=== PATIENT | male | born 1955 | race Caucasian/White ===

== ENCOUNTER → 2018-08-20 08:08 | Outpatient (CLI) | payer OTHER, SELFPAY ==
[2018-08-12 10:31] VITALS: BMI 30.7
[2018-08-20 09:22] LABS: AST(SGOT) 21 U/L (15-37); Alanine Aminotransfer ALT/SGPT 32 U/L (16-61); Albumin, Serum 3.7 g/dL (3.2-5.0); Alkaline Phosphatase 58 U/L (45-117); Bilirubin, Direct 0.24 mg/dL (0.00-0.30); Cholesterol 176 mg/dL (200); Globulin 3.3 g/dL (2.2-4.2); High Density Lipoprotein 57 mg/dL; Triglycerides 113 mg/dL; Very Low Density Lipoprotein 23 mg/dL (5-40)
== END ==
PROVIDERS: Family Provider Family Medicine; PCP Family Medicine; Referring Provider Internal Medicine Cardiovascular Disease; Visit Provider Internal Medicine Cardiovascular Disease
DX: I45.2 Bifascicular block (principal); E78.2 Mixed hyperlipidemia; E78.00 Pure hypercholesterolemia, unspecified
CPT/HCPCS: 36415; 80061; 80076

== ENCOUNTER → 2020-03-03 07:31 | Outpatient (CLI) | payer OTHER, SELFPAY ==
[2020-02-11 09:14] VITALS: BMI 30.2
[2020-03-03 08:18] LABS: AST(SGOT) 22 U/L (15-37); Alanine Aminotransfer ALT/SGPT 42 U/L (16-61); Alkaline Phosphatase 63 U/L (45-117); Bilirubin, Direct 0.29 mg/dL (0.00-0.30); Cholesterol 214 mg/dL (200); Globulin 3.5 g/dL (2.2-4.2); High Density Lipoprotein 68 mg/dL; Protein, Total 7.5 g/dL (6.4-8.2); Triglycerides 77 mg/dL; Very Low Density Lipoprotein 15 mg/dL (5-40)
== END ==
PROVIDERS: PCP Family Medicine; Referring Provider Internal Medicine Cardiovascular Disease; Visit Provider Internal Medicine Cardiovascular Disease
DX: E78.5 Hyperlipidemia, unspecified (principal)
CPT/HCPCS: 36415; 80061; 80076

== ENCOUNTER → 2020-09-22 | Outpatient (CLI) | payer OTHER, SELFPAY ==
[2020-02-11 09:14] VITALS: BMI 30.2
[2020-09-23 10:06] LABS: Probe Check PASS; Specimen Processing Control PASS
== END | disposition home or self-care (01) ==
LOC: LABSPEC 15:22
PROVIDERS: PCP Family Medicine; Referring Provider Family Medicine; Visit Provider Nurse Practitioner Family
DX: Z20.822 Contact with and (suspected) exposure to COVID-19 (principal)
CPT/HCPCS: 87635; U0002; U0003

== ENCOUNTER → 2021-04-28 07:41 | Outpatient (CLI) | payer OTHER, SELFPAY ==
[2021-04-28 09:52] LABS: AST(SGOT) 28 U/L (15-37); Alanine Aminotransfer ALT/SGPT 46 U/L (16-61); Albumin, Serum 3.5 g/dL (3.2-5.0); Alkaline Phosphatase 66 U/L (45-117); Cholesterol 186 mg/dL (200); Globulin 3.9 g/dL (2.2-4.2); High Density Lipoprotein 58 mg/dL; Protein, Total 7.4 g/dL (6.4-8.2); Triglycerides 78 mg/dL; Very Low Density Lipoprotein 16 mg/dL (5-40)
== END ==
PROVIDERS: PCP Family Medicine; Referring Provider Internal Medicine Cardiovascular Disease; Visit Provider Internal Medicine Cardiovascular Disease
DX: E78.00 Pure hypercholesterolemia, unspecified (principal)
CPT/HCPCS: 36415; 80061; 80076

== ENCOUNTER 2021-08-02 10:19 | Outpatient (CLI) | payer BC, SELFPAY ==
--- NOTE | 2021-08-02 10:52 | CT_ITS ---
STUDY: CT ABDOMEN AND PELVIS WITH CONTRAST REASON FOR EXAM: Male, 65 years old. LLQ PAIN. History of prior diverticulitis. RADIATION DOSAGE (If Supplied By Facility): CTDIvol = ( 13.44 ) mGy, DLP = ( 717.81 ) mGycm TECHNIQUE: Transaxial images were obtained from the dome of the diaphragm to the symphysis pubis with oral contrast. Oral and amp;amp; IV GASTROGRAFIN and amp;amp; 100mL Isovue-300 was administered. Sagittal and coronal images were reconstructed. Individualized dose optimization techniques were used for this CT. COMPARISON: Comparison is made with prior study dated 09/06/2014. FINDINGS: The visualized lung bases are unremarkable. A dual-chamber pacemaker is seen. There is decreased attenuation of the liver consistent with steatosis. Normal gallbladder and extrahepatic biliary system. There are multiple benign calcified granulomata of the spleen. Normal pancreas. Normal bilateral adrenal glands. Stable 1.2 cm cyst in the upper pole of the right kidney. Normal left kidney. Normal visualized stomach. Normal small intestine. There is diverticulosis, with thickening of the colon wall, and pericolonic inflammation changes consistent with acute diverticulitis. The appendix is visualized and appears normal. There is scattered atherosclerotic calcification of the abdominal aorta, without a demonstrated aneurysm. Normal inferior vena cava. Normal retroperitoneum. Normal urinary bladder. There is enlargement of the prostate gland. The prostate measures 3.9 cm x 5.1 cm. There is a small umbilical hernia containing fat. There are degenerative changes of the visualized lumbar spine. CT/Abdomen/Pelvis WITH Contrast IMPRESSION: Findings in keeping with an uncomplicated acute sigmoid diverticulitis. Diffuse fatty infiltration of the liver. Prostatic enlargement. Electronically Signed: Sadiq Jones MD at 13:49 EST , Service support ,
[2021-08-02 10:58] LABS: Hematocrit 46.8 % (40-54); Hemoglobin 16.5 g/dL (13.0-16.5); Mean Corp Hgb Conc 35.3 g/dL (32-36); Mean Corpuscular Hgb 32.9 pg (27.0-32.0); Mean Corpuscular Volume 93.2 fL (80-94); Mean Platelet Vol. 8.9 fl (6.2-12.0); Platelet Count 224 K/mm3 (150-450); RBC Distribution Width CV 12.2 % (11.6-14.6); RBC Distribution Width SD 41.9 fl (35.1-43.9); Red Blood Count 5.02 M/mm3 (4.6-6.2); White Blood Count 9.6 K/mm3 (4.4-11.0)
[2021-08-02 11:22] LABS: ALB/GLOB Ratio 1.1 RATIO (0.9-2.4); AST(SGOT) 21 U/L (15-37); Alanine Aminotransfer ALT/SGPT 50 U/L (16-61); Albumin, Serum 3.9 g/dL (3.2-5.0); Alkaline Phosphatase 67 U/L (45-117); Anion Gap 8 (5-15); BUN 17 mg/dL (7-18); BUN/Creat Ratio 15.5 RATIO (10-20); Calcium,Total 9.2 mg/dL (8.5-10.1); Chloride 104 mmol/L (98-107); EST Glomerular Filtration Rate 72 mL/min (>60); Est Glom Filt Rate - Afr Amer 87 mL/min (>60); Globulin 3.6 g/dL (2.2-4.2); Glucose 102 mg/dL (74-106); Lipase 71 U/L (73-393); Potassium 4.4 mmol/L (3.5-5.1); Protein, Total 7.5 g/dL (6.4-8.2); Sodium Level 140 mmol/L (136-145)
== END 2021-08-02 23:59 | disposition short-term general hospital (02) ==
LOC: CT 10:21
PROVIDERS: PCP Family Medicine; Referring Provider Family Medicine; Visit Provider Family Medicine
DX: R10.32 Left lower quadrant pain (principal)
CPT/HCPCS: 36415; 74177; 80053; 83690; 85027; Q9967

== ENCOUNTER 2021-08-07 09:45 | Outpatient (CLI) | payer BC, SELFPAY | END 2021-08-07 23:59 | disposition short-term general hospital (02) | LOC: LABSPEC 09:47 | PROVIDERS: PCP Family Medicine; Referring Provider Family Medicine; Visit Provider Family Medicine | DX: K57.92 Diverticulitis of intestine, part unspecified, without perforation or abscess without bleeding (principal) | CPT/HCPCS: 87493; 87506 ==

== ENCOUNTER → 2021-12-15 | Outpatient (CLI) | payer MEDICARE, BC, SELFPAY ==
[2021-12-15 09:17] LABS: AST(SGOT) 33 U/L (15-37); Alanine Aminotransfer ALT/SGPT 50 U/L (16-61); Albumin, Serum 4.1 g/dL (3.2-5.0); Alkaline Phosphatase 60 U/L (45-117); Anion Gap 6 (5-15); BUN 18 mg/dL (7-18); BUN/Creat Ratio 16.5 RATIO (10-20); Bilirubin, Direct 0.23 mg/dL (0.00-0.30); Chloride 103 mmol/L (98-107); Cholesterol 197 mg/dL (200); Creatinine, Serum 1.09 mg/dL (0.70-1.30); EST Glomerular Filtration Rate 72 mL/min (>60); Est Glom Filt Rate - Afr Amer 87 mL/min (>60); Globulin 3.4 g/dL (2.2-4.2); Glucose 101 mg/dL (74-106); High Density Lipoprotein 60 mg/dL; Potassium 3.9 mmol/L (3.5-5.1); Protein, Total 7.5 g/dL (6.4-8.2); Sodium Level 138 mmol/L (136-145); Triglycerides 110 mg/dL; Very Low Density Lipoprotein 22 mg/dL (5-40)
[2021-12-16 09:22] LABS: Vitamin D,25 Hydroxy 45.7 ng/mL
== END | disposition home or self-care (01) ==
LOC: LAB 07:48
PROVIDERS: PCP Family Medicine; Referring Provider Internal Medicine Cardiovascular Disease; Visit Provider Internal Medicine Cardiovascular Disease
DX: Z00.00 Encounter for general adult medical examination without abnormal findings (principal); E55.9 Vitamin D deficiency, unspecified; E78.00 Pure hypercholesterolemia, unspecified
CPT/HCPCS: 36415; 80048; 80061; 80076; 82306

== ENCOUNTER → 2022-03-01 | Outpatient (CLI) | payer MEDICARE, BC, SELFPAY | END | disposition home or self-care (01) | LOC: LABSPEC 16:38 | PROVIDERS: PCP Family Medicine; Visit Provider Family Medicine | DX: U07.1 COVID-19 (principal) | CPT/HCPCS: 87635; U0003; U0005 ==

== ENCOUNTER → 2022-07-19 | Outpatient (CLI) | payer MEDICARE, BC, SELFPAY ==
--- NOTE | 2022-07-19 07:53 | CT_ITS ---
EXAM: CT ABDOMEN AND PELVIS WITH INTRAVENOUS CONTRAST CLINICAL INDICATION: LLQ pain x months, hx diverticulitis, hernia repair x 2, hypertension. TECHNIQUE: Helically acquired images were obtained of the abdomen and pelvis with intravenous contrast. This CT exam was performed using one or more of the following dose reduction techniques: automated exposure control, adjustment of the mA and/or kV according to patient size, and/or use of iterative reconstruction technique. This report was created using [employer] report generation technology. CONTRAST: Oral and amp; IV Readi-CAT and amp; 100mL Isovue-370 RADIATION DOSE: Total DLP: 950.56 mGy-cm. COMPARISON: Previous CT of 08/02/2021. FINDINGS: LOWER THORAX: Minimal dependent atelectasis. Cardiac pacing leads. No coronary artery calcification is visualized. No significant pericardial effusion. ABDOMEN: LIVER: Mild fatty infiltration of the liver again noted. Stable 17 mm ovoid hyperattenuating focus within the liver adjacent to gallbladder fossa, which could be due to focal fatty infiltration or possibly cavernous hemangioma. Portal veins enhance normally. GALLBLADDER AND BILE DUCTS: Unremarkable. No calcified gallstones. No gallbladder distention or wall edema. No intra- or extrahepatic biliary ductal dilation. PANCREAS: Unremarkable. No focal cystic or solid mass. SPLEEN: Unremarkable. Normal size without focal cystic or solid mass. ADRENALS: Unremarkable. No nodules. KIDNEYS AND URETERS: Stable simple cyst at the upper pole of the right kidney, which requires no follow-up. Unremarkable left kidney. No hydronephrosis or obstructing ureteral stone. Normal renal size and position. STOMACH AND BOWEL: Stomach is decompressed. There is chronic thickening of the wall of the gastric fundus, most likely due to lack of distention. No periduodenal inflammatory changes or distended small bowel loops. The colon is elongated and redundant. Numerous colonic diverticula are again noted. The previously noted findings of diverticulitis have resolved. No findings of diverticulitis, colitis or small bowel obstruction identified at this time. PELVIS: APPENDIX: Normal No evidence of acute appendicitis. BLADDER: Base of the urinary bladder is indented by an enlarged prostate gland. Bladder wall is minimally thickened consistent with chronic bladder outlet obstruction. REPRODUCTIVE: Prostate gland is enlarged and indents the base of the urinary bladder. Prostate gland measures 5.5 cm in transverse diameter. ABDOMEN and PELVIS: INTRAPERITONEAL SPACE: Unremarkable. No ascites or other fluid collection. No free air. BONES/JOINTS: Degenerative spurring about the lower thoracic and lumbar disc spaces. Degenerative disc space narrowing with vacuum disc phenomenon at the L5/S1, L3/4 and L1/2 levels. Lumbar facet arthritis. Chronic asymmetric posterior-lateral osteophytes causing asymmetric narrowing of the left neural foramen at L5/S1. No suspicious lytic or blastic abnormality. SOFT TISSUES: Surgical mesh markers noted within the anterior pelvic wall. Small fat filled umbilical hernia again noted. VASCULATURE: Minimally calcific abdominal aorta and its branches. No AAA. LYMPH NODES: Unremarkable. No enlarged lymph nodes. CT/Abdomen/Pelvis WITH Contrast IMPRESSION: Colonic diverticulosis without evidence for acute diverticulitis. The previously noted sigmoid diverticulitis has resolved. Thickening of the wall of the gastric fundus, most likely due to lack of distention but upper GI series or endoscopy could be utilized for further evaluation, if patient has clinical symptoms referrable to this region. Electronically Signed: Marshall Ricci MD at 0:43 EST ,
[2022-07-19 08:40] LABS: CREATININE FINGERSTICK < 0.9 mg/dL (0.70-1.30); EGFR FINGERSTICK > 60.0000 mL/min (>60)
== END | disposition home or self-care (01) ==
PROVIDERS: PCP Family Medicine; Referring Provider Family Medicine; Visit Provider Family Medicine
DX: M48.061 Spinal stenosis, lumbar region without neurogenic claudication (principal); I70.0 Atherosclerosis of aorta; K57.30 Diverticulosis of large intestine without perforation or abscess without bleeding; M51.34 Other intervertebral disc degeneration, thoracic region; N28.1 Cyst of kidney, acquired; R10.32 Left lower quadrant pain; I10 Essential (primary) hypertension
CPT/HCPCS: 74177; Q9967

== ENCOUNTER → 2022-07-26 | Outpatient (CLI) | payer MEDICARE, BC, SELFPAY ==
[2022-07-26 07:50] LABS: AST(SGOT) 25 U/L (15-37); Alanine Aminotransfer ALT/SGPT 49 U/L (16-61); Albumin, Serum 3.6 g/dL (3.2-5.0); Alkaline Phosphatase 54 U/L (45-117); Bilirubin, Direct 0.15 mg/dL (0.00-0.30); Cholesterol 181 mg/dL (200); Globulin 3.7 g/dL (2.2-4.2); Protein, Total 7.3 g/dL (6.4-8.2)
[2022-07-26 07:51] LABS: High Density Lipoprotein 41 mg/dL; Triglycerides 213 mg/dL; Very Low Density Lipoprotein 43 mg/dL (5-40)
== END | disposition home or self-care (01) ==
LOC: LAB 06:05
PROVIDERS: PCP Family Medicine; Referring Provider Internal Medicine Cardiovascular Disease; Visit Provider Internal Medicine Cardiovascular Disease
DX: E78.00 Pure hypercholesterolemia, unspecified (principal)
CPT/HCPCS: 36415; 80061; 80076

== ENCOUNTER → 2022-10-30 | Outpatient (CLI) | payer MEDICARE, BC, SELFPAY ==
[2022-10-30 15:49] LABS: ALB/GLOB Ratio 1.2 RATIO (0.9-2.4); AST(SGOT) 37 U/L (15-37); Alanine Aminotransfer ALT/SGPT 51 U/L (16-61); Alkaline Phosphatase 57 U/L (45-117); Anion Gap 5 (5-15); BUN 16 mg/dL (7-18); BUN/Creat Ratio 14.4 RATIO (10-20); CRP < 2.90 mg/L (0.0-3.0); Calcium,Total 9.1 mg/dL (8.5-10.1); Chloride 106 mmol/L (98-107); Creatinine, Serum 1.11 mg/dL (0.70-1.30); EST Glomerular Filtration Rate 71 mL/min (>60); Est Glom Filt Rate - Afr Amer 85 mL/min (>60); Globulin 3.4 g/dL (2.2-4.2); Glucose 96 mg/dL (74-106); Potassium 3.7 mmol/L (3.5-5.1); Protein, Total 7.4 g/dL (6.4-8.2); Sodium Level 137 mmol/L (136-145)
[2022-10-30 16:14] LABS: Erythrocyte Sedimentation Rate 3 mm/hr (0-20)
[2022-10-30 16:16] LABS: Absolute Lymphocyte Count 1.63 X10^3/uL (0.83-4.51); Absolute Neutrophil Count 5.4 X10^3/uL (2.0-7.7); Basophil# 0.09 X10^3/uL; Basophil% 1.1 % (0-1); Eosinophils% 3.6 % (0-5); Hematocrit 47.9 % (40-54); Hemoglobin 16.2 g/dL (13.0-16.5); Lymphocyte # 1.63 X10^3/ul (0.83-4.51); Lymphocyte % 19.8 % (19-41); Mean Corp Hgb Conc 33.8 g/dL (32-36); Mean Corpuscular Hgb 32.4 pg (27.0-32.0); Mean Corpuscular Volume 95.8 fL (80-94); Mean Platelet Vol. 9.8 fl (6.2-12.0); Monocyte# 0.76 X10^3/uL; Monocyte% 9.2 % (0-10); NRBC Flagged by Analyzer 0 % (0-5); Neutrophil # 5.44 X10^3/uL (2.7-7.7); Neutrophil % 65.9 % (47-70); Platelet Count 217 K/mm3 (150-450); RBC Distribution Width CV 12.3 % (11.6-14.6); RBC Distribution Width SD 43.1 fl (35.1-43.9); White Blood Count 8.3 K/mm3 (4.4-11.0)
== END | disposition home or self-care (01) ==
PROVIDERS: PCP Family Medicine; Referring Provider Nurse Practitioner Adult Health; Visit Provider Nurse Practitioner Adult Health
DX: K58.9 Irritable bowel syndrome, unspecified (principal); K57.90 Diverticulosis of intestine, part unspecified, without perforation or abscess without bleeding
CPT/HCPCS: 36415; 80053; 85025; 85652; 86140

== ENCOUNTER → 2022-10-31 | Outpatient (CLI) | payer MEDICARE, BC, SELFPAY ==
[2022-11-02 23:26] LABS: Calprotectin, Stool 66 ug/g (0-120)
== END | disposition home or self-care (01) ==
LOC: LABSPEC 08:02
PROVIDERS: PCP Family Medicine; Referring Provider Nurse Practitioner Adult Health; Visit Provider Nurse Practitioner Adult Health
DX: K57.90 Diverticulosis of intestine, part unspecified, without perforation or abscess without bleeding (principal); K58.9 Irritable bowel syndrome, unspecified
CPT/HCPCS: 83630; 83993

== ENCOUNTER → 2022-11-14 | Outpatient (CLI) | payer MEDICARE, BC, SELFPAY ==
[2022-11-14 08:10] LABS: AST(SGOT) 25 U/L (15-37); Alanine Aminotransfer ALT/SGPT 38 U/L (16-61); Albumin, Serum 3.6 g/dL (3.2-5.0); Alkaline Phosphatase 55 U/L (45-117); Bilirubin, Direct 0.18 mg/dL (0.00-0.30); Cholesterol 183 mg/dL (200); Globulin 3.4 g/dL (2.2-4.2); High Density Lipoprotein 48 mg/dL; Triglycerides 237 mg/dL; Very Low Density Lipoprotein 47 mg/dL (5-40)
== END | disposition home or self-care (01) ==
LOC: LAB 06:03
PROVIDERS: PCP Family Medicine; Referring Provider Nurse Practitioner Family; Visit Provider Nurse Practitioner Family
DX: E78.00 Pure hypercholesterolemia, unspecified (principal)
CPT/HCPCS: 36415; 80061; 80076

== ENCOUNTER 2023-01-03 10:51 | Day surgery (SDC) | payer MEDICARE, BC, SELFPAY ==
[2023-01-03 11:06] VITALS: BP 122/89; PULSE 61; RESP 16; TEMP 36.6; O2SAT 99; BMI 29.7
[2023-01-03] MEDS: Lactated Ringers 1,000 ML 15 ML IV (11:12)
--- NOTE | 2023-01-03 11:34 | HP.PCM_ITS ---
History and Physical Date of Admission: 01/03/23 ?66 M who presents to the office today for recurrent diverticulitis. Diverticulitis for past approx 7 yrs, typically treated with augmentin, has become more of a chronic issue. He now has a chronic LLQ pain, more of a discomfort, worse in the morning, better after BM. With a flare the pain can wake him up. No hx surgery for diverticular disease. Developed RLQ pain 2 wks ago when in [place], radiated right flank, worse in night, better after BM. No urinary complaints. Remote hx kidney stone. He has constipation, bloating, rarely takes anything for it. No melena or hematochezia. Acid reflux well managed w/ nexium, will get heartburn if he missed 2 days of PPI. No nausea, vomiting, dysphagia. No upper abd pain. No prior EGD. Last colonoscopy may have been 8 yrs ago, Dr Spencer, general surgeon at [facility]. 07/10/2022 CT/Abdomen/Pelvis WITH Contrast IMPRESSION: Colonic diverticulosis without evidence for acute diverticulitis.? The previously noted sigmoid diverticulitis has resolved. Thickening of the wall of the gastric fundus, most likely due to lack of distention but upper GI series or endoscopy could be utilized for further evaluation, if patient has clinical symptoms referrable to this region. 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 ? ROS Const Constitutional: No fatigue ENT ENT: No difficulty swallowing Gastro GI: Positive for abdominal pain, bloating, constipation and excessive flatus; No belching, change in bowel habits, change in stool character, coffee ground emesis, cramping, diarrhea, heartburn, difficulty swallowing, feeling full early, incontinent of stools, Vomiting blood/hematemesis, Blood in stool, loose stools, Black,tarry stools, nausea/dyspepsia, pain with swallowing, vomiting or other Musc Musculoskeletal: Positive for back pain, numbness, tingling and Arthritis; No joint pain Skin Skin: No yellowing of the eye or itchy eyes Neuro Neurology: Positive for numbness and tingling Psych Psychiatric: No anxiety and No depression Endo Endocrine: No fatigue Aller/Imm Allergy/Immunologic: No itchy eyes Tra/Lymp Hematologic/Lymphatic: No easy bleeding or easy bruising Exam Const General: cooperative, healthy appearing and comfortable Nutritional Appearance: overweight Orientation: alert, awake and oriented x3 HENMT Head: normal to inspection Eyes Sclera: sclerae normal Chest Chest palpation & inspection: normal inspection of the chest Resp Effort & Inspection: normal respiratory effort GI Inspection: normal to inspection Palpation: soft, no hepatosplenomegaly, no masses and tender in the LLQ General: bladder normal to palpation Skin General: no rashes or lesions noted Neuro Speech: speech normal Gait: normal gait Psych Mood: congruent mood Quality Reporting Tobacco Screening ([facility] 138) Smoking Status: Never smoker Assessment and Plan Assessment and Plan (1) Diverticulosis: ?Status:?Chronic ?Plan: 66 yr old male with widespread diverticular disease in colon, hx recurrent diverticulitis, chronic LLQ pain, new RLQ pain. Will get labs to eval for inflammation, IBD. Consider treating for SCAD (segmental colitis assoc w/ diverticular disease) with mesalamine or sulfasalazine. Will schedule him for EGD (long hx reflux, thickened gastric wall on CT) and colonoscopy, with office f/u 2 wks later. (2) Abdominal pain: ?Status:?Chronic ?Plan: see above ? ? ? Orders: Orders Comprehensive Metabolic Profil Today K57.90 - Diverticulosis of intestine, part unspecified, without perforation or abscess without bleeding, R10.9 - Unspe cified abdominal pain ? CRP Today K57.90 - Diverticulosis of intestine, part unspecified, without perforation or abscess without bleeding, R10.9 - Unspecified abdominal pain ? CBC W/Diff, Automated Today K57.90 - Diverticulosis of intestine, part unspecified, without perforation or abscess without bleeding, K58.9 - Irritable bowel syndrome without diarrhea, R10.9 - Unspecified abdominal pain ? Erythrocyte Sed Rate Today K57.90 - Diverticulosis of intestine, part unspecified, without perforation or abscess without bleeding, R10.9 - Unspecified abdominal pain ? Calprotectin, Stool Today K57.90 - Diverticulosis of intestine, part unspecified, without perforation or abscess without bleeding, R10.9 - Unspecified abdominal pain ? Stool Lactoferrin/WBC Today K57.90 - Diverticulosis of intestine, part unspecified, without perforation or abscess without bleeding, K58.9 - Irritable bowel syndrome without diarrhea, R10.9 - Unspecified abdominal pain ? Miscellaneous Lab Procedure Today K57.90 - Diverticulosis of intestine, part unspecified, without perforation or abscess without bleeding, R10.9 - Unspecified abdominal pain ? Medications: Discontinued esomeprazole magnesium ?? Discontinued Reason:? Duplicate Order 40 mg? PO DAILY ? ? I have examined the patient and the H&P has been reviewed. There are no clinical changes since date of exam.
--- NOTE | 2023-01-03 12:00 | COLBX_PTH ---
PATIENT: JENIFER OLIVIER LOC: EN U#:[id number] AGE/SX: 67/M ROOM: RE01/03/[address]: Dr. Beni Conner DO : 1955 BED: DIS: 01/03/2023 SPEC #: [id number] RECD: 01/03/23 13:19 STATUS: PARAM REChetan #: [id number] GRAYSON: 01/03/23 12:[address]: Beni Conner DEPT: SURGICAL PATHOLOGY RECD BY: Asif Castanon ENTERED: 01/03/23 13:51 SP TYPE: COLON BX OTHR DR: Dr. Lazaro Degroot MD Tissues: A - Esophagus, NOS B - Gastric mucous membrane C - Duodenum, NOS D - COLON BIOPSY E - Descending colon F - Sigmoid colon biopsy Procedures: Special Stain Group II Surgery Specimen Level IV Alcian Blue/PAS (control) HEADER OPERATION: Colonoscopy with biopsy, EGD (MAC) with biopsies PRE-OP DIAGNOSIS: Diverticulosis, abdominal pain TISSUE SUBMITTED: A - Distal esophagus biopsy, B - Gastric polyp biopsy, C - Duodenal biopsy, D - Hepatic flexure polyp biopsy, E - Descending colon polyp biopsy, F - Sigmoid polyp biopsy MICROSCOPIC DIAGNOSIS A. Distal esophagus, biopsy: Fragments of gastroesophageal mucosa with chronic inflammation. Intestinal metaplasia (goblet cell metaplasia) not identified. See comment. B. Gastric polyp, biopsy: Fragments of hyperplastic/inflammatory polyp. C. Duodenal biopsy: A fragment of duodenal mucosa with nonspecific chronic inflammation. D. Hepatic flexure polyp, biopsy: Fragments of hyperplastic polyp. E. Descending colon polyp, biopsy: Hyperplastic polyp. F. Sigmoid polyp, biopsy: Hyperplastic polyp. SJ:lissette 01/04/2023 COMMENT A. Alcian blue/PAS stain with matched control is used in the evaluation of the specimen. MICROSCOPIC DESCRIPTION Slides are reviewed. GROSS DESCRIPTION A - Received in fixative is one container labeled with the patient's name and designated distal esophagus biopsy. The specimen consists of multiple irregular fragments of light verma soft tissue that in aggregate measure 1.0 x 0.3 x 0.1 cm. The specimen is totally submitted in one cassette. B - Received in fixative is one container labeled with the patient's name and designated gastric polyp biopsy. The specimen consists of two irregular fragments of light verma soft tissue that in aggregate measure 0.7 x 0.4 x 0.1 cm. The specimen is totally submitted in one cassette. C - Received in fixative is one container labeled with the patient's name and designated duodenal biopsy. The specimen consists of one irregular fragment of light verma soft tissue that measures 0.6 x 0.3 x 0.1 cm. The specimen is totally submitted in one cassette. D - Received in fixative is one container labeled with the patient's name and designated hepatic flexure polyp biopsy. The specimen consists of multiple irregular fragments of light verma soft tissue that in aggregate measure 0.8 x 0.6 x 0.1 cm. The specimen is totally submitted in one cassette. E - Received in fixative is one container labeled with the patient's name and designated descending colon polyp biopsy. The specimen consists of one irregular fragment of light verma soft tissue that measures 0.3 x 0.3 x 0.1 cm. The specimen is totally submitted in one cassette. F - Received in fixative is one container labeled with the patient's name and designated sigmoid polyp biopsy. The specimen consists of one irregular fragment of light verma soft tissue that measures 0.3 x 0.3 x 0.1 cm. The specimen is totally submitted in one cassette. / SJ:rg 01/03/2023 TC:1 CPT: 23820 x6, 74835
[2023-01-03 12:45] VITALS: BP 117/63; BP 122/89; PULSE 69; RESP 18; TEMP 36.9; O2SAT 98
--- NOTE | 2023-01-03 12:46 | OP.EGD_ITS ---
Patient Name: Logan Mccarty Procedure Date: 01/03/2023 12:04 PM Date of : 1955 Age: 67 Procedure: Upper GI endoscopy Indications: Heartburn, Suspected esophageal reflux Providers: Beni Conner DO Medicines: Monitored Anesthesia Care Patient Profile: This is a 67 year old male. Refer to note in patient chart for documentation of history and physical. Patient has symptoms of chronic epigastric abdominal pain and chronic heartburn. Complications: No immediate complications. Procedure: Pre-Anesthesia Assessment: - Prior to the procedure, a History and Physical was performed, and patient medications and allergies were reviewed. The patient is competent. The risks and benefits of the procedure and the sedation options and risks were discussed with the patient. All questions were answered and informed consent was obtained. Patient identification and proposed procedure were verified by the physician in the pre-procedure area. Mental Status Examination: normal. Prophylactic Antibiotics: The patient does not require prophylactic antibiotics. Prior Anticoagulants: The patient has taken no previous anticoagulant or antiplatelet agents. ASA Grade Assessment: III - A patient with severe systemic disease. After reviewing the risks and benefits, the patient was deemed in satisfactory condition to undergo the procedure. The anesthesia plan was to use monitored anesthesia care (MAC). Immediately prior to administration of medications, the patient was re-assessed for adequacy to receive sedatives. The heart rate, respiratory rate, oxygen saturations, blood pressure, adequacy of pulmonary ventilation, and response to care were monitored throughout the procedure. The physical status of the patient was re-assessed after the procedure. After obtaining informed consent, the endoscope was passed under direct vision. Throughout the procedure, the patient's blood pressure, pulse, and oxygen saturations were monitored continuously. The was introduced through the mouth, and advanced to the second part of duodenum. The upper GI endoscopy was accomplished without difficulty. The patient tolerated the procedure well. Scope In: 12:16:58 PM Scope Out: 12:22:08 PM Total Procedure Duration Time 0 hours 5 minutes 10 seconds Findings: The Z-line was irregular and was found 39 cm from the incisors. Biopsies were taken with a cold forceps for histology. Verification of patient identification for the specimen was done. Estimated blood loss was minimal. Three 5 mm sessile polyps with bleeding and stigmata of recent bleeding were found on the greater curvature of the stomach. The polyp was removed with a cold snare. Resection and retrieval were complete. Verification of patient identification for the specimen was done. Estimated blood loss was minimal. Localized mild inflammation characterized by congestion (edema) was found in the duodenal bulb. Biopsies were taken with a cold forceps for histology. Verification of patient identification for the specimen was done. Estimated blood loss was minimal. Impression: - Z-line irregular, 39 cm from the incisors. Biopsied. - Three gastric polyps. Resected and retrieved. - Duodenitis. Biopsied. Recommendation: - Discharge patient to home. - Resume previous diet. - Continue present medications. Procedure Code(s): --- Professional --- 26906, Esophagogastroduodenoscopy, flexible, transoral; with removal of tumor(s), polyp(s), or other lesion(s) by snare technique 75432, 59,51, Esophagogastroduodenoscopy, flexible, transoral; with biopsy, single or multiple CPT copyright 2017 [employer]. All rights reserved. The codes documented in this report are preliminary and upon bag tester review may be revised to meet current compliance requirements. Beni Conner DO 01/03/2023 12:45:52 PM This report has been signed electronically. Number of Addenda: 0 Note Initiated On: 01/03/2023 12:04 PM
--- NOTE | 2023-01-03 12:47 | OP.CCLET_ITS ---
01/03/2023 Lazaro Degroot MD [address] [phone] Re : Upper GI endoscopy procedure for Logan Mccarty Dear Dr. Degroot This procedure was performed on December. My impressions and recommendations are as follows: Impressions : - Z-line irregular, 39 cm from the incisors. Biopsied. - Three gastric polyps. Resected and retrieved. - Duodenitis. Biopsied. Recommendations : - Discharge patient to home. - Resume previous diet. - Continue present medications. My findings are described in the full procedure note, which is enclosed. If I can be of further assistance, please feel free to contact me at . Sincerely, Beni Conner, 01/03/2023 12:45:52 PM This report has been signed electronically.
[2023-01-03 12:50] VITALS: BP 104/77; BP 122/89; PULSE 63; RESP 18; O2SAT 95
--- NOTE | 2023-01-03 12:50 | OP.COLON_ITS ---
Patient Name: Logan Mccarty Procedure Date: 01/03/2023 12:22 PM Date of : 1955 Age: 67 Procedure: Colonoscopy Indications: Screening for colorectal malignant neoplasm Providers: Beni Conner DO Medicines: Monitored Anesthesia Care Patient Profile: This is a 67 year old male. Refer to note in patient chart for documentation of history and physical. Patient has symptoms of chronic epigastric abdominal pain and chronic heartburn. Last Colonoscopy: several years ago. Complications: No immediate complications. Procedure: Pre-Anesthesia Assessment: - Prior to the procedure, a History and Physical was performed, and patient medications and allergies were reviewed. The patient is competent. The risks and benefits of the procedure and the sedation options and risks were discussed with the patient. All questions were answered and informed consent was obtained. Patient identification and proposed procedure were verified by the physician in the pre-procedure area. Mental Status Examination: normal. Prophylactic Antibiotics: The patient does not require prophylactic antibiotics. Prior Anticoagulants: The patient has taken no previous anticoagulant or antiplatelet agents. ASA Grade Assessment: III - A patient with severe systemic disease. After reviewing the risks and benefits, the patient was deemed in satisfactory condition to undergo the procedure. The anesthesia plan was to use monitored anesthesia care (MAC). Immediately prior to administration of medications, the patient was re-assessed for adequacy to receive sedatives. The heart rate, respiratory rate, oxygen saturations, blood pressure, adequacy of pulmonary ventilation, and response to care were monitored throughout the procedure. The physical status of the patient was re-assessed after the procedure. After I obtained informed consent, the scope was passed under direct vision. Throughout the procedure, the patient's blood pressure, pulse, and oxygen saturations were monitored continuously. The was introduced through the anus and advanced to the cecum, identified by appendiceal orifice and ileocecal valve. The colonoscopy was performed without difficulty. The patient tolerated the procedure well. The quality of the bowel preparation was adequate. Scope In: 12:24:14 PM Scope Withdrawal Time 0 hours 11 minutes 16 seconds Scope Out: 12:39:43 PM Total Procedure Duration Time 0 hours 15 minutes 29 seconds Findings: The perianal and digital rectal examinations were normal. Multiple small and large-mouthed diverticula were found in the recto-sigmoid colon, sigmoid colon, descending colon, transverse colon and ascending colon. Three sessile polyps were found in the sigmoid colon, descending colon and hepatic flexure. The polyps were 1 to 2 mm in size. These polyps were removed with a cold snare. Resection and retrieval were complete. Verification of patient identification for the specimen was done. Estimated blood loss was minimal. Impression: - Diverticulosis in the recto-sigmoid colon, in the sigmoid colon, in the descending colon, in the transverse colon and in the ascending colon. - Three 1 to 2 mm polyps in the sigmoid colon, in the descending colon and at the hepatic flexure, removed with a cold snare. Resected and retrieved. Recommendation: - Repeat colonoscopy in 5 years for surveillance. - Continue present medications. Procedure Code(s): --- Professional --- 65389, Colonoscopy, flexible; with removal of tumor(s), polyp(s), or other lesion(s) by snare technique CPT copyright 2017 [employer]. All rights reserved. The codes documented in this report are preliminary and upon lapidary apprentice review may be revised to meet current compliance requirements. Beni Conner DO 01/03/2023 12:49:47 PM This report has been signed electronically. Number of Addenda: 0 Note Initiated On: 01/03/2023 12:22 PM
--- NOTE | 2023-01-03 12:51 | OP.CCLET_ITS ---
01/03/2023 Lazaro Degroot MD [address] [phone] Re : Colonoscopy procedure for Logan Mccarty Dear Dr. Degroot This procedure was performed on December. My impressions and recommendations are as follows: Impressions : - Diverticulosis in the recto-sigmoid colon, in the sigmoid colon, in the descending colon, in the transverse colon and in the ascending colon. - Three 1 to 2 mm polyps in the sigmoid colon, in the descending colon and at the hepatic flexure, removed with a cold snare. Resected and retrieved. Recommendations : - Repeat colonoscopy in 5 years for surveillance. - Continue present medications. My findings are described in the full procedure note, which is enclosed. If I can be of further assistance, please feel free to contact me at . Sincerely, Beni Conner, 01/03/2023 12:49:47 PM This report has been signed electronically.
[2023-01-03 12:55] VITALS: BP 112/77; BP 122/89; PULSE 61; RESP 18; O2SAT 96
[2023-01-03 13:00] VITALS: BP 118/83; BP 122/89; PULSE 63; RESP 18; TEMP 35.9; O2SAT 94
[2023-01-03 13:22] VITALS: BP 122/89
== END 2023-01-03 13:38 | disposition home or self-care (01) ==
LOC: EN 10:51 → AC 10:53
PROVIDERS: PCP Family Medicine; Referring Provider Family Medicine; Visit Provider Internal Medicine Gastroenterology
PROC: 0DJD8ZZ Inspection of Lower Intestinal Tract, Via Natural or Artificial Opening Endoscopic (ICD-10-PCS; CPT 45378; principal; 2023-01-03 11:55)
DX: Z12.11 Encounter for screening for malignant neoplasm of colon (principal); K57.32 Diverticulitis of large intestine without perforation or abscess without bleeding; K31.7 Polyp of stomach and duodenum; K29.80 Duodenitis without bleeding; K21.9 Gastro-esophageal reflux disease without esophagitis; K63.5 Polyp of colon; G89.29 Other chronic pain; I45.2 Bifascicular block; I10 Essential (primary) hypertension; E78.00 Pure hypercholesterolemia, unspecified; E66.3 Overweight; Z68.29 Body mass index [BMI] 29.0-29.9, adult; Z95.0 Presence of cardiac pacemaker; Z79.82 Long term (current) use of aspirin; Z79.899 Other long term (current) drug therapy; Z86.73 Personal history of transient ischemic attack (TIA), and cerebral infarction without residual deficits
CPT/HCPCS: 45385; 43239; 43251; 88305; 88313; 88342; J7120; J2405

== ENCOUNTER → 2023-07-26 | Outpatient (CLI) | payer MEDICARE, BC, SELFPAY ==
--- OUTSIDE RECORDS SUMMARY | 2023-07-26 06:03 | XMS RPT_ITS | CCD ---
Author Name Unknown Address [address] [place] [address] Organization [facility] Care Team Providers Care Welding Setter Name Role Phone Makenzie RN, Abbey Pat Unavailable Unavailable DeFinis, Cisco Y Unavailable Unavailable ROXANE SANTOS Unavailable Unavailable Makenzie BROWN, Abbey Pat Unavailable Unavailable Makenzie BROWN, Abbey Pat Unavailable Unavailable Quinten, Nirmal S Unavailable Darío Villatoro MD Unavailable [phone] Abigail Caballero MD Unavailable [phone] Quinten, Windsor S Unavailable Shauna BAH Mohamed H Unavailable Abigail Caballero MD Unavailable [phone] ALMASSI, ALMA Attending Unavailable ALMASSI, ALMA Referring Unavailable Lazaro Degroot MD Primary Care Provider ABIGAIL CABALLERO Referring Unavailable LUPE, IZZY Referring Unavailable ALMASSI, ALMA Attending Unavailable ALMASSI, ALMA Referring Unavailable FUCNIKKY, ABIGAIL Attending Unavailable FUCNIKKY, ABIGAIL Referring Unavailable FUCHS, ABIGAIL Referring Unavailable Nirmal Shipley MD S Unavailable Shauna BAH Mohamerico H Unavailable Abigail Caballero MD Unavailable [phone] Lazaro Degroot MD Primary Care Provider Medications Current Medications Medication Drug Class(es) Dates Sig (Normalized) Sig (Original) perflutren lipid microspheres 1.3 mL in NaCl (PF) 0.9% 10 mL injection (DEFINITY) (9 sources) Start: 07-03-2022 End: 10-02-2023 perflutren lipid microspheres 1.3 mL in NaCl (PF) 0.9% 10 mL injection (DEFINITY) Completed/Discontinued Medications Medication Drug Class(es) Dates Sig (Normalized) Sig (Original) amLODIPine 5 mg oral tablet (3 sources) Dihydropyridine Calcium Channel [place] Start: 10-16-2022 take 1 tablet by mouth once daily amLODIPine (NORVASC) 5 mg tablet Take 5 mg by mouth once daily. 0 10/16/2022 Active Problems Active Problems Problem Classification Problem Date Documented Date Episodic/Chronic Cardiac and circulatory congenital anomalies (15 sources) Ventricular septal defect; Translations: [Ventricular septal defect] Onset: 11-22-2010 11-22-2010 Chronic Cardiac and circulatory congenital anomalies (2 sources) History of closure of ventricular septal defect; Translations: [Personal history of (corrected) congenital malformations of heart and circulatory system] Onset: 12-20-2022 Episodic Conduction disorders (8 sources) Bifascicular block; Translations: [Complete atrioventricular block] Onset: 11-22-2010 11-22-2010 Chronic Disorders of lipid metabolism (4 sources) Hyperlipidemia; Translations: [Hyperlipidemia, unspecified] Onset: 11-22-2010 11-22-2010 Chronic Diverticulosis and diverticulitis (9 sources) Diverticular disease; Translations: [Diverticulosis of intestine, part unspecified, without perforation or abscess without bleeding] Onset: 11-01-2014 11-01-2014 Chronic Essential hypertension (4 sources) Essential hypertension; Translations: [Essential (primary) hypertension] Onset: 12-21-2022 Chronic Headache; including migraine (9 sources) Migraine without aura, not refractory ; Translations: [Migraine without aura, not intractable, without status migrainosus] Onset: 10-21-2017 06-11-2019 Chronic Hyperplasia of prostate (19 sources) Benign prostatic hypertrophy with outflow obstruction; Translations: [Benign prostatic hyperplasia with lower urinary tract symptoms] Onset: 08-03-2015 Chronic Other lower respiratory disease (1 source) Dyspnea; Translations: [Shortness of breath] Episodic Other male genital disorders (2 sources) Male erectile dysfunction, unspecified; Translations: [Impotence of organic origin] Onset: 09-18-2022 Chronic Joseline-; endo-; and myocarditis; cardiomyopathy (except that caused by tuberculosis or sexually transmitted disease) (8 sources) Cardiomyopathy associated with another disorder; Translations: [Cardiomyopathy] Onset: 06-07-2016 06-07-2016 Chronic Peripheral and visceral atherosclerosis (9 sources) Vasodilatation; Translations: [Peripheral vascular disease, unspecified] Onset: 03-03-2018 03-03-2018 Chronic Unclassified (4 sources) Long-term drug therapy; Translations: [Other correction (current) drug therapy] Onset: 11-22-2010 11-22-2010 Past or Other Problems Problem Classification Problem Date Documented Date Episodic/Chronic Abdominal hernia (9 sources) Bilateral inguinal hernia; Translations: [Bilateral inguinal hernia, without obstruction or gangrene, not specified as recurrent] Onset: 06-21-2009 06-21-2009 Episodic Conditions associated with dizziness or vertigo (14 sources) Dizziness and giddiness; Translations: [Dizziness and giddiness] Onset: 11-22-2010 11-22-2010 Episodic Headache; including migraine (9 sources) Primary exertional headache; Translations: [Headache] Onset: 10-21-2017 10-21-2017 Episodic Nausea and vomiting (1 source) Nausea; Translations: [Nausea] Onset: 07-25-2017 Episodic Other diseases of veins and lymphatics (1 source) Varicose veins of other specified sites; 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] Onset: 07-25-2017 Episodic Other diseases of veins and lymphatics (9 sources) Aneurysm of vein; 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] Onset: 03-03-2018 06-11-2019 Episodic Other screening for suspected conditions (not mental disorders or infectious disease) (20 sources) Electrocardiogram abnormal; Translations: [Abnormal result of cardiovascular function study, unspecified] Onset: 11-22-2010 Resolved: 04-26-2017 11-22-2010 Episodic Residual codes; unclassified (4 sources) Family history of ischemic heart disease and other diseases of the circulatory system; Translations: [Family history of ischemic heart disease and other diseases of the circulatory system] 05-18-2014 Episodic Syncope (20 sources) Syncope and collapse; Translations: [Syncope and collapse] Onset: 11-22-2010 11-22-2010 Episodic Results Test Name Value Interpretation Reference Range Facil ity Vital Signs Date Time Vital Sign Value Performing Clinician Racquel steel 12-20-2022 12:59-0400 Body weight 78.93 kg Abigail Caballero MD Work Phone: [facility] 12-20-2022 12:59-0400 Diastolic blood pressure 91 mm[Hg] Abigail Caballero MD Work Phone: [facility] 12-20-2022 12:59-0400 Heart rate 61 /min Abigail Caballero MD Work Phone: [facility] 12-20-2022 12:59-0400 Respiratory rate 15 /min Abigail Caballero MD Work Phone: [facility] 12-20-2022 12:59-0400 SaO2% (BldA) [Mass fraction] 97 % Abigail Caballero MD Work Phone: [facility] 12-20-2022 12:59-0400 Systolic blood pressure 150 mm[Hg] Abigail Caballero MD Work Phone: [facility] 05-07-2017 13:26-0400 BMI (Body Mass Index) 28.4 kg/m2 Harumi DeFinis [facility] Work Phone: 05-07-2017 13:26-0400 BP Diastolic 78 mm[Hg] Harumi DeFinis [facility] Work Phone: 05-07-2017 13:26-0400 BP Systolic 132 mm[Hg] Harumi DeFinis [facility] Work Phone: 05-07-2017 13:26-0400 Height 167.64 cm Harumi DeFinis [facility] Work Phone: 05-07-2017 13:26-0400 Pulse (Heart Rate) 62 /min Harumi DeFinis [facility] Work Phone: 05-07-2017 13:26-0400 Respiratory Rate 16 /min Harumi DeFinis [facility] Work Phone: 05-07-2017 13:26-0400 Weight 79.83 kg Harumi DeFinis [facility] Work Phone: 10-18-2016 15:55-0400 BMI (Body Mass Index) 27.6 kg/m2 Abbey Banegas RN [facility] Work Phone: 10-18-2016 15:55-0400 BP Diastolic 60 mm[Hg] Abbey Banegas RN [facility] Work Phone: 10-18-2016 15:55-0400 BP Systolic 120 mm[Hg] Abbeyana maria Banegas RN [facility] Work Phone: 10-18-2016 15:55-0400 Height 167.64 cm Abbey Banegas RN [facility] Work Phone: 10-18-2016 15:55-0400 Pulse (Heart Rate) 56 /min Abbey Bnaegas RN [facility] Work Phone: 10-18-2016 15:55-0400 Respiratory Rate 20 /min Abbey Banegas RN [facility] Work Phone: 10-18-2016 15:55-0400 Weight 77.57 kg Abbeyana maria Banegas RN [facility] Work Phone: 07-06-2016 14:06-0500 BSA (Body Surface Area) 1.91 m2 Abbeyana maria Banegas RN [facility] Work Phone: 05-29-2016 09:01-0500 Heart rate 66 /min Abbeyana maria Banegas RN [facility] Work Phone: Encounters Encounter Date Encounter Type Care Provider Facility Start: 05-06-2023 Orders Only Izzy Lupe VENEGAS N.BROACHING MACHINE REPAIRER Work Phone: Urology Start: 12-24-2022 Orders Only Darío Villatoro MD Work Phone: Cardiology Procedures Date Procedure Procedure Detail Performing Clinician Start: 08-07-2019 Lipid 1996 panel - S mcih or Plasma Izzy Lupe SENIOR DEVELOPER.BROACHING MACHINE REPAIRER Work Phone: Start: 06-10-2019 Adult depression scr eening assessment Sanam Mckeon RN Start: 05-07-2017 End: 05-07-2017 SEVERINO Shipley MD Start: 05-07-2017 End: 05-07-2017 Follow Up Appt 6 months Zita Reyes Start: 05-07-2017 End: 05-07-2017 Dietary management education, guidance, and counseling Abbey Banegas RN Start: 10-18-2016 End: 05-07-2017 SEVERINO Shipley MD Start: 10-18-2016 End: 05-07-2017 Follow Up Appt 6 months Zita Reyes Start: 07-06-2016 End: 07-06-2016 Dietary management education, guidance, and counseling Abbey Banegas RN Start: 07-06-2016 End: 07-06-2016 SEVERINO Shipley MD Start: 07-06-2016 End: 07-06-2016 Follow Up Appt 3 months Zita Reyes Start: 06-07-2016 End: 06-20-2016 Nuclear stress test -exercise Nirmal Fowler MD Start: 05-29-2016 End: 05-29-2016 *BMP Nirmal Shipley MD Start: 05-29-2016 End: 06-04-2016 24 hour holter monitor Nirmal Shipley MD Start: 05-29-2016 End: 05-29-2016 SEVERINO Shipley MD Start: 05-29-2016 End: 05-29-2016 Ecg routine ecg w/least 12 lds w/i&r Nirmal Shipley MD Start: 05-29-2016 End: 06-07-2016 Echocardiography Nirmal Shipley MD Start: 05-29-2016 End: 05-29-2016 Follow Up Appt 6 months Zita Reyes Start: 05-29-2016 End: 05-29-2016 Magnesium [Mass/volume] in Serum or Plasma Nirmal Shipley MD Start: 10-27-2015 End: 02-21-2016 *Hepatic Function Panel Zita Reyes Start: 10-27-2015 End: 02-21-2016 Lipid 1996 panel - Serum or Plasma Nirmal Shipley MD Start: 05-24-2015 End: 05-24-2015 SENIOR PAYROLL MANAGER Nirmal Shipley MD Start: 05-24-2015 End: 05-25-2015 Documentation of current medications Nirmal Shipley MD Start: 05-24-2015 End: 05-24-2015 Ecg routine ecg w/least 12 lds w/i&r Nirmal Shipley MD Start: 05-24-2015 End: 05-24-2015 Follow Up Appt 1 year Nirmal Shipley MD Start: 10-26-2014 Colonoscopy Sanam ratliff RN Start: 06-21-2014 End: 04-26-2015 *Hepatic Function Panel Zita Reyes Start: 06-21-2014 End: 04-26-2015 Lipid 1996 panel - Serum or Plasma Nirmal Shipley MD Start: 05-18-2014 End: 05-18-2014 SENIOR PAYROLL MANAGER Nirmal Shipley MD Start: 05-18-2014 End: 05-18-2014 Follow Up Appt 1 year Nirmal Shipley MD Start: 10-20-2013 End: 12-29-2013 *Hepatic Function Panel Zita Reyes Start: 10-20-2013 End: 12-29-2013 Lipid 1996 panel - Serum or Plasma Nirmal Shipley MD Start: 04-30-2013 End: 04-30-2013 SEVERINO Shipley MD Start: 04-30-2013 End: 04-30-2013 Follow Up Appt 1 year Nirmal Shipley MD Start: 10-31-2012 End: 04-30-2013 *Hepatic Function Panel Zita Reyes Start: 10-31-2012 End: 10-31-2012 SEVERINO Shipley MD Start: 10-31-2012 End: 10-31-2012 Follow Up Appt 6 months Zita Reyes Start: 10-31-2012 End: 04-30-2013 Lipid 1996 panel - Serum or Plasma Nirmal Shipley MD Start: 04-08-2012 End: 04-30-2013 Follow Up Appt 6 months Zita Reyes Start: 04-08-2012 End: 04-30-2013 Lipid 1996 panel - Serum or Plasma Nirmal Shipley MD Start: 12-25-2011 End: 12-28-2011 24 hour holter monitor Nirmal Shipley MD Plan of Treatment Date Care Activity Detail Author Start: 09-13-2027 PROSTATE CANCER SCREENING DISCUSSION PROSTATE CANCER SCREENING DISCUSSION [facility] Start: 09-11-2026 PROSTATE CANCER SCREENING DISCUSSION PROSTATE CANCER SCREENING DISCUSSION [facility] Start: 12-20-2025 DIABETES SCREEN DIABETES SCREEN [facility] Start: 12-20-2025 Diabetes Screening Diabetes Screenleandro grullon [facility] Start: 12-21-2024 End: 02-20-2025 CBC panel - Blood by Automated count CBC Lab Routine VSD (ventricular septal defect) Expected: 12/21/2024, Expires: 02/20/2025 [facility] Work Phone: Immunizations Immunization Date Immunization Notes Care Provider Florencio jules 04-20-2022 influenza virus vaccine, unspecified formulation Izzy Andrade APRN.BROACHING MACHINE REPAIRER Work Phone: [facility] 10-13-2020 COVID-19 vaccine, ag e 12+ yr (PFIZER-BIONTECH - PURPLE TOP) Sanam Mckeon RN [facility] Work Phone: 09-22-2020 COVID-19 vaccine, ag e 12+ yr (PFIZER-BIONTECH - PURPLE TOP) Sanam Mckeon RN [facility] Payers Date Payer Category Payer Medicare MEDICARE MEDICAR E A AND B [id number] 2021-Present [phone] [place] [address] Medicare [id number] 2021 Medicare [id number] 2021 Medicare [id number] 2021 Unknown [id number] 2021 Unknown [id number] Social History Date Type Detail Facility Start: 07-05-2017 End: 09-18-2022 Tobacco smoking status NHIS Never smoked tobacco [facility] Start: 07-05-2017 End: 09-18-2022 Tobacco use and exposure Smokeless tobacco non-user [facility] Start: 09-12-2021 End: 12-20-2022 Alcohol intake Current drinker of alcohol (finding) [facility] Start: 08-15-2016 History SDOH Alcohol Comment socially- split bottle wine with dinner 3-5 times a week [facility] Start: 1955 Sex Assigned At Not on file C [facility] Start: 12-20-2022 Alcohol Comment 7 /week wine w dinne r [facility] Start: 06-10-2019 End: 12-20-2022 History of Social function [facility] Start: 06-10-2019 End: 12-20-2022 Tobacco use panel [facility] PHQ2 Score 0 [facility] Notes 03-30-2022 to 12-20-2022 Abigail Caballero MD - 12/20/2022 12:45 PM EDTTelephone Encounter - Brady Chandra, [facility] - 09/06/2022 8:34 AM Yeny Montgomery MD - 04/04/2022 5:00 PM EDT Note Date & Type Note Facility 12-20-2022 Note HNO ID: [id number] Author: Abigail Caballero MD Service: ? Author Type: Physician Type: Progress Notes Filed: 12/21/2022 3:43 PM Note Text: [facility] [place] [facility] OUTPATIENT VISIT DATE December 20, 2022 OUTPATIENT VISIT TYPE ESTABLISHED PRIMARY CARE PHYSICIAN: Lazaro Degroot MD [address] [phone] CHIEF COMPLAINT: Follow up CONGENITAL CARDIAC HISTORY: Ventricular septal defect 08/03/1959 - s/p suture closure of 6x3 mm VSD. Challenging repair due to difficulty visualizing the defect, required two bypass runs (Dr. Dewitt, [facility]). Operative report in [facility] under Scanned Docs, scanned on 10/25/16. 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 Mccarty presents for follow up evaluation. I last saw him 12/2020. Since then he reports he has largely been well and is enjoying his jail, spending lots of time with his grandchildren. He has gained a bit more weight which is bothering him. Since his last visit he was started on metoprolol and then subsequently also on Norvasc 6-8 months ago for management of hypertension. BP at home is primarily in the 120s-130s systolic. His Lipitor was also increased from 10 to 20 mg. High PSA continues to be followed closely - had a scare where they suspected prostate cancer but further testing was benign. He notices mild exertional intolerance when chasing after his grandchildren, but can go for a 3.5 mile walk with his without any symptoms. 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 VSD (ventricular septal defect) 03/03/2018 PAST SURGICAL HISTORY Procedure Laterality Date CLSR 1 VENTRICULAR SEPTAL DEFECT W/WO PATCH 1960 COLONOSCOPY 2012 [facility] COLONOSCOPY FLX DX W/COLLJ SPEC WHEN PFRMD 10/26/14 Repeat 2024 PAST SURGICAL HISTORY OF 1961 jugular vein resection, PAST SURGICAL HISTORY OF left breast gynecomastia surg PAST SURGICAL HISTORY OF 08/2016 loop recorder PAST SURGICAL HISTORY OF 06/15/2019 dual chamber PPM RPR 1ST INGUN HRNA AGE 6 YRS/> REDUCIBLE 1957 Hernia repair, inguinal, bilat as baby STRABISMUS SURGERY 3+ MUSCLES 1985 left Social History Tobacco Use Smoking status: Never Smokeless tobacco: Never Vaping Use Vaping Use: Never used Substance Use Topics Alcohol use: Yes Comment: 7 /week wine w dinner Drug use: No 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 FAMILY HISTORY Problem Relation Age of Onset Coronary Artery Disease Mother Hypertension Mother other (Migraine) Mother Coronary Artery Disease Father Hypertension Father Heart Attack Father Hypertension Sister other (Migraine) Sister Coronary Artery Disease Brother s/p CABG Heart Attack Brother Hypertension Brother No Family History Other AAA ALLERGIES No Known Allergies MEDICATIONS: Tadalafil (CIALIS) 5 mg tabletTake 1 tablet by mouth as needed.Disp: 90 tabletRfl: 1 dutasteride (AVODART) 0.5 mg capsuleTake 1 capsule by mouth once daily.Disp: 90 capsuleRfl: 3 metoprolol succinate ER (TOPROL XL) 50 mg 24 hr tabletTake 50 mg by mouth once daily.Disp: Rfl: calcium-vits N9-U-B8-minerals 166.75 mg- 166.75 unit capCALCIUM 600 MG TABSDisp: Rfl: multivitamin tabletMULTIVITAMINS TABSDisp: Rfl: fluticasone propionate (FLONASE NASAL)Use in the nose as needed.Disp: Rfl: esomeprazole (NEXIUM) 20 mg capsuleTake 20 mg by mouth once daily.Disp: Rfl: atorvastatin calcium(LIPITOR 10 MG TAB)Take one(1) tablet daily.Disp: Rfl: 0 sumatriptan succinate(IMITREX 100 MG TAB)as necessary Disp: Rfl: 0 aspirin(ASPIR-LOW 81 MG TAB)Take one(1) tablet daily.Disp: Rfl: 0 amLODIPine (NORVASC) 5 mg tabletTake 5 mg by mouth once daily.Disp: Rfl: REVIEW OF SYSTEMS: GENERAL: Negative for: Weight loss or gain, Fever or Chills, Weakness and Sleep difficulties. HEENT: Negative for: Headache, Impaired Vision, Glasses, Hearing Impairment, Ringing in Ears, Nosebleeds, Poor Dental Care, Bleeding Gums and Dentures., Positive for:Glasses NECK: Negative for: Swelling, Pain, Stiffness RESPIRATORY: Negative for: Cough, Blood in Sputum, Shortness of breath, Wheezing, Apnea GASTROINTESTINAL: Negative for: Trouble swallowing, Heartburn, Change in bowel habits, Blood in stool, Dark black stools, Positive for: Heartburn MUSCULOSKELETAL: Negtive for: Muscle or susy (more content not included)... [facility] 12-20-2022 History of Present illness Narrative Images from the original note were not included. [facility] OUTPATIENT VISIT DATE December 20, 2022 OUTPATIENT VISIT TYPE ESTABLISHED PRIMARY CARE PHYSICIAN: Lazaro Degroot MD [address] [place] [address] CHIEF COMPLAINT: Follow up CONGENITAL CARDIAC HISTORY: Ventricular septal defect 08/03/1959 - s/p suture closure of 6x3 mm VSD. Challenging repair due to difficulty visualizing the defect, required two bypass runs (Dr. Dewitt, [facility]). Operative report in [facility] under Scanned Docs, scanned on 10/25/16. 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 Mccarty presents for follow up evaluation. I last saw him 12/2020. Since then he reports he has largely been well and is enjoying his jail, spending lots of time with his grandchildren. He has gained a bit more weight which is bothering him. Since his last visit he was started on metoprolol and then subsequently also on Norvasc 6-8 months ago for management of hypertension. BP at home is primarily in the 120s-130s systolic. His Lipitor was also increased from 10 to 20 mg. High PSA continues to be followed closely - had a scare where they suspected prostate cancer but further testing was benign. He notices mild exertional intolerance when chasing after his grandchildren, but can go for a 3.5 mile walk with his without any symptoms. 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 VSD (ventricular septal defect) 03/03/2018 PAST SURGICAL HISTORY Procedure Laterality Date CLSR 1 VENTRICULAR SEPTAL DEFECT W/WO PATCH 1959 COLONOSCOPY 2012 [facility] COLONOSCOPY FLX DX W/COLLJ SPEC WHEN PFRMD 10/26/14 Repeat 2024 PAST SURGICAL HISTORY OF 1961 jugular vein resection, PAST SURGICAL HISTORY OF left breast gynecomastia surg PAST SURGICAL HISTORY OF 08/2016 loop recorder PAST SURGICAL HISTORY OF 06/15/2019 dual chamber PPM RPR 1ST INGUN HRNA AGE 6 YRS/> REDUCIBLE 1957 Hernia repair, inguinal, bilat as baby STRABISMUS SURGERY 3+ MUSCLES 1985 left Social History Tobacco Use Smoking status: Never Smokeless tobacco: Never Vaping Use Vaping Use: Never used Substance Use Topics Alcohol use: Yes Comment: 7 /week wine w dinner Drug use: No 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 FAMILY HISTORY Problem Relation Age of Onset Coronary Artery Disease Mother Hypertension Mother other (Migraine) Mother Coronary Artery Disease Father Hypertension Father Heart Attack Father Hypertension Sister other (Migraine) Sister Coronary Artery Disease Brother s/p CABG Heart Attack Brother Hypertension Brother No Family History Other AAA ALLERGIES No Known Allergies MEDICATIONS: Tadalafil (CIALIS) 5 mg tablet^Take 1 tablet by mouth as needed.^Disp: 90 tablet^Rfl: 1 dutasteride (AVODART) 0.5 mg capsule^Take 1 capsule by mouth once daily.^Disp: 90 capsule^Rfl: 3 metoprolol succinate ER (TOPROL XL) 50 mg 24 hr tablet^Take 50 mg by mouth once daily.^Disp: ^Rfl: calcium-vits G3-R-T2-minerals 166.75 mg- 166.75 unit cap^CALCIUM 600 MG TABS^Disp: ^Rfl: multivitamin tablet^MULTIVITAMINS TABS^Disp: ^Rfl: fluticasone propionate (FLONASE NASAL)^Use in the nose as needed.^Disp: ^Rfl: esomeprazole (NEXIUM) 20 mg capsule^Take 20 mg by mouth once daily.^Disp: ^Rfl: atorvastatin calcium(LIPITOR 10 MG TAB)^Take one(1) tablet daily.^Disp: ^Rfl: 0 sumatriptan succinate(IMITREX 100 MG TAB)^as necessary ^Disp: ^Rfl: 0 aspirin(ASPIR-LOW 81 MG TAB)^Take one(1) tablet daily.^Disp: ^Rfl: 0 amLODIPine (NORVASC) 5 mg tablet^Take 5 mg by mouth once daily.^Disp: ^Rfl: REVIEW OF SYSTEMS: GENERAL: Negative for: Weight loss or gain, Fever or Chills, Weakness and Sleep difficulties. HEENT: Negative for: Headache, Impaired Vision, Glasses, Hearing Impairment, Ringing in Ears, Nosebleeds, Poor Dental Care, Bleeding Gums and Dentures., Positive for:Glasses NECK: Negative for: Swelling, Pain, Stiffness RESPIRATORY: Negative for: Cough, Blood in Sputum, Shortness of breath, Wheezing, Apnea GASTROINTESTINAL: Negative for: Trouble swallowing, Heartburn, Change in bowel habits, Blood in stool, Dark black stools, Positive for: Heartburn MUSCULOSKELETAL: Negtive for: Muscle or joint pain, stiffness, Joint swelling, Positive for: Muscle or joint pain and Stiffness NEUROLOGIC/PSYCHIATRIC: Negative for: Weakness, Paralysis, Numbness, Tingling, Tremor, Nervousness or anxiety, Depressed mood, Memory loss SKIN: Negative for: Rash, Itching HEMATOLOGICAL/LYMPHATIC: Negative for: Easy bruising, Easy bleeding ENDOCRINE: Negative for: Heat or Cold Intolerance, Excessive Sweating, Frequent Urination, Frequent Thirst PHYSICAL EXAMINATION: BP 150/91 (BP Site: Left Arm) Pulse 61 Resp 15 Wt 78.9 kg (174 lb) SpO2 97% BMI 28.96 kg/m General: Well appearing, in no acute distress. Skin: No clubbing, no cyanosis. Eyes: Extra ocular movements intact Neck: No jugular venous distention, carotids have a normal upstroke. Lungs: Clear to auscultation bilaterally, no wheezing or rhonchi. Heart: Regular rhythm, PMI not displaced, S1, S2 normal, no S3, no S4, no heaves, no rub and no murmur. Abdomen: Soft, nontender. Extremities: No peripheral edema . Grade 2/4 distal pulses bilaterally. Neuro: Oriented to person, place and time, alert, cooperative, gait coordinated. CARDIOVASCULAR MEDICINE TESTING: Echo: 12/20/22: - The left ventricle is normal in size. There is upper septal left ventricular hypertrophy. Left ventricular systolic function is normal. EF = 56 5% (2D 4-ch.) Grade I left ventricular diastolic dysfunction. - The right ventricle is normal in size. Right ventricular systolic function is normal. - The left atrial cavity is moderately dilated. - s/p VSD repair. Aneurysmal membrane septum. There is a known trivial residual VSD flow visualized on this exam (Clip #88). - Qp/Qs = 0.98. - Exam was compared with the prior echocardiographic exam performed on 01/02/2021. No significant changes are noted. EKG 12/20/22: DUAL CHAMBER PM EVALUATION 11/30/2020 PRESENTS FOR: OPD with Dr. Villatoro PRESENTING EGM: AP/VS UNDERLYING RHYTHM: Sinus Bradycardia BATTERY STATUS: Normal with no significant depletion, estimated time remaining to NAIMA is 13.5 yerars. COUNTERS SINCE: 09/23/19 ATRIAL ARRHYTHMIAS: There have been 60 triggered episodes of atrial high rates with available EGMs showing 1:1, no true AT/AF noted. Longest lasting ~1 min. Total time <1%. Anticoagulants listed: ASA VENTRICULAR ARRHYTHMIAS: There have been 9 nsVT and 1 SVT detections since the last evaluation. Available EGMs show 1:1. Longest lasting ~31 seconds. LEAD MEASUREMENTS: Capture and sensing are appropriate. The pacing outputs maintain safety margin. Review of the lead impedance trends are normal. IMPLANT SITE/ SYMPTOMS: The incision and pocket are pain-free (0/10), well healed and without signs of erosion or infection. No arm swelling, syncope, pre-syncope or device related pocket stimulation. OTHER DIAGNOSTICS: Total V pacing <1% PROGRAMMING CHANGES MADE TODAY: RA sensitivity adjusted from 0.75 mV to 0.50 mV for adequate safety margin. RA output adjusted based on testing today. FOLLOW UP: Follow locally remotely and yearly in clinic with Dr. Villatoro MRA Chest 08/23/2016 IMPRESSION: 1-There is an aneurysmal bulge of the membranous septum directed toward the RV, this may represent a combination of the septal tricuspid valve leaflet and prior surgical repair, suspect a small residual defect (subtle finding that would be better assessed by BALDO), however no substantial qualitative or quantitative flow across this is noted (Qp/Qs by flow quantification: 1 ). 2. Mildly dilated left ventricle with mildly diminished systolic function, LVEF = 50%. No findings on delayed post contrast imaging to suggest ischemic damage or diffuse infiltrative pathology. 3. Normal size of the right ventricle with mildly depressed systolic function, EF= 41%. 4. No significant valvular heart disease. 5. Top normal caliber thoracic aorta I have personally reviewed the Electrocardiogram and Echocardiogram. 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 He has noticed mild exertional dyspnea on occasion in the setting of some weight gain. No symptoms on his frequent 3.5 mile walks. Exam and imaging stable today. We discussed many aspects of the patient's care going forward and agreed upon the following plan: PLAN: - Continued surveillance of blood pressure at home, he will contact his home head sulfide operator if still running high - I will help coordinate his follow up visit with Dr. Villatoro - Return to [facility] clinic in 2 years I spent a total of 45 minutes on the date of the service which included preparing to see the patient, [id number] patient care, completing clinical documentation, obtaining and/or reviewing separately obtained history, performing a medically appropriate examination, counseling and educating the patient/family/caregiver, ordering medications, tests, or procedures, communicating with other HCPs (not separately reported), independently interpreting results (not separately reported), and care coordination (not separately reported). Abigail Caballero MD Adult Congenital Heart Disease Heart [facility] V[facility] Desk J2-4 Appointments: [phone] documented in this encounter [facility] 09-18-2022 Note HNO ID: [id number] Author: lAma Montgomery MD Service: ? Author Type: Physician Type: Progress Notes Filed: 09/18/2022 9:55 AM Note Text: [facility] ESTABLISHED PATIENT OFFICE VISIT REASON FOR VISIT: Follow up HPI 66 year old male presenting for follow-up of ED. Has h/o elevated PSA for which he has undergone the following work-up: MRI Prostate 12/12/2016 - 46 cc gland with no lesions concerning for disease IsoPSA 09/2020 - 7 TRUS Prostate Biopsy 01/10/2021 - benign Has been on Avodart last 2-3 years. Currently trialing tadalafil 5mg PO prn. Patient reports some hesitancy in the mornings when initially waking up, otherwise no hesitancy or urgency throughout the day. States that he is satisfied with his stream. Denies any episodes with retention. Reports that taking two pills, 10mg, of tadalafil has been working for him. Is satisfied with his erections though voiced wanting to possibly increase dose. PATHOLOGY: TRUS Prostate Biopsy 01/10/2021: FINAL DIAGNOSIS 1. Prostate, right base, biopsy (A) - Benign prostatic tissue. 2. Prostate, right mid, biopsy (B) - Benign prostatic tissue with chronic inflammation. 3. Prostate, right apex, biopsy (C) - Benign prostatic tissue with chronic inflammation. 4. Prostate, left base, biopsy (D) - Benign prostatic tissue. 5. Prostate, left mid, biopsy (E) - Benign prostatic tissue. 6. Prostate, left apex, biopsy (F) - Benign prostatic tissue. LABS: Creatinine Date Value Ref Range Status 06/12/2019 0.99 0.73 - 1.22 mg/dL Final 06/11/2019 1.09 0.73 - 1.22 mg/dL Final 06/10/2019 1.10 0.73 - 1.22 mg/dL Final 07/04/2017 1.16 0.73 - 1.22 mg/dL Final PSA (ng/mL) Date Value 09/13/2022 5.62 (H) 09/11/2021 5.11 (H) 10/10/2020 5.76 (H) 08/30/2020 6.78 (H) 08/07/2019 4.75 (H) URINALYSIS: Specific [place], Ur Date Value Ref Range Status 02/15/2016 1.025 1.005 - 1.030 Final Glucose, Urine Date Value Ref Range Status 02/15/2016 neg Neg mg/dL Final Bilirubin, Urine Date Value Ref Range Status 02/15/2016 neg Neg Final Ketones, Urine Date Value Ref Range Status 02/15/2016 neg Neg Final Hemoglobin/Blood,Ur Date Value Ref Range Status 02/15/2016 neg Neg Final Protein, Urine Date Value Ref Range Status 02/15/2016 neg Neg mg/dL Final Urobilinogen, Urine Date Value Ref Range Status 02/15/2016 0.2 Normal (<1.1) EU Final Nitrites Date Value Ref Range Status 02/15/2016 neg Neg Final Leukocytes Date Value Ref Range Status 02/15/2016 neg Neg Final IMAGING: MRI Prostate 12/12/2016: 46 cc gland with no lesions concerning for disease ALLERGIES: ALLERGIES No Known Allergies MEDICATIONS: Current Outpatient Medications Medication Sig dutasteride (AVODART) 0.5 mg capsule Take 1 capsule by mouth once daily. metoprolol succinate ER (TOPROL XL) 50 mg 24 hr tablet Take 50 mg by mouth once daily. calcium-vits M5-B-P5-minerals 166.75 mg- 166.75 unit cap CALCIUM 600 MG TABS multivitamin tablet MULTIVITAMINS TABS fluticasone propionate (FLONASE NASAL) Use in the nose as needed. esomeprazole (NEXIUM) 20 mg capsule Take 20 mg by mouth once daily. atorvastatin calcium(LIPITOR 10 MG TAB) Take one(1) tablet daily. sumatriptan succinate(IMITREX 100 MG TAB) as necessary aspirin(ASPIR-LOW 81 MG TAB) Take one(1) tablet daily. Tadalafil (CIALIS) 5 mg tablet Take 1 tablet by mouth as needed. Current Facility-Administered Medications Medication Dose Route Frequency perflutren lipid microspheres 1.3 mL in NaCl (PF) 0.9% 10 mL injection (DEFINITY) INTRAVENOUS DIRECTED PRN sodium chloride 0.9 % (flush) 10 mL (BD POSIFLUSH) 10 mL INTRAVENOUS DIRECTED PRN HISTORIES 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 VSD (ventricular septal defect) 03/03/2018 PAST SURGICAL HISTORY Procedure Laterality Date CLSR 1 VENTRICULAR SEPTAL DEFECT W/WO PATCH 1959 COLONOSCOPY [place] COLONOSCOPY FLX DX W/COLLJ SPEC WHEN PFRMD 10/26/14 Repeat 2024 PAST SURGICAL HISTORY OF 1961 jugular vein resection, PAST SURGICAL HISTORY OF left breast gynecomastia surg PAST SURGICAL HISTORY OF 08/2016 loop recorder PAST SURGICAL HISTORY OF 06/15/2019 dual chamber PPM RPR 1ST INGUN HRNA AGE 6 YRS/> REDUCIBLE 1957 Hernia repair, inguinal, bilat as baby STRABISMUS SURGERY 3+ MUSCLES 1985 left Social History Tobacco Use Smoking status: Never Smokeless tobacco: Never Vaping Use Vaping Use: Never used Substance Use Topics Alcohol use: Yes Comment: socially- split bottle wine with dinner 3-5 times a week Drug use: No REVIEW OF SYSTEMS (more content not included)... [facility] 09-06-2022 Miscellaneous Notes Plan/Patient s insurance requests 90 day supplies on maintenance medications for Home Delivery such as: Please see the attached order for Requested Prescriptions Pending Prescriptions Disp Refills Tadalafil (CIALIS) 5 mg tablet 90 tablet 1 Sig: Take 1 tablet by mouth as needed. If appropriate, e-script to [facility]. Thank you, Brady Chandra [facility] [phone] documented in this encounter [facility] 04-04-2022 Note HNO ID: [id number] Author: Alma Montgomery MD Service: ? Author Type: Physician Type: Progress Notes Filed: 04/04/2022 5:32 PM Note Text: [facility] VIRTUAL VISIT REASON FOR VIRTUAL VISIT: Follow up for erectile dysfunction VIRTUAL VISIT CONDUCTED BY: Jaime HEWITT 66 year old male presenting for evaluation of ED. Has h/o elevated PSA for which he has undergone the following work-up: MRI Prostate 12/12/2016 - 46 cc gland with no lesions concerning for disease IsoPSA 09/2020 - 7 TRUS Prostate Biopsy 01/10/2021 - benign Reports worsening erections over the last year. Now having difficulty obtaining and maintaining erections. Never tried PDE5i. Has been on Avodart last 2-3 years. Denies significantly bothersome LUTS, maybe some weak stream in am only, and nocturia 1x. Not sure whether worsening ED coincided with initiation of this. PATHOLOGY: TRUS Prostate Biopsy 01/10/2021: FINAL DIAGNOSIS 1. Prostate, right base, biopsy (A) - Benign prostatic tissue. 2. Prostate, right mid, biopsy (B) - Benign prostatic tissue with chronic inflammation. 3. Prostate, right apex, biopsy (C) - Benign prostatic tissue with chronic inflammation. 4. Prostate, left base, biopsy (D) - Benign prostatic tissue. 5. Prostate, left mid, biopsy (E) - Benign prostatic tissue. 6. Prostate, left apex, biopsy (F) - Benign prostatic tissue. LABS: Creatinine Date Value Ref Range Status 06/12/2019 0.99 0.73 - 1.22 mg/dL Final 06/11/2019 1.09 0.73 - 1.22 mg/dL Final 06/10/2019 1.10 0.73 - 1.22 mg/dL Final 07/04/2017 1.16 0.73 - 1.22 mg/dL Final PSA (ng/mL) Date Value 09/11/2021 5.11 (H) 10/10/2020 5.76 (H) 08/30/2020 6.78 (H) 08/07/2019 4.75 (H) URINALYSIS: Specific [place], Ur Date Value Ref Range Status 02/15/2016 1.025 1.005 - 1.030 Final Glucose, Urine Date Value Ref Range Status 02/15/2016 neg Neg mg/dL Final Bilirubin, Urine Date Value Ref Range Status 02/15/2016 neg Neg Final Ketones, Urine Date Value Ref Range Status 02/15/2016 neg Neg Final Hemoglobin/Blood,Ur Date Value Ref Range Status 02/15/2016 neg Neg Final Protein, Urine Date Value Ref Range Status 02/15/2016 neg Neg mg/dL Final Urobilinogen, Urine Date Value Ref Range Status 02/15/2016 0.2 Normal (<1.1) EU Final Nitrites Date Value Ref Range Status 02/15/2016 neg Neg Final Leukocytes Date Value Ref Range Status 02/15/2016 neg Neg Final IMAGING: MRI Prostate 12/12/2016: 46 cc gland with no lesions concerning for disease ALLERGIES: ALLERGIES No Known Allergies MEDICATIONS: Current Outpatient Medications Medication Sig dutasteride (AVODART) 0.5 mg capsule Take 1 capsule by mouth once daily. metoprolol succinate ER (TOPROL XL) 50 mg 24 hr tablet Take 50 mg by mouth once daily. calcium-vits G8-Q-K1-minerals 166.75 mg- 166.75 unit cap CALCIUM 600 MG TABS multivitamin tablet MULTIVITAMINS TABS fluticasone propionate (FLONASE NASAL) Use in the nose as needed. esomeprazole (NEXIUM) 20 mg capsule Take 20 mg by mouth once daily. atorvastatin calcium(LIPITOR 10 MG TAB) Take one(1) tablet daily. sumatriptan succinate(IMITREX 100 MG TAB) as necessary aspirin(ASPIR-LOW 81 MG TAB) Take one(1) tablet daily. Current Facility-Administered Medications Medication Dose Route Frequency perflutren lipid microspheres 1.3 mL in NaCl (PF) 0.9% 10 mL injection (DEFINITY) INTRAVENOUS DIRECTED PRN sodium chloride 0.9 % (flush) 10 mL (BD POSIFLUSH) 10 mL INTRAVENOUS DIRECTED PRN HISTORIES 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 VSD (ventricular septal defect) 03/03/2018 PAST SURGICAL HISTORY Procedure Laterality Date CLSR 1 VENTRICULAR SEPTAL DEFECT W/WO PATCH 1959 COLONOSCOPY 2012 [facility] COLONOSCOPY FLX DX W/COLLJ SPEC WHEN PFRMD 10/26/14 Repeat 2024 PAST SURGICAL HISTORY OF 1961 jugular vein resection, PAST SURGICAL HISTORY OF left breast gynecomastia surg PAST SURGICAL HISTORY OF 08/2016 loop recorder PAST SURGICAL HISTORY OF 06/15/2019 dual chamber PPM RPR 1ST INGUN HRNA AGE 6 YRS/> REDUCIBLE 1957 Hernia repair, inguinal, bilat as baby STRABISMUS SURGERY 3+ MUSCLES 1985 left Social History Tobacco Use Smoking status: Never Smokeless tobacco: Never Vaping Use Vaping Use: Never used Substance Use Topics Alcohol use: Yes Comment: socially- split bottle wine with dinner 3-5 times a week Drug use: No REVIEW OF SYSTEMS General: SEE HPI Genitourinary: See HPI The remainder of the ROS was reviewed and negative. PHYSICAL EXAMINATION There were no vitals taken for this visit. Gen (more content not included)... [facility] 04-04-2022 History of Present illness Narrative [facility] VIRTUAL VISIT REASON FOR VIRTUAL VISIT: Follow up for erectile dysfunction VIRTUAL VISIT CONDUCTED BY: Jaime HEWITT 66 year old male presenting for evaluation of ED. Has h/o elevated PSA for which he has undergone the following work-up: MRI Prostate 12/12/2016 - 46 cc gland with no lesions concerning for disease IsoPSA 09/2020 - 7 TRUS Prostate Biopsy 01/10/2021 - benign Reports worsening erections over the last year. Now having difficulty obtaining and maintaining erections. Never tried PDE5i. Has been on Avodart last 2-3 years. Denies significantly bothersome LUTS, maybe some weak stream in am only, and nocturia 1x. Not sure whether worsening ED coincided with initiation of this. PATHOLOGY: TRUS Prostate Biopsy 01/10/2021: FINAL DIAGNOSIS 1. Prostate, right base, biopsy (A) - Benign prostatic tissue. 2. Prostate, right mid, biopsy (B) - Benign prostatic tissue with chronic inflammation. 3. Prostate, right apex, biopsy (C) - Benign prostatic tissue with chronic inflammation. 4. Prostate, left base, biopsy (D) - Benign prostatic tissue. 5. Prostate, left mid, biopsy (E) - Benign prostatic tissue. 6. Prostate, left apex, biopsy (F) - Benign prostatic tissue. LABS: Creatinine Date Value Ref Range Status 06/12/2019 0.99 0.73 - 1.22 mg/dL Final 06/11/2019 1.09 0.73 - 1.22 mg/dL Final 06/10/2019 1.10 0.73 - 1.22 mg/dL Final 07/04/2017 1.16 0.73 - 1.22 mg/dL Final PSA (ng/mL) Date Value 09/11/2021 5.11 (H) 10/10/2020 5.76 (H) 08/30/2020 6.78 (H) 08/07/2019 4.75 (H) URINALYSIS: Specific [place], Ur Date Value Ref Range Status 02/15/2016 1.025 1.005 - 1.030 Final Glucose, Urine Date Value Ref Range Status 02/15/2016 neg Neg mg/dL Final Bilirubin, Urine Date Value Ref Range Status 02/15/2016 neg Neg Final Ketones, Urine Date Value Ref Range Status 02/15/2016 neg Neg Final Hemoglobin/Blood,Ur Date Value Ref Range Status 02/15/2016 neg Neg Final Protein, Urine Date Value Ref Range Status 02/15/2016 neg Neg mg/dL Final Urobilinogen, Urine Date Value Ref Range Status 02/15/2016 0.2 Normal (<1.1) EU Final Nitrites Date Value Ref Range Status 02/15/2016 neg Neg Final Leukocytes Date Value Ref Range Status 02/15/2016 neg Neg Final IMAGING: MRI Prostate 12/12/2016: 46 cc gland with no lesions concerning for disease ALLERGIES: ALLERGIES No Known Allergies MEDICATIONS: Current Outpatient Medications Medication Sig dutasteride (AVODART) 0.5 mg capsule Take 1 capsule by mouth once daily. metoprolol succinate ER (TOPROL XL) 50 mg 24 hr tablet Take 50 mg by mouth once daily. calcium-vits E7-E-P8-minerals 166.75 mg- 166.75 unit cap CALCIUM 600 MG TABS multivitamin tablet MULTIVITAMINS TABS fluticasone propionate (FLONASE NASAL) Use in the nose as needed. esomeprazole (NEXIUM) 20 mg capsule Take 20 mg by mouth once daily. atorvastatin calcium(LIPITOR 10 MG TAB) Take one(1) tablet daily. sumatriptan succinate(IMITREX 100 MG TAB) as necessary aspirin(ASPIR-LOW 81 MG TAB) Take one(1) tablet daily. Current Facility-Administered Medications Medication Dose Route Frequency perflutren lipid microspheres 1.3 mL in NaCl (PF) 0.9% 10 mL injection (DEFINITY) INTRAVENOUS DIRECTED PRN sodium chloride 0.9 % (flush) 10 mL (BD POSIFLUSH) 10 mL INTRAVENOUS DIRECTED PRN HISTORIES 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 VSD (ventricular septal defect) 03/03/2018 PAST SURGICAL HISTORY Procedure Laterality Date CLSR 1 VENTRICULAR SEPTAL DEFECT W/WO PATCH 1960 COLONOSCOPY 2012 [facility] COLONOSCOPY FLX DX W/COLLJ SPEC WHEN PFRMD 10/26/14 Repeat 2024 PAST SURGICAL HISTORY OF 1961 jugular vein resection, PAST SURGICAL HISTORY OF left breast gynecomastia surg PAST SURGICAL HISTORY OF 08/2016 loop recorder PAST SURGICAL HISTORY OF 06/15/2019 dual chamber PPM RPR 1ST INGUN HRNA AGE 6 YRS/> REDUCIBLE 1957 Hernia repair, inguinal, bilat as baby STRABISMUS SURGERY 3+ MUSCLES 1985 left Social History Tobacco Use Smoking status: Never Smokeless tobacco: Never Vaping Use Vaping Use: Never used Substance Use Topics Alcohol use: Yes Comment: socially- split bottle wine with dinner 3-5 times a week Drug use: No REVIEW OF SYSTEMS General: SEE HPI Genitourinary: See HPI The remainder of the ROS was reviewed and negative. PHYSICAL EXAMINATION There were no vitals taken for this visit. General - Normal, healthy, cooperative, in no acute distress Able to interact verbally by video conference Psych - ORIENTATION: normal to time place, person and situation Mood/Affect: AFFECT AND MOOD: Normal Pulmonary - respiratory effort normal REVIEWED ITEMS 1. Labs PROBLEMS: Erectile dysfunction Discussed possible SE from current medications and discussed option of stopping Avodart as this was started prior to establishing care with me, he believes for lowering PSA rather than due to bothersome LUTS. We discussed possibility of worsening LUTS with discontinuination and for now we will hold off on this. We discussed treatment options including PDE5i, SCOTT, ICI, IPP and r/b/a of each. Reviewed SE profile of PDE5i. No contraindication for use in his case. Will start tadalafil at 5mg PO prn and titrate up as needed. He will keep me updated on efficacy. Prostate cancer screening Work-up as above, plan for repeat PSA in 2022. Follow-up scheduled 08/2022. I spent a total of 20 minutes on the date of the service which included preparing to see the patient, [id number] patient care, and completing clinical documentation. Alma Montgomery MD documented in this encounter [facility] 03-30-2022 Miscellaneous Notes I have responded to patient via [employer]. documented in this encounter [facility] Diagnosis Erectile dysfunction, unspecified erectile dysfunction type- Primary [facility] Diagnosis S/P VSD repair- Primary Other postprocedural status [facility] Diagnosis Elevated PSA- Primary Elevated prostate specific antigen (PSA) [facility]* Diagnosis VSD (ventricular septal defect)- Primary Ventricular septal defect Heart block AV complete (HCC) Atrioventricular block, complete Primary hypertension Unspecified essential hypertension [facility]* Diagnosis SOB (shortness of breath)- Primary Shortness of breath [facility] Outpatient Procedure (Routine) - Authorized Specialty Diagnoses / Procedures Referred By Contac t Referred To Contact [facility] [place] Diagnoses S/P VSD repair Procedures ECHO ECHO TTHRC R-T 2D W/WOM-MODE COMPL SPEC&COLR D Abigail Caballero MD [address] [place] [address] [facility] [place] [address] Referral ID Status Reason Start Date Expiration Date Visits Requested Visits Authorized [id number] Authorized Auto-Generat ed Referral 2 07/03/2023 1 1 * Outpatient Procedure (Routine) - Authorized Specialty Diagnoses / Procedures Referred By Contac t Referred To Contact [facility] [place] Diagnoses S/P VSD repair Procedures ECG COMPLETE ECG ROUTINE ECG W/LEAST 12 LDS W/I&R Abigail Caballero MD [address] [facility] [place] [id number] [facility] [place] [id number] Referral ID Status Reason Start Date Expiration Date Visits Requested Visits Authorized [id number] Authorized Auto-Generat ed Referral 07/03/2023 1 1 [facility] for referral (narrative)* Outpatient Procedure (Routine) - Pending Review Specialty Diagnoses / Procedures Referred By Contac t Referred To Contact [facility] [place] Diagnoses VSD (ventricular septal defect) Procedures ECG COMPLETE ECG ROUTINE ECG W/LEAST 12 LDS W/I&R Abigail Caballero MD [address] [place] [address] [address] Referral ID Status Reason Start Date Expiration Date Visits Requested Visits Authorized [id number] Pending Review Auto-Generat ed Referral 12/21/2022 12/21/2023 1 1 * Outpatient Procedure (Routine) - Pending Review Specialty Diagnoses / Procedures [facility] Diagnoses VSD (ventricular septal defect) Procedures ECHO SPECIALIST COMPLEX ADULT CONGENITAL ECHO TTHRC R-T 2D W/WOM-MODE COMPL SPEC&COLR D Abigail Caballero MD [address] [place] [address] [address] Referral ID Status Reason Start Date Expiration Date Visits Requested Visits Authorized [id number] Pending Review Auto-Generat ed Referral 12/21/2022 12/21/2023 1 1 [facility] for referral (narrative)* Outpatient Procedure (Routine) - Pending Review Specialty Diagnoses / Procedures Referred By Contac t Referred To Contact [facility] [place] Diagnoses SOB (shortness of breath) Procedures ECG COMPLETE ECG ROUTINE ECG W/LEAST 12 LDS W/I&R Darío Villatoro MD [address] [facility] [place] [address] [facility] [address] [place] [address] Referral ID Status Reason Start Date Expiration Date Visits Requested Visits Authorized [id number] Pending Review Auto-Generat ed Referral 12/24/2022 12/24/2023 1 1 [facility] Summary Purpose Family History No Family History Records FoundNo Family History Records FoundNo Family History Records FoundNo Family History Records Found Advance Directives No Advanced Directives Records FoundNo Advanced Directives Records FoundNo Advanced Directives Records FoundNo Advanced Directives Records Found Additional Source Comments (unrecognized sect ion and content) No Status Records FoundNo Status Records FoundNo Status Records FoundNo Status Records Found INFORMATION SOURCE (unrecogn ized section and content) DATE CREATED AUTHOR AUTHOR'S ORGANIZ ATION 10/15/2020 [facility] DATE CREATED AUTHOR AUTHOR'S ORGANIZ ATION 09/19/2022 [facility] DATE CREATED AUTHOR AUTHOR'S ORGANIZ ATION 01/31/2023 [facility] Source Comments (unrecognize d section and content) In the event this informatio n is protected by the Federal Confidentiality of Alcohol and Drug Abuse Patient Records regulations: The Federal rules restrict any use of the information to criminally investigate or prosecute any alcohol or drug abuse patient.[facility] the event this information is protected by the Federal Confidentiality of Alcohol and Drug Abuse Patient Records regulations: The Federal rules restrict any use of the information to criminally investigate or prosecute any alcohol or drug abuse patient.[facility] the event this information is protected by the Federal Confidentiality of Alcohol and Drug Abuse Patient Records regulations: The Federal rules restrict any use of the information to criminally investigate or prosecute any alcohol or drug abuse patient.[facility] Rehabilitation[facility] the event this information is protected by the Federal Confidentiality of Alcohol and Drug Abuse Patient Records regulations: The Federal rules restrict any use of the information to criminally investigate or prosecute any alcohol or drug abuse patient.[facility] Rehabilitation[facility] the event this information is protected by the Federal Confidentiality of Alcohol and Drug Abuse Patient Records regulations: The Federal rules restrict any use of the information to criminally investigate or prosecute any alcohol or drug abuse patient.[facility] Rehabilitation[facility] the event this information is protected by the Federal Confidentiality of Alcohol and Drug Abuse Patient Records regulations: The Federal rules restrict any use of the information to criminally investigate or prosecute any alcohol or drug abuse patient.[facility] Rehabilitation[facility] the event this information is protected by the Federal Confidentiality of Alcohol and Drug Abuse Patient Records regulations: The Federal rules restrict any use of the information to criminally investigate or prosecute any alcohol or drug abuse patient.[facility] Rehabilitation[facility] the event this information is protected by the Federal Confidentiality of Alcohol and Drug Abuse Patient Records regulations: The Federal rules restrict any use of the information to criminally investigate or prosecute any alcohol or drug abuse patient.[facility] Rehabilitation[facility] the event this information is protected by the Federal Confidentiality of Alcohol and Drug Abuse Patient Records regulations: The Federal rules restrict any use of the information to criminally investigate or prosecute any alcohol or drug abuse patient.[facility] Reason for Visit (unrecogniz ed section and content) Reason Comments Follow Up Reason Comments Refill Request Care Teams (unrecognized sec tion and 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) 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 Start Date End Date Nirmal Shipley [address] [place] [id number] Physician Cardiology 01/14/18 Darío Villatoro MD [address] [place] [address] Primary Staff Physician Cardiology 01/05/20 Abigail Caballero MD [address] [place] [address] Primary Staff Physician Cardiology 01/02/21 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 Start Date End Date Quinten, [place] S [address] [place] [address] Physician Cardiology 01/14/18 Darío Villatoro MD [address] [place] [address] Primary Staff Physician Cardiology 01/05/20 Abigail Caballero MD [address] [place] [address] Primary Staff Physician Cardiology 01/02/21 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 Start Date End Date Quinten, Nirmal S [address] [place] [address] Physician Cardiology 01/14/18 Darío Villatoro MD [address] [place] [address] Primary Staff Physician Cardiology 01/05/20 Abigail Caballero MD [address] [place] [address] Primary Staff Physician Cardiology 01/02/21 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 Start Date End Date Quinten, Nirmal S [address] [place] [address] Physician Cardiology 01/14/18 Darío Villatoro MD [address] [place] [address] Primary Staff Physician Cardiology 01/05/20 Abigail Caballero MD [address] [place] [address] Primary Staff Physician Cardiology 01/02/21 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 Start Date End Date Quinten, Nirmal S [address] [place] [address] Physician Cardiology 01/14/18 Darío Villatoro MD [address] [place] [address] Primary Staff Physician Cardiology 01/05/20 Abigail Caballero MD [address] [place] [address] Primary Staff Physician Cardiology 01/02/21 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 Start Date End Date Quinten, [place] S [address] [place] [address] Physician Cardiology 01/14/18 Darío Villatoro MD [address] [place] [address] Primary Staff Physician Cardiology 01/05/20 Abigail Caballero MD [address] [place] [address] Primary Staff Physician Cardiology 01/02/21 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 Start Date End Date Lazaro Degroot MD [address] [facility] [address] [place] [address] PCP - General Family Medicine 12/21/22 Quinten, [place] S [address] [place] [address] Physician Cardiology 01/14/18 Darío Villatoro MD [address] [place] [address] Primary Staff Physician Cardiology 01/05/20 Abigail Caballero MD [address] [place] [address] Primary Staff Physician Cardiology 01/02/21 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 This clinical summary was aggregated from multiple sources. Caution should be exercised in using it in the provision of clinical care. This summary normalizes information from multiple sources, and as a consequence, information in this document may materially change the coding, format and clinical context of patient data. In addition, data may be omitted in some cases. CLINICAL DECISIONS SHOULD BE BASED ON THE PRIMARY CLINICAL RECORDS. [email or web address] [facility]. provides no warranty or guarantee of the accuracy or completeness of information in this document.
[2023-07-26 07:58] LABS: AST(SGOT) 27 U/L (15-37); Alanine Aminotransfer ALT/SGPT 44 U/L (16-61); Albumin, Serum 3.6 g/dL (3.2-5.0); Alkaline Phosphatase 60 U/L (45-117); Anion Gap 5 (5-15); BUN 18 mg/dL (7-18); BUN/Creat Ratio 15.7 RATIO (10-20); Bilirubin, Direct 0.22 mg/dL (0.00-0.30); Calcium,Total 9.1 mg/dL (8.5-10.1); Chloride 108 mmol/L (98-107); Cholesterol 186 mg/dL (200); Creatinine, Serum 1.15 mg/dL (0.70-1.30); EST Glomerular Filtration Rate 68 mL/min (>60); Est Glom Filt Rate - Afr Amer 82 mL/min (>60); Globulin 3.5 g/dL (2.2-4.2); Glucose 97 mg/dL (74-106); High Density Lipoprotein 50 mg/dL; Potassium 3.7 mmol/L (3.5-5.1); Protein, Total 7.1 g/dL (6.4-8.2); Sodium Level 140 mmol/L (136-145); Triglycerides 119 mg/dL; Very Low Density Lipoprotein 24 mg/dL (5-40)
== END | disposition home or self-care (01) ==
LOC: LAB 06:00
PROVIDERS: PCP Family Medicine; Referring Provider Nurse Practitioner Family; Visit Provider Nurse Practitioner Family
DX: E78.5 Hyperlipidemia, unspecified (principal)
CPT/HCPCS: 36415; 80053; 80061; 82248

== ENCOUNTER → 2024-11-26 | Outpatient (CLI) | payer MEDICARE, BC, SELFPAY ==
[2024-11-26 14:56] LABS: Absolute Lymphocyte Count 1.75 X10^3/uL (0.83-4.51); Absolute Neutrophil Count 4.6 X10^3/uL (2.0-7.7); Basophil# 0.06 X10^3/uL; Basophil% 0.8 % (0-1); Eosinophil# 0.23 X10^3/uL; Eosinophils% 3.1 % (0-5); Hematocrit 45.1 % (40-54); Lymphocyte # 1.75 X10^3/ul (0.83-4.51); Lymphocyte % 23.2 % (19-41); Mean Corp Hgb Conc 35.5 g/dL (32-36); Mean Platelet Vol. 9.1 fl (6.2-12.0); Monocyte# 0.84 X10^3/uL; Monocyte% 11.1 % (0-10); NRBC Flagged by Analyzer 0 % (0-5); Neutrophil # 4.64 X10^3/uL (2.7-7.7); Neutrophil % 61.5 % (47-70); Platelet Count 229 K/mm3 (150-450); RBC Distribution Width CV 12.4 % (11.6-14.6); RBC Distribution Width SD 42.5 fl (35.1-43.9); Red Blood Count 4.85 M/mm3 (4.6-6.2); White Blood Count 7.5 K/mm3 (4.4-11.0)
[2024-11-26 15:39] LABS: Cholesterol 177 mg/dL (<=200); High Density Lipoprotein 52 mg/dL; Low Density Lipoprotein Calc. 102 mg/dL; Triglycerides 115 mg/dL; Very Low Density Lipoprotein 23 mg/dL (5-40); cholesterol:hdl ratio screen 3.41
[2024-11-26 15:57] LABS: AST(SGOT) 38 U/L (<=37); Alanine Aminotransfer ALT/SGPT 42 U/L (<=46); Albumin, Serum 4.5 g/dL (3.4-4.8); Alkaline Phosphatase 58 U/L (40-129); Anion Gap 15 (5-15); BUN 20 mg/dL (4-19); BUN/Creat Ratio 17.3 RATIO (10-20); Bilirubin, Direct 0.39 mg/dL (0.00-0.30); Calcium,Total 9.6 mg/dL (7.6-11.0); Carbon Dioxide 20.4 mmol/L (21.0-32.0); Chloride 106 mmol/L (98-108); Creatinine, Serum 1.16 mg/dL (0.70-1.20); EST Glomerular Filtration Rate 69 (>60); Globulin 2.1 g/dL (2.2-4.2); Glucose 86 mg/dL (70-99); Potassium 3.9 mmol/L (3.3-5.1); Protein, Total 6.5 g/dL (5.9-8.4); Sodium Level 141 mmol/L (133-145); Total Bilirubin 1.11 mg/dL (0.00-1.30)
== END | disposition home or self-care (01) ==
LOC: LAB 13:39
PROVIDERS: PCP Family Medicine; Referring Provider Internal Medicine Cardiovascular Disease; Visit Provider Internal Medicine Cardiovascular Disease
DX: E78.5 Hyperlipidemia, unspecified (principal); I47.29 Other ventricular tachycardia; I10 Essential (primary) hypertension
CPT/HCPCS: 36415; 80048; 80061; 80076; 84443; 85025

== ENCOUNTER → 2025-01-11 | Outpatient (CLI) | payer MEDICARE, BC, SELFPAY ==
--- OUTSIDE RECORDS SUMMARY | 2025-01-11 06:18 | XMS RPT_ITS | CCD ---
Author Organization [facility] Care Team Providers Care Regulatory Affairs Analyst Name Role Phone Makenzie RN, Abbey Pat Unavailable Unavailable Cisco Joe Unavailable Unavailable ROXANE SANTOS Unavailable Unavailable Makenzie RN, Abbey Bi Unavailable Unavailable Makenzie BROWN, Abbey Pat Unavailable Unavailable Dr. Wilfredo Naranjo Referring Provider Dr. Nirmal Shipley Attending Provider [phone] Lazaro Degroot Primary Care Provider Dr. Lazaro Degroot Referring Provider Nirmal Shipley S Unavailable Shauna BAH, Darío H Unavailable Lulú Caballero MD Unavailable Nirmal Shipley S Unavailable Shauna BAH, Mohamed H Unavailable Lulú Caballero MD Unavailable Dr. Lazaro Degroot Primary Care Provider Dr. Nirmal Shipley Attending Provider [phone] Nirmal Shipley Referring Provider [phone] Lazaro Degroot Referring Provider Morenita Mancera Attending Provider Unavailable Dr. Lazaro Degroot Primary Care Provider Dr. Nirmal Shipley Attending Provider [phone] ALMA STEPHENSON Attending Unavailable ALMA STEPHENSON Referring Unavailable Dr. Lazaro Degroot Primary Care Provider Dr. Nirmal Shipley Attending Provider [phone] Nirmal Shipley Referring Provider Dr. Lazaro Degroot Referring Provider Haris NUTRITION ASSISTANT, STEFANIA Ahumada Attending Provider Morentia Mancera Attending Provider Unavailable Mikayla, Dr. Willis Primary Care Provider Dr. Nirmal Shipley Attending Provider [phone] Nirmal Shipley Referring Provider Lazaro Degroot MD Primary Care Provider Nirmal Shipley MD S Unavailable Shauna BAH, Darío Sanders Unavailable [phone] Ada BAH, Lulú Unavailable Lazaro Degroot MD Primary Care Provider Dr. Lazaro Degroot Primary Care Provider Dr. Nirmal Shipley Attending Provider [phone] Nirmal Shipley Referring Provider Dr. Lazaro Degroot Referring Provider Lazaro Degroot MD Primary Care Provider Dr. Lazaro Degroot MD Primary Care Provider Dr. Nirmal Shipley MD Attending Provider Quinten BAH, Dr. Kinney Referring Provider Dr. Lazaro Degroot MD Referring Provider Jessica Green Attending Provider [phone] Lazaro Degroot MD Primary Care Provider KANKatherin, MOHAMED H Referring Unavailable DEGROOT, LAZARO Harris Primary Care Unavailable MIKAYLA, LAZARO Harris Primary Care Unavailable ALMASSI, ALMA Attending Unavailable SELF Referring Unavailable ALMASSI, ALMA Referring Unavailable DEGROOT, LAZARO Harris Primary Care Unavailable KANJ, MOHAMED H Referring Unavailable KANJ, MOHAMED H Attending Unavailable MIKAYLA, LAZARO Harris Primary Care Unavailable KANKatherin, MOHAMED H Referring Unavailable DEGROOT, LAZARO Harris Primary Care Unavailable Quinten, Nirmal Attending Unavailable Degroot, Lazaro Primary Care Unavailable Quinten, Wayne Referring Unavailable Degroot, Lazaro Referring Unavailable Degroot, Lazaro Primary Care Unavailable Jessica Morgan Attending Unavailable Quinten, Nirmal Attending Unavailable Degroot, Lazaro Primary Care Unavailable Quinten, Nirmal Attending Unavailable Degroot, Lazaro Primary Care Unavailable Degroot, Lazaro Referring Unavailable Quinten, Wayne Attending Unavailable Quinten, Nirmal Referring Unavailable Degroot, Lazaro Primary Care Unavailable Degroot, Lazaro Primary Care Unavailable Jamaal Ferro Attending Unavailable Degroot, Lazaro Primary Care Unavailable Quinten, Wayne Referring Unavailable Quinten, Wayne Attending Unavailable Degroot, Lazaro Primary Care Unavailable Referred, Self Attending Unavailable Referred, Self Referring Unavailable Degroot, Lazaro Primary Care Unavailable Quinten, Wayne Referring Unavailable Quinten, Wayne Attending Unavailable Degroot, Lazaro Referring Unavailable GuillermonasovJessica Attending Unavailable Degroot, Lazaro Primary Care Unavailable Quinten, Nirmal Attending Unavailable Quinten, Nirmal Referring Unavailable Degroot, Lazaro Primary Care Unavailable Quinten, Nirmal Attending Unavailable Quinten, Wayne Referring Unavailable Degroot, Lazaro Primary Care Unavailable Allergies Allergy Classification Reported Allergen(s) Allergy Type Date of Onset Reaction(s) Facility (6 sources) [facility] 07-25-2022 Nausea [facility] (1 source) [facility] Allergy 11-26-2024 [facility] Repository Medications Current Medications Medication Drug Class(es) Dates Sig (Normalized) Sig (Original) amLODIPine 5 mg oral tablet (20 sources) Dihydropyridine Calcium Channel Linn Start: 11-21-2021 End: 08-07-2024 take 1 tablet by mouth once daily amLODIPine (NORVASC) 5 mg tablet Take 5 mg by mouth once daily. 10/16/2022 Active Comment on above: Take 5 mg by mouth o nce daily. aspirin 81 mg delayed release oral tablet (20 sources) Platelet Aggregation Inhibitor, Nonsteroidal Anti-inflammatory Drug Start: 11-22-2010 End: 05-18-2014 take 1 tablet by mouth once daily ASPIRIN 81 MG TABS One tablet by mouth daily ASPIRIN [id number] Abbey Banegas RN Start: 05-25-2009 aspirin(ASPIR- LOW 81 MG TAB) Take one(1) tablet daily. 0 05/25/2009 Active Comment on above: Take one(1) tablet d aily. atorvastatin 10 mg oral tablet (20 sources) HMG-CoA Reductase Inhibitor Start: 3 take 2 tablets by mouth once daily atorvastatin (LIPITOR) 10 mg tablet Take 2 tablets by mouth once daily. 0 12/21/2022 Active Start: 07-26-2022 End: 06-22-2024 take 1 tablet by mouth once daily Atorvastatin 20 mg tablet Active 20 mg PO DAILY June 22, 2024 12:16pm Start: 05-25-2009 End: 12-21-2022 take 1 tablet by mouth once daily Atorvastatin 10 mg tablet Discontinued 10 mg PO DAILY June 19, 2022 11:07am July 26, 2022 11:30am Comment on above: Take one(1) tablet d aily. Take 2 tablets by mo uth once daily. calcium carbonate 1500 mg oral tablet (7 sources) Start: 11-01-2017 take 1 tablet by mouth once daily Calcium Carbonate (Calcium 600) 600 mg calcium (1,500 mg) tablet Active 600 mg PO daily November 01, 2017 12:00am calcium-vits K4-G-K5-minerals 166.75 mg- 166.75 unit cap (19 sources) Start: 11-22-2010 calcium-vits X2-H-E4-minerals 166.75 mg- 166.75 unit cap CALCIUM 600 MG TABS 11/22/2010 Active Start: 11-22-2010 calcium-vits D 6-T-H3-minerals 166.75 mg- 166.75 unit cap CALCIUM 600 MG TABS 0 11/22/2010 Active Comment on above: CALCIUM 600 MG TABS dicyclomine hydrochloride 10 mg oral capsule (2 sources) Anticholinergic Start: take 1 capsule by mouth twice daily as needed for pain Dicyclomine 10 mg capsule Active 10 mg PO TWICE A DAY as needed for abdominal pain March 12, 2024 12:00am Start: 11-05-2023 End: 03-12-2024 take 1 tablet by mouth twice daily Dicyclomine 20 mg tablet Discontinued 20 mg PO TWICE A DAY November 05, 2023 12:00am March 12, 2024 1:03pm dutasteride 0.5 mg oral capsule (20 sources) 5-alpha Reductase Inhibitor Start: 11-01-2017 End: 08-13-2024 take 1 capsule by mouth once daily dutasteride (AVODART) 0.5 mg capsule Indications: BPH with obstruction/lower urinary tract symptoms Take 1 capsule by mouth once daily. 90 capsule 3 08/13/2024 Active Start: 05-24-2015 take 1 tablet by danni once daily AVODART 0.5 MG CAPS One tablet by mouth daily DUTASTERIDE [id number] Nirmal Shipley MD Comment on above: Take 1 capsule by mo [facility] once daily. TAKE 1 CAPSULE DAILY esomeprazole 20 mg delayed release oral capsule (20 sources) Proton Pump Inhibitor Start: take 2 capsules by mouth once daily Esomeprazole Magnesium (Nexium) 20 mg capsule,delayed release(DR/EC) Active 40 mg PO daily July 25, 2022 9:36am Start: 07-25-2022 End: 10-30-2022 take 1 capsule by mouth once daily Esomeprazole Magnesium 40 mg capsule,delayed release(DR/EC) Discontinued 40 mg PO DAILY July 25, 2022 1:00am October 30, 2022 2:12pm Start: 11-22-2010 End: 07-25-2022 take 1 capsule by mouth once daily Esomeprazole Magnesium (Nexium) 20 mg capsule,delayed release(DR/EC) Discontinued 20 mg PO daily November 01, 2017 12:00am July 25, 2022 9:37am Comment on above: Take 20 mg by mouth once daily. fluticasone propionate 0.05 mg/actuat metered dose nasal spray (20 sources) Corticosteroid Start: 07-25-2022 End: 07-30-2023 Fluticasone Propionate 50 mcg/actuation spray,suspension Active 1 NMA INTRANASAL Q12H as needed July 30, 2023 1:58pm administer into each nostril Start: 07-25-2022 End: 07-30-2023 take 1 spray(s) nasal route every twelve hours Fluticasone Propionate Active 1 SPRAY INTRANASAL Q12H July 30, 2023 12:58pm administer into each nostril fluticasone prop ionate (FLONASE NASAL) Use in the nose as needed. Active fluticasone prop ionate (FLONASE NASAL) Use in the nose as needed. 0 Active Comment on above: Use in the nose as n eeded. lactobacillus acidophilus [id number] unt oral capsule (2 sources) Start: 3 take 10 capsules by mouth once daily Lactobacillus Acidophilus (Probiotic) 10 billion cell Capsule Active 95332 NMA PO DAILY January 01, 2023 12:00am 24 hr metoprolol succinate 50 mg extended release oral tablet (20 sources) beta-Adrenergic Linn Start: End: 4 take 1 tablet by mouth once daily metoprolol succinate ER (TOPROL XL) 50 mg 24 hr tablet Take 50 mg by mouth once daily. 01/03/2021 Active Comment on above: Take 50 mg by mouth once daily. Multivitamin preparation (6 sources) Start: 8 take 1 tablet by mouth once daily Multivitamin Active 1 TABLET PO daily October 31, 2017 11:00pm Start: 11-01-2017 take 1 tablet by danni th once daily Multivitamin Active 1 TABLET PO daily November 01, 2017 12:00am multivitamin tablet (19 sources) Start: 11-22-2010 multivitamin t ablet MULTIVITAMINS TABS 11/22/2010 Active Start: 11-22-2010 multivitamin t ablet MULTIVITAMINS TABS 0 11/22/2010 Active Comment on above: MULTIVITAMINS TABS Multivitamin tablet (1 source) Start: 11-01-2017 Multivitamin tablet Active 1 {tbl} PO daily November 01, 2017 12:00am perflutren lipid microspheres 1.3 mL in NaCl (PF) 0.9% 10 mL injection (DEFINITY) (10 sources) Start: 07-03-2022 End: 10-02-2023 perflutren lipid microspheres 1.3 mL in NaCl (PF) 0.9% 10 mL injection (DEFINITY) Start: 01-05-2021 End: 04-06-2022 perflutren lipid microsphere s 1.3 mL in NaCl (PF) 0.9% 10 mL injection (DEFINITY) 125 ml sodium chloride 9 mg/ ml prefilled syringe (10 sources) Start: 07-03-2022 End: 10-02-2023 sodium chloride 0.9 % (flush ) 10 mL (BD POSIFLUSH) Start: 01-05-2021 End: 04-06-2022 sodium chloride 0.9 % (flush ) 10 mL (BD POSIFLUSH) SUMAtriptan 100 mg oral tablet (20 sources) Serotonin-1b and Serotonin-1d Receptor Agonist Start: 09-27-2020 take 1 tablet by mouth once as needed Sumatriptan Succinate 100 mg tablet Active 100 mg PO ONCE as needed for MIGRAINES September 27, 2020 1:00am Start: 11-01-2017 End: 09-27-2020 take 1 tablet by mouth once as needed Sumatriptan Succinate (Imitrex) 50 mg tablet Discontinued 50 mg PO ONCE as needed November 01, 2017 12:00am September 27, 2020 11:37am Start: 11-22-2010 IMITREX 50 MG TABS PRN SUMATRIPTAN SUCCINATE [id number] Cindyperri Tavarez Start: 05-25-2009 sumatriptan gill ccinate(IMITREX 100 MG TAB) as necessary 0 05/25/2009 Active Comment on above: as necessary tadalafil 5 mg oral tablet (20 sources) Phosphodiesterase 5 Inhibitor Start: 09-06-2022 End: 02-09-2025 Tadalafil (CIALIS) 5 mg tablet Indications: BPH with obstruction/lower urinary tract symptoms Take 1 tablet by mouth as needed. 90 tablet 1 08/13/2024 02/09/2025 Active Start: 04-04-2022 End: 09-03-2022 Tadalafil (CIALIS) 5 mg tabl et Take 1 tablet by mouth as needed. 30 tablet 3 04/04/2022 09/03/2022 Discontinued Comment on above: Take 1 tablet by danni th as needed. ROSARIO@[facility] Take 1 tablet by danni th as needed. Completed/Discontinued Medications Medication Drug Class(es) Dates Sig (Normalized) Sig (Original) amoxicillin 500 mg / clavulanate 125 mg oral tablet (1 source) Penicillin-class Antibacterial Start: 03-12-2024 End: 11-26-2024 Amoxicillin-Pot Clavulanate (Augmentin) 500-125 mg tablet Discontinued 1 {tbl} PO TWICE A DAY 10 05March 12, 2024 12:00am November 26, 2024 1:10pm Calcium (8 sources) Phosphate Binder, Calcium Start: 11-22-2010 take 1 tablet by mouth once daily CALCIUM 600 MG TABS One tablet by mouth daily CALCIUM [id number] Nirmal Shipley MD Start: 11-22-2010 take 1 tablet by danni twice daily CALCIUM 600 MG TABS One tablet by mouth twice daily CALCIUM [id number] Cindy Tavarez cholecalciferol 0.025 mg oral tablet (7 sources) Vitamin D Start: 01-20-2018 End: 09-27-2020 take 1 tablet by mouth once daily Cholecalciferol (Vitamin D3) 1,000 unit tablet Discontinued 1000 U PO daily January 20, 2018 12:00am September 27, 2020 11:36am ciprofloxacin 500 mg oral tablet (1 source) Quinolone Antimicrobial Start: 11-05-2023 End: 03-12-2024 take 1 tablet by mouth twice daily Ciprofloxacin Hcl 500 mg tablet Discontinued 500 mg PO TWICE A DAY November 05, 2023 12:00am March 12, 2024 1:02pm doxycycline hyclate 100 mg oral tablet (1 source) Tetracycline-class Drug Start: 09-09-2023 End: 03-12-2024 take 1 tablet by mouth twice daily Doxycycline Hyclate 100 mg tablet Discontinued 100 mg PO TWICE A DAY 60 September 09, 2023 1:00am March 12, 2024 1:02pm linaclotide 0.072 mg oral capsule (1 source) Guanylate Cyclase-C Agonist Start: 09-09-2023 End: 09-10-2023 take 1 capsule by mouth once daily Linaclotide (Linzess) 72 mcg capsule Discontinued 72 ug PO DAILY September 09, 2023 1:00am September 10, 2023 2:58pm lisinopril 2.5 mg oral tablet (8 sources) Angiotensin Converting Enzyme Inhibitor Start: 07-06-2016 End: 10-18-2016 take 1 tablet by mouth once daily LISINOPRIL 2.5 MG TABS One tablet by mouth daily LISINOPRIL [id number] Nirmal Shipley MD lubiprostone 0.008 mg oral capsule (1 source) Chloride Channel Activator Start: 09-10-2023 End: 03-12-2024 take 1 capsule by mouth twice daily Lubiprostone (Amitiza) 8 mcg capsule Discontinued 8 ug PO TWICE A DAY 60 September 10, 2023 1:00am March 12, 2024 1:03pm montelukast 10 mg oral tablet (7 sources) Leukotriene Receptor Antagonist Start: 02-12-2019 End: 08-07-2019 take 1 tablet by mouth once daily in the evening Montelukast (Singulair) 10 mg tablet Discontinued 10 mg PO EVERY EVENING February 12, 2019 12:00am August 07, 2019 10:41am MULTIPLE VITAMIN (4 sources) Start: 11-22-2010 take 1 tablet by mouth once daily MULTIVITAMINS TABS One tablet by mouth daily MULTIPLE VITAMIN [id number] Cindy Tavarez omeprazole 10 mg delayed release oral capsule (4 sources) Proton Pump Inhibitor Start: 11-22-2010 take 1 tablet by mouth once daily PRILOSEC 10 MG CPDR One tablet by mouth daily OMEPRAZOLE [id number] Cindy Tavarez polyethylene glycol 3350 15236 mg powder for oral solution (4 sources) Osmotic Laxative Start: 01-01-2023 End: 11-26-2024 Polyethylene Glycol 3350 (Miralax) 17 gram powder in packet Discontinued 17 g PO DAILY July 30, 2023 1:59pm November 26, 2024 1:11pm tamsulosin hydrochloride 0.4 mg oral capsule (7 sources) alpha-Adrenergic Linn Start: 08-12-2018 End: 02-12-2019 take 1 capsule by mouth once daily Tamsulosin (Flomax) 0.4 mg capsule Discontinued 0.4 mg PO DAILY August 12, 2018 1:00am February 12, 2019 8:51am topiramate 50 mg oral tablet (20 sources) Start: 11-01-2017 End: 02-20-2018 take 1 tablet by mouth once daily Topiramate 50 mg tablet Discontinued 50 mg PO daily January 21, 2018 11:20am February 19, 2018 12:00am February 20, 2018 12:05am Start: 04-08-2012 take 1 tablet by danni th once daily at bedtime TOPAMAX 100 MG TABS One tablet by mouth daily at bedtime to prevent migraines TOPIRAMATE [id number] Nirmal Shipley MD Start: 04-08-2012 take 1 tablet by danni th once daily TOPAMAX 50 MG TABS One tablet by mouth daily TOPIRAMATE [id number] Nirmal Shipley MD CHOLECALCIFEROL TABS (4 sources) Start: 05-18-2014 take 1 tablet by mouth once daily VITAMIN D TABS One tablet by mouth daily CHOLECALCIFEROL TABS [id number] Nirmal Shipley MD Problems Active Problems Problem Classification Problem Date Documented Date Episodic/Chronic Abdominal pain (7 sources) Abdominal pain; Translations: [Unspecified abdominal pain] 10-30-2022 Episodic Cardiac and circulatory congenital anomalies (20 sources) Ventricular septal defect; Translations: [Ventricular septal defect] Onset: 1 11-22-2010 Chronic Cardiac and circulatory congenital anomalies (1 source) History of closure of ventricular septal defect; Translations: [Personal history of (corrected) congenital malformations of heart and circulatory system] Episodic Cardiac dysrhythmias (9 sources) Ventricular tachycardia, monomorphic; Translations: [Ventricular tachycardia] Chronic Comment on above: per PPM check 09/11 Conduction disorders (20 sources) Bifascicular block; Translations: [Incomplete atrioventricular block with atrioventricular response] Onset: 1 11-22-2010 Chronic Coronary atherosclerosis and other heart disease (1 source) Atherosclerotic heart disease of [place] coronary artery without angina pectoris; Translations: [Atherosclerotic heart disease of [place] coronary artery without angina pectoris] Onset: 5 Chronic Disorders of lipid metabolism (16 sources) Hyperlipidemia; Translations: [Hyperlipidemia, unspecified] Onset: 1 11-22-2010 Chronic Diverticulosis and diverticulitis (20 sources) Diverticular disease; Translations: [Diverticulosis of intestine, part unspecified, without perforation or abscess without bleeding] Onset: 5 11-01-2014 Chronic Esophageal disorders (2 sources) Gastroesophageal reflux disease; Translations: [Gastro-esophageal reflux disease without esophagitis] 01-01-2023 Chronic Essential hypertension (20 sources) Essential hypertension; Translations: [Essential (primary) hypertension] Onset: 3 Chronic Headache; including migraine (19 sources) Migraine without aura, not refractory ; Translations: [Migraine without aura, not intractable, without status migrainosus] Onset: 8 06-11-2019 Chronic Heart valve disorders (7 sources) Mitral valve prolapse; Translations: [Nonrheumatic mitral (valve) prolapse] 08-06-2019 Chronic Hyperplasia of prostate (20 sources) Benign prostatic hypertrophy with outflow obstruction; Translations: [Benign prostatic hyperplasia with lower urinary tract symptoms] Onset: 6 Chronic Other lower respiratory disease (1 source) Dyspnea; Translations: [Shortness of breath] Episodic Other male genital disorders (5 sources) Male erectile dysfunction, unspecified; Translations: [Impotence of organic origin] Onset: 3 Chronic Other screening for suspected conditions (not mental disorders or infectious disease) (20 sources) Electrocardiogram abnormal; Translations: [Abnormal result of cardiovascular function study, unspecified] Onset: 1 Resolved: 7 11-22-2010 Episodic Joseline-; endo-; and myocarditis; cardiomyopathy (except that caused by tuberculosis or sexually transmitted disease) (8 sources) Cardiomyopathy associated with another disorder; Translations: [Cardiomyopathy] Onset: 6 06-07-2016 Chronic Peripheral and visceral atherosclerosis (20 sources) Vasodilatation; Translations: [Peripheral vascular disease, unspecified] Onset: 8 03-03-2018 Chronic Unclassified (4 sources) Long-term drug therapy; Translations: [Other longterm (current) drug therapy] Onset: 1 11-22-2010 Past or Other Problems Problem Classification Problem Date Documented Da te Episodic/Chronic Abdominal hernia (19 sources) Bilateral inguinal hernia; Translations: [Bilateral inguinal hernia, without obstruction or gangrene, not specified as recurrent] Onset: 06-21-2009 06-21-2009 Episodic Conditions associated with dizziness or vertigo (20 sources) Dizziness and giddiness; Translations: [Dizziness and giddiness] Onset: 11-22-2010 11-22-2010 Episodic Headache; including migraine (19 sources) Primary exertional headache; Translations: [Headache] Onset: 10-21-2017 10-21-2017 Episodic Nausea and vomiting (1 source) Nausea; Translations: [Nausea] Onset: 07-25-2017 Episodic Other diseases of kidney and ureters (1 source) Other obstructive and reflux uropathy; Translations: [BPH with obstruction/lower urinary tract symptoms] Onset: 09-12-2020 Episodic Other diseases of veins and lymphatics (1 source) Varicose veins of other specified sites; 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] Onset: 07-25-2017 Episodic Other diseases of veins and lymphatics (19 sources) Aneurysm of vein; 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] Onset: 03-03-2018 06-11-2019 Episodic Residual codes; unclassified (4 sources) Family history of ischemic heart disease and other diseases of the circulatory system; Translations: [Family history of ischemic heart disease and other diseases of the circulatory system] 05-18-2014 Episodic Syncope (20 sources) Syncope and collapse; Translations: [Syncope and collapse] Onset: 11-22-2010 11-22-2010 Episodic Results Test Name Value Interpretation Reference Range Facility [facility] 12-02-2024 [facility] Office Visit (UROLMN ) -- LOGAN MCCARTY ([id number]) 1955 M Date Time Provider Department 12/02/24 2:00 PM ALMA STEPHENSON UROJOSUÉ During your visit today, we recorded the following information about you: Weight Height 81.6 kg 1.626 m Alma Stephenson MD 12/02/2024 1:[address] [facility] ESTABLISHED PATIENT OFFICE VISIT REASON FOR VISIT: Follow up HPI 68 year old male presenting for follow-up of ED. Has h/o elevated PSA for which he has undergone the following work-up: MRI Prostate 12/12/2016 - 46 cc gland with no lesions concerning for disease IsoPSA 09/2020 - 7 TRUS Prostate Biopsy 01/10/2021 - benign PSA 12/02/2023 - 3.62 PSA 11/30/24 - 3.19 Interval hx: Overall feeling well today. Denies any bothers LUTS. Denies any feelings of incomplete urination. Denies any gross hematuria or dysuria. Continues to take dutasteride. He is able to achieve erection that is typically hard enough for penetration. Endorses occasional issues with maintaining erection. Interested in possibly trailing different med. Takes 2-3 5mg cialis, previoulsy tried 20mg without much help. PATHOLOGY: TRUS Prostate Biopsy 01/10/2021: FINAL DIAGNOSIS [...] LABS: Creatinine Date Value Ref Range Status 12/02/2023 1.14 0.73 - 1.22 mg/dL Final 12/20/2022 1.02 0.73 - 1.22 mg/dL Final 06/12/2019 0.99 0.73 - 1.22 mg/dL Final 06/11/2019 1.09 0.73 - 1.22 mg/dL Final PSA (ng/mL) Date Value 11/30/2024 3.19 (H) 12/02/2023 3.62 (H) 09/13/2022 5.62 (H) 09/11/2021 5.11 (H) 10/10/2020 5.76 (H) 08/30/2020 6.78 (H) 08/07/2019 4.75 (H) URINALYSIS: Specific Aragon, Ur Date Value Ref Range Status 12/04/2023 1.021 1.005 - 1.030 Final Glucose, Urine Date Value Ref Range Status 12/04/2023 Negative Trace, Negative Final Bilirubin, Urine Date Value Ref Range Status 12/04/2023 Negative Negative Final Ketones, Urine Date Value Ref Range Status 12/04/2023 Negative Negative, Trace Final Hemoglobin/Blood,Ur Date Value Ref Range Status 12/04/2023 Negative Negative, Trace Final Protein, Urine Date Value Ref Range Status 12/04/2023 Negative Trace, Negative Final Urobilinogen, Urine Date Value Ref Range Status 02/15/2016 0.2 Normal (<1.1) EU Final Nitrites Date Value Ref Range Status 12/04/2023 Negative Negative Final Leukocytes Date Value Ref Range Status 02/15/2016 neg Neg Final IMAGING: N/A ALLERGIES: ALLERGIES No Known Allergies MEDICATIONS: Current Outpatient Medications Medication Sig Tadalafil (CIALIS) 5 mg tablet Take 1 tablet by mouth as needed. dutasteride (AVODART) 0.5 mg capsule Take 1 capsule by mouth once daily. atorvastatin (LIPITOR) 10 mg tablet Take 2 tablets by mouth once daily. amLODIPine (NORVASC) 5 mg tablet Take 5 mg by mouth once daily. metoprolol succinate ER (TOPROL XL) 50 mg 24 hr tablet Take 50 mg by mouth once daily. calcium-vits M9-V-W3-minerals 166.75 mg- 166.75 unit cap CALCIUM 600 MG TABS multivitamin tablet MULTIVITAMINS TABS fluticasone propionate (FLONASE NASAL) Use in the nose as needed. esomeprazole (NEXIUM) 20 mg capsule Take 20 mg by mouth once daily. sumatriptan succinate(IMITREX 100 MG TAB) as necessary aspirin(ASPIR-LOW 81 MG TAB) Take one(1) tablet daily. No current facility-administered medications for this visit. HISTORIES PAST MEDICAL HISTORY Diagnosis Date Arrhythmia [...] SEPTAL DEFECT W/WO PATCH 1959 COLONOSCOPY 2012 [facility] COLONOSCOPY FLX DX W/COLLJ SPEC WHEN [...] Never Smokeless tobacco: Never Vaping Use Vaping status: Never U (more content not included)... Normal [facility] - Hematology and Cell countson 12-02-2024 Hemoglobin Ql (U) Negative Negative [facility] Laboratory - Urinalysison Protein Ql (U) Negative Negative mg/dL [facility] No Panel Informationon 12-02 BILIRUBIN UA (POCT) Negative Negative [facility] CLARITY UA (POCT) Clear [facility] COLOR UA (POCT) Yellow [facility] GLUCOSE UA (POCT) Negative Negative mg/dL [facility] KETONE UA (POCT) Trace Negative mg/dL [facility] LEUKOCYTES UA (POCT) Negative [facility] NITRITE UA (POCT) Negative Negative [facility] PH UA (POCT) 6 4.5 - 8.0 [facility] SPECIFIC GRAVITY UA (POCT) 1.02 1.005 - 1.030 [facility] UROBILINOGEN UA (POCT) 1 Rika l E.U./dL [facility] Location:[facility], [address] [place] [address], [address] [place] [address] POINT OF CARE [facility] PSA SerPl-mCncon 11-30-2024 Prostate specific Ag [Mass/Vol] 3.19 ng/mL High <2.60 [facility] Comment on above: Order Comment: Speci men Type: BLOOD SPECIMEN Ordering Facility: [facility] Address: [address] [place] [address] Result Comment: Crys sahu PSA test methodology used is the Electrochemiluminescence Immunoassay by [employer]. Total PSA values by differing methodologies cannot be interchanged. For an individual patient, the significance of a PSA level should be interpreted in a broad clinical context, including age, race, family history, digital rectal exam, prostate size, results of prior testing (prostate biopsy, free PSA, PCA3), and use of 5-alpha reductase inhibitors. Considering the high incidence of asymptomatic cancer in the general population that may not pose an ultimate risk to a patient, the decision to recommend urological evaluation or prostate biopsy should be individualized after consideration of all these factors. REFERENCE: Ignacio Sam M.D., M.P.H., Kelechi Vaughn M.D., Ph.D., Deion Silva M.D., Heidi Silverio, M.P.H., Acacia Terrell Sc.D. Effect of Verification Bias on Screening for Prostate Cancer by Measurement of Prostatic Specific Antigen. N Engl J Med 2003,349:335-42. Performed By: #### 2 857-1 #### [facility] CLIA [id number] [address] [place] [address] [place] Absolute lymphocyte countOrd ered By: Wayne Quinten on 11-26-2024 Lymphocytes Auto (Unsp spec) [#/Vol] 1.75 10*3/uL 0.83-4.51 [facility] Absolute neutrophil countOrd ered By: [facility] on 11-26-2024 Neutrophils (Bld) [#/Vol] 4.6 10*3/uL 2.0-7.7 [facility] Anion gap in Serum or Plasma Ordered By: Nirmal [facility] on 11-26-2024 Anion gap [Moles/Vol] 15 mmol/L 5-15 [facility] Automated lymphocyte count a s percentage of total leukocytesOrdered By: Nirmal [facility] on 11-26-2024 Lymphocytes/100 WBC Auto (Unsp spec) 23.2 % 19-41 [facility] BUN/creatinine ratioOrdered By: [facility] on 11-26-2024 Urea nitrogen/Creatinine [Mass ratio] 17.3 mg/mg - [facility] Basic Metabolic Profile (BMP )on 11-26-2024 BUN/CRE 17.3 RATIO Normal - [facility] Comment on above: Performed By: #### L 500.3400, L501.9520, L500.4100, L100.0100, L500.2500 #### [facility] [address] [place], [address] Calcium [Mass/Vol] 9.6 mg/dL Normal 7.6-11.0 [facility] Comment on above: Performed By: #### L 500.3400, L501.9520, L500.4100, L100.0100, L500.2500 #### [facility] [address] [place], [address] Chloride [Moles/Vol] 106 mmol/L Normal 98-108 [facility] Comment on above: Performed By: #### L 500.3400, L501.9520, L500.4100, L100.0100, L500.2500 #### [facility] [address] [place], [address] CO2 [Moles/Vol] 20.4 mmol/L Low 21.0-32.0 [facility] Comment on above: Performed By: #### L 500.3400, L501.9520, L500.4100, L100.0100, L500.2500 #### [facility] [address] [place], [address] Creatinine [Mass/Vol] 1.16 mg/dL Normal 0.70-1.20 [facility] Comment on above: Performed By: #### L 500.3400, L501.9520, L500.4100, L100.0100, L500.2500 #### [facility] [address] [place], [address] GAP 15 Normal 5-15 [facility] Comment on above: Performed By: #### L 500.3400, L501.9520, L500.4100, L100.0100, L500.2500 #### [facility] [address] [place], [address] GFR/1.73 sq M.predicted among non-blacks MDRD (S/P/Bld) [Vol rate/Area] 69 mL/min/{1.73_m2} Normal >60 [facility] Comment on above: Result Comment: mL/m in/1.73m2 CKD-EPI Creatinine Equation (2020) Performed By: #### L 500.3400, L501.9520, L500.4100, L100.0100, L500.2500 #### [facility] [address] [place], [address] Glucose [Mass/Vol] 86 mg/dL Normal 70-99 [facility] Comment on above: Performed By: #### L 500.3400, L501.9520, L500.4100, L100.0100, L500.2500 #### [facility] [address] [place], [address] Potassium [Moles/Vol] 3.9 mmol/L Normal 3.3-5.1 [facility] Comment on above: Result Comment: Hemo lysis present, Results??could be affected. ?? Performed By: #### L 500.3400, L501.9520, L500.4100, L100.0100, L500.2500 #### [facility] [address] [place], [address] Sodium [Moles/Vol] 141 mmol/L Normal 133-145 [facility] Comment on above: Performed By: #### L 500.3400, L501.9520, L500.4100, L100.0100, L500.2500 #### [facility] [address] [place], [address] Urea nitrogen [Mass/Vol] 20 mg/dL High 4-19 [facility] Comment on above: Performed By: #### L 500.3400, L501.9520, L500.4100, L100.0100, L500.2500 #### [facility] [address] [place], [address] Basophil percentageOrdered B y: Wayne Quinten on 11-26-2024 Basophils/100 WBC (Bld) 0.8 % 0-1 [facility] Bilirubin directOrdered By: Wayne Quinten on 11-26-2024 Bilirubin.direct [Mass/Vol] 0.39 mg/dL High 0.00-0.30 [facility] Bilirubin, totalOrdered By: Nirmal Quinten on 11-26-2024 Bilirubin [Mass/Vol] 1.11 mg/dL 0.00-1.30 [facility] CBC W/Diff, Automatedon 05-0 8-2024 Absolute Lymph 1.75 X10 3/uL Normal 0.83-4.51 [facility] Comment on above: Performed By: #### L 500.3400, L501.9520, L500.4100, L100.0100, L500.2500 #### [facility] [address] [place], [address] Absolute Neut 4.6 X10 3/uL Normal 2.0-7.7 [facility] Comment on above: Performed By: #### L 500.3400, L501.9520, L500.4100, L100.0100, L500.2500 #### [facility] [address] [place], [address] Basophils/100 WBC (Bld) 0.8 % Normal 0-1 [facility] Comment on above: Performed By: #### L 500.3400, L501.9520, L500.4100, L100.0100, L500.2500 #### [facility] [address] [place], [address] Eosinophils/100 WBC (Bld) 3.1 % Normal 0-5 [facility] Comment on above: Performed By: #### L 500.3400, L501.9520, L500.4100, L100.0100, L500.2500 #### [facility] [address] [place], [address] Erythrocyte distribution width (RBC) [Ratio] 12.4 % Normal 11.6-14.6 [facility] Comment on above: Performed By: #### L 500.3400, L501.9520, L500.4100, L100.0100, L500.2500 #### [facility] [address] [place], [address] Hematocrit (Bld) [Volume fraction] 45.1 % Normal 40-54 [facility] Comment on above: Performed By: #### L 500.3400, L501.9520, L500.4100, L100.0100, L500.2500 #### [facility] [address] [place], [address] Hemoglobin (Bld) [Mass/Vol] 16.0 g/dL Normal 13.0-16.5 [facility] Comment on above: Performed By: #### L 500.3400, L501.9520, L500.4100, L100.0100, L500.2500 #### [facility] [address] [place], [address] IG% 0.300 Normal 0.0-0.9 [facility] Comment on above: Result Comment: IG% - Immature Granulocytes (promyelocytes, myelocytes and metamyelocytes) > 1% indicates that a LEFT SHIFT is Present. Performed By: #### L 500.3400, L501.9520, L500.4100, L100.0100, L500.2500 #### [facility] [address] [place], [address] Lymphocytes/100 WBC (Bld) 23.2 % Normal 19-41 [facility] Comment on above: Performed By: #### L 500.3400, L501.9520, L500.4100, L100.0100, L500.2500 #### [facility] [address] [place] [place], [address] MCH (RBC) [Entitic mass] 33.0 pg High 27.0-32.0 [facility] Comment on above: Performed By: #### L 500.3400, L501.9520, L500.4100, L100.0100, L500.2500 #### [facility] [address] [place], [address] MCHC (RBC) [Mass/Vol] 35.5 g/dL Normal 32-36 [facility] Comment on above: Performed By: #### L 500.3400, L501.9520, L500.4100, L100.0100, L500.2500 #### [facility] [address] [place], [address] MCV (RBC) [Entitic vol] 93.0 fL Normal 80-94 [facility] Comment on above: Performed By: #### L 500.3400, L501.9520, L500.4100, L100.0100, L500.2500 #### [facility] [address] [place], [address] Monocytes/100 WBC (Bld) 11.1 % High 0-10 [facility] Comment on above: Performed By: #### L 500.3400, L501.9520, L500.4100, L100.0100, L500.2500 #### [facility] [address] [place], [address] Neutrophils/100 WBC (Bld) 61.5 % Normal 47-70 [facility] Comment on above: Performed By: #### L 500.3400, L501.9520, L500.4100, L100.0100, L500.2500 #### [facility] [address] [place], [address] Nucleated RBC (Bld) [#/Vol] 0 10*3/uL Normal 0-5 [facility] Comment on above: Performed By: #### L 500.3400, L501.9520, L500.4100, L100.0100, L500.2500 #### [facility] [address] [place], [address] Platelet mean volume (Bld) [Entitic vol] 9.1 fL Normal 6.2-12.0 [facility] Comment on above: Performed By: #### L 500.3400, L501.9520, L500.4100, L100.0100, L500.2500 #### [facility] [address] [place], [address] Platelets (Bld) [#/Vol] 229 10*3/uL Normal 150-450 [facility] Comment on above: Performed By: #### L 500.3400, L501.9520, L500.4100, L100.0100, L500.2500 #### [facility] [address] [place], [address] RBC (Bld) [#/Vol] 4.85 10*6/uL Normal 4.6-6.2 [facility] Comment on above: Performed By: #### L 500.3400, L501.9520, L500.4100, L100.0100, L500.2500 #### [facility] [address] [place], [address] RDW SD 42.5 fl Normal 35.1-43.9 [facility] Comment on above: Performed By: #### L 500.3400, L501.9520, L500.4100, L100.0100, L500.2500 #### [facility] [address] [place], [address] WBC (Bld) [#/Vol] 7.5 10*3/uL Normal 4.4-11.0 [facility] Comment on above: Performed By: #### L 500.3400, L501.9520, L500.4100, L100.0100, L500.2500 #### [facility] [address] [place], [address] Calculated very low density lipoprotein (VLDL) cholesterol measurementOrdered By: Nirmal Shipley on 11-26-2024 Calculated very low density lipoprotein (VLDL) cholesterol measurement 23 mg/dL 5-40 [facility] Carbon dioxide, total [Moles /volume] in Central venous bloodOrdered By: Nirmal Shipley on 11-26-2024 CO2 [Moles/Vol] 20.4 mmol/L Low 21.0-32.0 [facility] Cardiology Visit Reporton Cardiology Visit Report [facility] [address] [place] [address] OFFICE VISIT Date of Service: 11/26/24 MR#: [id number] Acct: [id number] Name: LOGAN MCCARTY Rep #: [id number] : 1955 Provider: Dr. Nirmal Shipley MD Age/Sex: 68/M Location: [facility] Status: Signed HPI HPI History of Present Illness Details: ANDREI MCCARTY, is a 68 M who presents to the office today for a follow-up visit. 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 He underwent a loop recorder implantation in August 2016 at the [facility]. He has a history of IAN with CPAP therapy. He did have high degree AV block noted on his loop recorder and underwent a permanent pacemaker implantation in May 2019 at the [facility]. Blood pressure has been much better controlled since his last office visit when amlodipine was added to his regimen. He denies chest, arm, jaw, or neck discomfort. His exercise tolerance is stable walking 3.5-5 miles a five times a week. He says that he feels he cannot get his heart rate where he needs to get it. He states biking 20 miles once a week. He denies symptoms of CHF, palpitations, lightheadedness, near syncope, or syncopal episodes. He denies edema or claudication issues. He denies orthopnea, PND, myalgia, or unexplainable fatigue. His physical exam appears to be otherwise unremarkable. He also says that he has had some strabismus which has been treated and he thinks that his symptoms are much better. 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 Delivery Analyst Required: No Accompanied by: Self Is patient in pain?: No Allergies metronidazole (From Flagyl) Adverse Reaction (Intermediate, Verified 11/26/24 13:10) Nausea Medications ???Medication ???Instructions ???Recorded ???Confirmed ???Type aspirin 81 mg tablet,delayed 81 mg PO QDAY 0 days 11/01/17 05/03/15 History release calcium carbonate (Calcium 600) 600 mg PO QDAY 11/01/17 11/26/24 H istory dutasteride 0.5 mg capsule 0.5 mg PO QDAY 11/01/17 11/26/24 H istory (Avodart) multivitamin 1 tab PO QDAY 11/01/17 11/26/24 Hi story sumatriptan succinate 100 mg tablet 100 mg PO ONCE PRN MIGRAINES 11/26/24 History esomeprazole magnesium 20 mg 40 mg PO QDAY 07/25/22 11/26/24 Hi story capsule,delayed release (Nexium) Lactobacillus acidophilus 10 10,000 mmu cells PO DAILY 01/01/23 11/26/24 History billion cell capsule (Probiotic) tadalafil 5 mg tablet 5 mg PO DAILY PRN Erectile 3 11/26/24 History Dysfunction fluticasone propionate 50 1 spray intranasal Q12H PRN 11/26/24 History mcg/actuation nasal spray,suspension dicyclomine 10 mg capsule 10 mg PO BID PRN abdominal pain 11/26/24 Rx #20 caps atorvastatin 20 mg tablet 20 mg PO DAILY #90 tabs 06/22/24 0 11/26/24 Rx metoprolol succinate 50 mg 50 mg PO DAILY #90 tabs 06/25/24 0 11/26/24 Rx tablet,extended release 24 hr amlodipine 5 mg tablet 5 mg PO DAILY #90 tabs 08/07/24 Rx Have you fallen in the past year?: No PFSH Medical History Abdominal pain Alcohol use Allergic rhinitis Arthritis Back pain BPH (benign prostatic hyperplasia) Cardiology follow-up encounter CPAP (continuous positive airway pressure) dependence Diverticulosis Essential hypertension Gastric reflux GERD (gastroesophageal reflux disease) Hearing loss Hiatal hernia High cholesterol High degree atrioventricular block History of diverticulitis History of echocardiogram History of irregular heartbeat History of pacemaker History of steroid therapy History of stress test HLD (hyperlipidemia) Hx of lipoma Hx of strabismus Hypertension LLQ abdominal pain [place] headache Mitral valve prolapse Monomorphic ventricular tachycardia Non-ischemic cardiomyopathy Non-smoker Nonrheumatic mitral (valve) prolapse Obstructive sleep apnea 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 Normal [facility] Chloride assayOrdered By: Zachary Shipley on 11-26-2024 Chloride [Moles/Vol] 106 mmol/L 98-108 [facility] Eosinophil percentageOrdered By: Nirmal Shipley on 11-26-2024 Eosinophils/100 WBC (Bld) 3.1 % 0-5 [facility] Erythrocyte distribution wid th ratioOrdered By: Nirmal Shipley on 11-26-2024 Erythrocyte distribution width (RBC) [Ratio] 12.4 % 11.6-14.6 [facility] Erythrocyte distribution wid th standard deviationOrdered By: Nirmal Shipley on 11-26-2024 Erythrocyte distribution width (RBC) [Ratio] 42.5 fl 35.1-43.9 [facility] Glomerular filtration rate ( GFR) estimation/1.73 sq m using serum, plasma, or whole bOrdered By: Nirmal Shipley on 11-26-2024 GFR/1.73 sq M.predicted among non-blacks MDRD (S/P/Bld) [Vol rate/Area] 69 mL/min/{1.73_m2} >60 [facility] Comment on above: mL/min/1.73m2 CKD-EP I Creatinine Equation (2020) Hematocrit Auto (Bld) [Volum e fraction]Ordered By: Nirmal Shipley on 11-26-2024 Hematocrit (Bld) [Volume fraction] 45.1 % 40-54 [facility] Hemoglobin measurementOrdere d By: Nirmal Shipley on 11-26-2024 Hemoglobin (Bld) [Mass/Vol] 16.0 g/dL 13.0-16.5 [facility] Immature granulocytes/100 WB C Auto (Bld)Ordered By: Nirmal Quinten on 11-26-2024 Immature granulocytes/100 WBC (Bld) 0.300 % 0.0-0.9 [facility] Comment on above: IG% - Immature Granu locytes (promyelocytes, myelocytes and metamyelocytes) > 1% indicates that a LEFT SHIFT is Present. LDL calc ser/plasOrdered By: Nirmal [facility] on 11-26-2024 Cholesterol in LDL [Mass/Vol] 102 mg/dL [facility] Comment on above: Onmqydgaaf=004-698 m g/dL & Higher Fmbv=334 mg/dL or greater Laboratory - Chemistry and C hemistry - challengeOrdered By: Nirmal [facility] on 11-26-2024 AST [Catalytic activity/Vol] 38 U/L <38 [facility] Lipid Profileon 11-26-2024 CHOL:HDL 3.41 Normal [facility] Comment on above: Performed By: #### L 500.3400, L501.9520, L500.4100, L100.0100, L500.2500 #### [facility] [address] [place], [address] Cholesterol [Mass/Vol] 177 mg/dL Normal <=200 [facility] Comment on above: Result Comment: Chol esterol level, Desirable <200 mg/dL Borderline high cholesterol 200-239 mg/dL High cholesterol >=240 mg/dL Recommendations of the NCEP Adult Treatment Panel for the following risk-cutoff thresholds for the [place] population. Performed By: #### L 500.3400, L501.9520, L500.4100, L100.0100, L500.2500 #### [facility] [address] [place], [address] Cholesterol in HDL [Mass/Vol] 52 mg/dL Normal [facility] Comment on above: Result Comment: Masha onal Cholesterol Education Program (NCEP) guidelines: <40 mg/dL: Low HDL-cholesterol (major risk factor for CHD) >= 60 mg/dL: High HDL-cholesterol (negative risk factor for CHD) HDL-cholesterol is affected by a number of factors, e.g. smoking, exercise, hormones, sex and age. Performed By: #### L 500.3400, L501.9520, L500.4100, L100.0100, L500.2500 #### [facility] [address] [place], [address] Cholesterol in LDL [Mass/Vol] 102 mg/dL Normal [facility] Comment on above: Result Comment: Bord jianoh=408-720 mg/dL Higher Qhut=268 mg/dL or greater Performed By: #### L 500.3400, L501.9520, L500.4100, L100.0100, L500.2500 #### [facility] [address] [place], [address] Cholesterol in VLDL [Mass/Vol] 23 mg/dL Normal 5-40 [facility] Comment on above: Performed By: #### L 500.3400, L501.9520, L500.4100, L100.0100, L500.2500 #### [facility] [address] [place], [address] Triglyceride [Mass/Vol] 115 mg/dL Normal [facility] Comment on above: Result Comment: The drugs N-Acetylcysteine and Metamizole may falsely depress this assay. Normal range: <150 mg/dL Borderline High: 150-199 mg/dL High: 200-499 mg/dL Very High: >500 mg/dL Performed By: #### L 500.3400, L501.9520, L500.4100, L100.0100, L500.2500 #### [facility] [address] [place], [address] Liver Profileon 11-26-2024 Albumin [Mass/Vol] 4.5 g/dL Normal 3.4-4.8 [facility] Comment on above: Performed By: #### L 500.3400, L501.9520, L500.4100, L100.0100, L500.2500 #### [facility] [address] [place], [address] ALK PHOS 58 U/L Normal 40-129 [facility] Comment on above: Performed By: #### L 500.3400, L501.9520, L500.4100, L100.0100, L500.2500 #### [facility] [address] [place], [address] ALT [Catalytic activity/Vol] 42 U/L Normal <=46 [facility] Comment on above: Performed By: #### L 500.3400, L501.9520, L500.4100, L100.0100, L500.2500 #### [facility] [address] [place], [address] AST [Catalytic activity/Vol] 38 U/L Normal <=37 [facility] Comment on above: Performed By: #### L 500.3400, L501.9520, L500.4100, L100.0100, L500.2500 #### [facility] [address] [place], [address] Bilirubin [Mass/Vol] 1.11 mg/dL Normal 0.00-1.30 [facility] Comment on above: Performed By: #### L 500.3400, L501.9520, L500.4100, L100.0100, L500.2500 #### [facility] [address] [place], [address] Bilirubin.direct [Mass/Vol] 0.39 mg/dL High 0.00-0.30 [facility] Comment on above: Performed By: #### L 500.3400, L501.9520, L500.4100, L100.0100, L500.2500 #### [facility] [address] [place], [address] Globulin (S) [Mass/Vol] 2.1 g/dL Low 2.2-4.2 [facility] Comment on above: Performed By: #### L 500.3400, L501.9520, L500.4100, L100.0100, L500.2500 #### [facility] [address] [place], [address] T PROT 6.5 g/dL Normal 5.9-8.4 [facility] Comment on above: Performed By: #### L 500.3400, L501.9520, L500.4100, L100.0100, L500.2500 #### [facility] [address] [place], [address] MCV (mean corpuscular volume ) determinationOrdered By: Wayne Quinten on 11-26-2024 MCV (RBC) [Entitic vol] 93.0 fL 80-94 [facility] Mean corpuscular hemoglobin (MCH) determinationOrdered By: Nirmal Quinten on 11-26-2024 MCH (RBC) [Entitic mass] 33.0 pg High 27.0-32.0 [facility] Mean corpuscular hemoglobin concentration (MCHC) determinationOrdered By: Nirmal Quinten on 11-26-2024 MCHC (RBC) [Mass/Vol] 35.5 g/dL 32-36 [facility] Mean platelet volume determi nationOrdered By: Nirmal Quinten on 11-26-2024 Platelet mean volume (Bld) [Entitic vol] 9.1 fL 6.2-12.0 [facility] Monocyte percentageOrdered B y: Wayne Quinten on 11-26-2024 Monocytes/100 WBC (Bld) 11.1 % High 0-10 [facility] Neutrophil percentageOrdered By: Wayne Quinten on 11-26-2024 Neutrophils/100 WBC (Bld) 61.5 % 47-70 [facility] Nucleated red blood cell per centageOrdered By: Wayne Quinten on 11-26-2024 Nucleated RBC/100 WBC (Bld) [Ratio] 0 % 0-5 [facility] Platelet countOrdered By: Zachary Shipley on 11-26-2024 Platelets (Bld) [#/Vol] 229 10*3/uL 150-450 [facility] Potassium measurement (mass/ volume)Ordered By: Nirmal Shipley on 11-26-2024 Potassium (Unsp spec) [Mass/Vol] 3.9 mmol/L 3.3-5.1 [facility] Comment on above: Hemolysis present, R esults could be affected. RBC Auto (Bld) [#/Vol]Ordere d By: Nirmal Shipley on 11-26-2024 RBC (Bld) [#/Vol] 4.85 10*6/uL 4.6-6.2 [facility] Screening total cholesterol/ high density lipoprotein (HDL) cholesterol ratioOrdered By: Nirmal Shipley on 11-26-2024 Cholesterol.total/Chol esterol in HDL [Mass ratio] 3.41 {ratio} [facility] Serum creatinine measurement (mass/volume)Ordered By: Nirmal Shipley on 11-26-2024 Creatinine [Mass/Vol] 1.16 mg/dL 0.70-1.20 [facility] Serum globulin measurementOr dered By: Nirmal Shipley on 11-26-2024 Globulin (S) [Mass/Vol] 2.1 g/dL Low 2.2-4.2 [facility] Serum glucose measurement (m ass/volume)Ordered By: Nirmal Shipley on 11-26-2024 Glucose [Mass/Vol] 86 mg/dL 70-99 [facility] [facility] Serum or plasma alanine carey otransferase (ALT) measurementOrdered By: Nirmal Shipley on 11-26-2024 ALT [Catalytic activity/Vol] 42 U/L <47 [facility] Serum or plasma albumin olivia urement (mass/volume)Ordered By: Nirmal Shipley on 11-26-2024 Albumin [Mass/Vol] 4.5 g/dL 3.4-4.8 [facility] Serum or plasma alkaline celena sphatase measurementOrdered By: Nirmal Shipley on 11-26-2024 ALP [Catalytic activity/Vol] 58 U/L 40-129 [facility] Serum or plasma calcium olivia urement (mass/volume)Ordered By: Nirmal Shipley on 11-26-2024 Calcium [Mass/Vol] 9.6 mg/dL 7.6-11.0 [facility] Serum or plasma cholesterol in HDL measurement (mass/volume)Ordered By: Nirmal Shipley on 11-26-2024 Cholesterol in HDL [Mass/Vol] 52 mg/dL >40 [facility] Comment on above: National Cholesterol Education Program (NCEP) guidelines:<40 mg/dL: Low HDL-cholesterol (major risk factor for CHD)>= 60 mg/dL: High HDL-cholesterol (negative risk factor for CHD)HDL-cholesterol is affected by a number of factors, e.g. smoking, exercise, hormones, sex and age. Serum or plasma cholesterol measurement (mass/volume)Ordered By: Nirmal Shipley on 11-26-2024 Cholesterol [Mass/Vol] 177 mg/dL <201 [facility] Comment on above: Cholesterol level, D esirable <200 mg/dLBorderline high cholesterol 200-239 mg/dLHigh cholesterol >=240 mg/dLRecommendations of the NCEP Adult Treatment Panel for the following risk-cutoff thresholds for the [place] population. Serum or plasma urea nitroge n measurement (mass/volume)Ordered By: Nirmal Shipley on 11-26-2024 Urea nitrogen [Mass/Vol] 20 mg/dL High 4-19 [facility] Sodium levelOrdered By: Adeel Shipley on 11-26-2024 Sodium [Moles/Vol] 141 mmol/L 133-145 [facility] TSH DL <= 0.005 mIU/L QnOrde red By: Nirmal Shipley on 11-26-2024 TSH Qn 1.120 uIU/mL 0.300-4.200 [facility] Thyroid Stim Hormone (TSH)on 11-26-2024 TSH 1.120 uIU/mL Normal 0.300-4.200 [facility] Comment on above: Performed By: #### L 500.3400, L501.9520, L500.4100, L100.0100, L500.2500 #### [facility] [address] [place], [address] Total proteinOrdered By: Desiree Shipley on 11-26-2024 Protein [Mass/Vol] 6.5 g/dL 5.9-8.4 [facility] Triglycerides measurementOrd ered By: Nirmal Shipley on 11-26-2024 Triglyceride [Mass/Vol] 115 mg/dL <199 [facility] Comment on above: The drugs N-Acetylcy steine and Metamizole may falsely depress this assay. Normal range: <150 mg/dLBorderline High: 150-199 mg/dLHigh: 200-499 mg/dLVery High: >500 mg/dL White blood cell (WBC) count Ordered By: Nirmal Shipley on 11-26-2024 WBC (Bld) [#/Vol] 7.5 10*3/uL 4.4-11.0 [facility] Gastroenterology Visit Repor ton 09-15-2024 Gastroenterology Visit Report [facility] [address] [place] [address] OFFICE VISIT Date of Service: 09/15/24 MR#: [id number] Acct: [id number] Name: LOGAN MCCARTY Rep #: [id number] : 1955 Provider: KIRSTEN Hernández Age/Sex: 68/M Location: [facility] Status: Signed Intake Vital Signs 07/30/23 12:54 Height 5 ft 5 in Intake Visit Reasons: 6 M FU Chief Complaint: hx of diverticulitis Information Delivery Analyst Required: No Is patient in pain?: No Allergies metronidazole (From Flagyl) Adverse Reaction (Intermediate, Verified 09/09/23 07:35) Nausea Have you fallen in the past year?: No Nurse's Note: OV 09.15.24 Pt here for a f/u. Pt reports abdominal pain, gas and bloating. Continues dicyclomine and Miralax as needed and Nexium daily. [facility] Medical History Abdominal pain Alcohol use Allergic rhinitis Arthritis Back pain BPH (benign prostatic hyperplasia) Cardiology follow-up encounter CPAP (continuous positive airway pressure) dependence Diverticulosis Essential hypertension Gastric reflux GERD (gastroesophageal reflux disease) Hearing loss Hiatal hernia High cholesterol High degree atrioventricular block History of diverticulitis History of echocardiogram History of irregular heartbeat History of pacemaker History of steroid therapy History of stress test HLD (hyperlipidemia) Hx of lipoma Hx of strabismus Hypertension LLQ abdominal pain Migraine headache Mitral valve prolapse Monomorphic ventricular tachycardia Non-ischemic cardiomyopathy Non-smoker Nonrheumatic mitral (valve) prolapse Obstructive sleep apnea 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 Sleep apnea Syncope TIA (transient ischemic attack) Ventricular septal defect Vitamin D deficiency Wears glasses Wears hearing aid Surgical History History of loop recorder (08/23/16) History of permanent cardiac pacemaker placement (06/15/19) Hx of aneurysm (1960) Hx of bilateral inguinal hernia repair Hx of hernia repair Hx of ventricular septal defect repair Family History Father Myocardial infarction Heart disease Mother Hypertension History of PTCA Brother Myocardial infarction CAD (coronary artery disease) Hx CABG x 4 Social History Smoking Status: Never smoker alcohol intake: current alcohol intake frequency: holidays/special occasions only Alcohol type: wine HPI HPI Chief Complaint: hx of diverticulitis Details: LOGAN MCCARTY, is a 68 M who presents to the office today for f/u. PMHx IAN, jugular vein aneurysm 1960, pacemaker present 2018, diverticulitis BGI established 4.06.13 with constipation and bloating EGD and colonoscopy 01.03. EGD irregular ZLine 39cm; three 5mm sessile gastric hyperplastic/inflammatory polyps; duodenitis. Colonoscopy diverticulosis; three sessile hyperplastic polyps. Biochemical work up ; CBC, CMP, ESR, LFT, IBD panel all wnl Stool; lactoferrin wnl, calprotectin wnl Last OV 8..24 With complaints of left sided abd pain in the morning relieved with bm. BM once a day with fiber choice. Complains of gas. Continue Nexium. Miralax PRN. Start dicyclomine OV 2.25.25; Pt has been doing well. He has not had any diverticulitis flares since last visit. He continues to have excess flatulence. He is not sure if he tried simethicone. He continues taking fiber choice gummies and probiotics. He has not had any constipation. ROS Const Constitutional: No fatigue, fever(s) or weight change ENT ENT: No difficulty swallowing Gastro GI: Positive for abdominal pain, bloating and excessive flatus; No belching, change in bowel habits, change in stool character, coffee ground emesis, constipation, cramping, diarrhea, heartburn, difficulty swallowing, feeling full early, incontinent of stools, Vomiting blood/hematemesis, Blood in stool, loose stools, Black,tarry stools, nausea/dyspepsia, pain with swallowing, vomiting or other Musc Musculoskeletal: Positive for Arthritis; No joint pain Skin Skin: No yellowing of the eye or itchy eyes Psych Psychiatric: No anxiety and No depression Endo Endocrine: No fatigue or weight change Aller/Imm Allergy/Immunologic: No itchy eyes Tra/Lymp Hematologic/Lymphatic: No easy bleeding or easy bruising Exam Const General: cooperative and comfortable Nutritional Appearance: average body habitus and well nourished HENIN Head: normal to inspection Ears: hearing grossly normal bilaterally Nose: external nose normal Face and sinus: normal facial exam Eyes General: appear (more content not included)... Normal [facility] Gastroenterology Visit Repor ton 03-12-2024 Gastroenterology Visit Report [facility]astroenter[facility] [address] [place] [address] OFFICE VISIT Date of Service: 03/12/24 MR#: [id number] Acct: [id number] Name: LOGAN MCCARTY Rep #: [id number] : 1955 Provider: KIRSTEN Hernández Age/Sex: 68/M Location: [facility] Status: Signed Intake Vital Signs 07/30/23 12:54 Height 5 ft 5 in Intake Visit Reasons: 6 M FU Chief Complaint: diverticulitis Allergies metronidazole (From Flagyl) Adverse Reaction (Intermediate, Verified 09/09/23 07:35) Nausea Medications ???Medication ???Instructions ???Recorded ???Confirmed ???Type aspirin 81 mg tablet,delayed 81 mg PO QDAY 0 days 11/01/17 03/12/24 History release calcium carbonate (Calcium 600) 600 mg PO QDAY 11/01/17 03/12/24 History dutasteride 0.5 mg capsule 0.5 mg PO QDAY 11/01/17 03/12/24 History (Avodart) multivitamin 1 tab PO QDAY 11/01/17 03/12/24 History sumatriptan succinate 100 mg tablet 100 mg PO ONCE PRN MIGRAINES 09/27/20 03/12/24 History esomeprazole magnesium 20 mg 40 mg PO QDAY 07/25/22 03/12/24 History capsule,delayed release (Nexium) Lactobacillus acidophilus 10 10,000 mmu cells PO DAILY 01/01/23 03/12/24 History billion cell capsule (Probiotic) tadalafil 5 mg tablet 5 mg PO DAILY PRN Erectile 01/01/23 03/12/24 History Dysfunction amlodipine 5 mg tablet 5 mg PO DAILY #90 tabs 07/01/23 03/12/24 Rx metoprolol succinate 50 mg 50 mg PO DAILY #90 tabs 07/01/23 03/12/24 Rx tablet,extended release 24 hr atorvastatin 20 mg tablet 20 mg PO DAILY #90 tabs 07/08/23 03/12/24 Rx fluticasone propionate 50 1 spray intranasal Q12H PRN 07/30/23 03/12/24 History mcg/actuation nasal spray,suspension polyethylene glycol 3350 17 gram 17 g PO DAILY 07/30/23 03/12/24 History oral powder packet (Miralax) amoxicillin 500 mg-potassium 1 tab PO BID 10 days #20 tabs 03/12/24 03/12/24 Rx clavulanate 125 mg tablet (Augmentin) dicyclomine 10 mg capsule 10 mg PO BID PRN abdominal pain 03/12/24 03/12/24 Rx #20 caps Have you fallen in the past year?: No PFSH Medical History Abdominal pain Alcohol use Allergic rhinitis Arthritis Back pain BPH (benign prostatic hyperplasia) Cardiology follow-up encounter CPAP (continuous positive airway pressure) dependence Diverticulosis Essential hypertension Gastric reflux GERD (gastroesophageal reflux disease) Hearing loss Hiatal hernia High cholesterol High degree atrioventricular block History of diverticulitis History of echocardiogram History of irregular heartbeat History of pacemaker History of steroid therapy History of stress test HLD (hyperlipidemia) Hx of lipoma Hx of strabismus Hypertension LLQ abdominal pain Migraine headache Mitral valve prolapse Monomorphic ventricular tachycardia Non-ischemic cardiomyopathy Non-smoker Nonrheumatic mitral (valve) prolapse Obstructive sleep apnea 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 Sleep apnea Syncope TIA (transient ischemic attack) Ventricular septal defect Vitamin D deficiency Wears glasses Wears hearing aid Surgical History History of loop recorder (08/23/16) History of permanent cardiac pacemaker placement (06/15/19) Hx of aneurysm (1960) Hx of bilateral inguinal hernia repair Hx of hernia repair Hx of ventricular septal defect repair Family History Father Myocardial infarction Heart disease Mother Hypertension History of PTCA Brother Myocardial infarction CAD (coronary artery disease) Hx CABG x 4 Social History Smoking Status: Never smoker alcohol intake: current alcohol intake frequency: holidays/special occasions only Alcohol type: wine HPI HPI Chief Complaint: diverticulitis Details: LOGAN MCCARTY, is a 68 M who presents to the office today for f/u. PMH IAN, jugular vein aneuryms 1960, pacemaker present 2018. PCP OV with diverticulitis noting symptoms and episodes for many years; typically has LLQ/L flank pain worst in the morning; ATB (augmentin) therapy is effective with pain. CT abd/pel 12.. hepatic fatty infiltration with 17mm ovoid hyperattenuating focus, fatty infiltration versus cavernous hemangioma; chronic thickening of gastric fundus; elongated and redundant colon; colonic diverticulosis without diverticulitis; pelvic wall mesh; umbilical hernia. *BGI established 4.11.23 with history as above and constipation with bloating. Acid reflux also a difficulty but is well managed with use of Nexium. ? Biochemic (more content not included)... Normal [facility] CNOVon 01-29-2024 CNOV Office Visit (CARDMN ) -- LOGAN MCCARTY ([id number]) 1955 M Date Time Provider Department 01/29/24 4:30 PM DARÍO GOMEZ CARDMARGARITA During your visit today, we recorded the following information about you: Pulse Blood pressure Weight Height 60/minute 147/96 82.6 kg 1.626 m Darío Gomez MD 01/29/2024 4:43 PM [facility] [place] Kei Escobar Department of Cardiovascular Medicine SECTION OF CARDIAC PACING and ELECTROPHYSIOLOGY OUTPATIENT VISIT DATE January 29, 2024 OUTPATIENT VISIT TYPE ESTABLISHED PRIMARY CARE PHYSICIAN: Lazaro Degroot [address] [place] [address] [address] [place] [address] REFERRING PHYSICIAN: Darío Gomez [address] [facility] [id number] CHIEF COMPLAINT: Device management HISTORY OF PRESENT ILLNESS (includes nursing intake): Mr. Mccarty is a 68 year old male who presents today for follow-up visit for device management. He has a past medical history of hyperlipidemia, RBBB, VSD repair at age 3, jugular vein resection at age 5, and AV block s/p dual chamber PPM (06/15/19). He is an established patient of Dr. Gomez last seen in 2020 for follow up. An echocardiogram showed a residual VSD and he was advised to seek evaluation by Dr. Caballero. He was started on metoprolol by Dr. Caballero but otherwise without significant symptoms. Patient is doing well, he has some strabismus issues. He denies chest pain, shortness of breath, orthopnea, cough, edema, palpitations, PND, lightheadedness or syncope. He remains active with yard work and regular exercise without any complaints. PAST MEDICAL HISTORY Diagnosis Date Arrhythmia BBB [...] SEPTAL DEFECT W/WO PATCH 1959 COLONOSCOPY 2012 [facility] COLONOSCOPY FLX DX W/COLLJ SPEC WHEN PFRMD 10/26/14 Repeat 2024 PAST SURGICAL HISTORY OF 1961 jugular vein resection, PAST SURGICAL HISTORY OF left breast gynecomastia surg PAST SURGICAL HISTORY OF 08/2016 loop recorder PAST SURGICAL HISTORY OF 06/15/2019 dual chamber PPM RPR 1ST INGUN HRNA AGE 6 YRS/> REDUCIBLE 1957 Hernia repair, inguinal, bilat as baby STRABISMUS SURGERY 3+ MUSCLES 1985 left SOCIAL HISTORY Social History Tobacco Use Smoking status: Never Smokeless tobacco: Never Vaping Use Vaping Use: Never used Substance Use Topics Alcohol use: Yes Comment: 7 /week wine w dinner Drug use: No FAMILY HISTORY Problem Relation Age of Onset Coronary Artery Disease Mother Hypertension Mother other (Migraine) Mother Coronary Artery Disease Father Hypertension Father Heart Attack Father Hypertension Sister other (Migraine) Sister Coronary Artery Disease Brother s/p CABG Heart Attack Brother Hypertension Brother No Family History Other AAA ALLERGIES: ALLERGIES No Known Allergies MEDICATIONS: dutasteride (AVODART) 0.5 mg capsule Take 1 capsule by mouth once daily. Tadalafil (CIALIS) 5 mg tablet Take 1 tablet by mouth as needed. atorvastatin (LIPITOR) 10 mg tablet Take 2 tablets by mouth once daily. amLODIPine (NORVASC) 5 mg tablet Take 5 mg by mouth once daily. metoprolol succinate ER (TOPROL XL) 50 mg 24 hr tablet Take 50 mg by mouth once daily. calcium-vits K9-R-W5-minerals 166.75 mg- 166.75 unit cap CALCIUM 600 MG TABS multivitamin tablet MULTIVITAMINS TABS fluticasone propionate (FLONASE NASAL) Use in the nose as needed. esomeprazole (NEXIUM) 20 mg capsule Take 20 mg by mouth once daily. sumatriptan succinate(IMITREX 100 MG TAB) as necessary aspirin(ASPIR-LOW 81 MG TAB) Take one(1) tablet daily. Elena Long RN PHYSICAL EXAMINATION: There were no vitals taken for this visit. Affect normal Oriented x3 GA NAD HENT unremarkable, No thyroidal bruit Abd Soft Ext No edema Skin warm, moist Lungs Clear Heart nl S1, S2 Motor 5/5 CARDIOVASCULAR MEDICINE TESTING: Echocardiogram 12/20/22: - Exam indication: VSD repair (1958) - The left ventricle is normal in size. There is upper septal left ventricular hypertrophy. Left ventricular systolic function is normal. EF = 56 ? 5% (2D 4-ch.) Grade I left ventricular diastolic dysfunction. - The right ventricle is normal in size. Right ventricular systolic function is normal. - The left atrial cavity is moderately dilated. - s/p VSD repair. Aneurysmal membrane septum. There is a known trivial residual VSD flow visualized on this exam (Clip #88). - Qp/Qs = 0.98. - Exam was compared with the pr (more content not included)... Normal [facility] ECG COMPLETEon 01-29-2024 ECG COMPLETE Ventricular Rate : 6 0 BPM Atrial Rate : 60 BPM P-R Interval : 264 ms QRS Duration : 140 ms Q-T Interval : 456 ms QTC Calculation(Bazett) : 456 ms Calculated P Logan : -2 degrees Calculated R Logan : -56 degrees Calculated T Logan : 23 degrees ATRIAL-PACED RHYTHM WITH PROLONGED AV CONDUCTION COMPLETE RIGHT BUNDLE BRANCH BLOCK LEFT ANTERIOR FASCICULAR BLOCK BIFASCICULAR BLOCK MINIMAL VOLTAGE CRITERIA FOR LVH, MAY BE NORMAL VARIANT ( R in aVL ) ABNORMAL ECG Confirmed by ALEJANDRO ANAND M.D. ([id number]) on 02/21/2024 12:21:31 PM NAME : LOGAN MCCARTY PID : [id number] : 1955 Gender : Male Race : ORD : [id number] Procedure Date : Jan 29 2024 14:48:07 Edit Date : Feb 21 2024 12:23:24 Diagnosis: ATRIAL-PACED RHYTHM WITH PROLONGED AV CONDUCTION COMPLETE RIGHT BUNDLE BRANCH BLOCK LEFT ANTERIOR FASCICULAR BLOCK BIFASCICULAR BLOCK MINIMAL VOLTAGE CRITERIA FOR LVH, MAY BE NORMAL VARIANT ( R in aVL ) ABNORMAL ECG Confirmed by ALEJANDRO ANAND M.D. ([id number]) on 02/21/2024 12:21:31 PM Test Reason : Location : 314 : J14 Overread By : ALEJANDRO ANAND M.D. Edited By : ALEJANDRO ANAND M.D. Referred By : DARÍO GOMEZ Acquired by : DAVID GILLILAND Normal [facility] URINALYSIS, REFLEX MICROSCOP ICon 12-04-2023 Bilirubin Ql (U) Negative Negative [facility] Clarity (Unsp spec) Clear Clear [facility] Color (U) Yellow Yellow [facility] Glucose Test strip (U) [Mass/Vol] Negative Trace, Negative [facility] Hemoglobin Ql (U) Negative Negative, Trace [facility] Interpretation and review of laboratory results Normal [facility] Ketones Ql (U) Negative Negative, Trace [facility] Leukocyte esterase Test strip Ql (U) Negative Negative, 25 Laura/uL [facility] Nitrite Ql (U) Negative Negative [facility] pH (U) 6.0 [pH] 5.0 - 8.0 [facility] Protein (U) [Mass/Vol] Negative Trace , Negative [facility] Specific gravity (U) [Rel density] 1.021 1.005 - 1.030 [facility] Urobilinogen Ql (U) Normal Normal [facility] Basophil percentageOrdered B y: Wilfredo Bro on 07-26-2023 Bilirubin [Mass/Vol] 1.10 mg/dL 0.20-1.00 [facility] Comment on above: For patients on eltr ombopag therapy, use of Dimension [place] TBIL is not recommended. Chloride [Moles/Vol] 108 mmol/L 98-107 [facility] Cholesterol [Mass/Vol] 186 mg/dL <200 [facility] Comment on above: <200 mg/dL Desirable 200-240 mg/dL Borderline >240 mg/dL High Risk Glucose [Mass/Vol] 97 mg/dL 74-106 [facility] Potassium [Moles/Vol] 3.7 mmol/L 3.5-5.1 [facility] Protein [Mass/Vol] 7.1 g/dL 6.4-8.2 [facility] Sodium [Moles/Vol] 140 mmol/L 136-145 [facility] Triglyceride [Mass/Vol] 119 mg/dL <199 [facility] Comment on above: The drugs N-Acetylcy steine and Metamizole may falsely depress this assay.Serum Triglycerides Reference Interval Normal <150 mg/dL Borderline high 150 - 199 mg/dL High 200 - 499 mg/dL Very High > or = 500 mg/dL Direct bilirubinOrdered By: Wilfredo Bro on 07-26-2023 Bilirubin.direct [Mass/Vol] 0.22 mg/dL 0.00-0.30 [facility] - Chemistry and C hemistry - challengeOrdered By: Wilfredo Bro on 07-26-2023 ALP [Catalytic activity/Vol] 60 U/L 45-117 [facility] ALT [Catalytic activity/Vol] 44 U/L 16-61 [facility] CO2 [Moles/Vol] 27.0 mmol/L 21.0-32.0 [facility] Globulin (S) [Mass/Vol] 3.5 g/dL 2.2-4.2 [facility] Urea nitrogen/Creatinine [Mass ratio] 15.7 mg/mg 10-20 [facility] No Panel InformationOrdered By: Wilfredo Bro on 07-26-2023 Estimated GFR (MDRD) Amer 82 mL/min >60 [facility] Comment on above: GFR Calc Estimated GFR (MDRD) Non-Af Amer 68 mL/min >60 [facility] Comment on above: Non- GFR Calc Serum or plasma albumin olivia urement (mass/volume)Ordered By: Wilfredo Bro on 07-26-2023 Albumin [Mass/Vol] 3.6 g/dL 3.2-5.0 [facility] Serum or plasma albumin/glob ulin mass ratioOrdered By: Wilfredo Bro on 07-26-2023 Albumin/Globulin [Mass ratio] 1.0 {ratio} 0.9-2.4 [facility] Serum or plasma calcium olivia urement (mass/volume)Ordered By: Wilfredo Bro on 07-26-2023 Calcium [Mass/Vol] 9.1 mg/dL 8.5-10.1 [facility] Serum or plasma cholesterol in HDL measurement (mass/volume)Ordered By: Wilfredo Bro on 07-26-2023 Cholesterol in HDL [Mass/Vol] 50 mg/dL >40 [facility] Comment on above: The drugs N-Acetylcy steine and Metamizole may falsely depress this assay. Reference Range HDL <40 mg/dL Low HDL Cholesterol HDL >or= 60 mg/dL High HDL Cholesterol Serum or plasma cholesterol in VLDL measurement (mass/volume)Ordered By: Wilfredo Bro on 07-26-2023 Cholesterol in VLDL [Mass/Vol] 24 mg/dL 5-40 [facility] Serum or plasma creatinine m easurement (mass/volume)Ordered By: Wilfredo Bro on 07-26-2023 Creatinine [Mass/Vol] 1.15 mg/dL 0.70-1.30 [facility] Comment on above: The validity of the calculated GFR & GFRAA in patients over 70 years has not been determined. Clinical correlation is essential. Serum or plasma low density lipoprotein (LDL) cholesterol measurement (mass/volume)Ordered By: Wilfredo Bro on 07-26-2023 Cholesterol in LDL [Mass/Vol] 112 mg/dL 0-130 [facility] Serum or plasma urea nitroge n measurement (mass/volume)Ordered By: Wilfredo Bro on 07-26-2023 Urea nitrogen [Mass/Vol] 18 mg/dL 7-18 [facility] Thin prep Papanicolaou smear with manual screeningOrdered By: Wilfredo Bro on 07-26-2023 Thin prep Papanicolaou smear with manual screening 27 U/L 15-37 [facility] Thin prep Papanicolaou smear with manual screening 5 5-15 [facility] Basophil percentageOrdered B y: Wilfredo Bro on 11-14-2022 Bilirubin [Mass/Vol] 0.80 mg/dL 0.20-1.00 [facility] Comment on above: For patients on eltr ombopag therapy, use of Dimension [place] TBIL is not recommended. Cholesterol [Mass/Vol] 183 mg/dL <200 [facility] Comment on above: <200 mg/dL Desirable 200-240 mg/dL Borderline >240 mg/dL High Risk Protein [Mass/Vol] 7.0 g/dL 6.4-8.2 [facility] Triglyceride [Mass/Vol] 237 mg/dL <199 [facility] Comment on above: The drugs N-Acetylcy steine and Metamizole may falsely depress this assay.Serum Triglycerides Reference Interval Normal <150 mg/dL Borderline high 150 - 199 mg/dL High 200 - 499 mg/dL Very High > or = 500 mg/dL Direct bilirubinOrdered By: Wilfredo Bro on 11-14-2022 Bilirubin.direct [Mass/Vol] 0.18 mg/dL 0.00-0.30 [facility] - Chemistry and C hemistry - challengeOrdered By: Wilfredo Bro on 11-14-2022 ALP [Catalytic activity/Vol] 55 U/L 45-117 [facility] ALT [Catalytic activity/Vol] 38 U/L 16-61 [facility] Globulin (S) [Mass/Vol] 3.4 g/dL 2.2-4.2 [facility] Serum or plasma albumin olivia urement (mass/volume)Ordered By: Wilfredo Bro on 11-14-2022 Albumin [Mass/Vol] 3.6 g/dL 3.2-5.0 [facility] Serum or plasma cholesterol in HDL measurement (mass/volume)Ordered By: Wilfredo Bro on 11-14-2022 Cholesterol in HDL [Mass/Vol] 48 mg/dL >40 [facility] Comment on above: The drugs N-Acetylcy steine and Metamizole may falsely depress this assay. Reference Range HDL <40 mg/dL Low HDL Cholesterol HDL >or= 60 mg/dL High HDL Cholesterol Serum or plasma cholesterol in VLDL measurement (mass/volume)Ordered By: Wilfredo Bro on 11-14-2022 Cholesterol in VLDL [Mass/Vol] 47 mg/dL 5-40 [facility] Serum or plasma low density lipoprotein (LDL) cholesterol measurement (mass/volume)Ordered By: Wilfredo Bro on 11-14-2022 Cholesterol in LDL [Mass/Vol] 88 mg/dL 0-130 [facility] Thin prep Papanicolaou smear with manual screeningOrdered By: Wilfredo Bro on 11-14-2022 Thin prep Papanicolaou smear with manual screening 25 U/L 15-37 [facility] No Panel InformationOrdered By: Tricia Carballo on 10-31-2022 Stool Calprotectin 66 ug/g 0-120 [facility] Comment on above: Concentration Interp retation Follow-Up<16 - 50 ug/g Normal None>50 -120 ug/g Borderline Re-evaluate in 4-6 weeks >120 ug/g Abnormal Repeat as clinically indicatedPerformed at: - [facility] [id number] Director: Alicia Winter MD, Phone: [phone] Stool lactoferrin detection by immunoassayOrdered By: Tricia Carballo on 10-31-2022 Lactoferrin IA Ql (Stl) [facility] Absolute lymphocyte countOrd ered By: Tricia Carballo on 10-30-2022 Lymphocytes Auto (Unsp spec) [#/Vol] 1.63 10*3/uL 0.83-4.51 [facility] Basophil percentageOrdered B y: Tricia Carballo on 10-30-2022 Basophils/100 WBC (Bld) 1.1 % 0-1 [facility] Bilirubin [Mass/Vol] 1.00 mg/dL 0.20-1.00 [facility] Comment on above: For patients on eltr ombopag therapy, use of Dimension [place] TBIL is not recommended. Chloride [Moles/Vol] 106 mmol/L 98-107 [facility] Eosinophils/100 WBC (Bld) 3.6 % 0-5 [facility] Glucose [Mass/Vol] 96 mg/dL 74-106 [facility] Neutrophils (Bld) [#/Vol] 5.4 10*3/uL 2.0-7.7 [facility] Neutrophils/100 WBC (Bld) 65.9 % 47-70 [facility] Potassium [Moles/Vol] 3.7 mmol/L 3.5-5.1 [facility] Protein [Mass/Vol] 7.4 g/dL 6.4-8.2 [facility] Sodium [Moles/Vol] 137 mmol/L 136-145 [facility] WBC (Bld) [#/Vol] 8.3 10*3/uL 4.4-11.0 [facility] Blood erythrocytes count (nu mber/volume)Ordered By: Tricia Carballo on 10-30-2022 RBC (Bld) [#/Vol] 5.00 10*6/uL 4.6-6.2 [facility] Blood hemoglobin measurement (mass/volume)Ordered By: Tricia Carballo on 10-30-2022 Hemoglobin (Bld) [Mass/Vol] 16.2 g/dL 13.0-16.5 [facility] Blood lymphocytes/100 leukoc ytesOrdered By: Tricia Carballo on 10-30-2022 Lymphocytes/100 WBC (Bld) 19.8 % 19-41 [facility] Blood monocytes/100 leukocyt esOrdered By: Tricia Carballo on 10-30-2022 Monocytes/100 WBC (Bld) 9.2 % 0-10 [facility] Blood platelet mean volumeOr dered By: Tricia Carballo on 10-30-2022 Platelet mean volume (Bld) [Entitic vol] 9.8 fL 6.2-12.0 [facility] Determination of erythrocyte mean corpuscular volume (MCV)Ordered By: Tricia Carballo on 10-30-2022 MCV (RBC) [Entitic vol] 95.8 fL 80-94 [facility] Erythrocyte sedimentation ra teOrdered By: Tricia Carballo on 10-30-2022 ESR (Bld) [Velocity] 3 mm/h 0-20 [facility] Hematocrit Auto (Bld) [Volum e fraction]Ordered By: Tricia Carballo on 10-30-2022 Hematocrit (Bld) [Volume fraction] 47.9 % 40-54 [facility] Laboratory - Chemistry and C hemistry - challengeOrdered By: Tricia Carballo on 10-30-2022 ALP [Catalytic activity/Vol] 57 U/L 45-117 [facility] ALT [Catalytic activity/Vol] 51 U/L 16-61 [facility] CO2 [Moles/Vol] 26.0 mmol/L 21.0-32.0 [facility] Globulin (S) [Mass/Vol] 3.4 g/dL 2.2-4.2 [facility] Urea nitrogen/Creatinine [Mass ratio] 14.4 mg/mg 10-20 [facility] - Hematology and Cell countsOrdered By: Tricia Carballo on 10-30-2022 Erythrocyte distribution width (RBC) [Entitic vol] 43.1 fL 35.1-43.9 [facility] Erythrocyte distribution width (RBC) [Ratio] 12.3 % 11.6-14.6 [facility] Immature granulocytes/100 WBC (Bld) 0.400 % 0.0-0.9 [facility] Comment on above: IG% - Immature Granu locytes (promyelocytes, myelocytes and metamyelocytes) > 1% indicates that a LEFT SHIFT is Present. MCH (RBC) [Entitic mass] 32.4 pg 27.0-32.0 [facility] Nucleated RBC/100 WBC (Bld) [Ratio] 0 % 0-5 [facility] MCHC Auto (RBC) [Mass/Vol]Or dered By: Tricia Carballo on 10-30-2022 MCHC (RBC) [Mass/Vol] 33.8 g/dL 32-36 [facility] No Panel InformationOrdered By: Tricia Carballo on 10-30-2022 Estimated GFR (MDRD) Amer 85 mL/min >60 [facility] Comment on above: GFR Calc Estimated GFR (MDRD) Non-Af Amer 71 mL/min >60 [facility] Comment on above: Non- GFR Calc Miscellaneous Test See comment [facility] Comment on above: TEST RESULT LIMITSIB D Expanded PanelgASCA 16 units 0-50 Negative <45 Equivocal 45 - 50 Positive >50ACCA 34 units 0-90 Negative <80 Equivocal 80 - 90 Positive >90ALCA 16 units 0-60 Negative <55 Equivocal 55 - 60 Positive >60AMCA 20 units 0-100 Negative < 90 Equivocal 90 - 100 Positive >100 This test was developed and its performance characteristics determined by [facility]. It has not been cleared or approved by the Food and Drug Administration. The FDA has determined that such clearance or approval is not necessary.Atypical pANCA Negative NegativeCommentsPattern is not suggestive of Inflammatory Bowel Disease. __ TESTING PERFORMED AT [facility]. ORIGINAL REPORT ON FILE IN LAB CONTAINS ADDITIONAL TEST SITE INFORMATION. Platelets bldOrdered By: Sri Carballo on 10-30-2022 Platelets (Bld) [#/Vol] 217 10*3/uL 150-450 [facility] Serum or plasma C reactive p rotein measurement (mass/volume)Ordered By: Tricia Carballo on 10-30-2022 CRP [Mass/Vol] mg/L 0.0-3.0 [facility] Comment on above: C-Reactive Protein ( CRP) provides useful information for thediagnosis, therapy and monitoring of inflammatory processesand associated diseases. For the evaluation of Relative Riskfor Cardiovascular Disease, a High Sensitivity CRP (HSCRP)should be ordered. Serum or plasma albumin olivia urement (mass/volume)Ordered By: Tricia Carballo on 10-30-2022 Albumin [Mass/Vol] 4.0 g/dL 3.2-5.0 [facility] Serum or plasma albumin/glob ulin mass ratioOrdered By: Tricia Carballo on 10-30-2022 Albumin/Globulin [Mass ratio] 1.2 {ratio} 0.9-2.4 [facility] Serum or plasma calcium olivia urement (mass/volume)Ordered By: Tricia Carballo on 10-30-2022 Calcium [Mass/Vol] 9.1 mg/dL 8.5-10.1 [facility] Serum or plasma creatinine m easurement (mass/volume)Ordered By: Tricia Carballo on 10-30-2022 Creatinine [Mass/Vol] 1.11 mg/dL 0.70-1.30 [facility] Comment on above: The validity of the calculated GFR & GFRAA in patients over 70 years has not been determined. Clinical correlation is essential. Serum or plasma urea nitroge n measurement (mass/volume)Ordered By: Tricia Carballo on 10-30-2022 Urea nitrogen [Mass/Vol] 16 mg/dL 7-18 [facility] Thin prep Papanicolaou smear with manual screeningOrdered By: Tricia Carballo on 10-30-2022 Thin prep Papanicolaou smear with manual screening 37 U/L 15-37 [facility] Thin prep Papanicolaou smear with manual screening 5 5-15 [facility] CNOVon 09-18-2022 CNOV Office Visit (URFHR) -- LOGAN MCCARTY ([id number]) 1955 M Date Time Provider Department 09/18/22 9:40 AM ALMA STEPHENSON During your visit today, we recorded the following information about you: Temperature Pulse Blood pressure Weight 97.8 degrees 60/minute 153/82 83.9 kg Monique Velazquez MA 09/18/2022 9:40 AM Signed PVR= 0ml Provider notified. Monique Velazquez MA September 18, 2022 9:39 AM Alma Stephenson MD 09/18/2022 9:[address] [facility] ESTABLISHED PATIENT [...] 6.78 (H) 08/07/2019 4.75 (H) URINALYSIS: Specific Aragon, Ur Date Value Ref Range Status 02/15/2016 [...] 50 mg by mouth once daily. calcium-vits L9-Z-L7-minerals 166.75 mg- 166.75 unit cap CALCIUM 600 [...] SEPTAL DEFECT W/WO PATCH 1959 COLONOSCOPY 2012 [facility] COLONOSCOPY FLX DX W/COLLJ SPEC WHEN PFRMD 10/26/14 Repeat 2024 PAST SURGICAL HISTORY OF 1961 jugular vein resection, PAST SURGICAL HISTORY OF left breast gynecomastia surg PAST SURGICAL HISTORY OF 08/2016 loop recorder PAST SURGICAL HISTORY OF 06/15/2019 dual chamber PPM RPR 1ST IN (more content not included)... [facility] 09-13-[address] [facility] Telephone (URFHR) -- LOGAN MCCARTY ([id number]) 1955 M Date Time Provider Department 09/13/22 ALMA STEPHENSON URR During your visit today, we recorded the following information about you: Sherine Cortes Sec 09/13/2022 11:18 AM Signed Patient called, has OV with Dr. Stephenson on 09/18/22 Need order for PSA. Allergies As of Date: 09/13/2022 (No Known Allergies) Date Reviewed: 09/12/2021 Reviewed by: Flor Villalpando - Fully Assessed Reason for Visit: Orders [681] Lab Orders [6788] Prescriptions as of 09/13/2022 - Tadalafil (CIALIS) 5 mg tablet Take 1 tablet by mouth as needed. - dutasteride (AVODART) 0.5 mg capsule Take 1 capsule by mouth once daily. - metoprolol succinate ER (TOPROL XL) 50 mg 24 hr tablet Take 50 mg by mouth once daily. - calcium-vits M2-B-O1-minerals 166.75 mg- 166.75 unit cap CALCIUM 600 MG TABS - multivitamin tablet MULTIVITAMINS TABS - fluticasone propionate (FLONASE NASAL) Use in the nose as needed. - esomeprazole (NEXIUM) 20 mg capsule Take 20 mg by mouth once daily. - atorvastatin calcium(LIPITOR 10 MG TAB) Take one(1) tablet daily. - sumatriptan succinate(IMITREX 100 MG TAB) as necessary - aspirin(ASPIR-LOW 81 MG TAB) Take one(1) tablet daily. Facility-Administered Medications as of 09/13/2022 - perflutren lipid microspheres 1.3 mL in NaCl (PF) 0.9% 10 mL injection (DEFINITY) - sodium chloride 0.9 % (flush) 10 mL (BD POSIFLUSH) Problem List As Of Date 09/13/2022 Noted Resolved Bilat Ing Hernia [K40.20] 06/21/2009 Diverticulosis [K57.90] 11/01/2014 Benign non-nodular prostatic hyperplasia withou*08/03/2015 Elevated PSA [R97.20] 08/03/2015 Exertional headache [G44.84] 10/21/2017 Syncope and collapse [R55] 10/21/2017 Postural dizziness with presyncope [R42, R55] 10/21/2017 Migraine without aura and without status migrai*10/21/2017 Vascular dilatation (HCC) [I73.9] 03/03/2018 VSD (ventricular septal defect) [Q21.0] 03/03/2018 Venous aneurysm [I86.8] 03/03/2018 Syncope [R55] 06/10/2019 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 Shipley on 07-26-2022 Bilirubin [Mass/Vol] 0.60 mg/dL 0.20-1.00 [facility] Comment on above: For patients on eltr ombopag therapy, use of Dimension [place] TBIL is not recommended. Cholesterol [Mass/Vol] 181 mg/dL <200 [facility] Comment on above: <200 mg/dL Desirable 200-240 mg/dL Borderline >240 mg/dL High Risk Protein [Mass/Vol] 7.3 g/dL 6.4-8.2 [facility] Triglyceride [Mass/Vol] 213 mg/dL <199 [facility] Comment on above: The drugs N-Acetylcy steine and Metamizole may falsely depress this assay.Serum Triglycerides Reference Interval Normal <150 mg/dL Borderline high 150 - 199 mg/dL High 200 - 499 mg/dL Very High > or = 500 mg/dL Direct bilirubinOrdered By: Dr. Shipley on 07-26-2022 Bilirubin.direct [Mass/Vol] 0.15 mg/dL 0.00-0.30 [facility] Laboratory - Chemistry and C hemistry - challengeOrdered By: Dr. Shipley on 07-26-2022 ALP [Catalytic activity/Vol] 54 U/L 45-117 [facility] ALT [Catalytic activity/Vol] 49 U/L 16-61 [facility] Globulin (S) [Mass/Vol] 3.7 g/dL 2.2-4.2 [facility] Serum or plasma albumin olivia urement (mass/volume)Ordered By: Dr. Shipley on 07-26-2022 Albumin [Mass/Vol] 3.6 g/dL 3.2-5.0 [facility] Serum or plasma cholesterol in HDL measurement (mass/volume)Ordered By: Dr. Shipley on 07-26-2022 Cholesterol in HDL [Mass/Vol] 41 mg/dL >40 [facility] Comment on above: The drugs N-Acetylcy steine and Metamizole may falsely depress this assay. Reference Range HDL <40 mg/dL Low HDL Cholesterol HDL >or= 60 mg/dL High HDL Cholesterol Serum or plasma cholesterol in VLDL measurement (mass/volume)Ordered By: Dr. Shipley on 07-26-2022 Cholesterol in VLDL [Mass/Vol] 43 mg/dL 5-40 [facility] Serum or plasma low density lipoprotein (LDL) cholesterol measurement (mass/volume)Ordered By: Dr. Shipley on 07-26-2022 Cholesterol in LDL [Mass/Vol] 97 mg/dL 0-130 [facility] Thin prep Papanicolaou smear with manual screeningOrdered By: Dr. Shipley on 07-26-2022 Thin prep Papanicolaou smear with manual screening 25 U/L 15-37 [facility] Basophil percentageOrdered B y: Dr. Degroot on 07-19-2022 Basophil percentage < 0.9 mg/dL 0.70-1.30 [facility] No Panel InformationOrdered By: Dr. Degroot on 07-19-2022 Bedside Estimated GFR (eGFR) > 60.0000 mL/min >60 [facility] - Microbiology an d Antimicrobial susceptibilityon 03-01-2022 SARS-CoV-2 (COVID-19) RNA SHANDRA+probe Ql (Unsp spec) Detected Not Detect [facility] Work Phone: Comment on above: Normal Reference Ran ge: Not DetectedMethod:(RT-PCR) real-time reverse transcriptase PCRLuminex ONEIDA Instrument*The Food and Drug Administration (FDA) has issued an Emergency Use Authorization (EAU) for the ONEIDA SARS-CoV-2 Assay for the rapid detection of the virus that causes COVID-19. This test has been validated, but the FDAs independent review of this validation is pending.*Negative results do not preclude infection and should not be used as the sole basis for treatment or patient management. Optimum specimen types and timing for peak viral levels during infections caused by SARS-CoV-2 have not been determined. Collection of multiple specimens from the same patient may be necessary to detect the virus. The possibility of a false negative result should be considered if the patient has clinical presentation or has had recent exposure. Basophil percentageon 2021 Bilirubin [Mass/Vol] 1.00 mg/dL 0.20-1.00 [facility] Work Phone: Comment on above: For patients on eltr ombopag therapy, use of Dimension [place] TBIL is not recommended. Chloride [Moles/Vol] 103 mmol/L 98-107 [facility] Work Phone: Cholesterol [Mass/Vol] 197 mg/dL <200 [facility] Work Phone: Comment on above: <200 mg/dL Desirable 200-240 mg/dL Borderline >240 mg/dL High Risk Glucose [Mass/Vol] 101 mg/dL 74-106 [facility] Work Phone: Comment on above: Fasting Glucose resu lt from 100 to 125 mg/dL suggests IMPAIRED HOMEOSTASIS per A.D.A. criteria. Potassium [Moles/Vol] 3.9 mmol/L 3.5-5.1 [facility] Work Phone: Protein [Mass/Vol] 7.5 g/dL 6.4-8.2 [facility] Work Phone: Sodium [Moles/Vol] 138 mmol/L 136-145 [facility] Work Phone: Triglyceride [Mass/Vol] 110 mg/dL <199 [facility] Work Phone: Comment on above: The drugs N-Acetylcy steine and Metamizole may falsely depress this assay.Serum Triglycerides Reference Interval Normal <150 mg/dL Borderline high 150 - 199 mg/dL High 200 - 499 mg/dL Very High > or = 500 mg/dL Direct bilirubinon 2 Bilirubin.direct [Mass/Vol] 0.23 mg/dL 0.00-0.30 [facility] Work Phone: Laboratory - Chemistry and C hemistry - challengeon 12-15-2021 ALP [Catalytic activity/Vol] 60 U/L 45-117 [facility] Work Phone: ALT [Catalytic activity/Vol] 50 U/L 16-61 [facility] Work Phone: CO2 [Moles/Vol] 29.0 mmol/L 21.0-32.0 [facility] Work Phone: Globulin (S) [Mass/Vol] 3.4 g/dL 2.2-4.2 [facility] Work Phone: Urea nitrogen/Creatinine [Mass ratio] 16.5 mg/mg 10-20 [facility] Work Phone: No Panel Informationon 12-15 Vitamin D 25-Hydroxy 45.7 ng/mL [facility] Work Phone: Comment on above: Vitamin D 25(OH) Sta tus Range Deficiency <20 ng/mL (50nmol/L) Insufficiency 20 - 30 ng/mL (50 - 75 nmol/L) Sufficiency 30 - 100 ng/mL (75 - 250 nmol/L) Toxicity >100 ng/mL (>250 nmol/L) Estimated GFR (MDRD) Amer 87 mL/min >60 [facility] Work Phone: Comment on above: GFR Calc Estimated GFR (MDRD) Non-Af Amer 72 mL/min >60 [facility] Work Phone: Comment on above: Non- GFR Calc Serum or plasma albumin olivia urement (mass/volume)on 12-15-2021 Albumin [Mass/Vol] 4.1 g/dL 3.2-5.0 [facility] Work Phone: Serum or plasma calcium olivia urement (mass/volume)on 12-15-2021 Calcium [Mass/Vol] 9.0 mg/dL 8.5-10.1 [facility] Work Phone: Serum or plasma cholesterol in HDL measurement (mass/volume)on 12-15-2021 Cholesterol in HDL [Mass/Vol] 60 mg/dL >40 [facility] Work Phone: Comment on above: The drugs N-Acetylcy steine and Metamizole may falsely depress this assay. Reference Range HDL <40 mg/dL Low HDL Cholesterol HDL >or= 60 mg/dL High HDL Cholesterol Serum or plasma cholesterol in VLDL measurement (mass/volume)on 12-15-2021 Cholesterol in VLDL [Mass/Vol] 22 mg/dL 5-40 [facility] Work Phone: Serum or plasma creatinine m easurement (mass/volume)on 12-15-2021 Creatinine [Mass/Vol] 1.09 mg/dL 0.70-1.30 [facility] Work Phone: Comment on above: The validity of the calculated GFR & GFRAA in patients over 70 years has not been determined. Clinical correlation is essential. Serum or plasma low density lipoprotein (LDL) cholesterol measurement (mass/volume)on 12-15-2021 Cholesterol in LDL [Mass/Vol] 115 mg/dL 0-130 [facility] Work Phone: Serum or plasma urea nitroge n measurement (mass/volume)on 12-15-2021 Urea nitrogen [Mass/Vol] 18 mg/dL 7-18 [facility] Work Phone: Thin prep Papanicolaou smear with manual screeningon 12-15-2021 Thin prep Papanicolaou smear with manual screening 33 U/L 15-37 [facility] Work Phone: Thin prep Papanicolaou smear with manual screening 6 5-15 [facility] Work Phone: CNPNon 10-13-2020 CNPN Telephone (AVPRAD) -- LOGAN MCCARTY ([id number]) 1955 Date Time Provider Department 10/13/20 ALMA STEPHENSON AVPRAD During your visit today, we recorded the following information about you: Alma Stephenson MD 10/13/2020 11:34 AM Signed Attempted to contact Logan Mccarty and left to review PSA results. Options including continuing annual surveillance with repeat PSA in one year, repeating prostate MRI (last one done in 2017), or pursuing adjunctive blood test such as isoPSA to further risk stratify. I have asked him to contact us so we can finalized management plan, my team will continue to reach out. Alma Stephenson MD Allergies As of Date: 10/13/2020 (No Known Allergies) Date Reviewed: 09/12/2020 Reviewed by: Alma Stephenson - Fully Assessed Reason for Visit: Results [95] Prescriptions as of 10/13/2020 Sig: DUTASTERIDE 0.5 MG CAPSULE Take 1 capsule by mouth once * METHYLPREDNISOLONE 4 MG TABLE* Take as directed CALCIUM 166.75 MG-VIT D3 166.* CALCIUM 600 MG TABS CHOLECALCIFEROL (VITAMIN D3) * VITAMIN D TABS MULTIVITAMIN TABLET MULTIVITAMINS TABS FLONASE NASAL Use in the nose as needed. ESOMEPRAZOLE MAGNESIUM 20 MG * Take 20 mg by mouth once cecelia* * LIPITOR 10 MG TABLET Take one(1) tablet daily. * IMITREX 100 MG TABLET as necessary * ASPIR-LOW 81 MG TABLET,DELAYE* Take one(1) tablet daily. 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 After the administration of contrast, postcontrast imaging from the arch to the intracranial vasculature was performed. Multiplanar reformats, subtraction images , and maximum intensity projections were calculated on the imaging workstation under physician supervision.RESULT:INTRACR ANIAL MRA RESULTS: The visualized distal vertebral and basilar arteries are widely patent. Bilateral proximal PICAs and SCAs are patent. There is a type origin of the right FRONT OFFICE HELP with a hypoplastic right P1 segment. The distal ICAs are patent and within normal limits of caliber. The proximal ACAs, MCAs and construction teacher are patent and within normal limits of caliber and configuration. There is no evidence of proximal large vessel occlusion, significant stenosis or aneurysm in the visualized vessels.Visualized brain parenchyma is within normal limits of signal intensity characteristics and morphology for age. T1 hypointense rounded lesion in the right inferior lentiform nucleus most likely represents a dilated perivascular space.EXTRACRANIAL MRA RESULTS:Arch: There is a common origin of the innominate and left common carotid arteries, a normal variant. The proximal brachiocephalic vessels including bilateral subclavian arteries are patent. On contrast-enhanced imaging, there is mild dilation of the proximal right subclavian vein, just distal to the brachiocephalic confluence measuring 2.8 cm in craniocaudal dimension and 1.9 cm transverse dimension (best visualized series 9, image 18). The visualized right subclavian vein and brachiocephalic vein demonstrate normal flow void, suggesting patency by spin echo criteria. Carotid Stenosis:Right Common: No significant stenosis.Right Internal Plaque: No significant plaque formation.Right Internal Carotid Stenosis (% by NASCET Criteria): 0%Left Common: No significant stenosis.Left Internal Carotid Plaque: No significant plaque formation.Left Internal Carotid Stenosis (% by NASCET Criteria): 0%Cervical Vertebral Arteries:Patency: Bilateral vertebral artery origins are patent. The bilateral cervical vertebral arteries are patent and normal in caliber throughout their course.Dominance: CodominantFat saturated T1 axial images through the neck demonstrate no evidence of periluminal T1 hyperintensity to suggest acute dissection in the bilateral carotid artery systems and vertebral arteries.IMPRESSION:Patent extracranial arterial vasculature without evidence of occlusion, acute dissection or pseudoaneurysm. No significant stenosis of bilateral cervical ICAs by NASCET criteria.Patent intracranial arterial vasculature without proximal large vessel occlusion, significant stenosis, or aneurysm.Focal dilation of the proximal right subclavian vein near the brachiocephalic confluence, of unknown clinical significance.Wardrobe Stylist ist: PSCB Transcribe Date/Time: Jul 25 2017 10:05ADictated by : JULIANNA ANGULO MDThis examination was interpreted and the report reviewed and electronically signed by: JULIANNA ANGULO MD on Jul 25 2017 10:05AM [id number] [facility] MRA CAROTID WO/W IVCONon MRA CAROTID WO/W IVCON * * *Final Report * * *DATE OF EXAM: Jul 25 2017 9:42AM [facility] 0276 - MRA CAROTID WO/W IVCON / REASON: multiple diagnoses * * * * Physician Interpretation * * * * MRA CAROTID WO/W IVCONHistory: History of VSD status post repair 1958, 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 After the administration of contrast, postcontrast imaging from the arch to the intracranial vasculature was performed. Multiplanar reformats, subtraction images , and maximum intensity projections were calculated on the imaging workstation under physician supervision.RESULT:INTRACR ANIAL MRA RESULTS: The visualized distal vertebral and basilar arteries are widely patent. Bilateral proximal PICAs and SCAs are patent. There is a type origin of the right FRONT OFFICE HELP with a hypoplastic right P1 segment. The distal ICAs are patent and within normal limits of caliber. The proximal ACAs, MCAs and construction teacher are patent and within normal limits of caliber and configuration. There is no evidence of proximal large vessel occlusion, significant stenosis or aneurysm in the visualized vessels.Visualized brain parenchyma is within normal limits of signal intensity characteristics and morphology for age. T1 hypointense rounded lesion in the right inferior lentiform nucleus most likely represents a dilated perivascular space.EXTRACRANIAL MRA RESULTS:Arch: There is a common origin of the innominate and left common carotid arteries, a normal variant. The proximal brachiocephalic vessels including bilateral subclavian arteries are patent. On contrast-enhanced imaging, there is mild dilation of the proximal right subclavian vein, just distal to the brachiocephalic confluence measuring 2.8 cm in craniocaudal dimension and 1.9 cm transverse dimension (best visualized series 9, image 18). The visualized right subclavian vein and brachiocephalic vein demonstrate normal flow void, suggesting patency by spin echo criteria. Carotid Stenosis:Right Common: No significant stenosis.Right Internal Plaque: No significant plaque formation.Right Internal Carotid Stenosis (% by NASCET Criteria): 0%Left Common: No significant stenosis.Left Internal Carotid Plaque: No significant plaque formation.Left Internal Carotid Stenosis (% by NASCET Criteria): 0%Cervical Vertebral Arteries:Patency: Bilateral vertebral artery origins are patent. The bilateral cervical vertebral arteries are patent and normal in caliber throughout their course.Dominance: CodominantFat saturated T1 axial images through the neck demonstrate no evidence of periluminal T1 hyperintensity to suggest acute dissection in the bilateral carotid artery systems and vertebral arteries.IMPRESSION:Patent extracranial arterial vasculature without evidence of occlusion, acute dissection or pseudoaneurysm. No significant stenosis of bilateral cervical ICAs by NASCET criteria.Patent intracranial arterial vasculature without proximal large vessel occlusion, significant stenosis, or aneurysm.Focal dilation of the proximal right subclavian vein near the brachiocephalic confluence, of unknown clinical significance.Wardrobe Stylist ist: [facility] Transcribe Date/Time: Jul 25 2017 9:29ADictated by : JULIANNA ANGULO MDThis examination was interpreted and the report reviewed and electronically signed by: JULIANNA ANGULO MD on Jul 25 2017 9:59AM [id number] [facility] Office Visiton 05-07-2017 Dietary management education, guidance, and counseling (procedure) yes Invalid Interpretation Code [facility] Work Phone: Documentation of current medications (procedure) Done Invalid Interpretation Code [facility] Work Phone: Fall risk assessment No Invalid Interpretation Code [facility] Work Phone: Protein mass conc Done Invalid Interpretation Code [facility] Work Phone: Clinical Lists Update: Prelo operating room assistant 04-26-2017 Left ventricular Ejection fraction 55 % Invalid Interpretation Code [facility] Work Phone: Office Visiton 10-18-2016 Fall risk assessment Fall risk assessment Invali d Interpretation Code [facility] Work Phone: [phone] Protein mass conc Done Invalid Interpretation Code [facility] Work Phone: [phone] Clinical Lists Update: Prelo operating room assistant 10-10-2016 Cholesterol in HDL mass conc 57 mg/dL Invalid Interpretation Code [facility] Work Phone: [phone] Cholesterol in LDL mass conc 104 mg/dL Invalid Interpretation Code [facility] Work Phone: [phone] Cholesterol mass conc 188 mg/dL Invalid Interpretation Code [facility] Work Phone: [phone] Lipoprotein.pre-beta mass conc 27 mg/dL Invalid Interpretation Code [facility] Work Phone: [phone] Triglyceride mass conc 135 mg/dL Invalid Interpretation Code [facility] Work Phone: [phone] Office Visiton 07-06-2016 Tobacco smoking status NHIS Never smoker Invalid Interpretation Code [facility] Work Phone: [phone] Tobacco use CPHS Never smoker Invalid Interpretation Code [facility] Work Phone: [phone] Lab Report: Basic Metabolic Profile (BMP)on 05-29-2016 Anion gap 8 mmol/L Invalid Interpretation Code 5-15 [facility] Work Phone: [phone] Anion gap 4 molar conc 8 Invalid Interpretation Code 5-15 [facility] Work Phone: [phone] Calcium mass conc 8.8 mg/dL Invalid Interpretation Code 8.5-10.1 [facility] Work Phone: [phone] Chloride molar conc 105 mmol/L Invalid Interpretation Code 98-107 [facility] Work Phone: [phone] CO2 28.0 mmol/L Invalid Interpretation Code 21.0-32.0 [facility] Work Phone: [phone] CO2 ppres (BldV) 28.0 mmol/L Invalid Interpretation Code 21.0-32.0 [facility] Work Phone: [phone] Creatinine mass conc 1.30 mg/dL Invalid Interpretation Code 0.70-1.30 [facility] Work Phone: [phone] eGFR (non-black) 73 mL/min/{1.73_m2} Invalid Interpretation Code >60 [facility] Work Phone: [phone] EST GFR - AA 73 mL/min Invalid Interpretation Code >60 [facility] Work Phone: [phone] GFR/1.73 sq M predicted among non-blacks MDRD vol rate/area (S/P/Bld) 60 mL/min/{1.73_m2} Invalid Interpretation Code >60 [facility] Work Phone: [phone] Glucose mass conc 97 mg/dL Invalid Interpretation Code 70-110 [facility] Work Phone: [phone] Potassium molar conc 4.1 mmol/L Invalid Interpretation Code 3.5-5.1 [facility] Work Phone: [phone] Sodium molar conc 141 mmol/L Invalid Interpretation Code 136-145 [facility] Work Phone: [phone] Urea nitrogen mass conc 19 mg/dL High 7-18 [facility] Work Phone: [phone] Urea nitrogen/Creatinine mass ratio 14.6 RATIO Invalid Interpretation Code 10-20 [facility] Work Phone: [phone] Lab Report: Magnesiumon 11-0 Magnesium mass conc 2.3 mg/dL Invalid Interpretation Code 1.8-2.4 [facility] Work Phone: [phone] Replaced Document: Sofia Craft 05-29-2016 EKG QRS axis -54 deg Invalid Interpretation Code [facility] Work Phone: [phone] P Logan 26 deg Invalid Interpretation Code [facility] Work Phone: [phone] WA Interval 130 ms Invalid Interpretation Code [facility] Work Phone: [phone] Pulse (Heart Rate) 66 /min Invalid Interpretation Code [facility] Work Phone: QRS Duration 144 ms Invalid Interpretation Code [facility] Work Phone: [phone] QT Interval new path ms Invalid Interpretation Code [facility] Work Phone: QTc Hernandez 422 ms Invalid Interpretation Code [facility] Work Phone: [phone] T Logan 24 deg Invalid Interpretation Code [facility] Work Phone: [phone] Urea nitrogen mass conc (Bld) Sinus Rhythm - frequent PAC s # PACs = 3.-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 ABNORMAL Invalid Interpretation Code [facility] Work Phone: [phone] Lab Report: Liver Profileon 02-21-2016 Albumin mass conc 3.7 g/dL Invalid Interpretation Code 3.4-5.0 [facility] Work Phone: [phone] Alkaline phosphatase (ALP) 61 U/L Invalid Interpretation Code 50-136 [facility] Work Phone: [phone] ALP enzyme act/vol (Bld) 61 U/L Invalid Interpretation Code 50-136 [facility] Work Phone: [phone] ALT enzyme act/vol 30 U/L Invalid Interpretation Code 12-78 [facility] Work Phone: [phone] AST enzyme act/vol 21 U/L Invalid Interpretation Code 15-37 [facility] Work Phone: [phone] Bilirubin mass conc 0.80 mg/dL Invalid Interpretation Code 0.20-1.00 [facility] Work Phone: [phone] Bilirubin.direct mass conc 0.17 mg/dL Invalid Interpretation Code 0.00-0.30 [facility] Phone: [phone] Globulin Calculated mass conc (S) 3.6 g/dL High 2.3-3.5 [facility] Phone: [phone] Protein mass conc 7.3 g/dL Invalid Interpretation Code 6.4-8.2 [facility] Phone: [phone] Office Visiton 05-24-2015 cardiac risk group B Invalid Interpretation Code [facility] Phone: [phone] General cardiovascular disease 10Y risk [#] [place].D'Agost[place] 4 % Invalid Interpretation Code [facility] Work Phone: [phone] Lab Report: PSA,Total- Diagn osticon 04-26-2015 Protein mass conc 10.50 ng/mL High 0.0-4.0 [employer] [facility] Work Phone: [phone] PSA, DIAGNOSTIC 10.50 ng/mL High 0.0-4.0 [facility] Work Phone: Vital Signs Date Time Vital Sign Value Performing Clinician Racquel steel 12-02-2024 13:36-0400 Body height 162.6 cm Alma Stephenson MD Work Phone: [facility] 12-02-2024 13:36-0400 Body mass index (BMI) [Ratio] 30.9 kg/m2 Alma Stephenson MD Work Phone: [facility] 12-02-2024 13:36-0400 Body weight 81.65 kg Alma Stephenson MD Work Phone: [facility] 11-26-2024 13:07-0400 Body height 165.[address] Lazaro Degroot MD Work Phone: [facility] 11-26-2024 13:07-0400 Body mass index (BMI) [Ratio] 30.6 kg/m2 Dr. Lazaro Degroot MD Work Phone: [facility] 11-26-2024 13:07-0400 Body weight 83.[address] Lazaro Degroot MD Work Phone: [facility] 11-26-2024 13:07-0400 Diastolic blood pressure 76 mm[Hg] Dr. Lazaro Degroot MD Work Phone: [facility] 11-26-2024 13:07-0400 Heart rate 68 /min Dr. Lazaro Degroot MD Work Phone: [facility] 11-26-2024 13:07-0400 Respiratory rate 16 /min Dr. Lazaro Degroot MD Work Phone: [facility] 11-26-2024 13:07-0400 Systolic blood pressure 122 mm[Hg] Dr. Lazaro Degroot MD Work Phone: [facility] 01-29-2024 16:06-0400 Body height 162.6 cm Darío Gomez MD Work Phone: [facility] 01-29-2024 16:06-0400 Body mass index (BMI) [Ratio] 31.24 kg/m2 Darío Gomez MD Work Phone: [facility] 01-29-2024 16:06-0400 Body weight 82.56 kg Darío Gomez MD Work Phone: [facility] 01-29-2024 16:06-0400 Diastolic blood pressure 96 mm[Hg] Darío Gomez MD Work Phone: [facility] 01-29-2024 16:06-0400 Heart rate 60 /min Darío Gomez MD Work Phone: [facility] 01-29-2024 16:06-0400 Systolic blood pressure 147 mm[Hg] Darío Gomez MD Work Phone: [facility] 12-04-2023 16:38-0400 Body height 162.6 cm Alma Stephenson MD Work Phone: [facility] 12-04-2023 16:38-0400 Body mass index (BMI) [Ratio] 31.24 kg/m2 Alma Stephenson MD Work Phone: [facility] 12-04-2023 16:38-0400 Body weight 82.56 kg Alma Stephenson MD Work Phone: [facility] 07-30-2023 12:54-0500 Body height 165.[address] Lazaro Degroot Work Phone: [facility] 07-30-2023 12:54-0500 Body mass index (BMI) [Ratio] 31.6 kg/m2 Dr. Lazaro Degroot Work Phone: [facility] 07-30-2023 12:54-0500 Body weight 86.[address] Lazaro Degroot Work Phone: [facility] 07-30-2023 12:54-0500 Diastolic blood pressure 79 mm[Hg] Dr. Lazaro Degroot Work Phone: [facility] 07-30-2023 12:54-0500 Heart rate 74 /min Dr. Lazaro Degroot Work Phone: [facility] 07-30-2023 12:54-0500 Respiratory rate 14 /min Dr. Lazaro Degroot Work Phone: [facility] 07-30-2023 12:54-0500 Systolic blood pressure 118 mm[Hg] Dr. Lazaro Degroot Work Phone: [facility] 12-20-2022 12:59-0400 Body weight 78.93 kg Lulú Caballero MD Work Phone: [facility] 12-20-2022 12:59-0400 Diastolic blood pressure 91 mm[Hg] Lulú Caballero MD Work Phone: [facility] 12-20-2022 12:59-0400 Heart rate 61 /min Lulú Caballero MD Work Phone: [facility] 12-20-2022 12:59-0400 Respiratory rate 15 /min Lulú Caballero MD Work Phone: [facility] 12-20-2022 12:59-0400 SaO2% (BldA) [Mass fraction] 97 % Lulú Caballero MD Work Phone: [facility] 12-20-2022 12:59-0400 Systolic blood pressure 150 mm[Hg] Lulú Caballero MD Work Phone: [facility] 10-30-2022 13:32-0400 Body height 162.[address] Lazaro Degroot Work Phone: [facility] 10-30-2022 13:32-0400 Body mass index (BMI) [Ratio] 31.7 kg/m2 Dr. Lazaro Degroot Work Phone: [facility] 10-30-2022 13:32-0400 Body weight 83.[address] Lazaro Degroot Work Phone: [facility] 10-30-2022 13:32-0400 Diastolic blood pressure 80 mm[Hg] Dr. Lazaro Degroot Work Phone: [facility] 10-30-2022 13:32-0400 Heart rate 71 /min Dr. Lazaro Degroot Work Phone: [facility] 10-30-2022 13:32-0400 SaO2% (BldA) [Mass fraction] 95 % Dr. Lazaro Degroot Work Phone: [facility] 10-30-2022 13:32-0400 Systolic blood pressure 121 mm[Hg] Dr. Lazaro Degroot Work Phone: [facility] 06-05-2022 13:43-0500 Body height 162.[address] Lazaro Degroot Work Phone: [facility] 06-05-2022 13:19-0500 Body mass index (BMI) [Ratio] 31.4 kg/m2 Dr. Lazaro Degroot Work Phone: [facility] 06-05-2022 13:19-0500 Body weight [address] Lazaro Degroot Work Phone: [facility] 06-05-2022 13:19-0500 Diastolic blood pressure 87 mm[Hg] Dr. Lazaro Degroot Work Phone: [facility] 06-05-2022 13:19-0500 Heart rate 94 /min Dr. Lazaro Degroot Work Phone: [facility] 06-05-2022 13:19-0500 Respiratory rate 16 /min Dr. Lazaro Degroot Work Phone: [facility] 06-05-2022 13:19-0500 SaO2% (BldA) [Mass fraction] 68 % Dr. Lazaro Degroot Work Phone: [facility] 06-05-2022 13:19-0500 Systolic blood pressure 125 mm[Hg] Dr. Lazaro Degroot Work Phone: [facility] 11-21-2021 16:07-0400 Diastolic blood pressure 96 mm[Hg] Dr. Wilfredo Naranjo Work Phone: [facility] Work Phone: 11-21-2021 16:07-0400 Systolic blood pressure 143 mm[Hg] Dr. Wilfredo Naranjo Work Phone: [facility] Work Phone: 11-21-2021 15:58-0400 Body height 162.[address] Wilfredo Naranjo Work Phone: [facility] Work Phone: 11-21-2021 15:58-0400 Body mass index (BMI) [Ratio] 30.9 kg/m2 Dr. Wilfredo Naranjo Work Phone: [facility] Work Phone: 11-21-2021 15:58-0400 Body weight 81.[address] Wilfredo Naranjo Work Phone: [facility] Work Phone: 11-21-2021 15:58-0400 Heart rate 60 /min Dr. Wilfredo Naranjo Work Phone: [facility] Work Phone: 11-21-2021 15:58-0400 Respiratory rate 16 /min Dr. Wilfredo Naranjo Work Phone: [facility] Work Phone: 11-21-2021 15:58-0400 SaO2% (BldA) [Mass fraction] 95 % Dr. Wilfredo Naranjo Work Phone: [facility] Work Phone: 05-07-2017 13:26-0400 BMI (Body Mass Index) 28.4 kg/m2 [facility] Tatyana [facility] Work Phone: 05-07-2017 13:26-0400 BP Diastolic 78 mm[Hg] [facility] Work Phone: 05-07-2017 13:26-0400 BP Systolic 132 mm[Hg] [facility] Tatyana [facility] Work Phone: 05-07-2017 13:26-0400 Height 167.64 cm [facility] Tatyana [facility] Work Phone: 05-07-2017 13:26-0400 Pulse (Heart Rate) 62 /min Harumi DeFinhomero [facility] Work Phone: 05-07-2017 13:26-0400 Respiratory Rate 16 /min Harumi DeFinis [facility] Work Phone: 05-07-2017 13:26-0400 Weight 79.83 kg Harumi DeFinhomero [facility] Work Phone: 10-18-2016 15:55-0400 BMI (Body Mass Index) 27.6 kg/m2 [facility] Work Phone: 10-18-2016 15:55-0400 BP Diastolic 60 mm[Hg] Abbey Banegas RN [facility] Work Phone: 10-18-2016 15:55-0400 BP Systolic 120 mm[Hg] Abbey Banegas RN [facility] Work Phone: 10-18-2016 15:55-0400 Height 167.64 cm Abbey Banegas RN [facility] Work Phone: 10-18-2016 15:55-0400 Pulse (Heart Rate) 56 /min Abbey Banegas RN [facility] Work Phone: 10-18-2016 15:55-0400 Respiratory Rate 20 /min Abbey Banegas RN [facility] Work Phone: 10-18-2016 15:55-0400 Weight 77.57 kg Abbey Banegas RN [facility] Work Phone: 07-06-2016 14:06-0500 BSA (Body Surface Area) 1.91 m2 Abbey Banegas RN [facility] Work Phone: 05-29-2016 09:01-0500 Heart rate 66 /min Abbey Banegas RN [facility] Work Phone: Encounters Encounter Date Encounter Type Care Provider Facility Start: 01-11-2025 ambulatory Lazaro Degroot Facility[facility] Start: 2024 ambulatory Lazaro Mikayla [facility] Start: 12-02-2024 End: 12-02-2024 Patient encounter procedure Alma Stephenson MD Work Phone: Urology Comment on above: BPH with obstruction /lower urinary tract symptoms (Primary Dx); Elevated prostate specific antigen (PSA); Erectile dysfunction, unspecified erectile dysfunction type Start: 12-02-2024 End: 2024 ambulatory LAZARO DEGROOT Facility:[facility] Start: 11-30-2024 End: 11-30-2024 ambulatory ALMA STEPHENSON Facility:[facility] Start: 11-26-2024 End: 11-26-[address] Nirmal Shipley MD -[facility] Work Phone: Start: 11-26-2024 End: 11-26-[address] Lazaro Degroot MD Work Phone: [facility] Work Phone: Start: 11-26-2024 End: 11-26-2024 ambulatory Lazaro Degroot Facility:[facility] Start: 11-18-2024 End: 11-18-2024 ambulatory Nirmal Shipley Facility:[facility] Start: 11-18-2024 End: 11-18-[address] Nirmal Shipley MD -[facility] Work Phone: Start: 09-15-2024 End: 09-15-2024 Patient encounter procedure Jessica Morgan [place] -[facility] Work Phone: Start: 09-15-2024 End: 09-15-2024 ambulatory Lazaro Degroot Facility:[facility] Start: 08-19-2024 End: 08-19-2024 ambulatory Nirmal Shipley Facility:[facility] Start: 08-19-2024 End: 08-19-[address] Nirmal Shipley MD -[facility] Work Phone: Start: 08-13-2024 End: 08-13-2024 Refill Lia Andrade APRN.CNP Work Phone: [facility] Urological & Comment on above: Refill Request Start: 05-20-2024 End: 05-20-2024 ambulatory [facility] Facility:[facility] Start: 03-29-2024 End: 03-29-2024 ambulatory [facility] Facility:[facility] Start: 03-12-2024 End: 03-12-2024 ambulatory Lazaro Degroot Facility:[facility] Start: 01-30-2024 End: 01-30-[facility] Start: 01-29-2024 End: 01-29-2024 [facility] Start: 01-29-2024 End: 01-29-2024 Patient encounter procedure Darío Gomez MD Work Phone: Cardiology Comment on above: Heart block AV compl ete (HCC); Vascular dilatation (HCC) Start: 01-29-2024 End: 01-29-2024 Subsequent hospital visit by physician [facility] Work Phone: Cardiology Comment on above: Pacemaker reprogramm ing/check [Z45.018] Start: 01-29-2024 End: 01-29-2024 ambulatory [facility] PILOK[facility] Facility:[facility] Start: 01-15-2024 Refill Alma Carreno Work Phone: [facility] Urological & Comment on above: Refill Request Start: 12-04-2023 End: 12-04-2023 Patient encounter procedure Alma Stephenson MD Work Phone: Urology Comment on above: BPH with obstruction /lower urinary tract symptoms (Primary Dx); Erectile dysfunction, unspecified erectile dysfunction type; Elevated PSA Start: 12-04-2023 ambulatory Alma Carreno Work Phone: Urology Start: 12-02-2023 Orders Only Lia Andrade APR, N.CNP Work Phone: Urology Comment on above: Elevated PSA (Primar y Dx) Start: 09-13-2023 Orders Only Darío Gomez MD Work Phone: Cardiology Comment on above: VSD (ventricular sep yamil defect) (Primary Dx) Start: 07-30-2023 End: 07-30-[address] Lazaro Degroot Work Phone: [facility] Work Phone: Start: 07-26-2023 End: 07-26-[address] Lazaro Degroot Work Phone: [facility] Work Phone: Start: 07-26-2023 End: 07-26-[address] [facility] Start: 05-22-2023 End: 05-22-[address] Lazaro Degroot Work Phone: [facility] Work Phone: Start: 05-06-2023 Orders Only Lia Andrade APR, N.CNP Work Phone: Urology Start: 12-24-2022 Orders Only Darío Gomez MD Work Phone: Cardiology Comment on above: SOB (shortness of br eath) (Primary Dx) Start: 12-20-2022 End: 12-20-2022 Patient encounter procedure Lulú Caballero MD Work Phone: Cardiology Comment on above: VSD (ventricular sep yamil defect) (Primary Dx); Heart block AV complete (HCC); Primary hypertension Start: 11-14-2022 End: 11-14-[address] Lazaro Degroot Work Phone: [facility] Work Phone: Start: 11-14-2022 End: 11-14-[address] [facility] Start: 10-31-2022 End: 10-31-[address] Lazaro Degroot Work Phone: [facility] Start: 10-31-2022 End: 10-31-[address] Lazaro Degroot Work Phone: [facility] Spec[facility] Start: 10-30-2022 End: 10-30-[address] Lazaro Degroot Work Phone: [facility] Work Phone: Start: 10-30-2022 End: 10-30-[address] Lazaro Degroot Work Phone: [facility] Start: 10-28-2022 End: 10-28-[address] Lazaro Degroot Work Phone: [facility] Start: 09-18-2022 End: 09-18-2022 ambulatory ALMA STEPHENSON Facility:[facility] Start: 09-13-2022 Orders Only Lia Andrade APR, N.CNP Work Phone: Urology Comment on above: Elevated PSA (Primar y Dx) Start: 09-03-2022 Refill Alma Carreno Work Phone: Urology Comment on above: Refill Request Start: 07-26-2022 End: 07-26-[address] Lazaro Degroot Work Phone: [facility] Work Phone: Start: 07-26-2022 End: 07-26-[address] Lazaro Degroot Work Phone: [facility] Start: 07-19-2022 End: 07-19-[address] Lazaro Degroot Work Phone: [facility] Work Phone: Start: 07-19-2022 End: 07-19-[address] Lazaro Degroot Work Phone: [facility] Start: 07-11-2022 End: 07-11-[address] Lazaro Degroot Work Phone: [facility] Start: 07-03-2022 Orders Only Lulú Caballero MD Work Phone: Cardiology Comment on above: S/P VSD repair (Prim isha Dx) Start: 06-05-2022 End: 06-05-[address] Lazaro Degroot Work Phone: [facility] Start: 04-11-2022 End: 04-11-[address] Lazaro Degroot Work Phone: [facility] Start: 04-04-2022 End: 04-04-2022 ambulatory Alma Stephenson MD Work Phone: Urology Comment on above: Erectile dysfunction , unspecified erectile dysfunction type (Primary Dx) Start: 04-04-2022 End: 04-04-2022 Telemedicine consultation with patient Alma Stephenson MD Work Phone: [facility] Start: 03-30-2022 ambulatory Alma Carreno Work Phone: Urology Comment on above: Question about possi ble medication Start: 03-12-2022 Refill Sanam Mckeon RN Uro logy Comment on above: Refill Request Start: 03-01-2022 End: 03-01-[address] Wilfredo Naranjo Work Phone: [facility] Spec[facility] Start: 01-03-2022 End: 01-03-[address] Wilfredo Naranjo Work Phone: [facility] Start: 12-15-2021 End: 12-15-[address] Wilfredo Naranjo Work Phone: [facility] Start: 11-21-2021 End: 11-21-[address] Wilfredo Naranjo Work Phone: [facility] Start: 07-25-2017 Ambulatory [facility] Procedures Date Procedure Procedure Detail Performing Clinician Start: 12-02-2024 Urnls dip stick/tabl et rgnt auto w/o microscopy Bulk Order Provider Start: 01-29-2024 Prgrmg dev eval impl antable subq lead dfb system [facility] Provider Start: 12-04-2023 Urnls dip stick/tabl et rgnt auto w/o microscopy Bulk Order Provider Start: 12-02-2023 Lipid 1996 panel - S mich or Plasma Alma Stephenson MD Work Phone: Start: 07-19-2022 Computed tomography of abdomen and pelvis with contrast Dr. Lazaro Degroot Work Phone: Start: 08-07-2019 Lipid 1996 panel - S mich or Plasma Lia Gilchrist SUPERVISOR SPEECH.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 Work Phone: Start: 06-10-2019 Adult depression scr [...] Nirmal Shipley MD Start: 05-24-2015 End: 05-24-2015 SEVERINO Shipley MD Start: 05-24-2015 End: 05-25-2015 Documentation of current medications Nirmal Shipley MD Start: 05-24-2015 End: 05-24-2015 Ecg routine ecg w/least 12 lds w/i&r Nirmal Shipley MD Start: 05-24-2015 End: 05-24-2015 Follow Up Appt 1 year Nirmal Shipley MD Start: 10-26-2014 Sai ratliff RN Start: 06-21-2014 End: 04-26-2015 *Hepatic Function Panel Zita Reyes Start: 06-21-2014 End: 04-26-2015 Lipid 1996 panel - Serum or Plasma Nirmal Shipley MD Start: 05-18-2014 End: 05-18-2014 FLIGHT SURGEON Nirmal Shipley MD Start: 05-18-2014 End: 05-18-2014 Follow Up Appt 1 year Nirmal Shipley MD Start: 10-20-2013 End: 12-29-2013 *Hepatic Function Panel Zita Reyes Start: 10-20-2013 End: 12-29-2013 Lipid Rebecca panel - Serum or Plasma Nirmal Shipley MD Start: 04-30-2013 End: 04-30-2013 FLIGHT SURGEON Nirmal Shipley MD Start: 04-30-2013 End: 04-30-2013 Follow [...] 24 hour holter monitor Nirmal Shipley MD [facility]in measurement Dr. Lazaro Degroot Work Phone: Plan of Treatment Date Care Activity Detail Author Start: 11-30-2029 Prostate specific an tigen measurement Prostate Cancer Screening Discussion [facility] Start: 12-01-2028 Lipid panel Lipid Screening [facility] Start: 12-01-2028 Prostate specific an tigen measurement Prostate Cancer Screening Discussion [facility] Start: 09-13-2027 PROSTATE CANCER SCRE ENING DISCUSSION PROSTATE CANCER SCREENING DISCUSSION [facility] Start: 09-13-2027 Prostate specific an tigen measurement Prostate Cancer Screening Discussion [facility] Start: 12-01-2026 Diabetes Screening Diabetes Screenin [facility] Start: 09-11-2026 PROSTATE CANCER SCRE ENING DISCUSSION PROSTATE CANCER SCREENING DISCUSSION [facility] Start: 12-20-2025 DIABETES SCREEN DIABETES SCREEN [facility] Start: 12-20-2025 Diabetes Screening Diabetes Screenin g [facility] Start: 12-10-2025 End: 12-10-2025 ambulatory 12/10/2025 7:45 AM EDT [facility] Urology [address] [address] Alma Stephenson MD [address] [place] [address] 1 year elevated PSA per checkout Urology Comment on above: 1 year elevated PSA per checkout Start: 12-02-2025 End: 03-03-2026 Prostate specific Ag [Mass/volume] in Serum or Plasma PROSTATE-SPECIFIC ANTIGEN DIAGNOSTIC Lab Routine BPH with obstruction/lower urinary tract symptoms Expected: 12/02/2025, Expires: 03/03/2026 [facility] Work Phone: Comment on above: Expected: 12/02/2025 , Expires: 03/03/2026 Start: 07-06-2025 Urine microalbumin profile DTa P,Tdap,Td Vaccine (2 - Td or Tdap) [facility] Start: 02-10-2025 End: 02-10-2025 Patient encounter procedure Cardiology Comment on above: Dx: VSD (ventricular septal defect), Pacemaker Start: 02-10-2025 End: 02-10-2025 ambulatory 02/10/2025 1:00 PM EDT Procedure Cardiology [address] [place] [address] Dx: VSD (ventricular septal defect), Pacemaker Cardiology Comment on above: Dx: VSD (ventricular septal defect), Pacemaker Start: 12-21-2024 End: 02-20-2025 CBC panel - Blood by Automated count CBC Lab Routine VSD (ventricular septal defect) Expected: 12/21/2024, Expires: 02/20/2025 [facility] Work Phone: Comment on above: Expected: 12/21/2024 , Expires: 02/20/2025 Start: 12-21-2024 End: 02-20-2025 Comprehensive metabolic 2000 panel - Serum or Plasma COMP METABOLIC PANEL Lab Routine VSD (ventricular septal defect) Expected: 12/21/2024, Expires: 02/20/2025 [facility] Work Phone: Comment on above: Expected: 12/21/2024 , Expires: 02/20/2025 Start: 12-21-2024 ECG COMPLETE ECG COMPLETE E CG Routine VSD (ventricular septal defect) Expected: 12/21/2024 [facility] Work Phone: Comment on above: Expected: 12/21/2024 Start: 12-21-2024 ECHO SPECIALIST COMP [place] ADULT CONGENITAL ECHO SPECIALIST COMPLEX ADULT CONGENITAL Cardiology Routine VSD (ventricular septal defect) Expected: 12/21/2024 [facility] Work Phone: Comment on above: Expected: 12/21/2024 Start: 12-21-2024 End: 02-20-2025 LIPID PANEL, NONFASTING LIPID PANEL, NONFASTING Lab Routine VSD (ventricular septal defect) Expected: 12/21/2024, Expires: 02/20/2025 [facility] Work Phone: Comment on above: Expected: 12/21/2024 , Expires: 02/20/2025 Start: 12-03-2024 End: 03-04-2025 Prostate specific Ag [Mass/volume] in Serum or Plasma PROSTATE-SPECIFIC ANTIGEN DIAGNOSTIC Lab Routine BPH with obstruction/lower urinary tract symptoms Elevated PSA Expected: 12/03/2024 (Approximate), Expires: 03/04/2025 [facility] Work Phone: Comment on above: Expected: 12/03/2024 (Approximate), Expires: 03/04/2025 Start: 12-02-2024 End: 12-02-2024 Patient encounter procedure 12/02/2024 2:00 PM EDT Office Visit Urology [address] [address] Alma Stephenson MD [address] [place], [place] [id number] Elevated PSA Annual Follow Up Urology Comment on above: Elevated PSA Annual Follow Up Start: 10-26-2024 Colonoscopy COLONOSCOPY [facility] Start: 10-26-2024 COLORECTAL CANCER SCREENING COLORECTAL CANCER SCREENING [facility] Start: 10-26-2024 Screening for malign ant neoplasm of colon [facility] Start: 10-18-2024 Covid-19 Vaccine ( season) Covid-19 Vaccine () [facility] Start: 08-07-2024 Lipid 1996 panel - S mich or Plasma Lipid Screening [facility] Start: 08-07-2024 Lipid panel Lipid Screening [facility] Start: 08-07-2024 LIPID SCREEN LIPID SCREEN [facility] Start: 07-22-2024 Advance Directive Discussion Advance Directive Discussion [facility] Start: 03-22-2024 Covid-19 Vaccine ( season) Covid-19 Vaccine () [facility] Start: 03-22-2024 Influenza vaccination Influenza Vacc ine (#1) [facility] Start: 01-29-2024 End: 01-29-2024 Patient encounter procedure Cardiology Comment on above: Dx: VSD (ventricular septal defect) Start: 01-29-2024 End: 01-29-2024 ambulatory 01/29/2024 3:00 PM EDT Results Only Cardiology [address] [place] [address] Dx: VSD (ventricular septal defect) Cardiology Comment on above: Dx: VSD (ventricular septal defect) Start: 12-04-2023 End: 12-04-2023 Patient encounter procedure 12/04/2023 4:45 PM EDT Office Visit Urology [address] [address] Alma Stephenson MD [address] [place] [address] 1 YEAR FOLLOW UP Urology Comment on above: 1 YEAR FOLLOW UP Start: 12-02-2023 End: 03-02-2024 Prostate specific Ag [Mass/volume] in Serum or Plasma [facility] Work Phone: Comment on above: Expected: 12/02/2023 (Approximate), Expires: 03/02/2024 Start: 09-20-2023 Covid-19 Vaccine () Covid-19 Vaccine () [facility] Start: 09-20-2023 Covid-19 Vaccine () Covid-19 Vaccine () [facility] Start: 07-22-2023 Advance Directive Discussion Advance Directive Discussion [facility] Start: 07-22-2023 Behavioral Health Screening Behavioral Health Screening [facility] Start: 07-22-2023 Depression Assessment Depression Ass essment [facility] Start: 07-11-2023 Pneumococcal Vaccine : 50+ (2 of 2 - PCV) Pneumococcal Vaccine: 50+ (2 of 2 - PCV) [facility] Start: 07-11-2023 Pneumococcal Vaccine : 65+ (2 of 2 - PCV) Pneumococcal Vaccine: 65+ (2 of 2 - PCV) [facility] Start: 03-22-2023 Covid-19 Vaccine () Covid-19 Vaccine () [facility] Start: 03-22-2023 Influenza vaccination Influenza Vacc ine (#1) [facility] Start: 10-30-2022 Procedure [facility] Start: 09-20-2022 End: 11-20-2022 Prostate specific Ag [Mass/volume] in Serum or Plasma PSA/PROSTSPECAG DIAG Lab Routine Elevated PSA Expected: 09/20/2022 (Approximate), Expires: 11/20/2022 [facility] Work Phone: Comment on above: Expected: 09/20/2022 (Approximate), Expires: 11/20/2022 Start: 07-22-2022 ADVANCE DIRECTIVE DISCUSSION ADVANCE DIRECTIVE DISCUSSION [facility] Start: 07-22-2022 DEPRESSION ASSESSMENT [facility] Start: 07-03-2022 End: 01-10-2023 Basic metabolic 2000 panel - Serum or Plasma BASIC METABOLIC PNL Lab Routine S/P VSD repair Expected: 07/03/2022, Expires: 01/10/2023 [facility] Work Phone: Comment on above: Expected: 07/03/2022 , Expires: 01/10/2023 Start: 06-12-2022 DIABETES SCREEN DIABETES SCREEN [facility] Start: 03-22-2022 Influenza vaccination INFLUENZA (#1) [facility] Start: 2021 ADVANCE DIRECTIVE DISCUSSION ADVANCE DIRECTIVE DISCUSSION [facility] Start: 2021 Pneumococcal Vaccine : 65+ (1 - PCV) Pneumococcal Vaccine: 65+ (1 - PCV) [facility] Start: 2021 PNEUMOCOCCAL: 65+ (1 - PCV) PNEUMOCOCCAL: 65+ (1 - PCV) [facility] Start: 10-05-2021 COVID-19 VACCINE (4 - Booster for Pfizer series) COVID-19 VACCINE (4 - Booster for Pfizer series) [facility] Start: 08-02-2021 COVID-19 VACCINE (4 - Booster for Pfizer series) COVID-19 VACCINE (4 - Booster for Pfizer series) [facility] Start: 07-22-2021 DEPRESSION ASSESSMENT DEPRESSION ASS ESSMENT [facility] Start: 06-10-2020 Adult depression scr eening assessment DEPRESSION SCREENING [facility] Start: 11-05-2017 End: 11-05-2017 Appointment Appointment [facility] Work Phone: Start: 05-07-2017 End: 05-07-2017 FLIGHT SURGEON FLIGHT SURGEON [facility] Work Phone: Start: 05-07-2017 End: 05-07-2017 Follow Up Appt 6 months Follow Up Appt 6 months [facility] Work Phone: Start: 05-07-2017 End: 05-07-2017 Appointment Appointment [facility] Work Phone: Start: 2016 RSV Vaccine (1 - 1-d ose 60+ series) RSV Vaccine (1 - 1-dose 60+ series) [facility] Start: 10-18-2016 End: 05-07-2017 FLIGHT SURGEON FLIGHT SURGEON [facility] Work Phone: Start: 10-18-2016 End: 05-07-2017 Follow Up Appt 6 months Follow Up Appt 6 months [facility] Work Phone: Start: 08-23-2016 End: 02-23-2016 *Hepatic Function Panel *Hepatic Function Panel [facility] Phone: Start: 08-23-2016 End: 02-23-2016 Lipid panel [AGGREGATE] *Lipid Profile CC PCP [facility] Work Phone: Start: 07-06-2016 End: 07-06-2016 FLIGHT SURGEON FLIGHT SURGEON [facility] Work Phone: Start: 07-06-2016 End: 07-06-2016 Follow Up Appt 3 months Follow Up Appt 3 months [facility] Work Phone: Start: 06-07-2016 End: 06-07-2016 Nuclear stress test -exercise Nuclear stress test -exercise [facility] Work Phone: Start: 05-29-2016 End: 05-29-2016 *BMP *BMP [facility] Work Phone: Start: 05-29-2016 End: 05-29-2016 24 hour holter monitor 24 hour holter monitor [facility] Work Phone: Start: 05-29-2016 End: 05-29-2016 FLIGHT SURGEON FLIGHT SURGEON [facility] Work Phone: Start: 05-29-2016 End: 05-29-2016 Ecg routine ecg w/least 12 lds w/i&r EKG (In office) [facility] Work Phone: Start: 05-29-2016 End: 05-29-2016 Echocardiography Echocardiogram (complete) [facility] Work Phone: Start: 05-29-2016 End: 05-29-2016 Follow Up Appt 6 months Follow Up Appt 6 months [facility] Phone: Start: 05-29-2016 End: 05-29-2016 Magnesium *Magnesium [facility] Work Phone: Start: 10-27-2015 End: 02-21-2016 *Hepatic Function Panel *Hepatic Function Panel [facility] Work Phone: Start: 10-27-2015 End: 02-21-2016 Lipid panel [AGGREGATE] *Lipid Profile CC PCP [facility] Work Phone: Start: 05-24-2015 End: 05-24-2015 FLIGHT SURGEON FLIGHT SURGEON [facility] Work Phone: Start: 05-24-2015 End: 05-24-2015 Ecg routine ecg w/least 12 lds w/i&r EKG (In office) [facility] Work Phone: Start: 05-24-2015 End: 05-24-2015 Follow Up Appt 1 year Follow Up Appt 1 year [facility] Work Phone: Start: 06-21-2014 End: 04-26-2015 *Hepatic Function Panel *Hepatic Function Panel [facility] Work Phone: Start: 06-21-2014 End: 04-26-2015 Lipid panel [AGGREGATE] *Lipid Profile CC PCP [facility] Work Phone: Start: 05-18-2014 End: 05-18-2014 FLIGHT SURGEON FLIGHT SURGEON [facility] Work Phone: Start: 05-18-2014 End: 05-18-2014 Follow Up Appt 1 year Follow Up Appt 1 year [facility] Work Phone: Start: 10-20-2013 End: 12-29-2013 *Hepatic Function Panel *Hepatic Function Panel [facility] Work Phone: Start: 10-20-2013 End: 12-29-2013 Lipid panel [AGGREGATE] *Lipid Profile CC PCP [facility] Work Phone: Start: 04-30-2013 End: 04-30-2013 FLIGHT SURGEON FLIGHT SURGEON [facility] Work Phone: Start: 04-30-2013 End: 04-30-2013 Follow Up Appt 1 year Follow Up Appt 1 year [facility] Work Phone: Start: 10-31-2012 End: 04-30-2013 *Hepatic Function Panel *Hepatic Function Panel [facility] Work Phone: Start: 10-31-2012 End: 10-31-2012 FLIGHT SURGEON FLIGHT SURGEON [facility] Work Phone: Start: 10-31-2012 End: 10-31-2012 Follow Up Appt 6 months Follow Up Appt 6 months [facility] Work Phone: Start: 10-31-2012 End: 04-30-2013 Lipid panel [AGGREGATE] *Lipid Profile [facility] Work Phone: Start: 04-08-2012 End: 04-30-2013 Follow Up Appt 6 months Follow Up Appt 6 months [facility] Work Phone: Start: 04-08-2012 End: 04-30-2013 Lipid panel [AGGREGATE] *Lipid Profile [facility] Work Phone: Start: 12-25-2011 End: 12-28-2011 24 hour holter monitor 24 hour holter monitor [facility] Work Phone: Start: 2006 SHINGRIX VACCINE (1 of 2) GARDNER GRIX VACCINE (1 of 2) [facility] Start: 2001 COLOGUARD (FIT-DNA) COLOGUARD (FIT-D NA) [facility] Start: [address] COLONOGRAPHY [facility] Start: 2001 FECAL OCCULT BLOOD FECAL OCCULT BLOO D [facility] Start: 2001 Screening for malign ant neoplasm of colon [facility] Start: 2001 SIGMOIDOSCOPY SIGMOIDOSCOPY [facility] Start: 12-08-1975 Urine microalbumin profile [facility] Start: 1974 ANNUAL PCP TEAM TIRE TESTER ERIKA DISEASE VISIT ANNUAL PCP TEAM CHRONIC DISEASE VISIT [facility] Start: 1974 Anxiety Screening Anxiety Screening [facility] Start: 1974 BP CONTROLLED (<130/80) BP CONTROLLE D (<130/80) [facility] Start: 1974 Depression Screening Depression Scre ening [facility] Start: 1974 HEPATITIS C SCREENING HEPATITIS C SC [facility] Start: 1974 Hepatitis C screening Hepatitis C [facility] Start: 1974 HIV SCREENING HIV SCREENING [facility] CARDIAC IMPLANTABLE DEVICE CHECK CARDIAC IMPLANTABLE DEVICE CHECK PACEART Routine Pacemaker reprogramming/check 01/29/2024 4:30 PM EDT [facility] End: 07-03-2023 ECG COMPLETE ECG COMPLETE ECG Routine S/P VSD repair 1 Occurrences starting 07/03/2022 until 07/03/2023 [facility] Work Phone: Comment on above: 1 Occurrences starti ng 07/03/2022 until 07/03/2023 End: 12-25-2023 ECG COMPLETE ECG COMPLETE ECG Routine SOB (shortness of breath) 1 Occurrences starting 12/24/2022 until 12/25/2023 [facility] Work Phone: Comment on above: 1 Occurrences starti ng 12/24/2022 until 12/25/2023 End: 09-13-2024 ECG COMPLETE ECG COMPLETE ECG Routine VSD (ventricular septal defect) 1 Occurrences starting 09/13/2023 until 09/13/2024 [facility] Work Phone: Comment on above: 1 Occurrences starti ng 09/13/2023 until 09/13/2024 End: 07-03-2023 Echocardiography ECHO Cardiology Routine S/P VSD repair 1 Occurrences starting 07/03/2022 until 07/03/2023 [facility] Work Phone: Comment on above: 1 Occurrences starti ng 07/03/2022 until 07/03/2023 NM Heart Views W str ess and W radionuclide IV [facility] Patient Education HYPERLIPIDEMIA, SYNCOPE [facility] Work Phone: Prostate specific Ag [Mass/volume] in Serum or Plasma PSA/PROSTSPECAG DIAG Lab Routine Elevated PSA 09/13/2022 1:53 PM EST [facility] Work Phone: Heart [facility] Immunizations Immunization Date Immunization Notes Care Provider [facility] 04-19-2023 influenza virus vaccine, unspecified formulation Darío Gomez MD Work Phone: [facility] 04-20-2022 influenza virus vaccine, unspecified formulation Lia Andrade APRN.CNP Work Phone: [facility] 10-13-2020 COVID-19 vaccine, ag e 12+ yr (PFIZER-BIONTECH - PURPLE TOP) Sanam Mckeon RN [facility] Work Phone: 09-22-2020 COVID-19 vaccine, ag e 12+ yr (PFIZER-BIONTECH - PURPLE TOP) Sanam Mckeon RN [facility] Payers Date Payer Category Payer Self-pay [id number] [phone] [id number] 2021 [facility] DICARE SUPPLEMENT [id number] 2021 Medicare [id number] 2021 Medicare [id number] 2021 Unknown [id number] 2021 Unknown [id number] 2010 Private Health Insurance [id number] Unknown [id number] Unknown [id number] Unknown [id number] Unknown [id number] Unknown [id number] Unknown [id number] Unknown [id number] Unknown [id number] Unknown [id number] Unknown [id number] Unknown [id number] Unknown [id number] Unknown [id number] Social History Date Type Detail Facility Start: 11-11-2019 End: 07-30-2023 Tobacco smoking status NHIS Unknown if ever smoked [facility] Start: 1955 Sex Assigned At Male [facility] Start: 07-05-2017 End: 09-18-2022 Tobacco smoking status NHIS Never smoked tobacco [facility] Start: 07-05-2017 End: 09-18-2022 Tobacco use and exposure Smokeless tobacco non-user [facility] Start: 09-12-2021 End: 01-29-2024 Alcohol intake Current drinker of alcohol (finding) [facility] Start: 08-15-2016 History SDOH Alcohol Comment socially- split bottle wine with dinner 3-5 times a week [facility] Start: 1955 Sex Assigned At Not on file [facility] Start: 12-20-2022 Alcohol Comment 7 /week wine w dinne r [facility] Start: 06-10-2019 End: 12-20-2022 History of Social function [facility] Start: 06-10-2019 End: 12-20-2022 Tobacco use panel [facility] PHQ2 Score 0 [facility] Medical [facility] Procedure Code Equipment Code Equipment Origin al Text Equipment Identifier Dates [id number] [employer] [id number] Start: 06-11-2019 [id number] Start: 06-11-2019 [id number] RosangelaMis Descuentos [facility] [id number] Start: 06-11-2019 Goals Date Patient Goal Desired Activity /State Personal health goal Functional Status Date Assessment Result Facility 06-12-2019 Are you deaf, or do you have serious difficulty hearing No 06/12/2019 2:01 PM Melissa Freire RN No [facility] 06-12-2019 Are you blind, or do you have serious difficulty seeing, even when wearing glasses No 06/12/2019 2:01 PM Melissa Freire RN No [facility] 06-12-2019 Do you have serious difficulty walking or climbing stairs No 06/12/2019 2:01 PM Melissa Freire RN No [facility] 06-12-2019 Do you have difficul ty dressing or bathing No 06/12/2019 2:01 PM Melissa Freire RN No [facility] 06-12-2019 Because of a physica l, mental, or emotional condition, do you have difficulty doing errands alone such as visiting a physician's office or shopping No 06/12/2019 2:01 PM Melissa Freire RN No [facility] Mental Status Date Assessment Result Facility 06-12-2019 Because of a physica l, mental, or emotional condition, do you have serious difficulty concentrating, remembering, or making decisions No 06/12/2019 2:01 PM Melissa Freire RN No [facility] Clinical Notes 06-15-2019 to 12-02-2024 Alma Stephenson MD - 12/02/2024 2:00 PM EDT Note Date & Type Note Facility 12-02-2024 History of Present illness Narrative [facility] ESTABLISHED PATIENT OFFICE VISIT REASON FOR VISIT: Follow up HPI 68 year old male presenting for follow-up of ED. Has h/o elevated PSA for which he has undergone the following work-up: MRI Prostate 12/12/2016 - 46 cc gland with no lesions concerning for disease IsoPSA 09/2020 - TRUS Prostate Biopsy 01/10/2021 - benign PSA 12/02/2023 - 3.62 PSA 11/30/24 - 3.19 Interval hx: Overall feeling well today. Denies any bothers LUTS. Denies any feelings of incomplete urination. Denies any gross hematuria or dysuria. Continues to take dutasteride. He is able to achieve erection that is typically hard enough for penetration. Endorses occasional issues with maintaining erection. Interested in possibly trailing different med. Takes 2-3 5mg cialis, previoulsy tried 20mg without much help. PATHOLOGY: TRUS Prostate Biopsy 01/10/2021: FINAL DIAGNOSIS [...] LABS: Creatinine Date Value Ref Range Status 12/02/2023 1.14 0.73 - 1.22 mg/dL Final 12/20/2022 1.02 0.73 - 1.22 mg/dL Final 06/12/2019 0.99 0.73 - 1.22 mg/dL Final 06/11/2019 1.09 0.73 - 1.22 mg/dL Final PSA (ng/mL) Date Value 11/30/2024 3.19 (H) 12/02/2023 3.62 (H) 09/13/2022 5.62 (H) 09/11/2021 5.11 (H) 10/10/2020 5.76 (H) 08/30/2020 6.78 (H) 08/07/2019 4.75 (H) URINALYSIS: Specific Aragon, Ur Date Value Ref Range Status 12/04/2023 1.021 1.005 - 1.030 Final Glucose, Urine Date Value Ref Range Status 12/04/2023 Negative Trace, Negative Final Bilirubin, Urine Date Value Ref Range Status 12/04/2023 Negative Negative Final Ketones, Urine Date Value Ref Range Status 12/04/2023 Negative Negative, Trace Final Hemoglobin/Blood,Ur Date Value Ref Range Status 12/04/2023 Negative Negative, Trace Final Protein, Urine Date Value Ref Range Status 12/04/2023 Negative Trace, Negative Final Urobilinogen, Urine Date Value Ref Range Status 02/15/2016 0.2 Normal (<1.1) EU Final Nitrites Date Value Ref Range Status 12/04/2023 Negative Negative Final Leukocytes Date Value Ref Range Status 02/15/2016 neg Neg Final IMAGING: N/A ALLERGIES: ALLERGIES No Known Allergies MEDICATIONS: Current Outpatient Medications Medication Sig Tadalafil (CIALIS) 5 mg tablet Take 1 tablet by mouth as needed. dutasteride (AVODART) 0.5 mg capsule Take 1 capsule by mouth once daily. atorvastatin (LIPITOR) 10 mg tablet Take 2 tablets by mouth once daily. amLODIPine (NORVASC) 5 mg tablet Take 5 mg by mouth once daily. metoprolol succinate ER (TOPROL XL) 50 mg 24 hr tablet Take 50 mg by mouth once daily. calcium-vits U4-V-V2-minerals 166.75 mg- 166.75 unit cap CALCIUM 600 MG TABS multivitamin tablet MULTIVITAMINS TABS fluticasone propionate (FLONASE NASAL) Use in the nose as needed. esomeprazole (NEXIUM) 20 mg capsule Take 20 mg by mouth once daily. sumatriptan succinate(IMITREX 100 MG TAB) as necessary aspirin(ASPIR-LOW 81 MG TAB) Take one(1) tablet daily. No current facility-administered medications for this visit. HISTORIES PAST MEDICAL HISTORY Diagnosis Date Arrhythmia [...] SEPTAL DEFECT W/WO PATCH 1959 COLONOSCOPY 2012 [facility] COLONOSCOPY FLX DX W/COLLJ SPEC WHEN [...] Never Smokeless tobacco: Never Vaping Use Vaping status: Never Used Substance Use Topics Alcohol use: Yes Comment: 7 /week wine w dinner Drug use: No REVIEW OF SYSTEMS General: No weight loss, malaise or fevers., SEE HPI Genitourinary: See HPI The remainder of the ROS was reviewed and negative. PHYSICAL EXAMINATION There were no vitals taken for this visit. General: Well appearing, alert, in no acute distress, and well-hydrated, well nourished Abdominal: Non-distended, non-tender Genitourinary: MALE EXAM: Exam NOT Indicated PROBLEMS: BPH with LUTS on 5ARI Elevated PSA ED Check PSA in one year. Satisfactory urinary symptoms on 5ARI. Elects continue ED treatment with cialis 20mg. RTC in 1 year. I, Cece Dailey, performed data extraction and record review under the direction of Dr. Stephenson. Electronically signed, Jose Eduardo Arredondo STAFF PHYSICIAN NOTE OF PERSONAL INVOLVEMENT IN CARE The above noted history, physical, assessment and plan were reviewed with the provider and critical portions of the H&P were confirmed. I evaluated and examined the patient and agree with the plan above and provided direct supervision of the above provider during this patient's care. Alma Stephenson MD Medical Decision Making: Problems: Moderate: 2+ stable chronic illnesses Data: Unique test result(s) reviewed: 1 Unique test(s) ordered: 1 Risk: Moderate: Drug management Medical Decision Making Level: 4 - Moderate documented in this encounter [facility] 12-02-2024 Note HNO ID: [id number] Author: ALMA STEPHENSON MD Service: ? Author Type: Physician Type: Progress Notes Filed: 12/02/2024 13:56 Note Text: [facility] ESTABLISHED PATIENT OFFICE VISIT REASON FOR VISIT: Follow up HPI 68 year old male presenting for follow-up of ED. Has h/o elevated PSA for which he has undergone the following work-up: MRI Prostate 12/12/2016 - 46 cc gland with no lesions concerning for disease IsoPSA 09/2020 - 7 TRUS Prostate Biopsy 01/10/2021 - benign PSA 12/02/2023 - 3.62 PSA 11/30/24 - 3.19 Interval hx: Overall feeling well today. Denies any bothers LUTS. Denies any feelings of incomplete urination. Denies any gross hematuria or dysuria. Continues to take dutasteride. He is able to achieve erection that is typically hard enough for penetration. Endorses occasional issues with maintaining erection. Interested in possibly trailing different med. Takes 2-3 5mg cialis, previoulsy tried 20mg without much help. PATHOLOGY: TRUS Prostate Biopsy 01/10/2021: FINAL DIAGNOSIS [...] LABS: Creatinine Date Value Ref Range Status 12/02/2023 1.14 0.73 - 1.22 mg/dL Final 12/20/2022 1.02 0.73 - 1.22 mg/dL Final 06/12/2019 0.99 0.73 - 1.22 mg/dL Final 06/11/2019 1.09 0.73 - 1.22 mg/dL Final PSA (ng/mL) Date Value 11/30/2024 3.19 (H) 12/02/2023 3.62 (H) 09/13/2022 5.62 (H) 09/11/2021 5.11 (H) 10/10/2020 5.76 (H) 08/30/2020 6.78 (H) 08/07/2019 4.75 (H) URINALYSIS: Specific Aragon, Ur Date Value Ref Range Status 12/04/2023 1.021 1.005 - 1.030 Final Glucose, Urine Date Value Ref Range Status 12/04/2023 Negative Trace, Negative Final Bilirubin, Urine Date Value Ref Range Status 12/04/2023 Negative Negative Final Ketones, Urine Date Value Ref Range Status 12/04/2023 Negative Negative, Trace Final Hemoglobin/Blood,Ur Date Value Ref Range Status 12/04/2023 Negative Negative, Trace Final Protein, Urine Date Value Ref Range Status 12/04/2023 Negative Trace, Negative Final Urobilinogen, Urine Date Value Ref Range Status 02/15/2016 0.2 Normal (<1.1) EU Final Nitrites Date Value Ref Range Status 12/04/2023 Negative Negative Final Leukocytes Date Value Ref Range Status 02/15/2016 neg Neg Final IMAGING: N/A ALLERGIES: ALLERGIES No Known Allergies MEDICATIONS: Current Outpatient Medications Medication Sig Tadalafil (CIALIS) 5 mg tablet Take 1 tablet by mouth as needed. dutasteride (AVODART) 0.5 mg capsule Take 1 capsule by mouth once daily. atorvastatin (LIPITOR) 10 mg tablet Take 2 tablets by mouth once daily. amLODIPine (NORVASC) 5 mg tablet Take 5 mg by mouth once daily. metoprolol succinate ER (TOPROL XL) 50 mg 24 hr tablet Take 50 mg by mouth once daily. calcium-vits X9-I-Y3-minerals 166.75 mg- 166.75 unit cap CALCIUM 600 MG TABS multivitamin tablet MULTIVITAMINS TABS fluticasone propionate (FLONASE NASAL) Use in the nose as needed. esomeprazole (NEXIUM) 20 mg capsule Take 20 mg by mouth once daily. sumatriptan succinate(IMITREX 100 MG TAB) as necessary aspirin(ASPIR-LOW 81 MG TAB) Take one(1) tablet daily. No current facility-administered medications for this visit. HISTORIES PAST MEDICAL HISTORY Diagnosis Date Arrhythmia [...] SEPTAL DEFECT W/WO PATCH 1960 COLONOSCOPY 2012 [facility] COLONOSCOPY FLX DX W/COLLJ SPEC WHEN [...] Never Smokeless tobacco: Never Vaping Use Vaping status: Never Used Substance Use Topics Alcohol use: Yes Comment: 7 /week wine w dinner Drug use: No REVIEW OF SYSTEMS General: No weight loss, malaise or fevers., SEE HPI Genitourinary: See HPI The remainder of the ROS w (more content not included)... [facility] 12-02-2024 Note Patient Outreach (UR OLMN) LOGAN MCCARTY ([id number]) 1955 M Date Time Provider Department 12/02/24 ALMA STEPHENSON During your visit today, we recorded the following information about you: Allergies As of Date: 12/02/2024 (No Known Allergies) Date Reviewed: 12/02/2024 Reviewed by: Marie Snyder OCCA - Fully Assessed Visit Diagnosis:Screening for genitourinary condition [Z13.89] Order(s):UA DIP, URINE (POC) [1106964] Order #: [id number] FUTURE Prescriptions as of 2024 - Tadalafil (CIALIS) 5 mg tablet Take 1 tablet by mouth as needed. - dutasteride (AVODART) 0.5 mg capsule Take 1 capsule by mouth once daily. - atorvastatin (LIPITOR) 10 mg tablet Take 2 tablets by mouth once daily. - amLODIPine (NORVASC) 5 mg tablet Take 5 mg by mouth once daily. - metoprolol succinate ER (TOPROL XL) 50 mg 24 hr tablet Take 50 mg by mouth once daily. - calcium-vits H3-Q-C5-minerals 166.75 mg- 166.75 unit cap CALCIUM 600 MG TABS - multivitamin tablet MULTIVITAMINS TABS - fluticasone propionate (FLONASE NASAL) Use in the nose as needed. - esomeprazole (NEXIUM) 20 mg capsule Take 20 mg by mouth once daily. - sumatriptan succinate(IMITREX 100 MG TAB) as necessary - aspirin(ASPIR-LOW 81 MG TAB) Take one(1) tablet daily. Problem List As Of Date 12/02/2024 Noted Resolved Bilat Ing Hernia [K40.20] 06/21/2009 Diverticulosis [K57.90] 11/01/2014 Benign non-nodular prostatic hyperplasia withou*08/03/2015 Elevated PSA [R97.20] 08/03/2015 Exertional headache [G44.84] 10/21/2017 Syncope and collapse [R55] 10/21/2017 Postural dizziness with presyncope [R42, R55] 10/21/2017 Migraine without aura and without status migrai*10/21/2017 Vascular dilatation (HCC) [I73.9] 03/03/2018 VSD (ventricular septal defect) [Q21.0] 03/03/2018 Venous aneurysm [I86.8] 03/03/2018 Syncope [R55] 06/10/2019 BPH with obstruction/lower urinary tract sympto*09/12/2020 Heart block AV complete (HCC) [I44.2] 12/21/2022 Primary hypertension [I10] 12/21/2022 Encounter Status:Closed by Cellca, PRODUSER on 12/07/24 [facility] 09-15-2024 Evaluation note Diagnosis Onset Date Resolution Abdominal pain chronic August 232024 1:52pm Diverticulosis chronic August 232024 1:52pm Essential hypertension chronic November 26, 2024 1:06pm History of permanent cardiac pacemaker placement June 15, 2019 chronic November 26, 2024 1:06pm HLD (hyperlipidemia) chronic November 26, 2024 1:06pm [facility] Work Phone: [phone]) 174-248001-23-2025 Telephone encounter Note* Telephone Encounter - Sukh Smallwood - 08/13/2024 11:52 AM EST Call from patient requesting refill. Requested Prescriptions Pending Prescriptions Disp Refills Tadalafil (CIALIS) 5 mg tablet 90 tablet 1 Sig: Take 1 tablet by mouth as needed. dutasteride (AVODART) 0.5 mg capsule 90 capsule 3 Sig: Take 1 capsule by mouth once daily. Patient last seen 12/04/2023 Sukh Smallwood [facility]01-23-2025 Miscellaneous Notes* Telephone Encounter - Sukh Smallwood - 08/13/2024 11:52 AM EST Call from patient requesting refill. Requested Prescriptions Pending Prescriptions Disp Refills Tadalafil (CIALIS) 5 mg tablet 90 tablet 1 Sig: Take 1 tablet by mouth as needed. dutasteride (AVODART) 0.5 mg capsule 90 capsule 3 Sig: Take 1 capsule by mouth once daily. Patient last seen 12/04/2023 Sukh Smallwood documented in [facility]24 NoteHNO ID: [id number] Author: DARÍO GOMEZ MD Service: ? Author Type: Physician Type: Progress Notes Filed: 01/29/2024 16:43 Note Text: [facility] [place] [facility] Department of Cardiovascular Medicine SECTION OF CARDIAC PACING and ELECTROPHYSIOLOGY OUTPATIENT VISIT DATE January 29, 2024 OUTPATIENT VISIT TYPE ESTABLISHED PRIMARY CARE PHYSICIAN: Lazaro Degroot [address] [facility] [address] [place] [address] REFERRING PHYSICIAN: Darío Gomez [address] [facility] [id number] CHIEF COMPLAINT: Device management HISTORY OF PRESENT ILLNESS (includes nursing intake): Mr. Mccarty is a 68 year old male who presents today for follow-up visit for device management. He has a past medical history of hyperlipidemia, RBBB, VSD repair at age 3, jugular vein resection at age 5, and AV block s/p dual chamber PPM (06/15/19). He is an established patient of Dr. Gomez last seen in 2020 for follow up. An echocardiogram showed a residual VSD and he was advised to seek evaluation by Dr. Caballero. He was started on metoprolol by Dr. Caballero but otherwise without significant symptoms. Patient is doing well, he has some strabismus issues. He denies chest pain, shortness of breath, orthopnea, cough, edema, palpitations, PND, lightheadedness or syncope. He remains active with yard work and regular exercise without any complaints. PAST MEDICAL HISTORY Diagnosis Date Arrhythmia BBB [...] SEPTAL DEFECT W/WO PATCH 1960 COLONOSCOPY 2012 [facility] COLONOSCOPY FLX DX W/COLLJ SPEC WHEN PFRMD 10/26/14 Repeat 2024 PAST SURGICAL HISTORY OF 1961 jugular vein resection, PAST SURGICAL HISTORY OF left breast gynecomastia surg PAST SURGICAL HISTORY OF 08/2016 loop recorder PAST SURGICAL HISTORY OF 06/15/2019 dual chamber PPM RPR 1ST INGUN HRNA AGE 6 YRS/> REDUCIBLE 1957 Hernia repair, inguinal, bilat as baby STRABISMUS SURGERY 3+ MUSCLES 1985 left SOCIAL HISTORY Social History Tobacco Use Smoking status: Never Smokeless tobacco: Never Vaping Use Vaping Use: Never used Substance Use Topics Alcohol use: Yes Comment: 7 /week wine w dinner Drug use: No FAMILY HISTORY Problem Relation Age of Onset Coronary Artery Disease Mother Hypertension Mother other (Migraine) Mother Coronary Artery Disease Father Hypertension Father Heart Attack Father Hypertension Sister other (Migraine) Sister Coronary Artery Disease Brother s/p CABG Heart Attack Brother Hypertension Brother No Family History Other AAA ALLERGIES: ALLERGIES No Known Allergies MEDICATIONS: dutasteride (AVODART) 0.5 mg capsule Take 1 capsule by mouth once daily. Tadalafil (CIALIS) 5 mg tablet Take 1 tablet by mouth as needed. atorvastatin (LIPITOR) 10 mg tablet Take 2 tablets by mouth once daily. amLODIPine (NORVASC) 5 mg tablet Take 5 mg by mouth once daily. metoprolol succinate ER (TOPROL XL) 50 mg 24 hr tablet Take 50 mg by mouth once daily. calcium-vits Y4-S-U0-minerals 166.75 mg- 166.75 unit cap CALCIUM 600 MG TABS multivitamin tablet MULTIVITAMINS TABS fluticasone propionate (FLONASE NASAL) Use in the nose as needed. esomeprazole (NEXIUM) 20 mg capsule Take 20 mg by mouth once daily. sumatriptan succinate(IMITREX 100 MG TAB) as necessary aspirin(ASPIR-LOW 81 MG TAB) Take one(1) tablet daily. Elena Long RN PHYSICAL EXAMINATION: There were no vitals taken for this visit. Affect normal Oriented x3 GA NAD HENT unremarkable, No thyroidal bruit Abd Soft Ext No edema Skin warm, moist Lungs Clear Heart nl S1, S2 Motor 5/5 CARDIOVASCULAR MEDICINE TESTING: Echocardiogram 12/20/22: - Exam indication: VSD repair (1958) - The left ventricle is normal in size. There is upper septal left ventricular hypertrophy. Left ventricular systolic function is normal. EF = 56 ? 5% (2D 4-ch.) Grade I left ventricular [...] on 01/02/2021. No significant changes are noted. PLAN AND RECOMMENDATIONS: Advance AV block: - paroxysmal - s/p dual chamber PPM - rate histogram is good. - No recurrent syncope 2. Dual Chamber PPM: - The pa (more content not included)...[facility]07-10-2024 History of Present illness Narrative* Darío Gomez MD - 01/29/2024 3:54 PM EDT Images from the original note were not included. [facility] [place] [facility] Department of Cardiovascular Medicine SECTION OF CARDIAC PACING and ELECTROPHYSIOLOGY OUTPATIENT VISIT DATE January 29, 2024 OUTPATIENT VISIT TYPE ESTABLISHED PRIMARY CARE PHYSICIAN: Lazaro Degroot [address] [facility] [address] [place] [address] REFERRING PHYSICIAN: Darío Gomez [address] [facility] [address] CHIEF COMPLAINT: Device management HISTORY OF PRESENT ILLNESS (includes nursing intake): Mr. Mccarty is a 68 year old male who presents today for follow-up visit for device management. He has a past medical history of hyperlipidemia, RBBB, VSD repair at age 3, jugular vein resection at age 5, and AV block s/p dual chamber PPM (06/15/19). He is an established patient of Dr. Gomez last seen in 2020 for follow up. An echocardiogram showed a residual VSD and he was advised to seek evaluation by Dr. Caballero. He was started on metoprolol by Dr. Caballero but otherwise without significant symptoms. Patient is doing well, he has some strabismus issues. He denies chest pain, shortness of breath, orthopnea, cough, edema, palpitations, PND, lightheadedness or syncope. He remains active with yard work and regular exercise without any complaints. 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 VSD (ventricular septal defect) 03/03/2018 PAST SURGICAL HISTORY Procedure Laterality Date CLSR 1 VENTRICULAR SEPTAL DEFECT W/WO PATCH 1960 [facility]OSCOPY [facility] COLONOSCOPY FLX DX W/COLLJ SPEC WHEN PFRMD 10/26/14 Repeat 2024 PAST SURGICAL HISTORY OF 1961 jugular vein resection, PAST SURGICAL HISTORY OF left breast gynecomastia surg PAST SURGICAL HISTORY OF 08/2016 loop recorder PAST SURGICAL HISTORY OF 06/15/2019 dual chamber PPM RPR 1ST INGUN HRNA AGE 6 YRS/> REDUCIBLE 1957 Hernia repair, inguinal, bilat as baby STRABISMUS SURGERY 3+ MUSCLES 1985 left SOCIAL HISTORY Social History Tobacco Use Smoking status: Never Smokeless tobacco: Never Vaping Use Vaping Use: Never used Substance Use Topics Alcohol use: Yes Comment: 7 /week wine w dinner Drug use: No FAMILY HISTORY Problem Relation Age of Onset Coronary Artery Disease Mother Hypertension Mother other (Migraine) Mother Coronary Artery Disease Father Hypertension Father Heart Attack Father Hypertension Sister other (Migraine) Sister Coronary Artery Disease Brother s/p CABG Heart Attack Brother Hypertension Brother No Family History Other AAA ALLERGIES: ALLERGIES No Known Allergies MEDICATIONS: dutasteride (AVODART) 0.5 mg capsule Take 1 capsule by mouth once daily. Tadalafil (CIALIS) 5 mg tablet Take 1 tablet by mouth as needed. atorvastatin (LIPITOR) 10 mg tablet Take 2 tablets by mouth once daily. amLODIPine (NORVASC) 5 mg tablet Take 5 mg by mouth once daily. metoprolol succinate ER (TOPROL XL) 50 mg 24 hr tablet Take 50 mg by mouth once daily. calcium-vits V2-B-V9-minerals 166.75 mg- 166.75 unit cap CALCIUM 600 MG TABS multivitamin tablet MULTIVITAMINS TABS fluticasone propionate (FLONASE NASAL) Use in the nose as needed. esomeprazole (NEXIUM) 20 mg capsule Take 20 mg by mouth once daily. sumatriptan succinate(IMITREX 100 MG TAB) as necessary aspirin(ASPIR-LOW 81 MG TAB) Take one(1) tablet daily. Elena Long RN PHYSICAL EXAMINATION: There were no vitals taken for this visit. Affect normal Oriented x3 GA NAD HENT unremarkable, No thyroidal bruit Abd Soft Ext No edema Skin warm, moist Lungs Clear Heart nl S1, S2 Motor 5/5 CARDIOVASCULAR MEDICINE TESTING: Echocardiogram 12/20/22: - Exam indication: VSD repair (1958) - The left ventricle is normal in [...] on 01/02/2021. No significant changes are noted. PLAN AND RECOMMENDATIONS: Advance AV block: - paroxysmal - s/p dual chamber PPM - rate histogram is good. - No recurrent syncope 2. Dual Chamber PPM: - The pacer and leads are performing well. - The device showed reasonably stable parameter continue with remote checks and a yearly clinic visit. 3. VSD: - s/p surgical repair - follows with Dr. Ada Chua personally interviewed, confirmed and edited the above information as obtained by others. CONTACT INFORMATION: Darío Gomez MD documented in this encounterFostoria [facility]06-[facility]24 Telephone encounter Note * Telephone Encounter - Jamilah Saldaña - 01/15/2024 8:00 AM EDT Requested Prescriptions Pending Prescriptions Disp Refills dutasteride (AVODART) 0.5 mg capsule 90 capsule 3 Sig: Take 1 capsule by mouth once daily. [facility] Miscellaneous Notes* Telephone Encounter - Jamilah Saldaña - 01/15/2024 8:00 AM EDT Requested Prescriptions Pending Prescriptions Disp Refills dutasteride (AVODART) 0.5 mg capsule 90 capsule 3 Sig: Take 1 capsule by mouth once daily. documented in this encounterFostoria City Hospital05-15-2024 History of Present illness Narrative* Alma Stephenson MD - 12/04/2023 4:[address] [facility] ESTABLISHED PATIENT OFFICE VISIT REASON FOR VISIT: Follow up HPI 67 year old male presenting for follow-up of ED. Has h/o elevated PSA for which he has undergone the following work-up: MRI Prostate 12/12/2016 - 46 cc gland with no lesions concerning for disease IsoPSA 09/2020 - 7 TRUS Prostate Biopsy 01/10/2021 - benign PSA 12/02/2023 - 3.62 Today, reports he is doing well. Content with erections on Cialis (takes 15- 20mg). Denies gross hematuria. Overall content with urinary symptoms. He has been on Avodart for several years. PATHOLOGY: TRUS Prostate Biopsy 01/10/2021: FINAL DIAGNOSIS [...] LABS: Creatinine Date Value Ref Range Status 12/02/2023 1.14 0.73 - 1.22 mg/dL Final 12/20/2022 1.02 0.73 - 1.22 mg/dL Final 06/12/2019 0.99 0.73 - 1.22 mg/dL Final 06/11/2019 1.09 0.73 - 1.22 mg/dL Final PSA (ng/mL) Date Value 12/02/2023 3.62 (H) 09/13/2022 5.62 (H) 09/11/2021 5.11 (H) 10/10/2020 5.76 (H) 08/30/2020 6.78 (H) 08/07/2019 4.75 (H) URINALYSIS: Specific Aragon, Ur Date Value Ref Range Status 12/04/2023 1.021 1.005 - 1.030 Final Glucose, Urine Date Value Ref Range Status 12/04/2023 Negative Trace, Negative Final Bilirubin, Urine Date Value Ref Range Status 12/04/2023 Negative Negative Final Ketones, Urine Date Value Ref Range Status 12/04/2023 Negative Negative, Trace Final Hemoglobin/Blood,Ur Date Value Ref Range Status 12/04/2023 Negative Negative, Trace Final Protein, Urine Date Value Ref Range Status 12/04/2023 Negative Trace, Negative Final Urobilinogen, Urine Date Value Ref Range Status 02/15/2016 0.2 Normal (<1.1) EU Final Nitrites Date Value Ref Range Status 12/04/2023 Negative Negative Final Leukocytes Date Value Ref Range Status 02/15/2016 neg Neg Final IMAGING: N/a ALLERGIES: ALLERGIES No Known Allergies MEDICATIONS: Current Outpatient Medications Medication Sig Tadalafil (CIALIS) 5 mg tablet Take 1 tablet by mouth as needed. dutasteride (AVODART) 0.5 mg capsule Take 1 capsule by mouth once daily. atorvastatin (LIPITOR) 10 mg tablet Take 2 tablets by mouth once daily. amLODIPine (NORVASC) 5 mg tablet Take 5 mg by mouth once daily. metoprolol succinate ER (TOPROL XL) 50 mg 24 hr tablet Take 50 mg by mouth once daily. calcium-vits H2-E-E7-minerals 166.75 mg- 166.75 unit cap CALCIUM 600 MG TABS multivitamin tablet MULTIVITAMINS TABS fluticasone propionate (FLONASE NASAL) Use in the nose as needed. esomeprazole (NEXIUM) 20 mg capsule Take 20 mg by mouth once daily. sumatriptan succinate(IMITREX 100 MG TAB) as necessary aspirin(ASPIR-LOW 81 MG TAB) Take one(1) tablet daily. No current facility-administered medications for this visit. HISTORIES PAST MEDICAL HISTORY Diagnosis Date Arrhythmia [...] SEPTAL DEFECT W/WO PATCH 1960 COLONOSCOPY 2012 COLONOSCOPY FLX DX W/COLLJ SPEC WHEN PFRMD [...] /week wine w dinner Drug use: No REVIEW OF SYSTEMS General: No weight loss, malaise or fevers. Genitourinary: See HPI The remainder of the ROS was reviewed and negative. PHYSICAL EXAMINATION Ht 162.6 cm (5' 4) Wt 82.6 kg (182 lb) BMI 31.24 kg/m General: Well appearing, alert, in no acute distress, and well-hydrated, well nourished Abdominal: non-distended Genitourinary: MALE EXAM: CHAS benign, smooth, nontender. PROBLEMS: Erectile dysfunction Content with erections on Cialis. Discussed shockwave trial, he is not interested at this time. BPH with LUTS on 5ARI Satisfied with urinary function, will continue current management. Prostate cancer screening PSA has declined on avodart as expected. Will continue annual screening, PSA in one year. Follow up in one year. I spent a total of 30 minutes on the date of the service which included preparing to see the patient, [id number] patient care, completing clinical documentation, and obtaining and/or reviewing separately obtained history. Visit complexity inherent to evaluation and management associated with medical care services that serve as the continuing focal point for all needed health care services and/or with medical care services that are part of ongoing care related to a patient s single, serious condition or a complex condition. By signing my name below, I, Gino Pro, attest that this documentation has been prepared under the direction and in the presence of Dr. Stephenson Electronically signed, Jose Eduardo Wallace STAFF PHYSICIAN NOTE OF PERSONAL INVOLVEMENT IN CARE The above noted history, physical, assessment and plan were reviewed with the provider and criticalportions of the H&P were confirmed. I evaluated and examined the patient and agree with the plan above and provided direct supervision of the above provider during this patient's care. Alma Stephenson MD documented in this encounterFostoria City Hospital06-01-2023 History of Present illness Narrative* Lulú Caballero MD - 12/20/2022 12:45 PM EDT Images from the original note were not included. [facility] [place] [facility] OUTPATIENT VISIT DATE December 20, 2022 OUTPATIENT VISIT TYPE ESTABLISHED PRIMARY CARE PHYSICIAN: Lazaro Degroot MD [address] [place] [id number] CHIEF COMPLAINT: Follow up CONGENITAL CARDIAC HISTORY: Ventricular septal defect 08/03/1959 - s/p suture closure of 6x3 mm VSD. Challenging repair due to difficulty visualizing the defect, required two bypass runs (Dr. Dewitt, [facility]). Operative report in [facility] under Scanned Docs, scanned on 10/25/16. 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 Gomez Presented as syncopal episodes with unrevealing EP study ILR implanted 05/2019 syncopal episode with high grade AV block on ILR 06/15/2019 - s/p dual chamber PPM INTERVAL HISTORY: Mr. Mccarty presents for follow up evaluation. I last saw him 12/2020. Since then he reports he has largely been well and is enjoying his skilled nursing, spending lots of time with his grandchildren. [...] they suspected prostate cancer but further testing wasbenign. 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 FAMILY HISTORY Problem Relation Age of Onset [...] mg by mouth once daily.^Disp: ^Rfl: calcium-vits W8-T-Q5-minerals 166.75 mg- 166.75 unit cap^CALCIUM 600 MG [...] joint pain, stiffness, Joint swelling, Positive for: Muscleor joint pain and Stiffness NEUROLOGIC/PSYCHIATRIC: Negative for: Weakness, Paralysis, Numbness, Tingling, Tremor, Nervousness or anxiety, Depressed mood, Memory loss SKIN: Negative for: Rash, Itching HEMATOLOGICAL/LYMPHATIC: Negative for: Easy bruising, Easy bleeding ENDOCRINE: Negative for: Heat or Cold Intolerance, Excessive Sweating, Frequent Urination, FrequentThirst PHYSICAL EXAMINATION: BP 150/91 (BP Site: Left [...] - Exam was compared with the prior CC echocardiographic exam performed on 01/02/2021. No significant changes are noted. EKG 12/20/22: DUAL CHAMBER PM EVALUATION 11/30/2020 PRESENTS FOR: OPD with Dr. Gomez PRESENTING EGM: AP/VS UNDERLYING RHYTHM: Sinus Bradycardia [...] are pain-free (0/10), well healed and without signsof erosion or infection. No arm swelling, syncope, pre- syncope or device related pocket stimulation. OTHER DIAGNOSTICS: Total V pacing <1% PROGRAMMING CHANGES MADE TODAY: RA sensitivity adjusted from 0.75 mV to 0.50 mV for adequate safetymargin. RA output adjusted based on testing today. FOLLOW UP: Follow locally remotely and yearly in clinic with Dr. Gomez MRA Chest 08/23/2016 IMPRESSION: 1-There is an [...] and Echocardiogram. 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 [...] at home, he will contact his home drapery cutter machine if still running high - I will help coordinate his follow up visit with Dr. Gomez - [facility] I spent a total of 45 minutes on the date of the service which included preparing to see the patient, [id number] patient care, completing clinical documentation, obtaining and/or reviewing separately obtained history, performing a medically appropriate examination, counseling and educating the pat ient/family/caregiver, ordering medications, tests, or procedures, communicating with other HCPs (not separately reported), independently interpreting results (not separately reported), and care coordination (not separately reported). Lulú Caballero MD Adult Congenital Heart Disease [facility] [place] [facility] Desk J2-4 Appointments: [phone] documented in this encounterFostoria City Hospital02-28-2023 NoteHNO ID: [id number] Author: Alma Stephenson MD Service: ? Author Type: Physician Type: Progress Notes Filed: 09/18/2022 9:55 AM Note Text: [facility] ESTABLISHED PATIENT [...] 6.78 (H) 08/07/2019 4.75 (H) URINALYSIS: Specific Aragon, Ur Date Value Ref Range Status 02/15/2016 [...] 50 mg by mouth once daily. calcium-vits U1-T-L6-minerals 166.75 mg- 166.75 unit cap CALCIUM 600 [...] SEPTAL DEFECT W/WO PATCH 1959 COLONOSCOPY 2012 [facility] COLONOSCOPY FLX DX W/COLLJ SPEC WHEN [...] No REVIEW OF SYSTEMS (more content not included)...[id number] Miscellaneous Notes* Telephone Encounter - Brady Chandra [facility] - 09/06/2022 8:34 AM EST Plan/Patient s insurance requests 90 day supplies on maintenance medications for Home Delivery suchas: Please see the attached order for Requested Prescriptions Pending Prescriptions Disp Refills Tadalafil (CIALIS) 5 mg tablet 90 tablet 1 Sig: Take 1 tablet by mouth as needed. If appropriate, e-script to [facility]. Thank you, Brady Chandra [facility] [phone] documented in this encounterFostoria City Hospital09-14-2022 History of Present illness Narrative* Alma Stephenson MD - 04/04/2022 5:[address] [facility] VIRTUAL VISIT [...] significantly bothersome LUTS, maybe some weak stream kaye only, and nocturia 1x. Not sure whether [...] 6.78 (H) 08/07/2019 4.75 (H) URINALYSIS: Specific Aragon, Ur Date Value Ref Range Status 02/15/2016 [...] 50 mg by mouth once daily. calcium-vits I8-W-D5-minerals 166.75 mg- 166.75 unit cap CALCIUM 600 [...] SEPTAL DEFECT W/WO PATCH 1959 COLONOSCOPY 2012 [facility] COLONOSCOPY FLX DX W/COLLJ SPEC WHEN [...] discussed option of stopping Avodart as this wasstarted prior to establishing care with me, he believes for lowering PSA rather than due to bothersome LUTS. We discussed possibility of worsening LUTS with discontinuination and for now we will holdoff on this. We discussed treatment options including [...] which included preparing to see the patient, [id number] patient care, and completing clinical documentation. Alma Stephenson MD documented in this encounterFostoria City Hospital09-09-2022 Miscellaneous Notes* Telephone Encounter - Ana Gonzalez Ma - 03/30/2022 3:32 PM EDT I have responded to patient via [employer] 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 [facility] Work Phone: 1([phone]) 281-932311-25-2019 Evaluation note* Diagnosis Onset Date Resolution Status High degree atrioventricular block chronic History of permanent cardiac pacemaker placement June 15, 2019 chronic 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 Essential hypertension chron ic History of permanent cardiac pacemaker placement June 15, 2019 chronic HLD (hyperlipidemia) chronic High degree atrioventricular block chronic History of permanent cardiac pacemaker placement June 15, 2019 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 [facility] Work Phone: 1(881) 514-545911-25-2019 Evaluation note* Diagnosis Onset Date Resolution Status Essential hypertension chron ic History of permanent cardiac pacemaker placement June 15, 2019 chronic HLD (hyperlipidemia) chronic High degree atrioventricular block chronic History of permanent cardiac pacemaker placement June 15, 2019 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 [facility] Work Phone: 1([phone]) 975-393811-25-2019 Evaluation note* Diagnosis Onset Date Resolution Status High degree atrioventricular block chronic History of permanent cardiac pacemaker placement June 15, 2019 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 Abdominal pain chronic Diverticulosis chronic High degree atrioventricular block chronic History of permanent cardiac pacemaker placement June 15, 2019 [facility] Work Phone: 1([phone]) 795-408211-25-2019 Evaluation note* Diagnosis Onset Date Resolution Status Essential hypertension chron ic History of permanent cardiac pacemaker placement June 15, 2019 chronic HLD (hyperlipidemia) [facility] Work Phone: Evaluation note* Diagnosis 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 urinary obstruction and other lower urinary tract symptoms (LUTS) [facility] Diagnosis Erectile dysfunction, unspecified erectile dysfunction type- Primary documented in this encounter [facility]* Diagnosis S/P VSD repair- Primary Other postprocedural status documented in this encounter [facility]* Diagnosis Elevated PSA- Primary Elevated prostate specific antigen (PSA) documented in this encounter [facility]* Diagnosis VSD (ventricular septal defect)- Primary Ventricular septal defect Heart block AV complete (HCC) Atrioventricular block, complete Primary hypertension Unspecified essential hypertension documented in this encounter [facility]* Diagnosis SOB (shortness of breath)- Primary Shortness of breath documented in this encounter [facility]* Diagnosis VSD (ventricular septal defect)- Primary Ventricular septal defect [facility] Diagnosis Elevated PSA- Primary Elevated prostate specific antigen (PSA) documented in this encounter [facility]* Diagnosis BPH with obstruction/lower urinary tract symptoms- Primary Hypertrophy of prostate with urinary obstruction and other lower urinary tract symptoms (LUTS) Erectile dysfunction, unspecified erectile dysfunction type Elevated PSA Elevated prostate specific antigen (PSA) documented in this encounter [facility]* Diagnosis Screening for genitourinary condition Screening for other and unspecified genitourinary condition documented in this encounter [facility]* Diagnosis 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 urinary obstruction and other lower urinary tract symptoms (LUTS) Pacemaker reprogramming/check Fitting and adjustment of cardiac pacemaker documented in this encounter [facility] note* Diagnosis Heart block AV complete (HCC) Atrioventricular block, complete Vascular dilatation (HCC) Peripheral vascular disease, unspecified documented in this encounter [facility] note* Diagnosis Pacemaker reprogramming/check Fitting and adjustment of cardiac pacemaker documented in this encounter [facility] note* Diagnosis 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 urinary obstruction and other lower urinary tract symptoms (LUTS) documented in this encounter [facility] note* Diagnosis BPH with obstruction/lower urinary tract symptoms- Primary Hypertrophy of prostate with urinary obstruction and other lower urinary tract symptoms (LUTS) Elevated prostate specific antigen (PSA) Erectile dysfunction, unspecified erectile dysfunction type documented in this encounter [facility] note* Diagnosis BPH with obstruction/lower urinary tract symptoms- Primary Hypertrophy of prostate with urinary obstruction and other lower urinary tract symptoms (LUTS) Elevated prostate specific antigen (PSA) Erectile dysfunction, unspecified erectile dysfunction type Screening for genitourinary condition Screening for other and unspecified genitourinary condition documented in this encounter [facility] for referral (narrative)* Outpatient Procedure (Routine) - Authorized Specialty Diagnoses / Procedures Referred By Jerzy stone Referred To Contact [facility] Diagnoses S/P VSD repair Procedures ECHO ECHO TTHRC R-T 2D W/WOM-MODE COMPL SPEC&COLR D Lulú Caballero MD [id number] [place] [address] Referral ID Status Reason Start Date Expiration Date Visits Requested Visits Authorized [id number] Authorized Auto-Generat ed Referral 2 07/03/2023 1 1 * Outpatient Procedure (Routine) - Authorized Specialty Diagnoses / Procedures Referred By Jerzy stone Referred To Contact [facility] Diagnoses S/P VSD repair Procedures ECG COMPLETE ECG ROUTINE ECG W/LEAST 12 LDS W/I&R Lulú Caballero MD [address] [place] [address] [address] Referral ID Status Reason Start Date Expiration Date Visits Requested Visits Authorized [id number] Authorized Auto-Generat ed Referral 07/03/2023 1 1 [facility] for referral (narrative)* Outpatient Procedure (Routine) - Pending Review Specialty Diagnoses / Procedures Referred By Contac t Referred To Contact [facility] Diagnoses VSD (ventricular septal defect) Procedures ECG COMPLETE ECG ROUTINE ECG W/LEAST 12 LDS W/I&R Lulú [place]ero [place] [address] [place] [address] [address] Referral ID Status Reason Start Date Expiration Date Visits Requested Visits Authorized [id number] Pending Review Auto-Generat ed Referral 12/21/2022 12/21/2023 1 1 * Outpatient Procedure (Routine) - Pending Review Specialty Diagnoses / Procedures Referred By Contac t Referred To Contact [facility] Diagnoses VSD (ventricular septal defect) Procedures ECHO SPECIALIST COMPLEX ADULT CONGENITAL ECHO TTHRC R-T 2D W/WOM-MODE COMPL SPEC&COLR D Lulú [place]ero [place] [address] [place] [address] [address] Referral ID Status Reason Start Date Expiration Date Visits Requested Visits Authorized [id number] Pending Review Auto-Generat ed Referral 12/21/2022 12/21/2023 1 1 [facility] for referral (narrative)* Outpatient Procedure (Routine) - Pending Review Specialty Diagnoses / Procedures Referred By Contac t Referred To Contact [facility] Diagnoses SOB (shortness of breath) Procedures ECG COMPLETE ECG ROUTINE ECG W/LEAST 12 LDS W/I&R Darío Gomez MD [address] [place] [address] [address] Referral ID Status Reason Start Date Expiration Date Visits Requested Visits Authorized [id number] Pending Review Auto-Generat ed Referral 12/24/2022 12/24/2023 1 1 [facility] for referral (narrative)* Outpatient Procedure (Routine) - Authorized Specialty Diagnoses / Procedures [facility] To [facility] Diagnoses VSD (ventricular septal defect) Procedures ECG COMPLETE ECG ROUTINE ECG W/LEAST 12 LDS W/I&R Darío Gomez MD [address] [place] [address] [address] Referral ID Status Reason Start Date Expiration Date Visits Requested Visits Authorized [id number] Authorized Auto-Generat ed Referral 09/13/2023 09/12/2024 1 1 [facility] for referral (narrative)* Outpatient Procedure (Routine) - Closed Specialty Diagnoses / Procedures [facility] Referred To Contact [facility] Diagnoses Pacemaker reprogramming/check Procedures CARDIAC IMPLANTABLE DEVICE CHECK Card Ep Device Clinic Main [id number] [facility] [address] [place] [address] Referral ID Status Reason Start Date Expiration Date V isits Requested Visits Authorized [id number] Closed Auto-Generate d Referral 12/09/2023 12/08/2024 1 1 * Outpatient Procedure (Routine) - Closed Specialty Diagnoses / Procedures [facility] Referred To Contact [facility] Diagnoses Pacemaker reprogramming/check Procedures CARDIAC IMPLANTABLE DEVICE CHECK Card Ep Device Clinic Main [address] [place] [address] [facility] [place] [address] [place] [address] Referral ID Status Reason Start Date Expiration Date V isits Requested Visits Authorized [id number] Closed Auto-Generate d Referral 12/09/2023 12/08/2024 1 1 [facility]Reason for referral (narrative)No reason for referral information availableWMcCullough-[facility] Work Phone: Reason for visit Narrative* Outpatient Procedure (Routine) - Closed Specialty Diagnoses / Procedures Referred By Contac t Referred [facility] Diagnoses Pacemaker reprogramming/check Procedures CARDIAC IMPLANTABLE DEVICE CHECK Card Ep Device Clinic Main [id number] [facility] [place] [address] [place] [address] Referral ID Status Reason Start Date Expiration Date V isits Requested Visits Authorized [id number] Closed Auto-Generate d Referral 12/09/2023 12/08/2024 1 1 [facility] Summary Purpose Family History No Family History Records Found Relationship Condition Age at Onset Recorded Date/T lisbeth father Myocardial infarction Unknown Cardiac disease Unknown mother Hypertension Unknown History of percutane ous transluminal coronary angioplasty Unknown brother Myocardial infarction Unknown Coronary artery disease Unknown Advance Directives No Advanced Directives Records Found Advance Directive Response Recorded Date/ Time Living Will No January 01, 2023 12:57pm Power of Ip Counsel No January 01 12:57pm Advance Directive Response Recorded Date/ Time Living Will No January 01, 2023 1:57pm Do you have a Healthcare Power of Ip Counsel? No January 01, 2023 1:57pm Chief Complaint and Reason for Visit Chief Complaint 6 M FU INT LAB 3 mos remote PPM f/u Reason for Visit Essential hypertensi on History of permanent cardiac pacemaker placement High degree atrioventricular block History of permanent cardiac pacemaker placement Monomorphic ventricular tachycardia RBBB with left anterior fascicular block Chief Complaint 3 mos remote PPM f/u 6 M FU 3 mos remote PPM f/u LLQ PAIN INT LABS Reason for Visit High degree atrioven tricular block History of permanent cardiac pacemaker placement Monomorphic ventricular tachycardia RBBB with left anterior fascicular block Essential hypertension History of permanent cardiac pacemaker placement HLD (hyperlipidemia) High degree atrioventricular block History of permanent cardiac pacemaker placement RBBB with left anterior fascicular block Chief Complaint 6 M FU 3 mos remote PPM f/u LLQ PAIN INT LABS Reason for Visit Essential hypertensi on History of permanent cardiac pacemaker placement HLD (hyperlipidemia) High degree atrioventricular block History of permanent cardiac pacemaker placement RBBB with left anterior fascicular block Chief Complaint 3 mos remote PPM f/u LLQ PAIN INT LABS Consult EORDERS INT LABSPEC REMOTE CHECK Reason for Visit High degree atrioven tricular block History of permanent cardiac pacemaker placement RBBB with left anterior fascicular block Abdominal pain Diverticulosis High degree atrioventricular block History of permanent cardiac pacemaker placement Chief Complaint INT LABS remote PPM f/u Consult EORDERS INT LABSPEC REMOTE CHECK E ORDERS Reason for Visit High degree atrioven tricular block History of permanent cardiac pacemaker placement RBBB with left anterior fascicular block Abdominal pain Diverticulosis High degree atrioventricular block History of permanent cardiac pacemaker placement Chief Complaint Pacer Check Remote 2 ordering doctors/eorders & paper 1 Y FU Reason for Visit Essential hypertensi on History of permanent cardiac pacemaker placement HLD (hyperlipidemia) Chief Complaint Admit Date Pacer Check Remote August 19, 2024 4 :02am 6 M FU September 15, 2024 1:52pm Pacer Check Remote November 18, 2024 4:0 1am 1 y fu w FLIGHT SURGEON per FLIGHT SURGEON November 26, 2024 1:06p m INT LAB ORDERS November 26, 2024 1:39pm Reason for Visit Admit Date Abdominal pain September 15, 2024 1:52pm Diverticulosis September 15, 2024 1:52pm Essential hypertension November 26, 2024 1:0 6pm History of permanent cardiac pacemaker p lacement November 26, 2024 1:06pm HLD (hyperlipidemia) November 26, 2024 1:06p m Reason for Referral Specialty Diagnoses / Procedures Referred By Jerzy stone Referred To Contact [facility] Procedures CARDIOVASCULAR MEDICINE OP FOLLOW UP APPT ORDER Darío Gomez MD [address] [place] [address] [facility] [place] [address] [place] [address] Referral ID Status Reason Start Date Expiration Date Visits Requested Visits Authorized [id number] Ref Not Required PCP Requested Referral 10/30/2024 01/28/2025 1 1 Specialty Diagnoses / Procedures Referred By Jerzy stone Referred To Contact Diagnoses BPH with obstruction/lower urinary tract symptoms Lia Andrade 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.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 [address] [place] [address] Referral ID Status Reason Start Date Expiration Date V isits Requested Visits Authorized [id number] Pending Review 1 1 Additional Source Comments (unrecognized sect ion and content) No Status Records FoundNo Status Records FoundNo Status Records FoundNo Status Records FoundNo Status Records Found INFORMATION SOURCE (unrecogn ized section and content) DATE CREATED AUTHOR 01/14/2018 [facility] DATE CREATED AUTHOR AUTHOR'S ORGANIZ ATION 10/15/2020 [facility] DATE CREATED AUTHOR AUTHOR'S ORGANIZ ATION 09/19/2022 [facility] DATE CREATED AUTHOR AUTHOR'S ORGANIZ ATION 2024 [facility] DATE CREATED AUTHOR AUTHOR'S ORGANIZ ATION 01/03/2025 [facility] Goals (unrecognized section and content) Goals may be documented in a n alternate sectionGoals may be documented in an alternate sectionGoals may be documented in an alternate sectionGoals may be documented in an alternate sectionGoals may be documented in an alternate sectionGoals may be documented in an alternate sectionGoals may be documented in an alternate section Source Comments (unrecognize d section and content) In the event this informatio n is protected by the Federal Confidentiality of Alcohol and Drug Abuse Patient Records regulations: The Federal rules restrict any use of the information to criminally investigate or prosecute any alcohol or drug abuse patient.[facility] HospitalIn the event this information is protected by the Federal Confidentiality of Alcohol and Drug Abuse Patient Records regulations: The Federal rules restrict any use of the information to criminally investigate or prosecute any alcohol or drug abuse patient.[facility] HospitalIn the event this information is protected by the Federal Confidentiality of Alcohol and Drug Abuse Patient Records regulations: The Federal rules restrict any use of the information to criminally investigate or prosecute any alcohol or drug abuse patient.[facility] HospitalIn the event this information is protected by the Federal Confidentiality of Alcohol and Drug Abuse Patient Records regulations: The Federal rules restrict any use of the information to criminally investigate or prosecute any alcohol or drug abuse patient.[facility] HospitalIn the event this information is protected by the Federal Confidentiality of Alcohol and Drug Abuse Patient Records regulations: The Federal rules restrict any use of the information to criminally investigate or prosecute any alcohol or drug abuse patient.[facility] HospitalIn the event this information is protected by the Federal Confidentiality of Alcohol and Drug Abuse Patient Records regulations: The Federal rules restrict any use of the information to criminally investigate or prosecute any alcohol or drug abuse patient.[facility] HospitalIn the event this information is protected by the Federal Confidentiality of Alcohol and Drug Abuse Patient Records regulations: The Federal rules restrict any use of the information to criminally investigate or prosecute any alcohol or drug abuse patient.[facility] HospitalIn the event this information is protected by the Federal Confidentiality of Alcohol and Drug Abuse Patient Records regulations: The Federal rules restrict any use of the information to criminally investigate or prosecute any alcohol or drug abuse patient.[facility] HospitalIn the event this information is protected by the Federal Confidentiality of Alcohol and Drug Abuse Patient Records regulations: The Federal rules restrict any use of the information to criminally investigate or prosecute any alcohol or drug abuse patient.[facility] HospitalIn the event this information is protected by the Federal Confidentiality of Alcohol and Drug Abuse Patient Records regulations: The Federal rules restrict any use of the information to criminally investigate or prosecute any alcohol or drug abuse patient.[facility] HospitalIn the event this information is protected by the Federal Confidentiality of Alcohol and Drug Abuse Patient Records regulations: The Federal rules restrict any use of the information to criminally investigate or prosecute any alcohol or drug abuse patient.[facility] HospitalIn the event this information is protected by the Federal Confidentiality of Alcohol and Drug Abuse Patient Records regulations: The Federal rules restrict any use of the information to criminally investigate or prosecute any alcohol or drug abuse patient.[facility] HospitalIn the event this information is protected by the Federal Confidentiality of Alcohol and Drug Abuse Patient Records regulations: The Federal rules restrict any use of the information to criminally investigate or prosecute any alcohol or drug abuse patient.[facility] HospitalIn the event this information is protected by the Federal Confidentiality of Alcohol and Drug Abuse Patient Records regulations: The Federal rules restrict any use of the information to criminally investigate or prosecute any alcohol or drug abuse patient.[facility] HospitalIn the event this information is protected by the Federal Confidentiality of Alcohol and Drug Abuse Patient Records regulations: The Federal rules restrict any use of the information to criminally investigate or prosecute any alcohol or drug abuse patient.[facility] HospitalIn the event this information is protected by the Federal Confidentiality of Alcohol and Drug Abuse Patient Records regulations: The Federal rules restrict any use of the information to criminally investigate or prosecute any alcohol or drug abuse patient.[facility] the event this information is protected by the Federal Confidentiality of Alcohol and Drug Abuse Patient Records regulations: The Federal rules restrict any use of the information to criminally investigate or prosecute any alcohol or drug abuse patient.[facility] the event this information is protected by the Federal Confidentiality of Alcohol and Drug Abuse Patient Records regulations: The Federal rules restrict any use of the information to criminally investigate or prosecute any alcohol or drug abuse patient.[facility] the event this information is protected by the Federal Confidentiality of Alcohol and Drug Abuse Patient Records regulations: The Federal rules restrict any use of the information to criminally investigate or prosecute any alcohol or drug abuse patient.[facility] Reason for Visit (unrecogniz ed section and content) Reason Onset Date Comments Refill Request 03/12/2022 Reason Comments Follow Up Reason Comments Refill Request Reason Onset Date Comments Refill Request 01/15/2024 Reason Onset Date Comments Refill Request 08/13/2024 Care Teams (unrecognized sec tion and content) Regulatory Affairs Analyst Relationship Specialty Start Date End Date Nirmal Shipley [address] [id number] Physician Cardiology 01/14/18 Darío Gomez MD [address] [place] [address] Primary Staff Physician Cardiology 01/05/20 Lulú Caballero MD [address] [place] [phone] Primary Staff Physician Cardiology 01/02/21 Regulatory Affairs Analyst Relationship Specialty Start Date End Date Quinten, Nirmal S [address] [place] [address] Physician Cardiology 01/14/18 Darío Gomez MD [address] [facility] [place] [address] Primary Staff Physician Cardiology 01/05/20 Lulú Caballero MD [address] [place] [address] Primary Staff Physician Cardiology 01/02/21 Regulatory Affairs Analyst Relationship Specialty Start Date End Date Quinten, Wayne S [address] [place] [address] Physician Cardiology 01/14/18 Darío Gomez MD [address] [facility] [place] [address] Primary Staff Physician Cardiology 01/05/20 Lulú Caballero MD [address] [facility] [place] [address] Primary Staff Physician Cardiology 01/02/21 Regulatory Affairs Analyst Relationship Specialty Start Date End Date Quinten, Wayne S [address] [address] Physician Cardiology 01/14/18 Darío Gomez MD [address] [facility] [place] [address] Primary Staff Physician Cardiology 01/05/20 Lulú Caballero MD [address] [facility] [place] [address] Primary Staff Physician Cardiology 01/02/21 Team Status: Active Member Role Status Dates Dr. Wilfredo Brown MD Family Provider Active Dr. Lazaro Degroot MD Primary Care Provider Active Team Status: Inactive Member Role Status Dates Dr. Lazaro Degroot MD Primary Care Provider, Referring Provider Active Dr. Nirmal Shipley MD Attending Provider Active Team Status: Inactive Member Role Status Dates Dr. Lazaro Degroot MD Primary Care Provider, Referring Provider Active Morenita Mancera Attending Provider Active Team Status: Inactive Member Role Status Dates Dr. Lazaro Degroot MD Primary Care Provider, Attending Provider Active Lazaro Degroot Referring Provider Active Team Status: Inactive Member Role Status Dates Dr. Lazaro Degroot MD Primary Care Provider Active Dr. Nirmal Shipley MD Attending Provider, Referring Pro vider Active Regulatory Affairs Analyst Relationship Specialty Start Date End Date Quinten, Nirmal S [address] [address] Physician Cardiology 01/14/18 Darío Gomez MD [address] [place] [address] Primary Staff Physician Cardiology 01/05/20 Lulú Caballero MD [address] [place] [address] Primary Staff Physician Cardiology 01/02/21 Regulatory Affairs Analyst Relationship Specialty Start Date End Date Quinten, Wayne S [address] [address] Physician Cardiology 01/14/18 Darío Gomez MD [address] [facility] [place] [address] Primary Staff Physician Cardiology 01/05/20 Lulú Caballero MD [address] [place] [address] Primary Staff Physician Cardiology 01/02/21 Team Status: Inactive Member Role Status Dates Dr. Lazaro Degroot MD Primary Care Provider Active Morenita Mancera Active Dr. Nirmal Shipley MD Attending Provider, Referring Pro vider Active Team Status: Inactive Member Role Status Dates Dr. Lazaro Degroot MD Primary Care Provider, Referring Provider Active Tricia Carballo NUTRITION ASSISTANT, NUTRITION ASSISTANT-C Attending Provider Active Team Status: Inactive Member Role Status Dates Dr. Lazaro Degroot MD Primary Care Provider, Attending Provider Active Lazaro GARNICA Referring Provider Active Team Status: Inactive Member Role Status Dates Dr. Lazaro Degroot MD Primary Care Provider Active Tricia Carballo NUTRITION ASSISTANT, NUTRITION ASSISTANT-C Attending Provider, Referrin g Provider Active Team Status: Active Member Role Status Dates Dr. Lazaro Degroot MD Primary Care Provider Active Tricia Carballo NUTRITION ASSISTANT, NUTRITION ASSISTANT-C Attending Provider, Referrin g Provider Active Team Status: Inactive Member Role Status Dates Dr. Lazaro Degroot MD Primary Care Provider Active Wilfredo Bro NUTRITION ASSISTANT, NUTRITION ASSISTANT-C Attending Provider, Referring Pro vider Active Regulatory Affairs Analyst Relationship Specialty Start Date End Date Quinten, Wayne S [address] [facility] [address] [place] [address] Physician Cardiology 01/14/18 Darío Gomez MD [address] [place] [address] Primary Staff Physician Cardiology 01/05/20 Lulú Caballero MD [address] [place] [address] Primary Staff Physician Cardiology 01/02/21 Regulatory Affairs Analyst Relationship Specialty Start Date End Date Lazaro Degroot MD [address] [place] [address] [address] [place] [address] PCP - General Family Medicine 12/21/22 Quinten, Nirmal S [address] [place] [address] Physician Cardiology 01/14/18 Darío Gomez MD [address] [place] [address] Primary Staff Physician Cardiology 01/05/20 Lulú Caballero MD [address] [place] [address] Primary Staff Physician Cardiology 01/02/21 Regulatory Affairs Analyst Relationship Specialty Start Date End Date Lazaro Degroot MD [address] [place] [address] [address] [place] [address] PCP - General Family Medicine 12/21/22 Nirmal Shipley MD [address] [place], [place] [address] Physician Cardiology 01/14/18 Darío Gomez MD [address] [place] [address] Primary Staff Physician Cardiology 01/05/20 Lulú Caballero MD [address] [place] [address] Primary Staff Physician Cardiology 01/02/21 Regulatory Affairs Analyst Relationship Specialty Start Date End Date Lazaro Degroot MD [address] [place] [address] [address] [place] [address] PCP - General Family Medicine 12/21/22 Nirmal Shipley MD [address] [place] [address] Physician Cardiology 01/14/18 Darío Gomez MD [address] [place] [address] Primary Staff Physician Cardiology 01/05/20 Lulú Caballero MD [address] [place] [address] Primary Staff Physician Cardiology 01/02/21 Regulatory Affairs Analyst Relationship Specialty Start Date End Date Lazaro Degroot MD [address] [place] [address] [address] [place] [address] PCP - General Family Medicine 12/21/22 Nirmal Shipley MD [address] [facility] [address] [place] [address] Physician Cardiology 01/14/18 Darío Gomez MD [address] [place] [address] Primary Staff Physician Cardiology 01/05/20 Lulú Caballero MD [address] [place] [address] Primary Staff Physician Cardiology 01/02/21 Regulatory Affairs Analyst Relationship Specialty Start Date End Date Lazaro Degroot MD [address] [place] [address] [address] [place] [address] PCP - General Family Medicine 12/21/22 Nirmal Shipley MD [address] [facility] [address] [place] [address] Physician Cardiology 01/14/18 Darío Gomez MD [address] [place], [place] [id number] Primary Staff Physician Cardiology 01/05/20 Lulú Caballero MD [address] [place], [place] [address] Primary Staff Physician Cardiology 01/02/21 Regulatory Affairs Analyst Relationship Specialty Start Date End Date Lazaro Degroot MD [address] [facility] [address] [place] [address] PCP - General Family Medicine 12/21/22 Nirmal Shipley MD [address] [facility] [address] [place] [address] Physician Cardiology 01/14/18 Darío Gomez MD [address] [place], [place] [id number] Primary Staff Physician Cardiology 01/05/20 Lulú Caballero MD [address] [place], [place] [address] Primary Staff Physician Cardiology 01/02/21 Regulatory Affairs Analyst Relationship Specialty Start Date End Date Lazaro Degroot MD [address] [facility] [address] [place] [address] PCP - General Family Medicine 12/21/22 Nirmal Shipley MD [address] [facility] [address] [place] [address] Physician Cardiology 01/14/18 Darío Gomez MD [address] [place] [address] Primary Staff Physician Cardiology 01/05/20 Lulú Caballero MD [address] [place] [address] Primary Staff Physician Cardiology 01/02/21 Regulatory Affairs Analyst Relationship Specialty Start Date End Date Lazaro Degroot MD [address] [facility] [address] [place] [address] PCP - General Family Medicine 12/21/22 Nirmal Shipley MD [address] [facility] [address] [place] [address] Physician Cardiology 01/14/18 Darío Gomez MD [address] [place] [address] Primary Staff Physician Cardiology 01/05/20 Lulú Caballero MD [address] [place] [address] Primary Staff Physician Cardiology 01/02/21 Regulatory Affairs Analyst Relationship Specialty Start Date End Date Lazaro Degroot MD [address] [place] [address] [address] [place] [address] PCP - General Family Medicine 12/21/22 Nirmal Shipley MD [address] [facility] [address] [place] [address] Physician Cardiology 01/14/18 Darío Gomez MD [address] [place] [address] Primary Staff Physician Cardiology 01/05/20 Lulú Caballero MD [address] [place] [address] Primary Staff Physician Cardiology 01/02/21 Regulatory Affairs Analyst Relationship Specialty Start Date End Date Lazaro Degroot MD [address] [place] [address] [address] [place] [address] PCP - General Family Medicine 12/21/22 Nirmal Shipley MD [address] [address] Physician Cardiology 01/14/18 Darío Gomez MD [address] [place] [address] Primary Staff Physician Cardiology 01/05/20 Lulú Caballero MD [address] [place] [address] Primary Staff Physician Cardiology 01/02/21 Team Status: Active Member Role Status Dates Dr. Lazaro Degroot MD Primary Care Provider Active Team Status: Inactive Member Role Status Dates Dr. Lazaro Degroot MD Primary Care Provider Active Start: August 19, 2024 End: August 19, 2024 Dr. Nirmal Shipley MD Attending Provider Active S tart: August 19, 2024 End: August 19, 2024 Dr. Nirmal Shipley MD Referring Provider Active S tart: August 19, 2024 End: August 19, 2024 Team Status: Inactive Member Role Status Dates Dr. Lazaro Degroot MD Primary Care Provider Active Start: September 15, 2024 End: September 15, 2024 Dr. Lazaro Degroot MD Referring Provider Active Start: September 15, 2024 End: September 15, 2024 KIRSTEN Hernández Attending Provider Active Start: September 15, 2024 End: September 15, 2024 Team Status: Inactive Member Role Status Dates Dr. Lazaro Degroot MD Primary Care Provider Active Start: November 18, 2024 End: November 18, 2024 Dr. Nirmal Shipley MD Attending Provider Active S tart: November 18, 2024 End: November 18, 2024 Team Status: Inactive Member Role Status Dates Dr. Lazaro Degroot MD Primary Care Provider Active Start: November 26, 2024 End: November 26, 2024 Dr. Lazaro Degroot MD Referring Provider Active Start: November 26, 2024 End: November 26, 2024 Dr. Nirmal Shipley MD Attending Provider Active S tart: November 26, 2024 End: November 26, 2024 Team Status: Inactive Member Role Status Dates Dr. Lazaro Degroot MD Primary Care Provider Active Start: November 26, 2024 End: November 26, 2024 Dr. Nirmal Shipley MD Attending Provider Active S tart: November 26, 2024 End: November 26, 2024 Dr. Nirmal Shipley MD Referring Provider Active S tart: November 26, 2024 End: November 26, 2024 Regulatory Affairs Analyst Relationship Specialty Start Date End Date Lazaro Degroot MD [address] [facility] [address] [place], [place] [address] PCP - General Family Medicine 12/21/22 Nirmal Shipley MD [address] [facility] [address] [place], [place] [address] Physician Cardiology 01/14/18 Darío Gomez MD [address] [place], [place] [id number] Primary Staff Physician Cardiology 01/05/20 Lulú Caballero MD [address] [place] [address] Primary Staff Physician Cardiology 01/02/21 Regulatory Affairs Analyst Relationship Specialty Start Date End Date Lazaro Degroot MD [address] [facility] [address] [place], [place] [address] PCP - General Family Medicine 12/21/22 Nirmal Shipley MD [address] [place] [address] Physician Cardiology 01/14/18 Darío Gomez MD [address] [place] [address] Primary Staff Physician Cardiology 01/05/20 Lulú Caballero MD [address] [place] [address] Primary Staff Physician Cardiology 01/02/21 FOR RECORDS [...] BE BASED ON THE PRIMARY CLINICAL RECORDS. [facility] [employer] provides no warranty or guarantee of the accuracy or completeness of information in this document.
--- NOTE | 2025-01-11 06:26 | ECHOD_ITS ---
Reason For Study Reason For Study: CAD/ASHD Procedure This was a 2D Doppler, Color Flow transthoracic echocardiogram. Exam performed in department. Left Ventricle Normal LV size. The estimated ejection fraction is 50 %. Stage 1 diastolic dysfunction. There is mild global hypokinesis of the left ventricle. Right Ventricle Normal RV size. ICD or pacer leads identified within the right ventricle. Normal systolic function. Atria Normal left atrium. Normal right atrium. Mitral Valve Normal mitral valve. Tricuspid Valve Normal tricuspid valve. Aortic Valve Trisinus/trileaflet aortic valve. Mild focal aortic valve thickening. Great Vessels Normal aortic root. The pulmonary artery is normal size. Inferior vena cava collapse with respiration. Pericardium/Pleural No pericardial effusion. MMode/2D Measurements & Calculations LVIDd: 5.0 cm IVSd: 1.1 cm LAV(MOD- bp): 71.6 ml LVIDs: 3.4 cm LVPWd: 1.2 cm LAV(MOD- bp) Indexed: 37.9 ml/m2 FS: 31.5 % LAV(MOD- sp2): 62.2 ml LAV(MOD- sp4): 65.1 ml LVAd ap4: 31.5 cm2 SV(MOD-sp4): 48.0 ml SV(sp4- el): 48.6 ml LVLd ap4: 8.6 cm SI(MOD-sp4): 25.4 ml/m2 EDV(MOD-sp4): 100.1 ml EDV(sp4-el): 97.8 ml LVAs ap4: 19.5 cm2 LVLs ap4: 6.5 cm ESV(MOD-sp4): 52.0 ml ESV(sp4-el): 49.2 ml EF(MOD-sp4): 48.0 % EF(sp4-el): 49.7 % LA A4 area: 22.6 cm2 LA dimension(2D): 5.0 cm RA A4 area: 20.1 cm2 Time Measurements MV dec time: 0.25 sec Doppler Measurements & Calculations MV E max luis: 41.6 cm/sec Lat Peak E' Luis: 9.7 cm/sec Med Peak E' Luis: 7.7 cm/sec MV A max luis: 47.8 cm/sec E/E' lat: 4.3 E/E' med: 5.4 MV E/A: 0.87 MV V2 max: 56.3 cm/sec Ao V2 max: 112.2 cm/sec MV max P.3 mmHg MV dec slope: 182.5 cm/sec2 Ao max P.0 mmHg MV V2 mean: 31.7 cm/sec Ao V2 mean: 79.8 cm/sec MV mean P.47 mmHg Ao mean P.9 mmHg MV V2 VTI: 16.8 cm Ao V2 VTI: 27.4 cm AV (velocity ratio): 0.65 LV V1 max: 86.9 cm/sec PA V2 max: 87.6 cm/sec LV V1 max P.0 mmHg PA V2 mean: 60.1 cm/sec LV V1 mean P.6 mmHg LV V1 mean: 58.1 cm/sec LV V1 VTI: 17.8 cm ECHO/Echo Complete Interpretation Summary Normal LV size. The estimated ejection fraction is 50 %. There is mild global hypokinesis of the left ventricle. Stage 1 diastolic dysfunction. Compared to previous study, the left ventricular systolic function has improved .. Ordering Physician: Nirmal Shipley Referring Physician: Nirmal Shipley Performed By: Lucia Leone RCS
--- NOTE | 2025-01-11 16:23 | STRESSREP ---
Stress Test Report Pharmacologic myocardial perfusion stress test. 69-year-old man with a history of cardiac dysrhythmia status post pacemaker placement Resting EKG demonstrates sinus rhythm with a rate of 60 bpm. Right bundle branch block is noted. Resting blood pressure is 130/82 mmHg. 0.4 mg of regadenoson was infused per usual protocol followed by rapid intravenous saline flush injection. Continuous EKG monitoring was performed. The maximum heart rate was 88 bpm which was 57% of max impacted heart rate the maximum workload was 1 metabolic equivalent. At rest there were no ST or T wave changes noted to suggest ischemia and at peak infusion nonspecific ST changes were noted which did not meet the criteria for ischemia. No clinical angina is noted. The final blood pressure was 138/80 mmHg. Myocardial perfusion protocol. 12.3 mCi of technetium 99m sestamibi was injected at rest. 0.4 mg of regadenoson was infused per usual protocol. At peak infusion 37.9 mCi of technetium 99m sestamibi was injected stress images were obtained stress and rest images were reconstructed and compared in the short axis vertical long and horizontal long axis. Gated images were also obtained. Perfusion SPECT analysis: Review of the stress images demonstrate normal uptake of tracer noted in all areas of the myocardium. The resting images similar demonstrated normal uptake of tracer noted in all areas of the myocardium. No areas of reversibility are noted to suggest ischemia and no previous infarct is noted. Gated SPECT analysis: The gated ejection fraction is 64%. Conclusion: Normal pharmacologic myocardial perfusion stress test. Preserved ejection fraction.
== END | disposition home or self-care (01) ==
LOC: CVS 06:14
PROVIDERS: PCP Family Medicine; Referring Provider Internal Medicine Cardiovascular Disease; Visit Provider Internal Medicine Cardiovascular Disease
DX: I47.20 Ventricular tachycardia, unspecified (principal); I25.10 Atherosclerotic heart disease of native coronary artery without angina pectoris; Z95.0 Presence of cardiac pacemaker
CPT/HCPCS: 78452; 93017; 93306; A9500; A4216; J2785

== ENCOUNTER 2025-04-23 20:10 | Emergency (ER) | payer MEDICARE, BC, SELFPAY ==
[2025-04-23 20:11] VITALS: BP 158/106; PULSE 53; RESP 27; TEMP 36.6; O2SAT 98; BMI 31.2
--- NOTE | 2025-04-23 20:15 | EKG12_ITS ---
Test Reason : DYSRHYTHMIA Blood Pressure : */* mmHG Vent. Rate : 63 BPM Atrial Rate : 63 BPM P-R Int : 168 ms QRS Dur : 154 ms QT Int : 448 ms P-R-T Axes : * -55 47 degrees QTcB Int : 458 ms Sinus rhythm with sinus arrhythmia with frequent atrial-paced complexes Right bundle branch block Left anterior fascicular block Bifascicular block Minimal voltage criteria for LVH, may be normal variant ( R in aVL ) Abnormal ECG Confirmed by BRADEN BAH, ANNE ([id number]), video tape editor KAREN IZQUIERDO ([id number]) on 04/26/2025 6:31:33 AM Referred By: AVILA Confirmed By: ANNE FELICIANO MD
--- OUTSIDE RECORDS SUMMARY | 2025-04-23 20:43 | XMS RPT_ITS | CCD ---
Author Organization [facility] Care Team Providers Care Contract Runner Name Role Phone Makenzie RN, Abbey Pat Unavailable Unavailable Cisco Joe Unavailable Unavailable ROXANE SANTOS Unavailable Unavailable Makenzie RN, Abbey A Unavailable Unavailable Makenzie RN, Abeby A Unavailable Unavailable Dr. Wilfredo Naranjo Referring Provider Dr. Nirmal Shipley Attending Provider [phone] Lazaro Degroot Primary Care Provider Dr. Lazaro Degroot Referring Provider Nirmal Shipley S Unavailable Shauna BAH, Darío H Unavailable Lulú Caballero MD Unavailable Quinten, Driscoll S Unavailable Shauna BAH, Mohamed H Unavailable [...] Provider Dr. Lazaro Degroot Referring Provider Haris GIMP BUTTONHOLE MACHINE OPERATOR, GIMP BUTTONHOLE MACHINE OPERATORBhavanaC Tricia Ahumada Attending Provider Morenita Mancera Attending Provider Unavailable Dr. Lazaro Degroot Primary Care Provider Dr. Nirmal Shipley Attending Provider Dr. Nirmal Shipley Referring Provider Lazaro Degroot MD Primary Care Provider Nirmal Shpiley MD Unavailable Shauna BAH, [facility] H Unavailable Ada BAH, Lulú Unavailable Lazaro Degroot MD Primary Care Provider Dr. Lazaro Degroot Primary Care Provider Dr. Nirmal Shipley Attending Provider [phone] Nirmal Shipley Referring Provider Dr. Lazaro Degroot Referring Provider Lazaro Degroot MD Primary Care Provider Dr. Lazaro Degroot MD Primary Care Provider Dr. Nirmal Shipley MD Attending Provider Dr. Nirmal Shipley MD Referring Provider Dr. Lazaro Degroot MD Referring Provider Jessica Green Attending Provider Lazaro Degroot MD Primary Care Provider Dr. Lazaro Degroot MD Primary Care Provider Dr. Nirmal Shipley MD Attending Provider Dr. Lazaro Degroot MD Referring Provider Dr. Nirmal Shipley MD Referring Provider Referred, Self Attending Provider Unavailable Referred, Self Referring Provider Unavailable Kasie BAH, Dr. Hinton Attending Provider Degroot, Lazaro Referring Unavailable Jessica Morgan Attending Unavailable Degroot, Lazaro Primary Care Unavailable Quinten, Driscoll Attending Unavailable Degroot, Lazaro Primary Care Unavailable Degroot, Lazaro Referring Unavailable Quinten, Nirmal Attending Unavailable Degroot, Lazaro Primary Care Unavailable Degroot, Lazaro Primary Care Unavailable Quinten, Driscoll Referring Unavailable Quinten, Driscoll Attending Unavailable Quinten, Driscoll Attending Unavailable Quinten, Driscoll Referring Unavailable Degroot, Lazaro Primary Care Unavailable Degroot, Lazaro Primary Care Unavailable Jamaal Ferro Attending Unavailable Quinten, Nirmal Attending Unavailable Degroot, Lazaro Primary Care Unavailable Quinten, Nirmal Referring Unavailable Degroot, Lazaro Primary Care Unavailable Quinten, Driscoll Referring Unavailable Quinten, Nirmal Attending Unavailable Degroot, Lazaro Primary Care Unavailable Referred, Self Attending Unavailable Referred, Self Referring Unavailable Degroot, Lazaro Primary Care Unavailable Quinten, Driscoll Attending Unavailable Quinten, Driscoll Attending Unavailable Quinten, Nirmal Referring Unavailable Degroot, Lazaro Primary Care Unavailable Quinten, Driscoll Attending Unavailable Quinten, Nirmal Referring Unavailable Degroot, Lazaro Primary Care Unavailable DEGROOT, LAZARO R Primary Care Unavailable ALMASSI, ALMA Referring Unavailable DEGROOT, LAZARO R Primary Care Unavailable KANJ, MOHAMED H Attending Unavailable KANJ, MOHAMED H Referring Unavailable KANJ, MOHAMED H Referring Unavailable DEGROOT, LAZARO R Primary Care Unavailable KANJ, MOHAMED H Referring Unavailable DEGROOT, LAZARO R Primary Care Unavailable DEGROOT, LAZARO R Primary Care Unavailable SELF Referring Unavailable ALMASSI, ALMA Attending Unavailable Allergies Allergy Classification Reported Allergen(s) Allergy Type Date of Onset Reaction(s) Facility (8 sources) [facility] Allergy 07-25-2022 Nausea [facility] (1 source) [facility] Drug Allergy 11-26-2024 [facility] Repository Medications Current Medications Medication Drug Class(es) Dates Sig (Normalized) Sig (Original) aspirin 81 mg delayed release oral tablet (20 sources) Platelet Aggregation Inhibitor, Nonsteroidal Anti-inflammatory Drug Start: 11-22-2010 End: 05-18-2014 take 1 tablet by mouth once daily ASPIRIN 81 MG TABS One tablet by mouth daily ASPIRIN [id number] Abbey Banegas RN Start: 05-25-2009 take 81 mg by mouth once daily Aspirin 81 mg 10 Active 81 mg PO daily 0 0 November 01, 2017 12:00am Comment on above: Take one(1) tablet d lillie. calcium carbonate 1500 mg oral tablet (9 sources) Start: 11-01-2017 take 1 tablet by mouth once daily Calcium Carbonate (Calcium 600) 600 mg calcium (1,500 mg) tablet Active 600 mg PO daily November 01, 2017 12:00am calcium-vits Q4-H-D9-minerals 166.75 mg- 166.75 unit cap (20 sources) Start: 11-22-2010 calcium-vits O0-F-N4-minerals 166.75 mg- 166.75 unit cap CALCIUM 600 MG TABS 11/22/2010 Active Start: 11-22-2010 calcium-vits D 1-S-S6-minerals 166.75 mg- 166.75 unit cap CALCIUM 600 MG TABS 0 11/22/2010 Active Comment on above: CALCIUM 600 MG TABS dicyclomine hydrochloride 10 mg oral capsule (6 sources) Anticholinergic Start: take 1 capsule by mouth twice daily as needed for pain Dicyclomine 10 mg capsule Active 10 mg PO TWICE A DAY as needed for abdominal pain 20 2 March 12, 2024 12:00am Start: 11-05-2023 End: 03-12-2024 take 1 tablet by mouth twice daily Dicyclomine 20 mg tablet Discontinued 20 mg PO TWICE A DAY 14 0 November 05, 2023 12:00am March 12, 2024 1:03pm dutasteride 0.5 mg oral capsule (20 sources) 5-alpha Reductase Inhibitor Start: 11-01-2017 End: 08-13-2024 take 1 capsule by mouth once daily Dutasteride (Avodart) 0.5 mg capsule Active 0.5 mg PO daily November 01, 2017 12:00am Start: 05-24-2015 [facility] AVODART 0.5 MG CAPS One tablet by mouth daily DUTASTERIDE [id number] Nirmal Shipley MD Comment on above: Take 1 capsule by mo [facility] once daily. TAKE 1 CAPSULE DAILY esomeprazole [...] the nose as n eeded. lactobacillus acidophilus [id number] unt oral capsule (4 sources) Start: 3 take 10 capsules by mouth once daily Lactobacillus Acidophilus (Probiotic) 10 billion cell Capsule Active 49815 NMA PO DAILY January 01, 2023 12:00am Multivitamin preparation (6 sources) Start: 8 take 1 tablet by mouth once daily Multivitamin Active 1 TABLET PO daily October 31, 2017 11:00pm Start: 11-01-2017 take 1 tablet by danni th once daily Multivitamin Active 1 TABLET PO daily November 01, 2017 12:00am multivitamin tablet (20 sources) Start: 11-22-2010 multivitamin t ablet MULTIVITAMINS TABS 11/22/2010 Active Start: 11-22-2010 multivitamin t ablet MULTIVITAMINS TABS 0 11/22/2010 Active Comment on above: MULTIVITAMINS TABS Multivitamin tablet (3 sources) Start: 11-01-2017 Multivitamin tablet Active 1 {tbl} [...] IMITREX 50 MG TABS PRN SUMATRIPTAN SUCCINATE [id number] Cindy Tavarez Start: 05-25-2009 sumatriptan gill ccinate(IMITREX 100 MG TAB) as necessary 0 05/25/2009 Active Comment on above: as necessary tadalafil 5 mg oral tablet (20 sources) Phosphodiesterase 5 Inhibitor Start: 09-06-2022 End: 08-16-2025 Tadalafil (CIALIS) 5 mg tablet Indications: BPH with obstruction/lower urinary tract symptoms Take 1 tablet by mouth as needed. 90 tablet 1 02/17/2025 08/16/2025 Active Start: 04-04-2022 End: 09-03-2022 Tadalafil (CIALIS) 5 mg tabl et Take 1 tablet by mouth as needed. 30 tablet 3 04/04/2022 09/03/2022 Discontinued Comment on above: Take 1 tablet by danni th as needed. [email or web address] Take 1 tablet by danni th as needed. Completed/Discontinued Medications Medication Drug Class(es) Dates Sig (Normalized) Sig (Original) amLODIPine 5 mg oral tablet (20 sources) Dihydropyridine Calcium Channel Linn Start: 11-21-2021 End: 08-07-2024 take 1 tablet by mouth once daily Amlodipine 5 mg tablet Discontinued 5 mg PO DAILY 90 July 01, 2023 12:15pm August 07, 2024 5:47pm Comment on above: Take 5 mg by mouth o nce daily. amoxicillin 500 mg / clavulanate 125 mg oral tablet (3 sources) Penicillin-class Antibacterial Start: 03-12-2024 End: 11-26-2024 Amoxicillin-Pot Clavulanate (Augmentin) 500-125 mg tablet Discontinued 1 {tbl} PO TWICE A DAY 20 10 March 12, 2024 12:00am November 26, 2024 1:10pm atorvastatin 20 mg oral tablet (20 sources) HMG-CoA Reductase Inhibitor Start: 12-21-2022 take 2 tablets by mouth once daily atorvastatin (LIPITOR) 10 mg tablet Take 2 tablets by mouth once daily. 0 12/21/2022 Active Start: 07-26-2022 End: 06-22-2024 take 1 tablet by mouth once daily Atorvastatin 20 mg tablet Discontinued 20 mg PO DAILY 90 July 08, 2023 9:46am June 22, 2024 12:16pm Start: 05-25-2009 End: 12-21-2022 take 1 tablet by mouth once daily Atorvastatin 10 mg tablet Discontinued 10 mg PO DAILY 90 June 19, 2022 11:07am July 26, 2022 11:30am Comment on above: Take one(1) tablet d aily. Take 2 tablets by mo uth once daily. Calcium (8 sources) Phosphate Binder, Calcium Start: 11-22-2010 take 1 tablet by mouth once daily CALCIUM 600 MG TABS One tablet by mouth daily CALCIUM [id number] Nirmal Shipley MD Start: 11-22-2010 take 1 tablet by danni twice daily CALCIUM 600 MG TABS One tablet by mouth twice daily CALCIUM [id number] Cindy Tavarez cholecalciferol 0.025 mg oral tablet (9 sources) Vitamin D Start: 01-20-2018 End: 09-27-2020 take 1 tablet by mouth once daily Cholecalciferol (Vitamin D3) 1,000 unit tablet Discontinued 1000 U PO daily January 20, 2018 12:00am September 27, 2020 11:36am ciprofloxacin 500 mg oral tablet (3 sources) Quinolone Antimicrobial Start: 11-05-2023 End: 03-12-2024 take 1 tablet by mouth twice daily Ciprofloxacin Hcl 500 mg tablet Discontinued 500 mg PO TWICE A DAY 14 November 05, 2023 12:00am March 12, 2024 1:02pm doxycycline hyclate 100 mg oral tablet (3 sources) Tetracycline-class Drug Start: 09-09-2023 End: 03-12-2024 take 1 tablet by mouth twice daily Doxycycline Hyclate 100 mg tablet Discontinued 100 mg PO TWICE A DAY 60 September 09, 2023 1:00am March 12, 2024 1:02pm linaclotide 0.072 mg oral capsule (3 sources) Guanylate Cyclase-C Agonist Start: 09-09-2023 End: 09-10-2023 take 1 capsule by mouth once daily Linaclotide (Linzess) 72 mcg capsule Discontinued 72 ug PO DAILY 30 September 09, 2023 1:00am September 10, 2023 2:58pm lisinopril 2.5 mg oral tablet (8 sources) Angiotensin Converting Enzyme Inhibitor Start: 07-06-2016 End: 10-18-2016 take 1 tablet by mouth once daily LISINOPRIL 2.5 MG TABS One tablet by mouth daily LISINOPRIL [id number] Nirmal Shipley MD lubiprostone 0.008 mg oral capsule (3 sources) Chloride Channel Activator Start: 09-10-2023 End: 03-12-2024 take 1 capsule by mouth twice daily Lubiprostone (Amitiza) 8 mcg capsule Discontinued 8 ug PO TWICE A DAY 60 0 September 10, 2023 1:00am March 12, 2024 1:03pm 24 hr metoprolol succinate 50 mg extended release oral tablet (20 sources) beta-Adrenergic Linn Start: 01-03-2021 End: 06-25-2024 take 1 tablet by mouth once daily Metoprolol Succinate 50 mg tablet extended release 24 hr Discontinued 50 mg PO DAILY 3 July 01, 2023 12:15pm June 25, 2024 9:10am Comment on above: Take 50 mg by mouth once daily. montelukast 10 mg oral tablet (9 sources) Leukotriene Receptor Antagonist Start: 02-12-2019 End: 08-07-2019 take 1 tablet by mouth once daily in the evening Montelukast (Singulair) 10 mg tablet Discontinued 10 mg PO EVERY EVENING February 12, 2019 12:00am August 07, 2019 10:41am MULTIPLE VITAMIN (4 sources) Start: 11-22-2010 take 1 tablet by mouth once daily MULTIVITAMINS TABS One tablet by mouth daily MULTIPLE VITAMIN [id number] Cindy Tavarez omeprazole 10 mg delayed release oral capsule (4 sources) Proton Pump Inhibitor Start: 11-22-2010 take 1 tablet by mouth once daily PRILOSEC 10 MG CPDR One tablet by mouth daily OMEPRAZOLE [id number] Cindy Tavarez polyethylene glycol 3350 36459 mg powder for oral solution (8 sources) Osmotic Laxative Start: 01-01-2023 End: 11-26-2024 Polyethylene Glycol 3350 (Miralax) 17 gram powder in packet Discontinued 17 g PO DAILY July 30, 2023 1:59pm November 26, 2024 1:11pm tamsulosin hydrochloride 0.4 mg oral capsule (9 sources) alpha-Adrenergic Linn Start: 08-12-2018 End: 02-12-2019 take 1 capsule by mouth once daily Tamsulosin (Flomax) 0.4 mg capsule Discontinued 0.4 mg PO DAILY August 12, 2018 1:00am February 12, 2019 8:51am topiramate 50 mg oral tablet (20 sources) Start: 11-01-2017 End: 02-20-2018 take 1 tablet by mouth once daily Topiramate 50 mg tablet Discontinued 50 mg PO daily 30 30 0 January 21, 2018 11:20am February 19, 2018 12:00am February 20, 2018 12:05am Start: 04-08-2012 take 1 tablet by danni th once daily at bedtime TOPAMAX 100 MG TABS One tablet by mouth daily at bedtime to prevent migraines TOPIRAMATE [id number] Nirmal Shipley MD Start: 04-08-2012 take 1 tablet by danni th once daily TOPAMAX 50 MG TABS One tablet by mouth daily TOPIRAMATE [id number] Nirmal Shipley MD CHOLECALCIFEROL TABS (4 sources) Start: 05-18-2014 take 1 tablet by mouth once daily VITAMIN D TABS One tablet by mouth daily CHOLECALCIFEROL TABS [id number] Nirmal Shipley MD Problems Active Problems Problem Classification Problem Date Documented Date Episodic/Chronic Abdominal pain (9 sources) Abdominal pain; Translations: [Unspecified abdominal pain] 10-30-2022 Episodic Cardiac and circulatory congenital anomalies (20 sources) Ventricular septal defect; Translations: [Ventricular septal defect] Onset: 11-22-2010 11-22-2010 Chronic Cardiac and circulatory congenital anomalies (1 source) History of closure of ventricular septal defect; Translations: [Personal history of (corrected) congenital malformations of heart and circulatory system] Episodic Cardiac dysrhythmias (11 sources) Ventricular tachycardia, monomorphic; Translations: [Ventricular tachycardia] Chronic Comment on above: per PPM check 09/11 Cardiac dysrhythmias (2 sources) Palpitations; Translations: [Palpitations] Onset: 02-10-2025 02-10-2025 Episodic Conduction disorders (20 sources) Bifascicular block; Translations: [Incomplete atrioventricular block with atrioventricular response] Onset: 11-22-2010 11-22-2010 Chronic Disorders of lipid metabolism (20 sources) Hyperlipidemia; Translations: [Hyperlipidemia, unspecified] Onset: 11-22-2010 11-22-2010 Chronic Diverticulosis and diverticulitis (20 sources) Diverticular disease; Translations: [Diverticulosis of intestine, part unspecified, without perforation or abscess without bleeding] Onset: 11-01-2014 11-01-2014 Chronic Esophageal disorders (4 sources) Gastroesophageal reflux disease; Translations: [Gastro-esophageal reflux disease without esophagitis] 01-01-2023 Chronic Essential hypertension (20 sources) Essential hypertension; Translations: [Essential (primary) hypertension] Onset: 12-21-2022 Chronic Headache; including migraine (20 sources) Migraine without aura, not refractory ; Translations: [Migraine without aura, not intractable, without status migrainosus] Onset: 10-21-2017 06-11-2019 Chronic Heart valve disorders (9 sources) Mitral valve prolapse; Translations: [Nonrheumatic mitral [...] 06-07-2016 06-07-2016 Chronic Peripheral and visceral atherosclerosis (20 sources) Vasodilatation; Translations: [Peripheral vascular disease, unspecified] Onset: 03-03-2018 03-03-2018 Chronic Unclassified (4 sources) Long-term drug therapy; Translations: [Other [place] [facility] (current[facility] drug therapy] Onset: 11-22-2010 11-22-2010 Unclassified (1 source) Ventricular tachycardia, unspecified; Translations: [Ventricular tachycardia, unspecified] Onset: 01-14-2025 Past or Other Problems Problem Classification Problem Date Documented Date Episodic/Chronic Abdominal hernia (20 sources) Bilateral inguinal hernia; Translations: [Bilateral inguinal hernia, without obstruction or gangrene, not specified as recurrent] Onset: 06-21-2009 06-21-2009 Episodic Conditions associated with dizziness or vertigo (20 sources) Dizziness and giddiness; Translations: [Dizziness and giddiness] Onset: 11-22-2010 11-22-2010 Episodic Headache; including migraine (20 sources) Primary exertional headache; Translations: [Headache] Onset: [...] Episodic Other diseases of veins and lymphatics (20 sources) Aneurysm of vein; 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 [...] [Syncope and collapse] Onset: 11-22-2010 11-22-2010 Episodic Unclassified (1 source) Patient encounter status 02-10-2025 Results Test Name Value Interpretation Reference Range Facility [facility] 02-10-2025 CNOV Office Visit (CARDMN ) -- LOGAN MCCARTY ([id number]) 1955 M Date Time Provider Department 02/10/25 2:30 PM DARÍO GOMEZ During your visit today, we recorded the following information about you: Pulse Blood pressure Weight Height 60/minute 132/84 83.9 kg 1.626 m Darío Gomez MD 02/10/2025 2:40 PM [facility] [place] Kei Escobar Department of Cardiovascular Medicine SECTION OF CARDIAC PACING and ELECTROPHYSIOLOGY OUTPATIENT VISIT DATE February 10, 2025 OUTPATIENT VISIT TYPE ESTABLISHED PRIMARY CARE PHYSICIAN: Lazaro Dergoot [address] [facility] [address] [place] [address] REFERRING PHYSICIAN: Darío Gomez [address] [facility] [address] CHIEF COMPLAINT: Device management HISTORY OF PRESENT ILLNESS (includes nursing intake): Mr. Mccarty is a 69 year old male who presents today for follow-up visit and device management. 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 He is an established patient of Dr. Gomez, last seen in January 2024 for device management. He had reported no recurrent syncope and was doing well. He continues to follow with Dr. Caballero. He had an echocardiogram and stress done locally which were reportedly normal Patient reports feeling well and denies any complaint. He denies chest pain, shortness of breath, orthopnea, cough, edema, palpitations, PND, lightheadedness or syncope. PAST MEDICAL HISTORY Diagnosis Date Arrhythmia BBB [...] SEPTAL DEFECT W/WO PATCH 1959 COLONOSCOPY 2012 [facility] COLONOSCOPY FLX DX W/COLLJ SPEC WHEN [...] 50 mg by mouth once daily. calcium-vits W4-T-K2-minerals 166.75 mg- 166.75 unit cap CALCIUM 600 MG TABS multivitamin tablet MULTIVITAMINS TABS fluticasone propionate (FLONASE NASAL) Use in the nose as needed. esomeprazole (NEXIUM) 20 mg capsule Take 20 mg by mouth once daily. sumatriptan succinate(IMITREX 100 MG TAB) as necessary aspirin(ASPIR-LOW 81 MG TAB) Take one(1) tablet daily. Elena Long RN I personally examined the patient and repeated the watters components of the exam and cardiac history, past medical and surgical history, social and family history. The assessment and plan were formulated and discussed with the patient. PHYSICAL EXAMINATION:HR 60 RR 14 Affect normal Oriented x3 GA NAD HENT unremarkable, No thyroidal bruit Abd Soft Ext No edema Skin warm, moist Lungs Clear Heart nl S1, S2 Motor 5/5 CARDIOVASCULAR MEDICINE TESTING: Device Check 02/10/25: In-Office Device Evaluation * Device type: DUAL LEAD PACEMKER * Presenting Rhythm: AP/VS * Underlying Rhythm: SINUS MARYLOU * Battery Status: Battery is at Battery is at 100.0%, 9.5yrs. * Atrial Arrhythmias: There have been __1 new__ atrial detections. Anticoagulants listed: ___no__ * Ventricular Arrhythmias: There have been _0__ ventricular detections. * Lead Measurements: Capture thresholds and sensing are appropriate. The pacing outputs maintain safety margin. Lead impedance tr (more content not included)... Normal [facility] ECG COMPLETEon 02-10-2025 ECG COMPLETE Ventricular Rate : 6 0 BPM Atrial Rate : 60 BPM P-R Interval : 150 ms QRS Duration : 150 ms Q-T Interval : 454 ms QTC Calculation(Bazett) : 454 ms Calculated P [place] : -1 degrees Calculated R [place] : -53 degrees Calculated T [place] : 35 degrees ATRIAL-PACED RHYTHM COMPLETE RIGHT BUNDLE BRANCH BLOCK LEFT ANTERIOR FASCICULAR BLOCK BIFASCICULAR BLOCK MINIMAL VOLTAGE CRITERIA FOR LVH, MAY BE NORMAL VARIANT ( R in aVL ) ABNORMAL ECG Confirmed by ALEXIA RANDLE MD [id number]) on 04/02/2025 9:39:19 AM NAME : LOGAN MCCARTY PID : [id number] : 1955 Gender : Male Race : ORD : [id number] Procedure Date : Feb 10 2025 13:24:52 Edit Date : Apr 02 2025 09:39:21 Diagnosis: ATRIAL-PACED RHYTHM COMPLETE RIGHT BUNDLE BRANCH BLOCK LEFT ANTERIOR FASCICULAR BLOCK BIFASCICULAR BLOCK MINIMAL VOLTAGE CRITERIA FOR LVH, MAY BE NORMAL VARIANT ( R in aVL ) ABNORMAL ECG Confirmed by ALEXIA RANDLE MD [id number]) on 04/02/2025 9:39:19 AM Test Reason : Location : 314 : J14 J14 Overread By : ALEXIA RNADLE MD Edited By : ALEXIA RANDLE MD Referred By : DARÍO GOMEZ Acquired by : ROSALIA CHRISTIAN [facility] Cardiovascular stress test r eportOrdered By: Nirmal Shipley on 01-11-2025 Study report [facility] [address] [id number] MR#: [id number] Acct: [id number] Name: LOGAN MCCRATY Rep #: [id number] : 1955 69 From: Nirmal Shipley MD Primary Care: Dr. Lazaro Degroot MD Status : REG CLI Referring Dr: Nirmal Shipley MD Sex: M C Stress Test Report Pharmacologic myocardial perfusion stress test. 69-year-old man with a history of cardiac dysrhythmia status post pacemaker placement Resting EKG demonstrates sinus rhythm with a rate of 60 bpm. Right bundle branch block is noted. Resting blood pressure is 130/82 mmHg. 0.4 mg of regadenoson was infused per usual protocol followed by rapid intravenous saline flush injection. Continuous EKG monitoring was performed. The maximum heart rate was 88 bpm which was 57% of max impacted heart rate the maximum workload was 1 metabolic equivalent. At rest there were no ST or T wave changes noted tosuggest ischemia and at peak infusion nonspecific ST changes were noted which did not meet the criteria for ischemia. No clinical angina is noted. The final blood pressure was 138/80 mmHg. Myocardial perfusion protocol. 12.3 mCi of technetium 99m sestamibi was injected at rest. 0.4 mg of regadenoson was infused per usual protocol. At peak infusion 37.9 mCi of technetium 99m sestamibi was injected stress images were obtained stress and rest images were reconstructed and compared in the short axis vertical long and horizontal long axis. Gated images were also obtained. Perfusion SPECT analysis: Review of the stress images demonstrate normal uptake of tracer noted in all areas of the myocardium. The resting images similar demonstrated normal uptake of tracer noted in all areas of the myocardium. No areas of reversibility are noted to suggest ischemia and no previous infarct is noted. Gated SPECT analysis: The gated ejection fraction is 64%. Conclusion: Normal pharmacologic myocardial perfusion stress test. Preserved ejection fraction. 01/11/25 1625 Date _ Nirmal Shipley MD CC: Dr. Nirmal Shipley MD; Dr. Lazaro Degroot MD ~ Date Dictated: 01/11/251622 Date Transcribed: 01/11/251622 Early Breastfeeding Care Specialist: [place] Signed [facility] Work Phone: Echo Completeon 01-11-2025 Echo Complete [facility] Cardiovascular Services [address] [place] [address] Echo Complete 01/11/25 0819 MR#: [id number] Acct: [id number] Name: LOGAN MCCARTY Rep #: [id number] : [id number] 69 From: Nirmal Shipley MD Attending Dr: Dr. Nirmal Shipley MD Status: JOANA FREY Ordering Dr: Nirmal Shipley MD Date: 01/11/25 Location: [facility] Sex: M C Admitted: Reason For Study Reason For Study: CAD/ASHD Procedure This was a 2D Doppler, Color Flow transthoracic echocardiogram. Exam performed in department. Left Ventricle Normal LV size. The estimated ejection fraction is 50 %. Stage 1 diastolic dysfunction. There is mild global hypokinesis of the left ventricle. Right Ventricle Normal RV size. ICD or pacer leads identified within the right ventricle. Normal systolic function. Atria Normal left atrium. Normal right atrium. Mitral Valve Normal mitral valve. Tricuspid Valve Normal tricuspid valve. Aortic Valve Trisinus/trileaflet aortic valve. Mild focal aortic valve thickening. Great Vessels Normal aortic root. The pulmonary artery is normal size. Inferior vena cava collapse with respiration. Pericardium/Pleural No pericardial effusion. MMode/2D Measurements Calculations LVIDd: 5.0 cm IVSd: 1.1 cm LAV(MOD-bp): 71.6 ml LVIDs: 3.4 cm LVPWd: 1.2 cm LAV(MOD-bp) Indexed: 37.9 ml/m2 FS: 31.5 % LAV(MOD-sp2): 62.2 ml LAV(MOD-sp4): 65.1 ml LVAd ap4: 31.5 cm2 SV(MOD-sp4): 48.0 ml SV(sp4-el): 48.6 ml LVLd ap4: 8.6 cm SI(MOD-sp4): 25.4 ml/m2 EDV(MOD-sp4): 100.1 ml EDV(sp4-el): 97.8 ml LVAs ap4: 19.5 cm2 LVLs ap4: 6.5 cm ESV(MOD-sp4): 52.0 ml ESV(sp4-el): 49.2 ml EF(MOD-sp4): 48.0 % EF(sp4-el): 49.7 % LA A4 area: 22.6 cm2 LA dimension(2D): 5.0 cm RA A4 area: 20.1 cm2 Time Measurements MV dec time: 0.25 sec Doppler Measurements Calculations MV E max douglas: 41.6 cm/sec Lat Peak E' Douglas: 9.7 cm/sec Med Peak E' Douglas: 7.7 cm/sec MV A max douglas: 47.8 cm/sec E/E' lat: 4.3 E/E' med: 5.4 MV E/A: 0.87 MV V2 max: 56.3 cm/sec Ao V2 max: 112.2 cm/sec MV max P.3 mmHg MV dec slope: 182.5 cm/sec2 Ao max P.0 mmHg MV V2 mean: 31.7 cm/sec Ao V2 mean: 79.8 cm/sec MV mean P.47 mmHg Ao mean P.9 mmHg MV V2 VTI: 16.8 cm Ao V2 VTI: 27.4 cm AV (velocity ratio): 0.65 LV V1 max: 86.9 cm/sec PA V2 max: 87.6 cm/sec LV V1 max P.0 mmHg PA V2 mean: 60.1 cm/sec LV V1 mean P.6 mmHg LV V1 mean: 58.1 cm/sec LV V1 VTI: 17.8 cm ECHO/Echo Complete Interpretation Summary Normal LV size. The estimated ejection fraction is 50 %. There is mild global hypokinesis of the left ventricle. Stage 1 diastolic dysfunction. Compared to previous study, the left ventricular systolic function has improved.. Ordering Physician: Nirmal Shipley Referring Physician: Nirmal Shipley Performed By: Lucia Leone RCS 01/11/25 1448 Date Nirmal Shipley MD CC: Dr. Nirmal Shipley MD; Dr. Lazaro Degroot MD Date Dictated: 01/11/25818 Date Transcribed: 01/11/251447 Early Breastfeeding Care Specialist: Signed Normal [facility] Echocardiogram study reportO rdered By: Nirmal Shipley on 01-11-2025 Study report [facility] Cardiovascular Services [address] [place] [address] Echo Complete 01/11/25818 MR#: [id number] Acct: [id number] Name: LOGAN MCCARTY Rep #:[id number] : 1955 69 From: Nirmal Carreno Attending Dr: Dr. Nirmal Shipley MD S tatus: REG CLI Ordering Dr: Nirmal Shipley MD Date: Location: CVS Sex: M C Admitted: Reason For Study Reason For Study: CAD/ASHD Procedure This was a 2D Doppler, Color Flow transthoracic echocardiogram. Exam performed in department. Left Ventricle Normal LV size. The estimated ejection fraction is 50 %. Stage 1 diastolic dysfunction. There is mild global hypokinesis of the left ventricle. Right Ventricle Normal RV size. ICD or pacer leads identified within the right ventricle. Normalsystolic function. Atria Normal left atrium. Normal right atrium. Mitral Valve Normal mitral valve. Tricuspid Valve Normal tricuspid valve. Aortic Valve Trisinus/trileaflet aortic valve. Mild focal aortic valve thickening. Great Vessels Normal aortic root. The pulmonary artery is normal size. Inferior vena cava collapse with respiration. Pericardium/Pleural No pericardial effusion. MMode/2D Measurements & Calculations LVIDd: 5.0 cm IVSd: 1.1 cm LAV(MOD-bp): 71.6 ml LVIDs: 3.4 cm LVPWd: 1.2 cm LAV(MOD-bp) Indexed: 37.9 ml/m2 FS: 31.5 % LAV(MOD-sp2): 62.2 ml LAV(MOD-sp4): 65.1 ml LVAd ap4: 31.5 cm2 SV(MOD-sp4): 48.0 ml SV(sp4-el): 48.6 ml LVLd ap4: 8.6 cm SI(MOD-sp4): 25.4 ml/m2 EDV(MOD-sp4): 100.1 ml EDV(sp4-el): 97.8 ml LVAs ap4: 19.5 cm2 LVLs ap4: 6.5 cm ESV(MOD-sp4): 52.0 ml ESV(sp4-el): 49.2 ml EF(MOD-sp4): 48.0 % EF(sp4-el): 49.7 % LA A4 area: 22.6 cm2 LA dimension(2D): 5.0 cm RA A4 area: 20.1 cm2 Time Measurements MV dec time: 0.25 sec Doppler Measurements & Calculations MV E max douglas: 41.6 cm/sec Lat Peak E' Douglas: 9.7 cm/sec Med Peak E' Douglas: 7.7 cm/sec MV A max douglas: 47.8 cm/sec E/E' lat: 4.3 E/E' med: 5.4 MV E/A: 0.87 __ MV V2 max: 56.3 cm/sec Ao V2 max: 112.2 cm/sec MV max P.3 mmHg MV dec slope: 182.5 cm/sec2 Ao max P.0 mmHg MV V2 mean: 31.7 cm/sec Ao V2 mean: 79.8 cm/sec MV mean P.47 mmHg Ao mean P.9 mmHg MV V2 VTI: 16.8 cm Ao V2 VTI: 27.4 cm AV (velocity ratio): 0.65 LV V1 max: 86.9 cm/sec PA V2 max: 87.6 cm/sec LV V1 max P.0 mmHg PA V2 mean: 60.1 cm/sec LV V1 mean P.6 mmHg LV V1 mean: 58.1 cm/sec LV V1 VTI: 17.8 cm ECHO/Echo Complete Interpretation Summary Normal LV size. The estimated ejection fraction is 50 %. There is mild global hypokinesis of the left ventricle. Stage 1 diastolic dysfunction. Compared to previous study, the left ventricular systolic function has improved.. Ordering Physician: Nirmal Shipley Referring Physician: Nirmal Shipley Performed By: Lucia Leone RCS 01/11/25 1448 Date _ Nirmal Shipley MD CC: Dr. Nirmal Shipley MD; Dr. Lazaro Degroot MD ~ Date Dictated: 01/11/25818 Date Transcribed: 01/11/25 144 Early Breastfeeding Care Specialist: Signed [facility] Work Phone: Stress Reporton 01-11-2025 Stress Report [facility] Cardiovascular Services [address] [place] [address] MR#: [id number] Acct: [id number] Name: LOGAN MCCARTY Rep #: [id number] : 1955 69 From: Nirmal Shipley MD Primary Care: Dr. Lazaro Degroot MD Status: REG CLI Referring Dr: Nirmal Shipley MD Sex: M C Stress Test Report Pharmacologic myocardial perfusion stress test. 69-year-old man with a history of cardiac dysrhythmia status post pacemaker placement Resting EKG demonstrates sinus rhythm with a rate of 60 bpm. Right bundle branch block is noted. Resting blood pressure is 130/82 mmHg. 0.4 mg of regadenoson was infused per usual protocol followed by rapid intravenous saline flush injection. Continuous EKG monitoring was performed. The maximum heart rate was 88 bpm which was 57% of max impacted heart rate the maximum workload was 1 metabolic equivalent. At rest there were no ST or T wave changes noted to suggest ischemia and at peak infusion nonspecific ST changes were noted which did not meet the criteria for ischemia. No clinical angina is noted. The final blood pressure was 138/80 mmHg. Myocardial perfusion protocol. 12.3 mCi of technetium 99m sestamibi was injected at rest. 0.4 mg of regadenoson was infused per usual protocol. At peak infusion 37.9 mCi of technetium 99m sestamibi was injected stress images were obtained stress and rest images were reconstructed and compared in the short axis vertical long and horizontal long axis. Gated images were also obtained. Perfusion SPECT analysis: Review of the stress images demonstrate normal uptake of tracer noted in all areas of the myocardium. The resting images similar demonstrated normal uptake of tracer noted in all areas of the myocardium. No areas of reversibility are noted to suggest ischemia and no previous infarct is noted. Gated SPECT analysis: The gated ejection fraction is 64%. Conclusion: Normal pharmacologic myocardial perfusion stress test. Preserved ejection fraction. 01/11/251624 Date Nirmal Shipley MD CC: Dr. Nirmal Shipley MD; Dr. Lazaro Degroot MD Date Dictated: 01/11/251622 Date Transcribed: 01/11/251622 Early Breastfeeding Care Specialist: [place] Signed Julianna [facility] Anthony 12-02-2024 [facility] Office Visit (URON ) -- LOGAN MCCARTY ([id number]) 1955 M Date Time Provider Department 12/02/24 2:00 PM ALMA STEPHENSON During your visit today, we recorded the following information about you: Weight Height 81.6 kg 1.626 m Alma Stephenson MD 12/02/2024 1:56 PM Signed [facility] ESTABLISHED PATIENT [...] 6.78 (H) 08/07/2019 4.75 (H) URINALYSIS: Specific [place], Ur Date Value Ref Range Status 12/04/2023 [...] 50 mg by mouth once daily. calcium-vits V0-F-O4-minerals 166.75 mg- 166.75 unit cap CALCIUM 600 [...] SEPTAL DEFECT W/WO PATCH 1959 COLONOSCOPY 2012 COLONOSCOPY FLX DX W/COLLJ SPEC [...] Never U (more content not included)... Normal [facility] - Hematology and Cell countson 12-02-2024 Hemoglobin Ql (U) Negative Negative [facility] - Urinalysison Protein Ql (U) Negative Negative mg/dL [facility] No Panel Informationon 12-02 BILIRUBIN UA (POCT) Negative Negative [facility] CLARITY UA (POCT) Clear [facility] COLOR UA (POCT) Yellow [facility] GLUCOSE UA (POCT) Negative Negative mg/dL [facility] KETONE UA (POCT) Trace Negative mg/dL [facility] LEUKOCYTES UA (POCT) Negative Negative [facility] NITRITE UA (POCT) Negative Negative [facility] PH UA (POCT) 6 4.5 - 8.0 [facility] SPECIFIC GRAVITY UA (POCT) 1.02 1.005 - 1.030 [facility] UROBILINOGEN UA (POCT) 1 Rika l E.U./dL [facility] Location:[facility] soheila, [address] [place] [address], [address] [place] [address] POINT OF CARE [facility] PSA SerPl-mCncon 11-30-2024 Prostate specific Ag [Mass/Vol] 3.19 ng/mL High <2.60 [facility] Comment on above: Order Comment: Speci men Type: BLOOD SPECIMEN Ordering Facility: [facility] Address: [address] [place] [address] Result Comment: Crys sahu PSA test methodology [...] Deion Silva M.D., Heidi Silverio, M.P.H., Acacia Terrell, ScYassine. Effect of Verification Bias on Screening for Prostate Cancer by Measurement of Prostatic Specific Antigen. N Engl J Med 2003,349:335-42. Performed By: #### 2 857-1 #### [facility] CLIA [id number] [address] [place] [address] [place] Absolute lymphocyte countOrd ered By: Nirmal Shipley on 11-26-2024 Lymphocytes Auto (Unsp spec) [#/Vol] 1.75 10*3/uL 0.83-4.51 [facility] Absolute neutrophil countOrd ered By: Nirmal Shipley on 11-26-2024 Neutrophils (Bld) [#/Vol] 4.6 10*3/uL 2.0-7.7 [facility] Anion gap in Serum or Plasma Ordered By: Nirmal Shipley on 11-26-2024 Anion gap [Moles/Vol] 15 mmol/L 5-15 [facility] Automated lymphocyte count a s percentage of total leukocytesOrdered By: Nirmal Shipley on 11-26-2024 Lymphocytes/100 WBC Auto (Unsp spec) 23.2 % 19-41 [facility] BUN/creatinine ratioOrdered By: Nirmalluis alberto Shipley on 11-26-2024 Urea nitrogen/Creatinine [Mass ratio] 17.3 mg/mg 10- [facility] Basic Metabolic Profile (BMP )on 11-26-2024 BUN/CRE 17.3 RATIO Normal - [facility] Comment on above: Performed By: #### L 500.3400, L501.9520, L500.4100, L100.0100, L500.2500 #### [facility] [address] [place], [address] Calcium [Mass/Vol] 9.6 mg/dL Normal 7.6-11.0 [facility] Comment on above: Performed By: #### L 500.3400, L501.9520, L500.4100, L100.0100, L500.2500 #### [facility] [address] [place], [address] Chloride [Moles/Vol] 106 mmol/L Normal 98-108 [facility] Comment on above: Performed By: #### L 500.3400, L501.9520, L500.4100, L100.0100, L500.2500 #### [facility] [address] [place], [address] CO2 [Moles/Vol] 20.4 mmol/L Low 21.0-32.0 [facility] Comment on above: Performed By: #### L 500.3400, L501.9520, L500.4100, L100.0100, L500.2500 #### [facility] [address] [place], [address] Creatinine [Mass/Vol] 1.16 mg/dL Normal 0.70-1.20 [facility] Comment on above: Performed By: #### L 500.3400, L501.9520, L500.4100, L100.0100, L500.2500 #### [facility] [address] [place], [address] GAP 15 Normal 5-15 [facility] Comment on above: Performed By: #### L 500.3400, L501.9520, L500.4100, L100.0100, L500.2500 #### [facility] [address] [place], [address] GFR/1.73 sq M.predicted among non-blacks MDRD (S/P/Bld) [Vol rate/Area] 69 mL/min/{1.73_m2} Normal >60 [facility] Comment on above: Result Comment: mL/m in/1.73m2 CKD-EPI Creatinine Equation (2020) Performed By: #### L 500.3400, L501.9520, L500.4100, L100.0100, L500.2500 #### [facility] [address] [place], [address] Glucose [Mass/Vol] 86 mg/dL Normal 70-99 [facility] Comment on above: Performed By: #### L 500.3400, L501.9520, L500.4100, L100.0100, L500.2500 #### [facility] [address] [place], [address] Potassium [Moles/Vol] 3.9 mmol/L Normal 3.3-5.1 [facility] Comment on above: Result Comment: Hemo lysis present, Results??could be affected. ?? Performed By: #### L 500.3400, L501.9520, L500.4100, L100.0100, L500.2500 #### [facility] [address] [place], [address] Sodium [Moles/Vol] 141 mmol/L Normal 133-145 [facility] Comment on above: Performed By: #### L 500.3400, L501.9520, L500.4100, L100.0100, L500.2500 #### [facility] [address] [place], [address] Urea nitrogen [Mass/Vol] 20 mg/dL High 4-19 [facility] Comment on above: Performed By: #### L 500.3400, L501.9520, L500.4100, L100.0100, L500.2500 #### [facility] [address] [place], [address] Basophil percentageOrdered B y: Nirmal Quinten on 11-26-2024 Basophils/100 WBC (Bld) 0.8 % 0-1 [facility] Bilirubin directOrdered By: Nirmal [facility] on 11-26-2024 Bilirubin.direct [Mass/Vol] 0.39 mg/dL High 0.00-0.30 [facility] Bilirubin, totalOrdered By: Nirmal [facility] on 11-26-2024 Bilirubin [Mass/Vol] 1.11 mg/dL 0.00-1.30 [facility] CBC W/Diff, Automatedon Absolute Lymph 1.75 X10 3/uL Normal 0.83-4.51 [facility] Comment on above: Performed By: #### L 500.3400, L501.9520, L500.4100, L100.0100, L500.2500 #### [facility] [address] [place], [address] Absolute Neut 4.6 X10 3/uL Normal 2.0-7.7 [facility] Comment on above: Performed By: #### L 500.3400, L501.9520, L500.4100, L100.0100, L500.2500 #### [facility] [address] [place], [address] Basophils/100 WBC (Bld) 0.8 % Normal 0-1 [facility] Comment on above: Performed By: #### L 500.3400, L501.9520, L500.4100, L100.0100, L500.2500 #### [facility] [address] [place], [address] Eosinophils/100 WBC (Bld) 3.1 % Normal 0-5 [facility] Comment on above: Performed By: #### L 500.3400, L501.9520, L500.4100, L100.0100, L500.2500 #### [facility] [address] [place], [address] Erythrocyte distribution width (RBC) [Ratio] 12.4 % Normal 11.6-14.6 [facility] Comment on above: Performed By: #### L 500.3400, L501.9520, L500.4100, L100.0100, L500.2500 #### [facility] [address] [place], [address] Hematocrit (Bld) [Volume fraction] 45.1 % Normal 40-54 [facility] Comment on above: Performed By: #### L 500.3400, L501.9520, L500.4100, L100.0100, L500.2500 #### [facility] [address] [place], [address] Hemoglobin (Bld) [Mass/Vol] 16.0 g/dL Normal 13.0-16.5 [facility] Comment on above: Performed By: #### L 500.3400, L501.9520, L500.4100, L100.0100, L500.2500 #### [facility] [address] [place], [address] IG% 0.300 Normal 0.0-0.9 [facility] Comment on above: Result Comment: IG% - Immature Granulocytes (promyelocytes, myelocytes and metamyelocytes) > 1% indicates that a LEFT SHIFT is Present. Performed By: #### L 500.3400, L501.9520, L500.4100, L100.0100, L500.2500 #### [facility] [address] [place], [address] Lymphocytes/100 WBC (Bld) 23.2 % Normal 19-41 [facility] Comment on above: Performed By: #### L 500.3400, L501.9520, L500.4100, L100.0100, L500.2500 #### [facility] [address] [place], [address] MCH (RBC) [Entitic mass] 33.0 pg High 27.0-32.0 [facility] Comment on above: Performed By: #### L 500.3400, L501.9520, L500.4100, L100.0100, L500.2500 #### [facility] [address] [place], [address] MCHC (RBC) [Mass/Vol] 35.5 g/dL Normal 32-36 [facility] Comment on above: Performed By: #### L 500.3400, L501.9520, L500.4100, L100.0100, L500.2500 #### [facility] [address] [place], [address] MCV (RBC) [Entitic vol] 93.0 fL Normal 80-94 [facility] Comment on above: Performed By: #### L 500.3400, L501.9520, L500.4100, L100.0100, L500.2500 #### [facility] [address] [place], [address] Monocytes/100 WBC (Bld) 11.1 % High 0-10 [facility] Comment on above: Performed By: #### L 500.3400, L501.9520, L500.4100, L100.0100, L500.2500 #### [facility] [address] [place], [address] Neutrophils/100 WBC (Bld) 61.5 % Normal 47-70 [facility] Comment on above: Performed By: #### L 500.3400, L501.9520, L500.4100, L100.0100, L500.2500 #### [facility] [address] [place], [address] Nucleated RBC (Bld) [#/Vol] 0 10*3/uL Normal 0-5 [facility] Comment on above: Performed By: #### L 500.3400, L501.9520, L500.4100, L100.0100, L500.2500 #### [facility] [address] [place], [address] Platelet mean volume (Bld) [Entitic vol] 9.1 fL Normal 6.2-12.0 [facility] Comment on above: Performed By: #### L 500.3400, L501.9520, L500.4100, L100.0100, L500.2500 #### [facility] [address] [place], [address] Platelets (Bld) [#/Vol] 229 10*3/uL Normal 150-450 [facility] Comment on above: Performed By: #### L 500.3400, L501.9520, L500.4100, L100.0100, L500.2500 #### [facility] [address] [place], [address] RBC (Bld) [#/Vol] 4.85 10*6/uL Normal 4.6-6.2 [facility] Comment on above: Performed By: #### L 500.3400, L501.9520, L500.4100, L100.0100, L500.2500 #### [facility] [address] [place], [address] RDW SD 42.5 fl Normal 35.1-43.9 [facility] Comment on above: Performed By: #### L 500.3400, L501.9520, L500.4100, L100.0100, L500.2500 #### [facility] [address] [place], [address] WBC (Bld) [#/Vol] 7.5 10*3/uL Normal 4.4-11.0 [facility] Comment on above: Performed By: #### L 500.3400, L501.9520, L500.4100, L100.0100, L500.2500 #### [facility] [address] [place], [address] Calculated very low density lipoprotein (VLDL) cholesterol measurementOrdered By: Nirmal Shipley on 11-26-2024 Calculated very low density lipoprotein (VLDL) cholesterol measurement 23 mg/dL 5-40 [facility] Carbon dioxide, total [Moles /volume] in Central venous bloodOrdered By: Nirmal Shipley on 11-26-2024 CO2 [Moles/Vol] 20.4 mmol/L Low 21.0-32.0 [facility] Cardiology Visit Reporton Cardiology Visit Report [facility] [address] [place], [place] [address] OFFICE VISIT Date of Service: 11/26/24 MR#: [id number] Acct: [id number] Name: LOGAN MCCARTY Rep #: [id number] : 1955 Provider: Dr. Nirmal Shipley MD Age/Sex: 68/M Location: [facility] Status: Signed HPI HPI History of Present [...] recorder implantation in August 2016 at the [facility]. He has a history of IAN with CPAP therapy. He did have high degree AV block noted on his loop recorder and underwent a permanent pacemaker implantation in May 2019 at the [facility]. 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 Normal [facility] Chloride assayOrdered By: Zachary Shipley on 11-26-2024 Chloride [Moles/Vol] 106 mmol/L 98-108 [facility] Eosinophil percentageOrdered By: Nirmal Shipley on 11-26-2024 Eosinophils/100 WBC (Bld) 3.1 % 0-5 [facility] Erythrocyte distribution wid th ratioOrdered By: Nirmal Shipley on 11-26-2024 Erythrocyte distribution width (RBC) [Ratio] 12.4 % 11.6-14.6 [facility] Erythrocyte distribution wid th standard deviationOrdered By: Nirmal Shipley on 11-26-2024 Erythrocyte distribution width (RBC) [Ratio] 42.5 fl 35.1-43.9 [facility] Glomerular filtration rate ( GFR) estimation/1.73 sq m using serum, plasma, or whole bOrdered By: Nirmal Shipley on 11-26-2024 GFR/1.73 sq M.predicted among non-blacks MDRD (S/P/Bld) [Vol rate/Area] 69 mL/min/{1.73_m2} >60 [facility] Comment on above: mL/min/1.73m2 CKD-EP I Creatinine Equation (2020) Hematocrit Auto (Bld) [Volum e fraction]Ordered By: Nirmal Shipley on 11-26-2024 Hematocrit (Bld) [Volume fraction] 45.1 % 40-54 [facility] Hemoglobin measurementOrdere d By: Nirmal Shipley on 11-26-2024 Hemoglobin (Bld) [Mass/Vol] 16.0 g/dL 13.0-16.5 [facility] Immature granulocytes/100 WB C Auto (Bld)Ordered By: Nirmal Shipley on 11-26-2024 Immature granulocytes/100 WBC (Bld) 0.300 % 0.0-0.9 [facility] Comment on above: IG% - Immature Granu locytes (promyelocytes, myelocytes and metamyelocytes) > 1% indicates that a LEFT SHIFT is Present. LDL calc ser/plasOrdered By: Nirmal Shipley on 11-26-2024 Cholesterol in LDL [Mass/Vol] 102 mg/dL [facility] Comment on above: Ynndxxfccm=760-635 m g/dL & Higher Nmoi=052 mg/dL or greater Laboratory - Chemistry and C hemistry - challengeOrdered By: Nirmal Shipley on 11-26-2024 AST [Catalytic activity/Vol] 38 U/L <38 [facility] Lipid Profileon 11-26-2024 CHOL:HDL 3.41 Normal [facility] Comment on above: Performed By: #### L 500.3400, L501.9520, L500.4100, L100.0100, L500.2500 #### [facility] [address] [place], [address] Cholesterol [Mass/Vol] 177 mg/dL Normal <=200 [facility] Comment on above: Result Comment: Chol esterol level, Desirable <200 mg/dL Borderline high cholesterol 200-239 mg/dL High cholesterol >=240 mg/dL Recommendations of the NCEP Adult Treatment Panel for the following risk-cutoff thresholds for the [place] population. Performed By: #### L 500.3400, L501.9520, L500.4100, L100.0100, L500.2500 #### [facility] [address] [place], [address] Cholesterol in HDL [Mass/Vol] 52 mg/dL Normal [facility] Comment on above: Result Comment: Masha onal Cholesterol Education Program (NCEP) guidelines: <40 mg/dL: Low HDL-cholesterol (major risk factor for CHD) >= 60 mg/dL: High HDL-cholesterol (negative risk factor for CHD) HDL-cholesterol is affected by a number of factors, e.g. smoking, exercise, hormones, sex and age. Performed By: #### L 500.3400, L501.9520, L500.4100, L100.0100, L500.2500 #### [facility] [address] [place], [address] Cholesterol in LDL [Mass/Vol] 102 mg/dL Normal [facility] Comment on above: Result Comment: Bord ouubym=573-669 mg/dL Higher Rmof=685 mg/dL or greater Performed By: #### L 500.3400, L501.9520, L500.4100, L100.0100, L500.2500 #### [facility] [address] [place], [address] Cholesterol in VLDL [Mass/Vol] 23 mg/dL Normal 5-40 [facility] Comment on above: Performed By: #### L 500.3400, L501.9520, L500.4100, L100.0100, L500.2500 #### [facility] [address] [place], [address] Triglyceride [Mass/Vol] 115 mg/dL Normal [facility] Comment on above: Result Comment: The drugs N-Acetylcysteine and Metamizole may falsely depress this assay. Normal range: <150 mg/dL Borderline High: 150-199 mg/dL High: 200-499 mg/dL Very High: >500 mg/dL Performed By: #### L 500.3400, L501.9520, L500.4100, L100.0100, L500.2500 #### [facility] [address] [place], [address] Liver Profileon 11-26-2024 Albumin [Mass/Vol] 4.5 g/dL Normal 3.4-4.8 [facility] Comment on above: Performed By: #### L 500.3400, L501.9520, L500.4100, L100.0100, L500.2500 #### [facility] [address] [place], [address] ALK PHOS 58 U/L Normal 40-129 [facility] Comment on above: Performed By: #### L 500.3400, L501.9520, L500.4100, L100.0100, L500.2500 #### [facility] [address] [place], [address] ALT [Catalytic activity/Vol] 42 U/L Normal <=46 [facility] Comment on above: Performed By: #### L 500.3400, L501.9520, L500.4100, L100.0100, L500.2500 #### [facility] [address] [place], [address] AST [Catalytic activity/Vol] 38 U/L Normal <=37 [facility] Comment on above: Performed By: #### L 500.3400, L501.9520, L500.4100, L100.0100, L500.2500 #### [facility] [address] [place], [address] Bilirubin [Mass/Vol] 1.11 mg/dL Normal 0.00-1.30 [facility] Comment on above: Performed By: #### L 500.3400, L501.9520, L500.4100, L100.0100, L500.2500 #### [facility] [address] [place], [address] Bilirubin.direct [Mass/Vol] 0.39 mg/dL High 0.00-0.30 [facility] Comment on above: Performed By: #### L 500.3400, L501.9520, L500.4100, L100.0100, L500.2500 #### [facility] [address] [place], [address] Globulin (S) [Mass/Vol] 2.1 g/dL Low 2.2-4.2 [facility] Comment on above: Performed By: #### L 500.3400, L501.9520, L500.4100, L100.0100, L500.2500 #### [facility] [address] [place], [address] T PROT 6.5 g/dL Normal 5.9-8.4 [facility] Comment on above: Performed By: #### L 500.3400, L501.9520, L500.4100, L100.0100, L500.2500 #### [facility] [address] [place], [address] MCV (mean corpuscular volume ) determinationOrdered By: Nirmal Shipley on 11-26-2024 MCV (RBC) [Entitic vol] 93.0 fL 80-94 [facility] Mean corpuscular hemoglobin (MCH) determinationOrdered By: Driscoll Quinten on 11-26-2024 MCH (RBC) [Entitic mass] 33.0 pg High 27.0-32.0 [facility] Mean corpuscular hemoglobin concentration (MCHC) determinationOrdered By: Nirmal Quinten on 11-26-2024 MCHC (RBC) [Mass/Vol] 35.5 g/dL 32-36 [facility] Mean platelet volume determi nationOrdered By: Nirmal Quinten on 11-26-2024 Platelet mean volume (Bld) [Entitic vol] 9.1 fL 6.2-12.0 [facility] Monocyte percentageOrdered B y: Driscoll Quinten on 11-26-2024 Monocytes/100 WBC (Bld) 11.1 % High 0-10 [facility] Neutrophil percentageOrdered By: Nirmal Quinten on 11-26-2024 Neutrophils/100 WBC (Bld) 61.5 % 47-70 [facility] Nucleated red blood cell per centageOrdered By: Nirmal Quinten on 11-26-2024 Nucleated RBC/100 WBC (Bld) [Ratio] 0 % 0-5 [facility] Platelet countOrdered By: Cy ril Quinten on 11-26-2024 Platelets (Bld) [#/Vol] 229 10*3/uL 150-450 [facility] Potassium measurement (mass/ volume)Ordered By: Nirmalvijay Shipley on 11-26-2024 Potassium (Unsp spec) [Mass/Vol] 3.9 mmol/L 3.3-5.1 [facility] Comment on above: Hemolysis present, R esults could be affected. RBC Auto (Bld) [#/Vol]Ordere d By: Nirmalvijay Shipley on 11-26-2024 RBC (Bld) [#/Vol] 4.85 10*6/uL 4.6-6.2 [facility] Screening total cholesterol/ high density lipoprotein (HDL) cholesterol ratioOrdered By: Nirmalvijay Shipley on 11-26-2024 Cholesterol.total/Chol esterol in HDL [Mass ratio] 3.41 {ratio} [facility] Serum creatinine measurement (mass/volume)Ordered By: Nirmal Shipley on 11-26-2024 Creatinine [Mass/Vol] 1.16 mg/dL 0.70-1.20 [facility] Serum globulin measurementOr dered By: Nirmal Shipley on 11-26-2024 Globulin (S) [Mass/Vol] 2.1 g/dL Low 2.2-4.2 [facility] Serum glucose measurement (m ass/volume)Ordered By: Nirmal Shipley on 11-26-2024 Glucose [Mass/Vol] 86 mg/dL 70-99 [facility] Serum or plasma alanine carey otransferase (ALT) measurementOrdered By: Nirmal Shipley on 11-26-2024 ALT [Catalytic activity/Vol] 42 U/L <47 [facility] Serum or plasma albumin olivia urement (mass/volume)Ordered By: Nirmal Shipley on 11-26-2024 Albumin [Mass/Vol] 4.5 g/dL 3.4-4.8 [facility] Serum or plasma alkaline celena sphatase measurementOrdered By: Nirmal Shipley on 11-26-2024 ALP [Catalytic activity/Vol] 58 U/L 40-129 [facility] Serum or plasma calcium olivia urement (mass/volume)Ordered By: Nirmal Shipley on 11-26-2024 Calcium [Mass/Vol] 9.6 mg/dL 7.6-11.0 [facility] Serum or plasma cholesterol in HDL measurement (mass/volume)Ordered By: Nirmal Shipley on 11-26-2024 Cholesterol in HDL [Mass/Vol] 52 mg/dL >40 [facility] Comment on above: National Cholesterol Education Program (NCEP) guidelines:<40 mg/dL: Low HDL-cholesterol (major risk factor for CHD)>= 60 mg/dL: High HDL-cholesterol (negative risk factor for CHD)HDL-cholesterol is affected by a number of factors, e.g. smoking, exercise, hormones, sex and age. Serum or plasma cholesterol measurement (mass/volume)Ordered By: Nirmal Shipley on 11-26-2024 Cholesterol [Mass/Vol] 177 mg/dL <201 [facility] Comment on above: Cholesterol level, D esirable <200 mg/dLBorderline high cholesterol 200-239 mg/dLHigh cholesterol >=240 mg/dLRecommendations of the NCEP Adult Treatment Panel for the following risk-cutoff thresholds for the [place] population. Serum or plasma urea nitroge n measurement (mass/volume)Ordered By: Nirmal Shipley on 11-26-2024 Urea nitrogen [Mass/Vol] 20 mg/dL High 4-19 [facility] Sodium levelOrdered By: Adeel Shipley on 11-26-2024 Sodium [Moles/Vol] 141 mmol/L 133-145 [facility] TSH DL <= 0.005 mIU/L QnOrde red By: Nirmal Shipley on 11-26-2024 TSH Qn 1.120 uIU/mL 0.300-4.200 [facility] Thyroid Stim Hormone (TSH)on 11-26-2024 TSH 1.120 uIU/mL Normal 0.300-4.200 [facility] Comment on above: Performed By: #### L 500.3400, L501.9520, L500.4100, L100.0100, L500.2500 #### [facility] [place], [address] Total proteinOrdered By: Desiree Shipley on 11-26-2024 Protein [Mass/Vol] 6.5 g/dL 5.9-8.4 [facility] Triglycerides measurementOrd ered By: Nirmal Shipley on 11-26-2024 Triglyceride [Mass/Vol] 115 mg/dL <199 [facility] Comment on above: The drugs N-Acetylcy steine and Metamizole may falsely depress this assay. Normal range: <150 mg/dLBorderline High: 150-199 mg/dLHigh: 200-499 mg/dLVery High: >500 mg/dL White blood cell (WBC) count Ordered By: Nirmal Shipley on 11-26-2024 WBC (Bld) [#/Vol] 7.5 10*3/uL 4.4-11.0 [facility] Gastroenterology Visit Repor ton 09-15-2024 Gastroenterology Visit Report [facility] [address] [place] [address] OFFICE VISIT Date of Service: 09/15/24 MR#: [id number] Acct: [id number] Name: LOGAN MCCARTY Rep #: [id number] : 1955 Provider: KIRSTEN Hernández Age/Sex: 68/M Location: [facility] Status: Signed Intake Vital Signs 07/30/23 12:54 Height 5 ft 5 in Intake Visit Reasons: 6 M FU Chief Complaint: hx of diverticulitis In School Suspension Coordinator Required: No Is patient in pain?: No Allergies metronidazole (From Flagyl) Adverse Reaction (Intermediate, Verified 09/09/23 07:35) Nausea Have you fallen in the past year?: No Nurse's Note: OV 09.15.24 Pt here for a f/u. Pt reports abdominal pain, gas and bloating. Continues dicyclomine and Miralax as needed and Nexium daily. [facility] Medical History Abdominal pain Alcohol [...] 1960, pacemaker present 2018, diverticulitis BGI established 10.30.22 with constipation and bloating EGD and colonoscopy 01.03.23 EGD irregular ZLine 39cm; three 5mm sessile [...] Appearance: average body habitus and well nourished [facility] Head: normal to inspection Ears: hearing grossly normal bilaterally Nose: external nose normal Face and sinus: normal facial exam Eyes General: appear (more content not included)... Normal [facility] URINALYSIS, REFLEX MICROSCOP ICon 12-04-2023 Bilirubin Ql (U) Negative Negative [place] Clarity (Unsp spec) Clear Clear [facility] Color (U) Yellow Yellow [facility] Glucose Test strip (U) [Mass/Vol] Negative Trace, Negative [facility] Hemoglobin Ql (U) Negative Negative, Trace [facility] Interpretation and review of laboratory results Normal [facility] Ketones Ql (U) Negative Negative, Trace [facility] Leukocyte esterase Test strip Ql (U) Negative Negative, 25 Laura/uL [facility] Nitrite Ql (U) Negative Negative [facility] pH (U) 6.0 [pH] 5.0 - 8.0 [facility] Protein (U) [Mass/Vol] Negative Trace , Negative [facility] Specific gravity (U) [Rel density] 1.021 1.005 - 1.030 [facility] Urobilinogen Ql (U) Normal Normal [facility] Basophil percentageOrdered B y: Wilfredo Bro on 07-26-2023 Bilirubin [Mass/Vol] 1.10 mg/dL 0.20-1.00 [facility] Comment on above: For patients on eltr ombopag therapy, use of Dimension Taft TBIL is not recommended. Chloride [Moles/Vol] 108 mmol/L 98-107 [facility] Cholesterol [Mass/Vol] 186 mg/dL <200 [facility] Comment on above: <200 mg/dL Desirable 200-240 mg/dL Borderline >240 mg/dL High Risk Glucose [Mass/Vol] 97 mg/dL 74-106 [facility] Potassium [Moles/Vol] 3.7 mmol/L 3.5-5.1 [facility] Protein [Mass/Vol] 7.1 g/dL 6.4-8.2 [facility] Sodium [Moles/Vol] 140 mmol/L 136-145 [facility] Triglyceride [Mass/Vol] 119 mg/dL <199 [facility] Comment on above: The drugs N-Acetylcy steine and Metamizole may falsely depress this assay.Serum Triglycerides Reference Interval Normal <150 mg/dL Borderline high 150 - 199 mg/dL High 200 - 499 mg/dL Very High > or = 500 mg/dL Direct bilirubinOrdered By: Wilfredo Bro on 07-26-2023 Bilirubin.direct [Mass/Vol] 0.22 mg/dL 0.00-0.30 [facility] - Chemistry and C hemistry - challengeOrdered By: Wilfredo Bro on 07-26-2023 ALP [Catalytic activity/Vol] 60 U/L 45-117 [facility] ALT [Catalytic activity/Vol] 44 U/L 16-61 [facility] CO2 [Moles/Vol] 27.0 mmol/L 21.0-32.0 [facility] Globulin (S) [Mass/Vol] 3.5 g/dL 2.2-4.2 [facility] Urea nitrogen/Creatinine [Mass ratio] 15.7 mg/mg 10-20 [facility] No Panel InformationOrdered By: Wilfredo Bro on 07-26-2023 Estimated GFR (MDRD) Amer 82 mL/min >60 [facility] Comment on above: GFR Calc Estimated GFR (MDRD) Non-Af Amer 68 mL/min >60 [facility] Comment on above: Non- GFR Calc Serum or plasma albumin olivia urement (mass/volume)Ordered By: Wilfredo Bro on 07-26-2023 Albumin [Mass/Vol] 3.6 g/dL 3.2-5.0 [facility] Serum or plasma albumin/glob ulin mass ratioOrdered By: Wilfredo Bro on 07-26-2023 Albumin/Globulin [Mass ratio] 1.0 {ratio} 0.9-2.4 [facility] Serum or plasma calcium olivia urement (mass/volume)Ordered By: Wilfredo Bro on 07-26-2023 Calcium [Mass/Vol] 9.1 mg/dL 8.5-10.1 [facility] Serum or plasma cholesterol in HDL measurement (mass/volume)Ordered By: Wilfredo Bro on 07-26-2023 Cholesterol in HDL [Mass/Vol] 50 mg/dL >40 [facility] Comment on above: The drugs N-Acetylcy steine and Metamizole may falsely depress this assay. Reference Range HDL <40 mg/dL Low HDL Cholesterol HDL >or= 60 mg/dL High HDL Cholesterol Serum or plasma cholesterol in VLDL measurement (mass/volume)Ordered By: Wilfredo Bro on 07-26-2023 Cholesterol in VLDL [Mass/Vol] 24 mg/dL 5-40 [facility] Serum or plasma creatinine m easurement (mass/volume)Ordered By: Wilfredo Bro on 07-26-2023 Creatinine [Mass/Vol] 1.15 mg/dL 0.70-1.30 [facility] Comment on above: The validity of the calculated GFR & GFRAA in patients over 70 years has not been determined. Clinical correlation is essential. Serum or plasma low density lipoprotein (LDL) cholesterol measurement (mass/volume)Ordered By: Wilfredo Bro on 07-26-2023 Cholesterol in LDL [Mass/Vol] 112 mg/dL 0-130 [facility] Serum or plasma urea nitroge n measurement (mass/volume)Ordered By: Wilfredo Bro on 07-26-2023 Urea nitrogen [Mass/Vol] 18 mg/dL 7-18 [facility] Thin prep Papanicolaou smear with manual screeningOrdered By: Wilfredo Bro on 07-26-2023 Thin prep Papanicolaou smear with manual screening 27 U/L 15-37 [facility] Thin prep Papanicolaou smear with manual screening 5 5-15 [facility] Basophil percentageOrdered B y: Wilfredo Bro on 11-14-2022 Bilirubin [Mass/Vol] 0.80 mg/dL 0.20-1.00 [facility] Comment on above: For patients on eltr ombopag therapy, use of Dimension [place] TBIL is not recommended. Cholesterol [Mass/Vol] 183 mg/dL <200 [facility] Comment on above: <200 mg/dL Desirable 200-240 mg/dL Borderline >240 mg/dL High Risk Protein [Mass/Vol] 7.0 g/dL 6.4-8.2 [facility] Triglyceride [Mass/Vol] 237 mg/dL <199 [facility] Comment on above: The drugs N-Acetylcy steine and Metamizole may falsely depress this assay.Serum Triglycerides Reference Interval Normal <150 mg/dL Borderline high 150 - 199 mg/dL High 200 - 499 mg/dL Very High > or = 500 mg/dL Direct bilirubinOrdered By: Wilfredo Bro on 11-14-2022 Bilirubin.direct [Mass/Vol] 0.18 mg/dL 0.00-0.30 [facility] - Chemistry and C hemistry - challengeOrdered By: Wilfredo Bro on 11-14-2022 ALP [Catalytic activity/Vol] 55 U/L 45-117 [facility] ALT [Catalytic activity/Vol] 38 U/L 16-61 [facility] Globulin (S) [Mass/Vol] 3.4 g/dL 2.2-4.2 [facility] Serum or plasma albumin olivia urement (mass/volume)Ordered By: Wilfredo Bro on 11-14-2022 Albumin [Mass/Vol] 3.6 g/dL 3.2-5.0 [facility] Serum or plasma cholesterol in HDL measurement (mass/volume)Ordered By: Wilfredo Bro on 11-14-2022 Cholesterol in HDL [Mass/Vol] 48 mg/dL >40 [facility] Comment on above: The drugs N-Acetylcy steine and Metamizole may falsely depress this assay. Reference Range HDL <40 mg/dL Low HDL Cholesterol HDL >or= 60 mg/dL High HDL Cholesterol Serum or plasma cholesterol in VLDL measurement (mass/volume)Ordered By: Wilfredo Bro on 11-14-2022 Cholesterol in VLDL [Mass/Vol] 47 mg/dL 5-40 [facility] Serum or plasma low density lipoprotein (LDL) cholesterol measurement (mass/volume)Ordered By: Wilfredo Bro on 11-14-2022 Cholesterol in LDL [Mass/Vol] 88 mg/dL 0-130 [facility] Thin prep Papanicolaou smear with manual screeningOrdered By: Wilfredo Bro on 11-14-2022 Thin prep Papanicolaou smear with manual screening 25 U/L 15-37 [facility] No Panel InformationOrdered By: Tricia Carballo on 10-31-2022 Stool Calprotectin 66 ug/g 0-120 [facility] Comment on above: Concentration Interp retation Follow-Up<16 - 50 ug/g Normal None>50 -120 ug/g Borderline Re-evaluate in 4-6 weeks >120 ug/g Abnormal Repeat as clinically indicatedPerformed at: [facility] [address] [id number] Director: Alicia Winter MD, Phone: [phone] Stool lactoferrin detection by immunoassayOrdered By: Tricia Carballo on 10-31-2022 Lactoferrin IA Ql (Stl) [facility] Absolute lymphocyte countOrd ered By: Tricia Carballo on 10-30-2022 Lymphocytes Auto (Unsp spec) [#/Vol] 1.63 10*3/uL 0.83-4.51 [facility] Basophil percentageOrdered B y: Tricia Carballo on 10-30-2022 Basophils/100 WBC (Bld) 1.1 % 0-1 [facility] Bilirubin [Mass/Vol] 1.00 mg/dL 0.20-1.00 [facility] Comment on above: For patients on eltr ombopag therapy, use of Dimension [place] TBIL is not recommended. Chloride [Moles/Vol] 106 mmol/L 98-107 [facility] Eosinophils/100 WBC (Bld) 3.6 % 0-5 [facility] Glucose [Mass/Vol] 96 mg/dL 74-106 [facility] Neutrophils (Bld) [#/Vol] 5.4 10*3/uL 2.0-7.7 [facility] Neutrophils/100 WBC (Bld) 65.9 % 47-70 [facility] Potassium [Moles/Vol] 3.7 mmol/L 3.5-5.1 [facility] Protein [Mass/Vol] 7.4 g/dL 6.4-8.2 [facility] Sodium [Moles/Vol] 137 mmol/L 136-145 [facility] WBC (Bld) [#/Vol] 8.3 10*3/uL 4.4-11.0 [facility] Blood erythrocytes count (nu mber/volume)Ordered By: Tricia Carballo on 10-30-2022 RBC (Bld) [#/Vol] 5.00 10*6/uL 4.6-6.2 [facility] Blood hemoglobin measurement (mass/volume)Ordered By: Tricia Carballo on 10-30-2022 Hemoglobin (Bld) [Mass/Vol] 16.2 g/dL 13.0-16.5 [facility] Blood lymphocytes/100 leukoc ytesOrdered By: Tricia Carballo on 10-30-2022 Lymphocytes/100 WBC (Bld) 19.8 % 19-41 [facility] Blood monocytes/100 leukocyt esOrdered By: Tricia Carballo on 10-30-2022 Monocytes/100 WBC (Bld) 9.2 % 0-10 [facility] Blood platelet mean volumeOr dered By: Tricia Carballo on 10-30-2022 Platelet mean volume (Bld) [Entitic vol] 9.8 fL 6.2-12.0 [facility] Determination of erythrocyte mean corpuscular volume (MCV)Ordered By: Tricia Carballo on 10-30-2022 MCV (RBC) [Entitic vol] 95.8 fL 80-94 [facility] Erythrocyte sedimentation ra teOrdered By: Tricia Carballo on 10-30-2022 ESR (Bld) [Velocity] 3 mm/h 0-20 [facility] Hematocrit Auto (Bld) [Volum e fraction]Ordered By: Tricia Carballo on 10-30-2022 Hematocrit (Bld) [Volume fraction] 47.9 % 40-54 [facility] - Chemistry and C hemistry - challengeOrdered By: Tricia Carballo on 10-30-2022 ALP [Catalytic activity/Vol] 57 U/L 45-117 [facility] ALT [Catalytic activity/Vol] 51 U/L 16-61 [facility] CO2 [Moles/Vol] 26.0 mmol/L 21.0-32.0 [facility] Globulin (S) [Mass/Vol] 3.4 g/dL 2.2-4.2 [facility] Urea nitrogen/Creatinine [Mass ratio] 14.4 mg/mg 10-20 [facility] - Hematology and Cell countsOrdered By: Tricia Carballo on 10-30-2022 Erythrocyte distribution width (RBC) [Entitic vol] 43.1 fL 35.1-43.9 [facility] Erythrocyte distribution width (RBC) [Ratio] 12.3 % 11.6-14.6 [facility] Immature granulocytes/100 WBC (Bld) 0.400 % 0.0-0.9 [facility] Comment on above: IG% - Immature Granu locytes (promyelocytes, myelocytes and metamyelocytes) > 1% indicates that a LEFT SHIFT is Present. MCH (RBC) [Entitic mass] 32.4 pg 27.0-32.0 [facility] Nucleated RBC/100 WBC (Bld) [Ratio] 0 % 0-5 [facility] MCHC Auto (RBC) [Mass/Vol]Or dered By: Tricia Carballo on 10-30-2022 MCHC (RBC) [Mass/Vol] 33.8 g/dL 32-36 [facility] No Panel InformationOrdered By: Tricia Carballo on 10-30-2022 Estimated GFR (MDRD) Amer 85 mL/min >60 [facility] Comment on above: GFR Calc Estimated GFR (MDRD) Non-Af Amer 71 mL/min >60 [facility] Comment on above: Non- GFR Calc Miscellaneous Test See comment [facility] Comment on above: TEST RESULT LIMITSIB D [...] developed and its performance characteristics determined by [facility]. It has not been cleared or approved by the Food and Drug Administration. The FDA has determined that such clearance or approval is not necessary.Atypical pANCA Negative NegativeCommentsPattern is not suggestive of Inflammatory Bowel Disease. __ TESTING PERFORMED AT [facility]. ORIGINAL REPORT ON FILE IN LAB CONTAINS ADDITIONAL TEST SITE INFORMATION. Platelets bldOrdered By: Sri Carballo on 10-30-2022 Platelets (Bld) [#/Vol] 217 10*3/uL 150-450 [facility] Serum or plasma C reactive p rotein measurement (mass/volume)Ordered By: Tricia Carballo on 10-30-2022 CRP [Mass/Vol] mg/L 0.0-3.0 [facility] Comment on above: C-Reactive Protein ( CRP) provides useful information for thediagnosis, therapy and monitoring of inflammatory processesand associated diseases. For the evaluation of Relative Riskfor Cardiovascular Disease, a High Sensitivity CRP (HSCRP)should be ordered. Serum or plasma albumin olivia urement (mass/volume)Ordered By: Tricia Carballo on 10-30-2022 Albumin [Mass/Vol] 4.0 g/dL 3.2-5.0 [facility] Serum or plasma albumin/glob ulin mass ratioOrdered By: Tricia Carballo on 10-30-2022 Albumin/Globulin [Mass ratio] 1.2 {ratio} 0.9-2.4 [facility] Serum or plasma calcium olivia urement (mass/volume)Ordered By: Tricia Carballo on 10-30-2022 Calcium [Mass/Vol] 9.1 mg/dL 8.5-10.1 [facility] Serum or plasma creatinine m easurement (mass/volume)Ordered By: Tricia Carballo on 10-30-2022 Creatinine [Mass/Vol] 1.11 mg/dL 0.70-1.30 [facility] Comment on above: The validity of the calculated GFR & GFRAA in patients over 70 years has not been determined. Clinical correlation is essential. Serum or plasma urea nitroge n measurement (mass/volume)Ordered By: Tricia Carballo on 10-30-2022 Urea nitrogen [Mass/Vol] 16 mg/dL 7-18 [facility] Thin prep Papanicolaou smear with manual screeningOrdered By: Tricia Carballo on 10-30-2022 Thin prep Papanicolaou smear with manual screening 37 U/L 15-37 [facility] Thin prep Papanicolaou smear with manual screening 5 5-15 [facility] CNOVon 09-18-2022 CNOV Office Visit (URFHR) -- CHARLINELOGAN ([id number]) 1955 M Date Time Provider Department 09/18/22 9:40 AM ALMA STEPHENSON URFHR During your visit today, we recorded the following information about you: Temperature Pulse Blood pressure Weight 97.8 degrees 60/minute 153/82 83.9 kg Monique Velazquez MA 09/18/2022 9:40 AM Signed PVR= 0ml Provider notified. Monique Velazquez MA September 18, 2022 9:39 AM Alma Stephenson MD 09/18/2022 9:55 AM Signed [facility] ESTABLISHED PATIENT [...] 6.78 (H) 08/07/2019 4.75 (H) URINALYSIS: Specific [place], Ur Date Value Ref Range Status 02/15/2016 [...] 50 mg by mouth once daily. calcium-vits K4-H-E0-minerals 166.75 mg- 166.75 unit cap CALCIUM 600 [...] SEPTAL DEFECT W/WO PATCH 1960 COLONOSCOPY 2012 [facility] COLONOSCOPY FLX DX W/COLLJ SPEC WHEN PFRMD 10/26/14 Repeat 2024 PAST SURGICAL HISTORY OF 1961 jugular vein resection, PAST SURGICAL HISTORY OF left breast gynecomastia surg PAST SURGICAL HISTORY OF 08/2016 loop recorder PAST SURGICAL HISTORY OF 06/15/2019 dual chamber PPM RPR 1ST IN (more content not included)... [facility] 09-13-2022 [facility] Telephone (URR) -- LOGAN MCCARTY ([id number]) 1955 M Date Time Provider Department 09/13/22 ALMA STEPHENSON [facility] During your visit today, we recorded the following information about you: Sherine Cortes Sec 09/13/2022 11:18 AM Signed Patient called, has OV with Dr. Stephenson on 09/18/22 Need order for PSA. Allergies As of Date: 09/13/2022 (No Known Allergies) Date Reviewed: 09/12/2021 Reviewed by: Flor Villalpando - Fully Assessed Reason for Visit: Orders [681] Lab Orders [1688] Prescriptions as of 09/13/2022 - Tadalafil (CIALIS) 5 mg tablet Take 1 tablet by mouth as needed. - dutasteride (AVODART) 0.5 mg capsule Take 1 capsule by mouth once daily. - metoprolol succinate ER (TOPROL XL) 50 mg 24 hr tablet Take 50 mg by mouth once daily. - calcium-vits X5-S-R2-minerals 166.75 mg- 166.75 unit cap CALCIUM 600 [...] obstruction/lower urinary tract sympto*09/12/2020 Encounter Status:Closed by SHERINE NG on 09/13/22 Normal [facility] Basophil percentageOrdered B y: Dr. Shipley on 07-26-2022 Bilirubin [Mass/Vol] 0.60 mg/dL 0.20-1.00 [facility] Comment on above: For patients on eltr ombopag therapy, use of Dimension Taft TBIL is not recommended. Cholesterol [Mass/Vol] 181 mg/dL <200 [facility] Comment on above: <200 mg/dL Desirable 200-240 mg/dL Borderline >240 mg/dL High Risk Protein [Mass/Vol] 7.3 g/dL 6.4-8.2 [facility] Triglyceride [Mass/Vol] 213 mg/dL <199 [facility] Comment on above: The drugs N-Acetylcy steine and Metamizole may falsely depress this assay.Serum Triglycerides Reference Interval Normal <150 mg/dL Borderline high 150 - 199 mg/dL High 200 - 499 mg/dL Very High > or = 500 mg/dL Direct bilirubinOrdered By: Dr. Shipley on 07-26-2022 Bilirubin.direct [Mass/Vol] 0.15 mg/dL 0.00-0.30 [facility] Laboratory - Chemistry and C hemistry - challengeOrdered By: Dr. Shipley on 07-26-2022 ALP [Catalytic activity/Vol] 54 U/L 45-117 [facility] ALT [Catalytic activity/Vol] 49 U/L 16-61 [facility] Globulin (S) [Mass/Vol] 3.7 g/dL 2.2-4.2 [facility] Serum or plasma albumin olivia urement (mass/volume)Ordered By: Dr. Shipley on 07-26-2022 Albumin [Mass/Vol] 3.6 g/dL 3.2-5.0 [facility] Serum or plasma cholesterol in HDL measurement (mass/volume)Ordered By: Dr. Shipley on 07-26-2022 Cholesterol in HDL [Mass/Vol] 41 mg/dL >40 [facility] Comment on above: The drugs N-Acetylcy steine and Metamizole may falsely depress this assay. Reference Range HDL <40 mg/dL Low HDL Cholesterol HDL >or= 60 mg/dL High HDL Cholesterol Serum or plasma cholesterol in VLDL measurement (mass/volume)Ordered By: Dr. Shipley on 07-26-2022 Cholesterol in VLDL [Mass/Vol] 43 mg/dL 5-40 [facility] Serum or plasma low density lipoprotein (LDL) cholesterol measurement (mass/volume)Ordered By: Dr. Shipley on 07-26-2022 Cholesterol in LDL [Mass/Vol] 97 mg/dL 0-130 [facility] Thin prep Papanicolaou smear with manual screeningOrdered By: Dr. Shipley on 07-26-2022 Thin prep Papanicolaou smear with manual screening 25 U/L 15-37 [facility] Basophil percentageOrdered B y: Dr. Degroot on 07-19-2022 Basophil percentage < 0.9 mg/dL 0.70-1.30 [facility] No Panel InformationOrdered By: Dr. Degroot on 07-19-2022 Bedside Estimated GFR (eGFR) > 60.0000 mL/min >60 [facility] Laboratory - Microbiology an d Antimicrobial susceptibilityon 03-01-2022 SARS-CoV-2 (COVID-19) RNA SHANDRA+probe Ql (Unsp spec) Detected Not Detect [facility] Work Phone: Comment on above: Normal Reference [...] percentageon 2021 Bilirubin [Mass/Vol] 1.00 mg/dL 0.20-1.00 [facility] Work Phone: Comment on above: For patients on eltr ombopag therapy, use of Dimension Taft TBIL is not recommended. Chloride [Moles/Vol] 103 mmol/L 98-107 [facility] Work Phone: Cholesterol [Mass/Vol] 197 mg/dL <200 [facility] Work Phone: Comment on above: <200 mg/dL Desirable 200-240 mg/dL Borderline >240 mg/dL High Risk Glucose [Mass/Vol] 101 mg/dL 74-106 [facility] Work Phone: Comment on above: Fasting Glucose resu lt from 100 to 125 mg/dL suggests IMPAIRED HOMEOSTASIS per A.D.A. criteria. Potassium [Moles/Vol] 3.9 mmol/L 3.5-5.1 [facility] Work Phone: Protein [Mass/Vol] 7.5 g/dL 6.4-8.2 [facility] Work Phone: Sodium [Moles/Vol] 138 mmol/L 136-145 [facility] Work Phone: Triglyceride [Mass/Vol] 110 mg/dL <199 [facility] Work Phone: Comment on above: The drugs N-Acetylcy steine and Metamizole may falsely depress this assay.Serum Triglycerides Reference Interval Normal <150 mg/dL Borderline high 150 - 199 mg/dL High 200 - 499 mg/dL Very High > or = 500 mg/dL Direct bilirubinon 2 Bilirubin.direct [Mass/Vol] 0.23 mg/dL 0.00-0.30 [facility] Work Phone: Laboratory - Chemistry and C hemistry - challengeon 12-15-2021 ALP [Catalytic activity/Vol] 60 U/L 45-117 [facility] Work Phone: ALT [Catalytic activity/Vol] 50 U/L 16-61 [facility] Work Phone: CO2 [Moles/Vol] 29.0 mmol/L 21.0-32.0 [facility] Work Phone: Globulin (S) [Mass/Vol] 3.4 g/dL 2.2-4.2 [facility] Work Phone: Urea nitrogen/Creatinine [Mass ratio] 16.5 mg/mg 10-20 [facility] Work Phone: No Panel Informationon 12-15 Vitamin D 25-Hydroxy 45.7 ng/mL [facility] Work Phone: Comment on above: Vitamin D 25(OH) Sta tus Range Deficiency <20 ng/mL (50nmol/L) Insufficiency 20 - 30 ng/mL (50 - 75 nmol/L) Sufficiency 30 - 100 ng/mL (75 - 250 nmol/L) Toxicity >100 ng/mL (>250 nmol/L) Estimated GFR (MDRD) Amer 87 mL/min >60 [facility] Work Phone: Comment on above: GFR Calc Estimated GFR (MDRD) Non-Af Amer 72 mL/min >60 [facility] Work Phone: Comment on above: Non- GFR Calc Serum or plasma albumin olivia urement (mass/volume)on 12-15-2021 Albumin [Mass/Vol] 4.1 g/dL 3.2-5.0 [facility] Work Phone: Serum or plasma calcium olivia urement (mass/volume)on 12-15-2021 Calcium [Mass/Vol] 9.0 mg/dL 8.5-10.1 [facility] Work Phone: Serum or plasma cholesterol in HDL measurement (mass/volume)on 12-15-2021 Cholesterol in HDL [Mass/Vol] 60 mg/dL >40 [facility] Work Phone: Comment on above: The drugs N-Acetylcy steine and Metamizole may falsely depress this assay. Reference Range HDL <40 mg/dL Low HDL Cholesterol HDL >or= 60 mg/dL High HDL Cholesterol Serum or plasma cholesterol in VLDL measurement (mass/volume)on 12-15-2021 Cholesterol in VLDL [Mass/Vol] 22 mg/dL 5-40 [facility] Work Phone: Serum or plasma creatinine m easurement (mass/volume)on 12-15-2021 Creatinine [Mass/Vol] 1.09 mg/dL 0.70-1.30 [facility] Work Phone: Comment on above: The validity of the calculated GFR & GFRAA in patients over 70 years has not been determined. Clinical correlation is essential. Serum or plasma low density lipoprotein (LDL) cholesterol measurement (mass/volume)on 12-15-2021 Cholesterol in LDL [Mass/Vol] 115 mg/dL 0-130 [facility] Work Phone: Serum or plasma urea nitroge n measurement (mass/volume)on 12-15-2021 Urea nitrogen [Mass/Vol] 18 mg/dL 7-18 [facility] Work Phone: Thin prep Papanicolaou smear with manual screeningon 12-15-2021 Thin prep Papanicolaou smear with manual screening 33 U/L 15-37 [facility] Work Phone: Thin prep Papanicolaou smear with manual screening 6 5-15 [facility] Work Phone: Karlene 10-13-2020 [facility] -- LOGAN MCCARTY ([id number]) 1955 M Date Time Provider Department 10/13/20 ALMA STEPHENSON [facility] During your visit today, we recorded the following information about you: Alma Stephenson MD 10/13/2020 11:34 AM Signed Attempted to contact Logan Mccarty and left VM to review PSA results. Options including continuing [...] Status:Closed by ALMA STEPHENSON MD on 10/13/20 [facility] MRA BRAIN WO/W IVCONon 07-25 MRA BRAIN WO/W IVCON * * *Final Report* * *DATE OF EXAM: Jul 25 2017 9:42AM 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 After the administration of contrast, postcontrast imaging from the arch to the intracranial vasculature was performed. Multiplanar reformats, subtraction images , and maximum intensity projections were calculated on the imaging workstation under physician supervision.RESULT:INTRACR ANIAL MRA RESULTS: The visualized distal vertebral and basilar arteries are widely patent. Bilateral proximal PICAs and SCAs are patent. There is a type origin of the right BREWMASTER with a hypoplastic right P1 segment. The distal ICAs are patent and within normal limits of caliber. The proximal ACAs, MCAs and geospatial technician are patent and within normal limits of [...] near the brachiocephalic confluence, of unknown clinical significance.Pulling Unit Floorhand ist: [facility] Transcribe Date/Time: Jul 25 2017 10:05ADictated by : JULIANNA ANGULO MDThis examination was interpreted and the report reviewed and electronically signed by: JULIANNA ANGULO MD on Jul 25 2017 10:05AM [id number] [facility] MRA CAROTID WO/W IVCONon MRA CAROTID WO/W IVCON * * *Final Report * * *DATE OF EXAM: Jul 25 2017 9:42AM 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 After the administration of contrast, postcontrast imaging from the arch to the intracranial vasculature was performed. Multiplanar reformats, subtraction images , and maximum intensity projections were calculated on the imaging workstation under physician supervision.RESULT:INTRACR ANIAL MRA RESULTS: The visualized distal vertebral and basilar arteries are widely patent. Bilateral proximal PICAs and SCAs are patent. There is a type origin of the right BREWMASTER with a hypoplastic right P1 segment. The distal ICAs are patent and within normal limits of caliber. The proximal ACAs, MCAs and geospatial technician are patent and within normal limits of [...] near the brachiocephalic confluence, of unknown clinical significance.[facility]ing [facility] Transcribe Date/Time: Jul 25 2017 9:29ADictated by : JULIANNA ANGULO MDThis examination was interpreted and the report reviewed and electronically signed by: JULIANNA ANGULO MD on Jul 25 2017 9:59AM [id number] Normal [facility] Office Visiton 05-07-2017 Dietary management education, guidance, and counseling (procedure) yes Invalid Interpretation Code [employer] Work Phone: Documentation of current medications (procedure) Done Invalid Interpretation Code [employer] Work Phone: Fall risk assessment No Invalid Interpretation Code [employer] Work Phone: Protein mass conc Done Invalid Interpretation Code [employer] Work Phone: Clinical Lists Update: Prelo budget specialist 04-26-2017 Left ventricular Ejection fraction 55 % Invalid Interpretation Code [employer] Work Phone: [phone] Office Visiton 10-18-2016 Fall risk assessment Fall risk assessment Invali d Interpretation Code [employer] Work Phone: [phone] Protein mass conc Done Invalid Interpretation Code [employer] Work Phone: [phone] Clinical Lists Update: Prelo budget specialist 10-10-2016 Cholesterol in HDL mass conc 57 mg/dL Invalid Interpretation Code [employer] Work Phone: [phone] Cholesterol in LDL mass conc 104 mg/dL Invalid Interpretation Code [employer] Work Phone: [phone] Cholesterol mass conc 188 mg/dL Invalid Interpretation Code [employer] Work Phone: [phone] Lipoprotein.pre-beta mass conc 27 mg/dL Invalid Interpretation Code [employer] Work Phone: [phone] Triglyceride mass conc 135 mg/dL Invalid Interpretation Code [employer] Work Phone: [phone] Office Visiton 07-06-2016 Tobacco smoking status NHIS Never smoker Invalid Interpretation Code [employer] Work Phone: [phone] Tobacco use CPHS Never smoker Invalid Interpretation Code [employer] Work Phone: [phone] Lab Report: Basic Metabolic Profile (BMP)on 05-29-2016 Anion gap 8 mmol/L Invalid Interpretation Code 5-15 [employer] Work Phone: [phone] Anion gap 4 molar conc 8 Invalid Interpretation Code 5-15 [employer] Work Phone: [phone] Calcium mass conc 8.8 mg/dL Invalid Interpretation Code 8.5-10.1 [employer] Work Phone: [phone] Chloride molar conc 105 mmol/L Invalid Interpretation Code 98-107 [employer] Work Phone: [phone] CO2 28.0 mmol/L Invalid Interpretation Code 21.0-32.0 [employer] Work Phone: [phone] CO2 ppres (BldV) 28.0 mmol/L Invalid Interpretation Code 21.0-32.0 [employer] Work Phone: [phone] Creatinine mass conc 1.30 mg/dL Invalid Interpretation Code 0.70-1.30 [employer] Work Phone: [phone] eGFR (non-black) 73 mL/min/{1.73_m2} Invalid Interpretation Code >60 [employer] Work [phone] EST GFR - AA 73 mL/min Invalid Interpretation Code >60 [employer] Work Phone: [phone] GFR/1.73 sq M predicted among non-blacks MDRD vol rate/area (S/P/Bld) 60 mL/min/{1.73_m2} Invalid Interpretation Code >60 [employer] Work Phone: [phone] Glucose mass conc 97 mg/dL Invalid Interpretation Code 70-110 [employer] Work Phone: [phone] Potassium molar conc 4.1 mmol/L Invalid Interpretation Code 3.5-5.1 [employer] Work Phone: [phone] Sodium molar conc 141 mmol/L Invalid Interpretation Code 136-145 [employer] Work Phone: [phone] Urea nitrogen mass conc 19 mg/dL High 7-18 [employer] Work Phone: [phone] Urea nitrogen/Creatinine mass ratio 14.6 RATIO Invalid Interpretation Code 10-20 [employer] Work Phone: [phone] Lab Report: Magnesiumon 11-0 Magnesium mass conc 2.3 mg/dL Invalid Interpretation Code 1.8-2.4 [employer] Work Phone: [phone] Replaced Document: Sofia Zhang CG Luana 05-29-2016 EKG QRS axis -54 deg Invalid Interpretation Code [employer] Work Phone: [phone] P [place] 26 deg Invalid Interpretation Code [employer] Work Phone: [phone] MS Interval 130 ms Invalid Interpretation Code [employer] Work Phone: [phone] Pulse (Heart Rate) 66 /min Invalid Interpretation Code [employer] Work Phone: [phone] QRS Duration 144 ms Invalid Interpretation Code [employer] Work Phone: [phone] QT Interval new path ms Invalid Interpretation Code [employer] Work Phone: [phone] QTc Hernandez 422 ms Invalid Interpretation Code [employer] Work Phone: [phone] T [place] 24 deg Invalid Interpretation Code [employer] Phone: [phone] Urea nitrogen mass conc (Bld) Sinus Rhythm - frequent PAC s # PACs = 3.-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 ABNORMAL Invalid Interpretation Code [employer] Phone: [phone] Lab Report: Liver Profileon 02-21-2016 Albumin mass conc 3.7 g/dL Invalid Interpretation Code 3.4-5.0 [employer] Work Phone: [phone] Alkaline phosphatase (ALP) 61 U/L Invalid Interpretation Code 50-136 [employer] Work Phone: [phone] ALP enzyme act/vol (Bld) 61 U/L Invalid Interpretation Code 50-136 [employer] Work Phone: [phone] ALT enzyme act/vol 30 U/L Invalid Interpretation Code 12-78 [employer] Phone: [phone] AST enzyme act/vol 21 U/L Invalid Interpretation Code 15-37 [employer] Work Phone: [phone] Bilirubin mass conc 0.80 mg/dL Invalid Interpretation Code 0.20-1.00 [employer] Phone: [phone] Bilirubin.direct mass conc 0.17 mg/dL Invalid Interpretation Code 0.00-0.30 [employer] Phone: [phone] Globulin Calculated mass conc (S) 3.6 g/dL High 2.3-3.5 [employer] Work Phone: [phone] Protein mass conc 7.3 g/dL Invalid Interpretation Code 6.4-8.2 [employer] Phone: [phone] Office Visiton 05-24-2015 cardiac risk group B Invalid Interpretation Code [employer] Phone: [phone] General cardiovascular disease 10Y risk [#] Carpenter.D'Agostino 4 % Invalid Interpretation Code [employer] Phone: [phone] Lab Report: PSA,Total- Diagn osticon 04-26-2015 Protein mass conc 10.50 ng/mL High 0.0-4.0 [facility] Work Phone: PSA, DIAGNOSTIC 10.50 ng/mL High 0.0-4.0 [place] [facility] Work Phone: Vital Signs Date Time Vital Sign Value Performing Clinician Racquel steel 02-10-2025 14:10-0400 Body height 162.6 cm Darío Gomez MD Work Phone: [facility] 02-10-2025 14:10-0400 Body mass index (BMI) [Ratio] 31.76 kg/m2 Darío Gomez MD Work Phone: [facility] 02-10-2025 14:10-0400 Body weight 83.92 kg Darío Gomez MD Work Phone: [facility] 02-10-2025 14:10-0400 Diastolic blood pressure 84 mm[Hg] Darío Gomez MD Work Phone: [facility] 02-10-2025 14:10-0400 Heart rate 60 /min Darío Gomez MD Work Phone: [facility] 02-10-2025 14:10-0400 Systolic blood pressure 132 mm[Hg] Darío Gomez MD Work Phone: [facility] 12-02-2024 13:36-0400 Body height 162.6 cm Alma Stephenson MD Work Phone: [facility] 12-02-2024 13:36-0400 Body mass index (BMI) [Ratio] 30.9 kg/m2 Alma Stephenson MD Work Phone: [facility] 12-02-2024 13:36-0400 Body weight 81.65 kg Alma Stephenson MD Work Phone: [facility] 11-26-2024 13:07-0400 Body height 165.[address] Lazaro Degroot MD Work Phone: [facility] 11-26-2024 13:07-0400 Body mass index (BMI) [Ratio] 30.6 kg/m2 Dr. Lazaro Degroot MD Work Phone: [facility] 11-26-2024 13:07-0400 Body weight 83.[address] Lazaro Degroot MD Work Phone: [facility] 11-26-2024 13:07-0400 Diastolic blood pressure 76 mm[Hg] Dr. Lazaro Degroot MD Work Phone: [facility] 11-26-2024 13:07-0400 Heart rate 68 /min Dr. Lazaro Degroot MD Work Phone: [facility] 11-26-2024 13:07-0400 Respiratory rate 16 /min Dr. Lazaro Degroot MD Work Phone: [facility] 11-26-2024 13:07-0400 Systolic blood pressure 122 mm[Hg] Dr. Lazaro Degroot MD Work Phone: [facility] 01-29-2024 16:06-0400 Body height 162.6 cm Darío Gomez MD Work Phone: [facility] 01-29-2024 16:06-0400 Body mass index (BMI) [Ratio] 31.24 kg/m2 Darío Gomez MD Work Phone: [facility] 01-29-2024 16:06-0400 Body weight 82.56 kg Darío Gomez MD Work Phone: [facility] 01-29-2024 16:06-0400 Diastolic blood pressure 96 mm[Hg] Darío Gomez MD Work Phone: [facility] 01-29-2024 16:06-0400 Heart rate 60 /min Darío Gomez MD Work Phone: [facility] 01-29-2024 16:06-0400 Systolic blood pressure 147 mm[Hg] Darío Gomez MD Work Phone: [facility] 12-04-2023 16:38-0400 Body height 162.6 cm Alma Stephenson MD Work Phone: [facility] 12-04-2023 16:38-0400 Body mass index (BMI) [Ratio] 31.24 kg/m2 Alma Stephenson MD Work Phone: [facility] 12-04-2023 16:38-0400 Body weight 82.56 kg Alma Stephenson MD Work Phone: [facility] 07-30-2023 12:54-0500 Body height 165.[address] Lazaro Degroot Work Phone: [facility] 07-30-2023 12:54-0500 Body mass index (BMI) [Ratio] 31.6 kg/m2 Dr. Lazaro Degroot Work Phone: [facility] 07-30-2023 12:54-0500 Body weight 86.[address] Lazaro Degroot Work Phone: [facility] 07-30-2023 12:54-0500 Diastolic blood pressure 79 mm[Hg] Dr. Lazaro Degroot Work Phone: [facility] 07-30-2023 12:54-0500 Heart rate 74 /min Dr. Lazaro Degroot Work Phone: [facility] 07-30-2023 12:54-0500 Respiratory rate 14 /min Dr. Lazaro Degroot Work Phone: [facility] 07-30-2023 12:54-0500 Systolic blood pressure 118 mm[Hg] Dr. Lazaro Degroot Work Phone: [facility] 12-20-2022 12:59-0400 Body weight 78.93 kg Lulú Caballero MD Work Phone: [facility] 12-20-2022 12:59-0400 Diastolic blood pressure 91 mm[Hg] Lulú Caballero MD Work Phone: [facility] 12-20-2022 12:59-0400 Heart rate 61 /min Lulú Caballero MD Work Phone: [facility] 12-20-2022 12:59-0400 Respiratory rate 15 /min Lulú Caballero MD Work Phone: [facility] 12-20-2022 12:59-0400 SaO2% (BldA) [Mass fraction] 97 % Lulú Caballero MD Work Phone: [facility] 12-20-2022 12:59-0400 Systolic blood pressure 150 mm[Hg] Lulú Caballero MD Work Phone: [facility] 10-30-2022 13:32-0400 Body height 162.[address] Lazaro Degroot Work Phone: [facility] 10-30-2022 13:32-0400 Body mass index (BMI) [Ratio] 31.7 kg/m2 Dr. Lazaro Degroot Work Phone: [facility] 10-30-2022 13:32-0400 Body weight 83.[address] Lazaro Degroot Work Phone: [facility] 10-30-2022 13:32-0400 Diastolic blood pressure 80 mm[Hg] Dr. Lazaro Degroot Work Phone: [facility] 10-30-2022 13:32-0400 Heart rate 71 /min Dr. Lazaro Degroot Work Phone: [facility] 10-30-2022 13:32-0400 SaO2% (BldA) [Mass fraction] 95 % Dr. Lazaro Degroot Work Phone: [facility] 10-30-2022 13:32-0400 Systolic blood pressure 121 mm[Hg] Dr. Lazaro Degroot Work Phone: [facility] 06-05-2022 13:43-0500 Body height 162.[address] Lazaro Degroot Work Phone: [facility] 06-05-2022 13:19-0500 Body mass index (BMI) [Ratio] 31.4 kg/m2 Dr. Lazaro Degroot Work Phone: [facility] 06-05-2022 13:19-0500 Body weight [address] Lazaro Degroot Work Phone: [facility] 06-05-2022 13:19-0500 Diastolic blood pressure 87 mm[Hg] Dr. Lazaro Degroot Work Phone: [facility] 06-05-2022 13:19-0500 Heart rate 94 /min Dr. Lazaro Degroot Work Phone: [facility] 06-05-2022 13:19-0500 Respiratory rate 16 /min Dr. Lazaro Degroot Work Phone: [facility] 06-05-2022 13:19-0500 SaO2% (BldA) [Mass fraction] 68 % Dr. Lazaro Degroot Work Phone: [facility] 06-05-2022 13:19-0500 Systolic blood pressure 125 mm[Hg] Dr. Lazaro Degroot Work Phone: [facility] 11-21-2021 16:07-0400 Diastolic blood pressure 96 mm[Hg] Dr. Wilfredo Naranjo Work Phone: [facility] Work Phone: 11-21-2021 16:07-0400 Systolic blood pressure 143 mm[Hg] Dr. Wilfredo Naranjo Work Phone: [facility] Work Phone: 11-21-2021 15:58-0400 Body height 162.[address] Wilfredo Naranjo Work Phone: [facility] Work Phone: 11-21-2021 15:58-0400 Body mass index (BMI) [Ratio] 30.9 kg/m2 Dr. Wilfredo Naranjo Work Phone: [facility] Work Phone: 11-21-2021 15:58-0400 Body weight 81.[address] Wilfredo Naranjo Work Phone: [facility] Work Phone: 11-21-2021 15:58-0400 Heart rate 60 /min Dr. Wilfredo Naranjo Work Phone: [facility] Work Phone: 11-21-2021 15:58-0400 Respiratory rate 16 /min Dr. Wilfredo Naranjo Work Phone: [facility] Work Phone: 11-21-2021 15:58-0400 SaO2% (BldA) [Mass fraction] 95 % Dr. Wilfredo Naranjo Work Phone: [facility] Work Phone: 05-07-2017 13:26-0400 BMI (Body Mass Index) 28.4 kg/m2 [employer] Gui He [facility] Work Phone: 05-07-2017 13:26-0400 BP Diastolic 78 mm[Hg] Harumi DeFinis [facility] Work Phone: 05-07-2017 13:26-0400 BP Systolic 132 mm[Hg] [facility] Work Phone: 05-07-2017 13:26-0400 Height 167.64 cm [facility] DeFinis [facility] Work Phone: 05-07-2017 13:26-0400 Pulse (Heart Rate) 62 /min Harumi DeFinis [facility] Work Phone: 05-07-2017 13:26-0400 Respiratory Rate 16 /min [facility] Work Phone: 05-07-2017 13:26-0400 [facility] 79.83 kg [facility] Work Phone: 10-18-2016 15:55-0400 BMI (Body Mass Index) 27.6 kg/m2 Abbey Banegas RN [facility] Work Phone: 10-18-2016 15:55-0400 BP Diastolic 60 mm[Hg] Abbey Banegas RN [facility] Work Phone: 10-18-2016 15:55-0400 BP Systolic 120 mm[Hg] Abbey Banegas RN [facility] Work Phone: 10-18-2016 15:55-0400 Height 167.64 cm Abbey Banegas RN [facility] Work Phone: 10-18-2016 15:55-0400 Pulse (Heart Rate) 56 /min Abbey Banegas RN [facility] Work Phone: 10-18-2016 15:55-0400 Respiratory Rate 20 /min Abbey Banegas RN [facility] Work Phone: 10-18-2016 15:55-0400 Weight 77.57 kg Abbey Banegas RN [facility] Work Phone: 07-06-2016 14:06-0500 BSA (Body Surface Area) 1.91 m2 Abbey Banegas RN [facility] Work Phone: 05-29-2016 09:01-0500 Heart rate 66 /min Abbey Banegas RN [facility] Work Phone: Encounters Encounter Date Encounter Type Care Provider Facility Start: 02-17-2025 End: 02-17-[address] Lazaro Degroot MD Work Phone: -[facility] Start: 02-17-2025 End: 02-17-[address] Nirmal Shipley MD -[facility] Work Phone: Start: 02-16-2025 End: 02-17-2025 Refill Lia Nogal KERVIN.BUS TRANSPORTATION MANAGER Work Phone: Urology Comment on above: Refill Request Start: 02-10-2025 End: 02-10-2025 Subsequent hospital visit by physician [facility] Work Phone: Cardiology Comment on above: Pacemaker reprogramm ing/check [Z45.018] Start: 02-10-2025 End: 02-10-2025 Patient encounter procedure Darío Gomez MD Work Phone: Cardiology Comment on above: Palpitation (Primary Dx) Start: 02-10-2025 End: 02-10-2025 ambulatory LAZARO DEGROOT [facility] Start: 01-11-2025 ambulatory Lazaro Degroot Facility:[facility] Start: 01-11-2025 Non-patient / Non-visit Dr. Nirmal Shipley MD -[facility] Start: 01-11-2025 End: 01-11-[address] Lazaro Degroot MD Work Phone: [facility] Work Phone: Start: 01-11-2025 End: 01-11-[address] Nirmal Shipley MD -[facility] Work Phone: Start: 01-11-2025 End: 01-11-2025 ambulatory Lazaro Degroot Facility:[facility] Start: 2024 Non-patient / Non-visit Dr. Jamaal Ferro MD -[facility] Start: 2024 Registered Referred Self Referred -[facility] Work Phone: Start: 2024 ambulatory Lazaro Degroot Facility:[facility] Start: 12-02-2024 End: 12-02-2024 Patient encounter procedure Alma Stephenson MD Work Phone: Urology Comment on above: BPH with obstruction /lower urinary tract symptoms (Primary Dx); Elevated prostate specific antigen (PSA); Erectile dysfunction, unspecified erectile dysfunction type Start: 12-02-2024 End: 2024 ambulatory Alma Stephenson MD Work Phone: Urology Start: 11-30-2024 End: 11-30-2024 ambulatory LAZARO DEGROOT Facility:[facility] Start: 11-26-2024 End: 11-26-[address] Nirmal Shipley MD -[facility] Work Phone: Start: 11-26-2024 End: 11-26-[address] Lazaro Degroot MD Work Phone: [facility] Work Phone: Start: 11-26-2024 End: 11-26-2024 ambulatory Nirmal Shipley Facility:[facility] Start: 11-18-2024 End: 11-18-2024 ambulatory Nirmal Shipley Facility:[facility] Start: 11-18-2024 End: 11-18-[address] Nirmal Shipley MD -[facility] Work Phone: Start: 09-15-2024 End: 09-15-2024 Patient encounter procedure Jessica CURTIS -[facility] Work Phone: Start: 09-15-2024 End: 09-15-2024 ambulatory Lazaro Degroot Facility:[facility] Start: 08-19-2024 End: 08-19-2024 ambulatory Nirmal Quinten Facility:[facility] Start: 08-19-2024 End: 08-19-[address] Nirmal Shipley MD -[facility] Work Phone: Start: 08-13-2024 End: 08-13-2024 Refill Lia Andrade APRN.BUS TRANSPORTATION MANAGER Work Phone: [facility] Comment on above: Refill Request Start: 05-20-2024 End: 05-20-2024 ambulatory Driscoll Quinten Facility:[facility] Start: 03-29-2024 End: 03-29-2024 ambulatory Nirmal Quinten Facility:[facility] Start: 01-29-2024 End: 01-29-2024 Patient encounter procedure Darío Gomez MD Work Phone: Cardiology Comment on above: Heart block AV compl ete (HCC); Vascular dilatation (HCC) Start: 01-29-2024 End: 01-29-2024 Subsequent hospital visit by physician [facility] Work Phone: Cardiology Comment on above: Pacemaker reprogramm ing/check [Z45.018] Start: 01-15-2024 Refill Alma Carreno Work Phone: [facility] Comment on above: Refill Request Start: 12-04-2023 End: 12-04-2023 Patient encounter procedure Alma Stephenson MD Work Phone: Urology Comment on above: BPH with obstruction /lower urinary tract symptoms (Primary Dx); Erectile dysfunction, unspecified erectile dysfunction type; Elevated PSA Start: 12-04-2023 ambulatory Alma Carreno Work Phone: Urology Start: 12-02-2023 Orders Only Lia Lupe APR N.BUS TRANSPORTATION MANAGER Work Phone: Urology Comment on above: Elevated PSA (Primar y Dx) Start: 09-13-2023 Orders Only Darío Goemz MD Work Phone: Cardiology Comment on above: VSD (ventricular sep yamil defect) (Primary Dx) Start: 07-30-2023 End: 07-30-[address] Lazaro Degroot Work Phone: [facility] Work Phone: Start: 07-26-2023 End: 07-26-[address] Lazaro Degroot Work Phone: [facility] Work Phone: Start: 07-26-2023 End: 07-26-[address] Lazaro Degroot Work Phone: [facility] Work Phone: Start: 05-22-2023 End: 05-22-[address] Lazaro Degroot Work Phone: [facility] Work Phone: Start: 05-06-2023 Orders Only Lia Nogal APR N.BUS TRANSPORTATION MANAGER Work Phone: Urology Start: 12-24-2022 Orders Only Darío Gomez MD Work Phone: Cardiology Comment on above: SOB (shortness of br eath) (Primary Dx) Start: 12-20-2022 End: 12-20-2022 Patient encounter procedure Lulú Caballero MD Work Phone: Cardiology Comment on above: VSD (ventricular sep yamil defect) (Primary Dx); Heart block AV complete (HCC); Primary hypertension Start: 11-14-2022 End: 11-14-[address] Lazaro Degroot Work Phone: [facility] Work Phone: Start: 11-14-2022 End: 11-14-[address] Lazaro Degroot Work Phone: [facility] Start: 10-31-2022 End: 10-31-[address] Lazaro Degroot Work Phone: [facility] Start: 10-31-2022 End: 10-31-[address] [facility]az[facility] Degroot [facility] Start: 10-30-2022 End: 10-30-[address] Lazaro Degroot Work Phone: [facility] Work Phone: Start: 10-30-2022 End: 10-30-[address] Lazaro Degroot Work Phone: [facility] Start: 10-28-2022 End: 10-28-[address] Lazaro Degroot Work Phone: [facility] Start: 09-18-2022 End: 09-18-2022 ambulatory ALMA STEPHENSON Facility:[facility] Start: 09-13-2022 Orders Only Lia Andrade APR, N.CNP Work Phone: Urology Comment on above: Elevated PSA (Primar y Dx) Start: 09-03-2022 Refill Alma Carreno Work Phone: Urology Comment on above: Refill Request Start: 07-26-2022 End: 07-26-[address] Lazaro Degroot Work Phone: [facility] Work Phone: Start: 07-26-2022 End: 07-26-[address] Lazaro Degroot Work Phone: [facility] Start: 07-19-2022 End: 07-19-[address] Lazaro Degroot Work Phone: [facility] Work Phone: Start: 07-19-2022 End: 07-19-[address] Lazaro Degroot Work Phone: [facility] Start: 07-11-2022 End: 07-11-[address] Lazaro Degroot Work Phone: [facility] Start: 07-03-2022 Orders Only Lulú Caballero MD Work Phone: Cardiology Comment on above: S/P VSD repair (Prim isha Dx) Start: 06-05-2022 End: 06-05-[address] Lazaro Degroot Work Phone: [facility] Start: 04-11-2022 End: 04-11-[address] Lazaro Degroot Work Phone: [facility] Start: 04-04-2022 End: 04-04-2022 ambulatory Alma Stephenson MD Work Phone: Urology Comment on above: Erectile dysfunction , unspecified erectile dysfunction type (Primary Dx) Start: 04-04-2022 End: 04-04-2022 Telemedicine consultation with patient Alma Stephenson MD Work Phone: [facility] Start: 03-30-2022 ambulatory Alma Carreno Work Phone: Urology Comment on above: Question about possi ble medication Start: 03-12-2022 Refill Sanam Mckeon RN Uro logy Comment on above: Refill Request Start: 03-01-2022 End: 03-01-[address] Wilfredo Naranjo Work Phone: [facility] Spec[facility] Start: 01-03-2022 End: 01-03-[address] Wilfredo Naranjo Work Phone: [facility] Start: 12-15-2021 End: 12-15-[address] Wilfredo Naranjo Work Phone: [facility] Start: 11-21-2021 End: 11-21-[address] Wilfredo Naranjo Work Phone: [facility] Start: 07-25-2017 Ambulatory [facility] Procedures Date Procedure Procedure Detail Performing Clinician Start: 02-10-2025 Prgrmg dev eval impl antable subq lead dfb system [facility] [place] Provider Start: 02-10-2025 Ecg routine ecg w/le ast 12 lds i&r only Lulú Caballero MD Work Phone: Start: 01-11-2025 Cardiovascular stres s test using pharmacologic stress agent Dr. Lazaro Degroot MD Work Phone: Start: 12-02-2024 Urnls dip stick/tabl et rgnt auto w/o microscopy Bulk Order Provider Start: 01-29-2024 Prgrmg dev eval impl antable subq lead dfb system [facility] [place] Provider Start: 12-04-2023 Urnls dip stick/tabl et rgnt auto w/o microscopy Bulk Order Provider Start: 12-02-2023 Lipid 1996 panel - S mich or Plasma Alma Stephenson MD Work Phone: Start: 07-19-2022 Computed tomography of abdomen and pelvis with contrast Dr. Lazaro Degroot Work Phone: Start: 08-07-2019 Lipid 1996 panel - S mich or Plasma Lia Andrade APRN.BUS TRANSPORTATION MANAGER Work Phone: Start: 06-10-2019 Adult depression scr eening assessment Sanam Mckeon RN Start: 05-07-2017 End: 05-07-2017 FIRE ALARM TECHNICIAN Nirmal Shipley MD Start: 05-07-2017 End: 05-07-2017 Follow [...] Nirmal Shipley MD Start: 05-18-2014 End: 05-18-2014 SEVERINO Shipley MD Start: 05-18-2014 End: 05-18-2014 Follow [...] Panel Zita Reyes Start: 10-31-2012 End: 10-31-2012 FIRE ALARM TECHNICIAN Nirmal Shipley MD Start: 10-31-2012 End: 10-31-2012 Follow [...] an tigen measurement Prostate Cancer Screening Discussion [facility] Start: 12-01-2028 Lipid panel Lipid Screening [facility] Start: 12-01-2028 Prostate specific an tigen measurement Prostate Cancer Screening Discussion [facility] Start: 09-13-2027 PROSTATE CANCER SCRE ENING DISCUSSION PROSTATE CANCER SCREENING DISCUSSION [facility] Start: 09-13-2027 Prostate specific an tigen measurement Prostate Cancer Screening Discussion [facility] Start: 12-01-2026 Diabetes Screening Diabetes Screenin [facility] Start: 09-11-2026 PROSTATE CANCER SCRE ENING DISCUSSION PROSTATE CANCER SCREENING DISCUSSION [facility] Start: 12-20-2025 DIABETES SCREEN DIABETES SCREEN [facility] Start: 12-20-2025 Diabetes Screening Diabetes Screenin g [facility] Start: 12-10-2025 End: 12-10-2025 ambulatory 12/10/2025 7:45 AM [facility] [address] [address] Alma Stephenson MD [address] [place] [address] 1 year elevated PSA per checkout Urology Comment on above: 1 year elevated PSA per checkout Start: 12-02-2025 End: 03-03-2026 Prostate specific Ag [Mass/volume] in Serum or Plasma PROSTATE-SPECIFIC ANTIGEN DIAGNOSTIC Lab Routine BPH with obstruction/lower urinary tract symptoms Expected: 12/02/2025, Expires: 03/03/2026 [facility] Work Phone: Comment on above: Expected: 12/02/2025 , Expires: 03/03/2026 Start: 07-06-2025 Urine microalbumin profile DTa P,Tdap,Td Vaccine (2 - Td or Tdap) [facility] Start: 03-22-2025 Influenza vaccination Influenza Vacc ine (#1) [facility] Start: 02-10-2025 End: 02-10-2025 Patient encounter procedure Cardiology Comment on above: Dx: VSD (ventricular septal defect), Pacemaker Start: 02-10-2025 End: 02-10-2025 ambulatory 02/10/2025 1:00 PM EDT Procedure Cardiology [address] [place] [address] Dx: VSD (ventricular septal defect), Pacemaker Cardiology Comment on above: Dx: VSD (ventricular septal defect), Pacemaker Start: 12-21-2024 End: 02-20-2025 CBC panel - Blood by Automated count CBC Lab Routine VSD (ventricular septal defect) Expected: 12/21/2024, Expires: 02/20/2025 [facility] Work Phone: Comment on above: Expected: 12/21/2024 , Expires: 02/20/2025 Start: 12-21-2024 End: 02-20-2025 Comprehensive metabolic 2000 panel - Serum or Plasma COMP METABOLIC PANEL Lab Routine VSD (ventricular septal defect) Expected: 12/21/2024, Expires: 02/20/2025 [facility] Work Phone: Comment on above: Expected: 12/21/2024 , Expires: 02/20/2025 Start: 12-21-2024 ECG COMPLETE ECG COMPLETE E CG Routine VSD (ventricular septal defect) Expected: 12/21/2024 [facility] Work Phone: Comment on above: Expected: 12/21/2024 Start: 12-21-2024 ECHO SPECIALIST COMP [place] ADULT CONGENITAL ECHO SPECIALIST COMPLEX ADULT CONGENITAL Cardiology Routine VSD (ventricular septal defect) Expected: 12/21/2024 [facility] Work Phone: Comment on above: Expected: 12/21/2024 Start: 12-21-2024 End: 02-20-2025 LIPID PANEL, NONFASTING LIPID PANEL, NONFASTING Lab Routine VSD (ventricular septal defect) Expected: 12/21/2024, Expires: 02/20/2025 [facility] Work Phone: Comment on above: Expected: 12/21/2024 , Expires: 02/20/2025 Start: 12-03-2024 End: 03-04-2025 Prostate specific Ag [Mass/volume] in Serum or Plasma PROSTATE-SPECIFIC ANTIGEN DIAGNOSTIC Lab Routine BPH with obstruction/lower urinary tract symptoms Elevated PSA Expected: 12/03/2024 (Approximate), Expires: 03/04/2025 [facility] Work Phone: Comment on above: Expected: 12/03/2024 (Approximate), Expires: 03/04/2025 Start: 12-02-2024 End: 12-02-2024 Patient encounter procedure 12/02/2024 2:00 PM EDT Office Visit Urology [address] [address] Alma Stephenson MD [address] [place] [address] Elevated PSA Annual Follow Up Urology Comment on above: Elevated PSA Annual Follow Up Start: 10-26-2024 Colonoscopy COLONOSCOPY [facility] Start: 10-26-2024 COLORECTAL CANCER SCREENING COLORECTAL CANCER SCREENING [facility] Start: 10-26-2024 Screening for malign ant neoplasm of colon [facility] Start: 10-18-2024 Covid-19 Vaccine ( season) Covid-19 Vaccine () [facility] Start: 08-07-2024 Lipid 1996 panel - S mich or Plasma Lipid Screening [facility] Start: 08-07-2024 Lipid panel Lipid Screening [facility] Start: 08-07-2024 LIPID SCREEN LIPID SCREEN [facility] Start: 07-22-2024 Advance Directive Discussion Advance Directive Discussion [facility] Start: 03-22-2024 Covid-19 Vaccine () Covid-19 Vaccine () [facility] Start: 03-22-2024 Influenza vaccination Influenza Vacc ine (#1) [facility] Start: 01-29-2024 End: 01-29-2024 Patient encounter procedure Cardiology Comment on above: Dx: VSD (ventricular septal defect) Start: 01-29-2024 End: 01-29-2024 ambulatory 01/29/2024 3:00 PM EDT Results Only Cardiology [address] [id number] Dx: VSD (ventricular septal defect) Cardiology Comment on above: Dx: VSD (ventricular septal defect) Start: 12-04-2023 End: 12-04-2023 Patient encounter procedure 12/04/2023 4:45 PM EDT Office Visit Urology [address] [address] Alma Stephenson MD [address] [place] [address] 1 YEAR FOLLOW UP Urology Comment on above: 1 YEAR FOLLOW UP Start: 12-02-2023 End: 03-02-2024 Prostate specific Ag [Mass/volume] in Serum or Plasma [facility] Work Phone: Comment on above: Expected: 12/02/2023 (Approximate), Expires: 03/02/2024 Start: 09-20-2023 Covid-19 Vaccine () Covid-19 Vaccine () [facility] Start: 09-20-2023 Covid-19 Vaccine () Covid-19 Vaccine () [facility] Start: 07-22-2023 Advance Directive Discussion Advance Directive Discussion [facility] Start: 07-22-2023 Behavioral Health Screening Behavioral Health Screening [facility] Start: 07-22-2023 Depression Assessment Depression Ass essment [facility] Start: 07-11-2023 Pneumococcal Vaccine : 50+ (2 of 2 - PCV) Pneumococcal Vaccine: 50+ (2 of 2 - PCV) [facility] Start: 07-11-2023 Pneumococcal Vaccine : 65+ (2 of 2 - PCV) Pneumococcal Vaccine: 65+ (2 of 2 - PCV) [facility] Start: 03-22-2023 Covid-19 Vaccine () Covid-19 Vaccine () [facility] Start: 03-22-2023 Influenza vaccination Influenza Vacc ine (#1) [facility] Start: 10-30-2022 Procedure [facility] Start: 09-20-2022 End: 11-20-2022 Prostate specific Ag [Mass/volume] in Serum or Plasma PSA/PROSTSPECAG DIAG Lab Routine Elevated PSA Expected: 09/20/2022 (Approximate), Expires: 11/20/2022 [facility] Work Phone: Comment on above: Expected: 09/20/2022 (Approximate), Expires: 11/20/2022 Start: 07-22-2022 ADVANCE DIRECTIVE DISCUSSION ADVANCE DIRECTIVE DISCUSSION [facility] Start: 07-22-2022 DEPRESSION ASSESSMENT DEPRESSION ASS ESSMENT [facility] Start: 07-03-2022 End: 01-10-2023 Basic metabolic 2000 panel - Serum or Plasma BASIC METABOLIC PNL Lab Routine S/P VSD repair Expected: 07/03/2022, Expires: 01/10/2023 [facility] Work Phone: Comment on above: Expected: 07/03/2022 , Expires: 01/10/2023 Start: 06-12-2022 DIABETES SCREEN DIABETES SCREEN [facility] Start: 03-22-2022 Influenza vaccination INFLUENZA (#1) [facility] Start: 2021 ADVANCE DIRECTIVE DISCUSSION ADVANCE DIRECTIVE DISCUSSION [facility] Start: 2021 Pneumococcal Vaccine : 65+ (1 - PCV) Pneumococcal Vaccine: 65+ (1 - PCV) [facility] Start: 2021 PNEUMOCOCCAL: 65+ (1 - PCV) PNEUMOCOCCAL: 65+ (1 - PCV) [facility] Start: 11-19-2021 Medicare Annual Well ness Visit Medicare Annual Wellness Visit [facility] Start: 10-05-2021 COVID-19 VACCINE (4 - Booster for Pfizer series) COVID-19 VACCINE (4 - Booster for Pfizer series) [facility] Start: 08-02-2021 COVID-19 VACCINE (4 - Booster for Pfizer series) COVID-19 VACCINE (4 - Booster for Pfizer series) [facility] Start: 07-22-2021 DEPRESSION ASSESSMENT DEPRESSION ASS ESSMENT [facility] Start: 06-10-2020 Adult depression scr eening assessment DEPRESSION SCREENING [facility] Start: 11-05-2017 End: 11-05-2017 Appointment Appointment [employer] Phone: Start: 05-07-2017 End: 05-07-2017 [employer] Work Phone: Start: 05-07-2017 End: 05-07-2017 Follow Up Appt 6 months Follow Up Appt 6 months [employer] Phone: Start: 05-07-2017 End: 05-07-2017 Appointment Appointment [employer] Phone: Start: 2016 RSV Vaccine (1 - 1-d ose 60+ series) RSV Vaccine (1 - 1-dose 60+ series) [facility] Start: 10-18-2016 End: 05-07-2017 FIRE ALARM TECHNICIAN [employer] Work Phone: Start: 10-18-2016 End: 05-07-2017 Follow Up Appt 6 months Follow Up Appt 6 months [employer] Phone: Start: 08-23-2016 End: 02-23-2016 *Hepatic Function Panel *Hepatic Function Panel [employer] Phone: Start: 08-23-2016 End: 02-23-2016 Lipid panel [AGGREGATE] *Lipid Profile CC PCP [facility] Work Phone: Start: 07-06-2016 End: 07-06-2016 FIRE ALARM TECHNICIAN FIRE ALARM TECHNICIAN [facility] Work Phone: Start: 07-06-2016 End: 07-06-2016 Follow Up Appt 3 months Follow Up Appt 3 months [facility] Work Phone: Start: 06-07-2016 End: 06-07-2016 Nuclear stress test -exercise Nuclear stress test -exercise [facility] Work Phone: Start: 05-29-2016 End: 05-29-2016 *BMP *BMP [facility] Work Phone: Start: 05-29-2016 End: 05-29-2016 24 hour holter monitor 24 hour holter monitor [facility] Work Phone: Start: 05-29-2016 End: 05-29-2016 FIRE ALARM TECHNICIAN FIRE ALARM TECHNICIAN [facility] Work Phone: Start: 05-29-2016 End: 05-29-2016 Ecg routine ecg w/least 12 lds w/i&r EKG (In office) [facility] Work Phone: Start: 05-29-2016 End: 05-29-2016 Echocardiography Echocardiogram (complete) [facility] Work Phone: Start: 05-29-2016 End: 05-29-2016 Follow Up Appt 6 months Follow Up Appt 6 months [facility] Work Phone: Start: 05-29-2016 End: 05-29-2016 Magnesium *Magnesium [facility] Work Phone: Start: 10-27-2015 End: 02-21-2016 *Hepatic Function Panel *Hepatic Function Panel [facility] Work Phone: Start: 10-27-2015 End: 02-21-2016 Lipid panel [AGGREGATE] *Lipid Profile CC PCP [facility] Work Phone: Start: 05-24-2015 End: 05-24-2015 FIRE ALARM TECHNICIAN FIRE ALARM TECHNICIAN [facility] Work Phone: Start: 05-24-2015 End: 05-24-2015 Ecg routine ecg w/least 12 lds w/i&r EKG (In office) [facility] Work Phone: Start: 05-24-2015 End: 05-24-2015 Follow Up Appt 1 year Follow Up Appt 1 year [facility] Work Phone: Start: 06-21-2014 End: 04-26-2015 *Hepatic Function Panel *Hepatic Function Panel [facility] Work Phone: Start: 06-21-2014 End: 04-26-2015 Lipid panel [AGGREGATE] *Lipid Profile CC PCP [facility] Work Phone: Start: 05-18-2014 End: 05-18-2014 FIRE ALARM TECHNICIAN FIRE ALARM TECHNICIAN [facility] Work Phone: Start: 05-18-2014 End: 05-18-2014 Follow Up Appt 1 year Follow Up Appt 1 year [facility] Work Phone: Start: 10-20-2013 End: 12-29-2013 *Hepatic Function Panel *Hepatic Function Panel [facility] Work Phone: Start: 10-20-2013 End: 12-29-2013 Lipid panel [AGGREGATE] *Lipid Profile CC PCP [facility] Work Phone: Start: 04-30-2013 End: 04-30-2013 FIRE ALARM TECHNICIAN FIRE ALARM TECHNICIAN [facility] Work Phone: Start: 04-30-2013 End: 04-30-2013 Follow Up Appt 1 year Follow Up Appt 1 year [facility] Work Phone: Start: 10-31-2012 End: 04-30-2013 *Hepatic Function Panel *Hepatic Function Panel [facility] Work Phone: Start: 10-31-2012 End: 10-31-2012 FIRE ALARM TECHNICIAN FIRE ALARM TECHNICIAN [facility] Work Phone: Start: 10-31-2012 End: 10-31-2012 Follow Up Appt 6 months Follow Up Appt 6 months [facility] Work Phone: Start: 10-31-2012 End: 04-30-2013 Lipid panel [AGGREGATE] *Lipid Profile [facility] Work Phone: Start: 04-08-2012 End: 04-30-2013 Follow Up Appt 6 months Follow Up Appt 6 months [facility] Work Phone: Start: 04-08-2012 End: 04-30-2013 Lipid panel [AGGREGATE] *Lipid Profile [facility] Work Phone: Start: 12-25-2011 End: 12-28-2011 24 hour holter monitor 24 hour holter monitor [facility] Work Phone: Start: 2006 SHINGRIX VACCINE (1 of 2) GARDNER GRIX VACCINE (1 of 2) [facility] Start: 2001 COLOGUARD (FIT-DNA) COLOGUARD (FIT-D NA) [facility] Start: [address] COLONOGRAPHY [facility] Start: 2001 FECAL OCCULT BLOOD FECAL OCCULT BLOO D [facility] Start: 2001 Screening for malign ant neoplasm of colon [facility] Start: 2001 SIGMOIDOSCOPY SIGMOIDOSCOPY [place] Start: 12-08-1975 Urine microalbumin profile [facility] Start: 1974 ANNUAL PCP TEAM GENERAL LABOR ERIKA DISEASE VISIT ANNUAL PCP TEAM CHRONIC DISEASE VISIT [facility] Start: 1974 Anxiety Screening Anxiety Screening [facility] Start: 1974 BP CONTROLLED (<130/80) BP CONTROLLE D (<130/80) [facility] Start: 1974 Depression Screening Depression Scre ening [facility] Start: 1974 HEPATITIS C SCREENING HEPATITIS C [facility] Start: 1974 Hepatitis C screening Hepatitis C [facility] Start: 1974 HIV SCREENING HIV SCREENING [place] CARDIAC IMPLANTABLE DEVICE CHECK CARDIAC IMPLANTABLE DEVICE CHECK PACEART Routine Pacemaker reprogramming/check 01/29/2024 4:30 PM EDT [facility] CARDIAC IMPLANTABLE DEVICE CHECK CARDIAC IMPLANTABLE DEVICE CHECK PACEART Routine Pacemaker reprogramming/check 02/10/2025 1:52 PM EDT [facility] End: 07-03-2023 ECG COMPLETE ECG COMPLETE ECG Routine S/P VSD repair 1 Occurrences starting 07/03/2022 until 07/03/2023 [facility] Work Phone: Comment on above: 1 Occurrences starti ng 07/03/2022 until 07/03/2023 End: 12-25-2023 ECG COMPLETE ECG COMPLETE ECG Routine SOB (shortness of breath) 1 Occurrences starting 12/24/2022 until 12/25/2023 [facility] Work Phone: Comment on above: 1 Occurrences starti ng 12/24/2022 until 12/25/2023 End: 09-13-2024 ECG COMPLETE ECG COMPLETE ECG Routine VSD (ventricular septal defect) 1 Occurrences starting 09/13/2023 until 09/13/2024 [facility] Work Phone: Comment on above: 1 Occurrences starti ng 09/13/2023 until 09/13/2024 ECG COMPLETE ECG COMPLETE ECG Routine VSD (ventricular septal defect) (HCC) 02/10/2025 1:24 PM EDT [facility] Work Phone: End: 07-03-2023 Echocardiography ECHO Cardiology Routine S/P VSD repair 1 Occurrences starting 07/03/2022 until 07/03/2023 [facility] Work Phone: Comment on above: 1 Occurrences starti ng 07/03/2022 until 07/03/2023 NM Heart Views W str ess and W radionuclide IV [facility] Patient Education HYPERLIPIDEMIA, SYNCOPE [facility] Work Phone: Prostate specific Ag [Mass/volume] in Serum or Plasma PSA/PROSTSPECAG DIAG Lab Routine Elevated PSA 09/13/2022 1:53 PM EST [facility] Work Phone: Heart [facility] Immunizations Immunization Date Immunization Notes Care Provider [facility] 05-05-2024 influenza virus vaccine, unspecified formulation Darío Gomez MD Work Phone: [facility] 04-19-2023 influenza virus vaccine, unspecified formulation Darío Gomez MD Work Phone: [facility] 04-20-2022 influenza virus vaccine, unspecified formulation Lia Andrade APRN.[employer] TRANSPORTATION MANAGER Work Phone: [facility] 10-13-2020 COVID-19 vaccine, ag e 12+ yr (PFIZER-BIONTECH - PURPLE TOP) Sanam Mckeon RN [facility] Work Phone: 09-22-2020 COVID-19 vaccine, ag e 12+ yr (PFIZER-BIONTECH - PURPLE TOP) Sanam Mckeon RN [facility] Payers Date Payer Category Payer Self-pay [id number] [id number] [id number] 2021 [facility] D[facility] SUPPLE[facility] [id number] 2021 Medicare [id number] 2021 Medicare [id number] 2021 Unknown [id number] 2021 Unknown [id number] 2010 Private Health Insurance [id number] Unknown [id number] Unknown [id number] Unknown [id number] .[id number] Unknown [id number] .[id number] Unknown [id number] .[id number] Unknown [id number] .2.462 Unknown [id number] .2.462 Unknown [id number] .[id number] Unknown [id number] .2.462 Unknown [id number] .2.462 Unknown [id number] .2.462 Unknown [id number] .2.462 Unknown [id number] .2.462 Social History Date Type Detail Facility Start: 11-11-2019 End: 07-30-2023 Tobacco smoking status OHIS Unknown if ever smoked [facility] Start: 1955 Sex Assigned At Male [facility] Start: 07-05-2017 End: 09-09-2023 Tobacco smoking status NHIS Never smoked tobacco [facility] Start: 07-05-2017 End: 09-18-2022 Tobacco use and exposure Smokeless tobacco non-user [facility] Start: 09-12-2021 End: 01-29-2024 Alcohol intake Current drinker of alcohol (finding) [facility] Start: 08-15-2016 History SDOH Alcohol Comment socially- split bottle wine with dinner 3-5 times a week [facility] Start: 1955 Sex Assigned At Not on file [facility] Start: 12-20-2022 Alcohol Comment 7 /week wine w dinne r [facility] Start: 06-10-2019 End: 12-20-2022 History of Social function [facility] Start: 06-10-2019 End: 12-20-2022 Tobacco use panel [facility] PHQ2 Score 0 [facility] Medical Equipment Procedure Code Equipment Code Equipment Origin al Text Equipment Identifier Dates [id number] Accolade Mri [id number] Start: 06-11-2019 [id number] RosangelaSupplyBid Mri [id number] Start: 06-11-2019 [id number] Socrative Mri [id number]_[facility] Start: 06-11-2019 Goals Date Patient Goal Desired Activity /State Personal health goal Functional Status Date Assessment Result Facility 06-12-2019 Are you deaf, or do you have serious difficulty hearing No 06/12/2019 2:01 PM Melissa Freire RN No [facility] 06-12-2019 Are you blind, or do you have serious difficulty seeing, even when wearing glasses No 06/12/2019 2:01 PM Melissa Freire, STEPHANIE No [facility] 06-12-2019 Do you have serious difficulty walking or climbing stairs No 06/12/2019 2:01 PM Melissa Freire RN No [facility] 06-12-2019 Do you have difficul ty dressing or bathing No 06/12/2019 2:01 PM Melissa Freire, STEPHANIE No [facility] 06-12-2019 Because of a physica l, mental, or emotional condition, do you have difficulty doing errands alone such as visiting a physician's office or shopping No 06/12/2019 2:01 PM Melissa Freire RN No [facility] Mental Status Date Assessment Result Facility 06-12-2019 Because of a physica l, mental, or emotional condition, do you have serious difficulty concentrating, remembering, or making decisions No 06/12/2019 2:01 PM Melissa Freire, STEPHANIE No [facility] Clinical Notes 06-15-2019 to 02-10-2025 Darío Gomez MD - 02/10/2025 2:30 PM Alma López MD - 12/02/2024 2:00 PM EDT Note Date & Type Note Facility 02-10-2025 History of Present illness Narrative Images from the original note were not included. [facility] [place] Kei [facility] Department of Cardiovascular Medicine SECTION OF CARDIAC PACING and ELECTROPHYSIOLOGY OUTPATIENT VISIT DATE February 10, 2025 OUTPATIENT VISIT TYPE ESTABLISHED PRIMARY CARE PHYSICIAN: Lazaro Degroot [address] [place] [address] REFERRING PHYSICIAN: Darío Gomez [address] [facility] [address] CHIEF COMPLAINT: Device management HISTORY OF PRESENT ILLNESS (includes nursing intake): Mr. Mccarty is a 69 year old male who presents today for follow-up visit and device management. 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 He is an established patient of Dr. Gomez, last seen in January 2024 for device management. He had reported no recurrent syncope and was doing well. He continues to follow with Dr. Caballero. He had an echocardiogram and stress done locally which were reportedly normal Patient reports feeling well and denies any complaint. He denies chest pain, shortness of breath, orthopnea, cough, edema, palpitations, PND, lightheadedness or syncope. 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 VSD (ventricular septal defect) 03/03/2018 PAST SURGICAL HISTORY Procedure Laterality Date CLSR 1 VENTRICULAR SEPTAL DEFECT W/WO PATCH 1960 [facility] COL[facility] FLX DX W/COLLJ SPEC WHEN [...] 50 mg by mouth once daily. calcium-vits N9-N-Z8-minerals 166.75 mg- 166.75 unit cap CALCIUM 600 MG TABS multivitamin tablet MULTIVITAMINS TABS fluticasone propionate (FLONASE NASAL) Use in the nose as needed. esomeprazole (NEXIUM) 20 mg capsule Take 20 mg by mouth once daily. sumatriptan succinate(IMITREX 100 MG TAB) as necessary aspirin(ASPIR-LOW 81 MG TAB) Take one(1) tablet daily. Elena Long RN I personally examined the patient and repeated the watters components of the exam and cardiac history, past medical and surgical history, social and family history. The assessment and plan were formulated and discussed with the patient. PHYSICAL EXAMINATION:HR 60 RR 14 Affect normal Oriented x3 GA NAD HENT unremarkable, No thyroidal bruit Abd Soft Ext No edema Skin warm, moist Lungs Clear Heart nl S1, S2 Motor 5/5 CARDIOVASCULAR MEDICINE TESTING: Device Check 02/10/25: In-Office Device Evaluation * Device type: DUAL LEAD PACEMKER * Presenting Rhythm: AP/VS * Underlying Rhythm: SINUS MARYLOU * Battery Status: Battery is at Battery is at 100.0%, 9.5yrs. * Atrial Arrhythmias: There have been __1 new__ atrial detections. Anticoagulants listed: ___no__ * Ventricular Arrhythmias: There have been _0__ ventricular detections. * Lead Measurements: Capture thresholds and sensing are appropriate. The pacing outputs maintain safety margin. Lead impedance trends are normal. * Other Diagnostics: AP 35% VP1% * Programming Changes Made Today: NO * Follow Up: OPD APPT with Dr. Gomez Non-sustained Tachycardia: AF * Stored EGMs are consistent with or suggestive of non-sustained Atrial Fibrillation * Total episodes: 1 Echocardiogram 12/20/2022: CONCLUSIONS: - Exam indication: VSD repair (1958) - [...] significant changes are noted. PLAN AND RECOMMENDATIONS: Advanced AV block: - Paroxysmal - s/p dual chamber PPM - 2019 - V pacing 1% - rate histogram is good - No recurrent syncope 2. SSS: - s/p PAcer A pacing 5% 2. Dual Chamber PPM : - the device shows reasonably stable parameter, continue with remote checks and a yearly clinic visit. - The pacer and leads are performing well 3. VSD: - s/p repair - Follows with Dr. Caballero. - normal EF per patient I personally interviewed, confirmed and edited the above information as obtained by others. CONTACT INFORMATION: Darío Gomez MD documented in this encounter [facility] 02-10-2025 Note HNO ID: [id number] Author: DARÍO GOMEZ MD Service: ? Author Type: Physician Type: Progress Notes Filed: 02/10/2025 14:40 Note Text: [facility] [place] [facility] Department of Cardiovascular Medicine SECTION OF CARDIAC PACING and ELECTROPHYSIOLOGY OUTPATIENT VISIT DATE February 10, 2025 OUTPATIENT VISIT TYPE ESTABLISHED PRIMARY CARE PHYSICIAN: Lazaro Degroot [address] [place] [address] REFERRING PHYSICIAN: Darío Gomez [address] [facility] [address] CHIEF COMPLAINT: Device management HISTORY OF PRESENT ILLNESS (includes nursing intake): Mr. Mccarty is a 69 year old male who presents today for follow-up visit and device management. 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 He is an established patient of Dr. Gomez, last seen in January 2024 for device management. He had reported no recurrent syncope and was doing well. He continues to follow with Dr. Caballero. He had an echocardiogram and stress done locally which were reportedly normal Patient reports feeling well and denies any complaint. He denies chest pain, shortness of breath, orthopnea, cough, edema, palpitations, PND, lightheadedness or syncope. PAST MEDICAL HISTORY Diagnosis Date Arrhythmia BBB [...] SEPTAL DEFECT W/WO PATCH 1959 COLONOSCOPY 2012 [facility] COLONOSCOPY FLX DX W/COLLJ SPEC WHEN [...] 50 mg by mouth once daily. calcium-vits C9-U-Q7-minerals 166.75 mg- 166.75 unit cap CALCIUM 600 MG TABS multivitamin tablet MULTIVITAMINS TABS fluticasone propionate (FLONASE NASAL) Use in the nose as needed. esomeprazole (NEXIUM) 20 mg capsule Take 20 mg by mouth once daily. sumatriptan succinate(IMITREX 100 MG TAB) as necessary aspirin(ASPIR-LOW 81 MG TAB) Take one(1) tablet daily. Elena Long RN I personally examined the patient and repeated the watters components of the exam and cardiac history, past medical and surgical history, social and family history. The assessment and plan were formulated and discussed with the patient. PHYSICAL EXAMINATION:HR 60 RR 14 Affect normal Oriented x3 GA NAD HENT unremarkable, No thyroidal bruit Abd Soft Ext No edema Skin warm, moist Lungs Clear Heart nl S1, S2 Motor 5/5 CARDIOVASCULAR MEDICINE TESTING: Device Check 02/10/25: In-Office Device Evaluation * Device type: DUAL LEAD PACEMKER * Presenting Rhythm: AP/VS * Underlying Rhythm: SINUS MARYLOU * Battery Status: Battery is at Battery is at 100.0%, 9.5yrs. * Atrial Arrhythmias: There have been __1 new__ atrial detections. Anticoagulants listed: ___no__ * Ventricular Arrhythmias: There have been _0__ ventricular detections. * Lead Measurements: Capture thresholds and sensing are appropriate. The pacing outputs maintain safety margin. Lead impedance trends are normal. * Other Diagnostics: AP 35% VP1% * Programming Changes Made Today: NO * Follow Up: OPD APPT with Dr. Gomez Non-sustained Tachycardia: AF * Stored EGMs are consistent with or suggestive of non-sustained Atrial Fibrillation * Total epis (more content not included)... [facility] 12-02-2024 History of Present illness Narrative [facility] ESTABLISHED PATIENT [...] 6.78 (H) 08/07/2019 4.75 (H) URINALYSIS: Specific [place], Ur Date Value Ref Range Status 12/04/2023 [...] 50 mg by mouth once daily. calcium-vits Q1-Y-F0-minerals 166.75 mg- 166.75 unit cap CALCIUM 600 [...] SEPTAL DEFECT W/WO PATCH 1959 COLONOSCOPY 2012 COLONOSCOPY FLX DX W/COLLJ SPEC [...] with cialis 20mg. RTC in 1 year. ICece, performed data extraction and record review under [...] 4 - Moderate documented in this encounter [facility] 12-02-2024 Note HNO ID: [id number] Author: ALMA STEPHENSON MD Service: ? Author Type: Physician Type: Progress Notes Filed: 12/02/2024 13:56 Note Text: [facility] ESTABLISHED PATIENT [...] 6.78 (H) 08/07/2019 4.75 (H) URINALYSIS: Specific [place], Ur Date Value Ref Range Status 12/04/2023 [...] 50 mg by mouth once daily. calcium-vits D4-F-L8-minerals 166.75 mg- 166.75 unit cap CALCIUM 600 [...] the ROS w (more content not included)... [facility] 12-02-2024 Note Patient Outreach (UR OLMN) LOGAN MCCARTY ([id number]) 1955 M Date Time Provider Department 12/02/24 ALMA STEPHENSON During your visit today, we recorded the following information about you: Allergies As of Date: 12/02/2024 (No Known Allergies) Date Reviewed: 12/02/2024 Reviewed by: Marie Snyder OCCA - Fully Assessed Visit Diagnosis:Screening for genitourinary condition [Z13.89] Order(s):UA DIP, URINE (POC) [[id number]] Order #: [id number] FUTURE Prescriptions as of 2024 - Tadalafil [...] mg by mouth once daily. - calcium-vits G8-B-L1-minerals 166.75 mg- 166.75 unit cap CALCIUM 600 [...] Primary hypertension [I10] 12/21/2022 Encounter Status:Closed by CHICO PRODUSER on 12/07/24 [facility] 11-26-2024 Evaluation note Diagnosis Onset Date Resolution Essential hypertension chronic November 26, 2024 1:06pm History of permanent cardiac pacemaker placement June 15, 2019 chronic November 26, 2024 1:06pm HLD (hyperlipidemia) chronic November 26, 2024 1:06pm [facility] Work Phone: 1(355) 843-951902-25-2025 Evaluation note* Diagnosis Onset Date Resolution Status Admit Date Abdominal pain chronic August 232024 1:52pm Diverticulosis chronic August 232024 1:52pm Essential hypertension chronic 2024 1:06pm History of permanent cardiac pacemaker placement June 15, 2019 chronic November 26 1:06pm HLD (hyperlipidemia) chronic November 26, 2024 1:06pm [facility] Work Phone: 1(923) 714-979201-23-2025 Telephone encounter Note* Telephone Encounter - Sukh Smallwood - 08/13/2024 11:52 AM EST Call from patient requesting refill. Requested Prescriptions Pending Prescriptions Disp Refills Tadalafil (CIALIS) 5 mg tablet 90 tablet 1 Sig: Take 1 tablet by mouth as needed. dutasteride (AVODART) 0.5 mg capsule 90 capsule 3 Sig: Take 1 capsule by mouth once daily. Patient last seen 12/04/2023 Sukh Smallwood [facility]01-23-2025 Miscellaneous Notes* Telephone Encounter - Sukh Smallwood [...] seen 12/04/2023 Sukh Smallwood documented in this [facility] History of Present illness Narrative* Darío Gomez MD - 01/29/2024 3:54 PM EDT Images from the original note were not included. [facility] [place] [facility] Department of Cardiovascular Medicine SECTION OF CARDIAC PACING and ELECTROPHYSIOLOGY OUTPATIENT VISIT DATE January 29, 2024 OUTPATIENT VISIT TYPE ESTABLISHED PRIMARY CARE PHYSICIAN: Lazaro Degroot [address] [facility] [address] [place] [address] REFERRING PHYSICIAN: Darío Gomez [address] [facility] [address] CHIEF COMPLAINT: Device management HISTORY OF PRESENT [...] SEPTAL DEFECT W/WO PATCH 1959 COLONOSCOPY 2012 [facility] COLONOSCOPY FLX DX W/COLLJ SPEC WHEN [...] 50 mg by mouth once daily. calcium-vits P2-G-I6-minerals 166.75 mg- 166.75 unit cap CALCIUM 600 [...] INFORMATION: Darío Gomez MD documented in [facility] encounter[facility] Telephone encounter Note * Telephone Encounter - Jamilah Saldaña - 01/15/2024 8:00 AM EDT Requested Prescriptions Pending Prescriptions Disp Refills dutasteride (AVODART) 0.5 mg capsule 90 capsule 3 Sig: Take 1 capsule by mouth once daily. [facility]06-26-2024 Miscellaneous Notes* Telephone Encounter - Jamilah Saldaña - 01/15/2024 8:00 AM EDT Requested Prescriptions Pending Prescriptions Disp Refills dutasteride (AVODART) 0.5 mg capsule 90 capsule 3 Sig: Take 1 capsule by mouth once daily. documented in this encounterUniversity [facility] History of Present illness Narrative* Alma Stephenson MD - 12/04/2023 4:45 PM EDT [facility] ESTABLISHED PATIENT [...] 6.78 (H) 08/07/2019 4.75 (H) URINALYSIS: Specific [place], Ur Date Value Ref Range Status 12/04/2023 [...] 50 mg by mouth once daily. calcium-vits A9-Z-K7-minerals 166.75 mg- 166.75 unit cap CALCIUM 600 [...] SEPTAL DEFECT W/WO PATCH 1960 COLONOSCOPY 2012 [facility] COLONOSCOPY FLX DX W/COLLJ SPEC WHEN [...] which included preparing to see the patient, [id number] patient care, completing clinical documentation, and obtaining [...] the presence of Dr. Stephenson Electronically signed, Kevin Wallaceibto STAFF PHYSICIAN NOTE OF PERSONAL INVOLVEMENT IN CARE The above noted history, physical, assessment and plan were reviewed with the provider and criticalportions of the H&P were confirmed. I evaluated and examined the patient and agree with the plan above and provided direct supervision of the above provider during this patient's care. Alma Stephenson MD documented in this encounterUniversity [facility] History of Present illness Narrative* Lulú Caballero MD - 12/20/2022 12:45 PM EDT Images from the original note were not included. [facility] [place] [facility] OUTPATIENT VISIT DATE December 20, 2022 OUTPATIENT VISIT TYPE ESTABLISHED PRIMARY CARE PHYSICIAN: Lazaro Degroot MD [address] [place] [id number] CHIEF COMPLAINT: Follow up CONGENITAL CARDIAC HISTORY: Ventricular septal defect 08/03/1959 - s/p suture closure of 6x3 mm VSD. Challenging repair due to difficulty visualizing the defect, required two bypass runs (Dr. Dewitt, [facility]). Operative report in [facility] under Scanned Docs, scanned on 10/25/16. 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 Mccarty presents for follow up evaluation. I last saw him 12/2020. Since then he reports he has largely been well and is enjoying his penitentiary, spending lots of time with his grandchildren. 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 FAMILY HISTORY Problem Relation Age of [...] mg by mouth once daily.^Disp: ^Rfl: calcium-vits H7-G-J9-minerals 166.75 mg- 166.75 unit cap^CALCIUM 600 MG [...] and Echocardiogram. 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 [...] at home, he will contact his home machinist 2nd shift if still running high - I will help coordinate his follow up visit with Dr. Gomez - Return to [facility] clinic in 2 years I spent a total of 45 minutes on the date of the service which included preparing to see the patient, [id number] patient care, completing clinical documentation, obtaining and/or reviewing separately obtained history, performing a medically appropriate examination, counseling and educating the pat ient/family/caregiver, ordering medications, tests, or procedures, communicating with other HCPs (not separately reported), independently interpreting results (not separately reported), and care coordination (not separately reported). Lulú Caballero MD Adult Congenital Heart Disease [facility] [place] [facility] Desk J2-9 Appointments: [phone] documented in this encounterUniversity Hospitals Conneaut Medical Center02-28-2023 NoteHNO ID: [id number] Author: Alma Stephenson MD Service: ? Author Type: Physician Type: Progress Notes Filed: 09/18/2022 9:55 AM Note Text: [facility] ESTABLISHED PATIENT [...] 6.78 (H) 08/07/2019 4.75 (H) URINALYSIS: Specific [place], Ur Date Value Ref Range Status 02/15/2016 [...] 50 mg by mouth once daily. calcium-vits P1-N-I3-minerals 166.75 mg- 166.75 unit cap CALCIUM 600 [...] VENTRICULAR SEPTAL DEFECT W/WO PATCH [facility]X [facility] W/COLLJ SPEC WHEN [...] OF SYSTEMS (more content not included)...[id number] Miscellaneous Notes* Telephone Encounter - Brady Chandra [facility] - 09/06/2022 8:34 AM EST Plan/Patient s insurance requests 90 day supplies on maintenance medications for Home Delivery suchas: Please see the attached order for Requested Prescriptions Pending Prescriptions Disp Refills Tadalafil (CIALIS) 5 mg tablet 90 tablet 1 Sig: Take 1 tablet by mouth as needed. If appropriate, e-script to [facility]. Thank you, Brady Chandra [facility] [phone] documented in this encounterUniversity Hospitals Conneaut Medical Center09-14-2022 History of Present illness Narrative* Alma Stephenson MD - 04/04/2022 5:00 PM EDT [facility] VIRTUAL VISIT [...] 6.78 (H) 08/07/2019 4.75 (H) URINALYSIS: Specific [place], Ur Date Value Ref Range Status 02/15/2016 [...] 50 mg by mouth once daily. calcium-vits T3-F-X7-minerals 166.75 mg- 166.75 unit cap CALCIUM 600 [...] which included preparing to see the patient, [id number] patient care, and completing clinical documentation. Alma Stephenson MD documented in this encounterUniversity Hospitals Conneaut Medical Center09-09-2022 Miscellaneous Notes* Telephone Encounter - Ana Lisa Starr - 03/30/2022 3:32 PM EDT I have responded to patient via [employer]. 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 [facility] Work Phone: 1(464) 552-602911-25-2019 Evaluation note* Diagnosis Onset Date Resolution Status Essential hypertension chron ic History of permanent cardiac pacemaker placement June 15, 2019 chronic HLD (hyperlipidemia) chronic High degree atrioventricular block chronic History of permanent cardiac pacemaker placement June 15, 2019 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 [facility] Work Phone: 1(416) 948-618211-25-2019 Evaluation note* Diagnosis Onset Date Resolution Status High degree atrioventricular block chronic History of permanent cardiac pacemaker placement June 15, 2019 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 Abdominal pain chronic Diverticulosis chronic High degree atrioventricular block chronic History of permanent cardiac pacemaker placement June 15, 2019 [facility] Work Phone: 1(792) 815-769211-25-2019 Evaluation note* Diagnosis Onset Date Resolution Status Essential hypertension chron ic History of permanent cardiac pacemaker placement June 15, 2019 chronic HLD (hyperlipidemia) [facility] Work Phone: [facility] note* Diagnosis 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 urinary obstruction and other lower urinary tract symptoms (LUTS) [facility] Diagnosis Erectile dysfunction, unspecified erectile dysfunction type- Primary [facility]* Diagnosis S/P VSD repair- Primary Other postprocedural status documented in this encounter [facility] note* Diagnosis Elevated PSA- Primary Elevated prostate specific antigen (PSA) documented in this encounter [facility] note* Diagnosis VSD (ventricular septal defect)- Primary Ventricular septal defect Heart block AV complete (HCC) Atrioventricular block, complete Primary hypertension Unspecified essential hypertension [facility]* Diagnosis SOB (shortness of breath)- Primary Shortness of breath [facility]* Diagnosis VSD (ventricular septal defect)- Primary Ventricular septal defect [facility]* Diagnosis Elevated PSA- Primary Elevated prostate specific antigen (PSA) [facility]* Diagnosis BPH with obstruction/lower urinary tract symptoms- Primary Hypertrophy of prostate with urinary obstruction and other lower urinary tract symptoms (LUTS) Erectile dysfunction, unspecified erectile dysfunction type Elevated PSA Elevated prostate specific antigen (PSA) [facility]* Diagnosis Screening for genitourinary condition Screening for other and unspecified genitourinary condition documented in this encounter [facility] note* Diagnosis 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 urinary obstruction and other lower urinary tract symptoms (LUTS) Pacemaker reprogramming/check Fitting and adjustment of cardiac pacemaker documented in this encounter [facility] note* Diagnosis Heart block AV complete (HCC) Atrioventricular block, complete Vascular dilatation (HCC) Peripheral vascular disease, unspecified documented in this encounter [facility]* Diagnosis Pacemaker reprogramming/check Fitting and adjustment of cardiac pacemaker [facility]* Diagnosis 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 urinary obstruction and other lower urinary tract symptoms (LUTS) [facility]* Diagnosis BPH with obstruction/lower urinary tract symptoms- Primary Hypertrophy of prostate with urinary obstruction and other lower urinary tract symptoms (LUTS) Elevated prostate specific antigen (PSA) Erectile dysfunction, unspecified erectile dysfunction type documented in this encounter [facility]* Diagnosis BPH with obstruction/lower urinary tract symptoms- Primary Hypertrophy of prostate with urinary obstruction and other lower urinary tract symptoms (LUTS) Elevated prostate specific antigen (PSA) Erectile dysfunction, unspecified erectile dysfunction type Screening for genitourinary condition Screening for other and unspecified genitourinary condition documented in this encounter [facility]* Diagnosis Palpitation- Primary Palpitations documented in this encounter [facility]* Diagnosis Pacemaker reprogramming/check Fitting and adjustment of cardiac pacemaker documented in this encounter [facility]* Diagnosis VSD (ventricular septal defect) (HCC) Ventricular septal defect documented in this encounter [facility]* Diagnosis 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 urinary obstruction and other lower urinary tract symptoms (LUTS) documented in this encounter [facility] for referral (narrative)* Outpatient Procedure (Routine) - Authorized Specialty Diagnoses / Procedures Referred By Contac Referred To Contact [facility] Diagnoses S/P VSD repair Procedures ECHO ECHO TTHRC R-T 2D W/WOM-MODE COMPL SPEC&COLR D Lulú Caballero MD [address] [place] [address] [address] Referral ID Status Reason Start Date Expiration Date Visits Requested Visits Authorized [id number] Authorized Auto-Generat ed Referral 2 07/03/2023 1 1 * Outpatient Procedure (Routine) - Authorized Specialty Diagnoses / Procedures Referred By Contac t Referred To Contact [facility] Diagnoses S/P VSD repair Procedures ECG COMPLETE ECG ROUTINE ECG W/LEAST 12 LDS W/I&R Lulú Caballero MD [address] [place] [address] [address] Referral ID Status Reason Start Date Expiration Date Visits Requested Visits Authorized [id number] Authorized Auto-Generat ed Referral 2 07/03/2023 1 1 [facility] for referral (narrative)* Outpatient Procedure (Routine) - Pending Review Specialty Diagnoses / Procedures Referred By Jerzy stone Referred To Contact [facility] Diagnoses VSD (ventricular septal defect) Procedures ECG COMPLETE ECG ROUTINE ECG W/LEAST 12 LDS W/I&R Lulú Caballero MD [address] [place] [address] [address] Referral ID Status Reason Start Date Expiration Date Visits Requested Visits Authorized [id number] Pending Review Auto-Generat ed Referral 12/21/2022 12/21/2023 1 1 * Outpatient Procedure (Routine) - Pending Review Specialty Diagnoses / Procedures Referred By Jerzy stone Referred To Contact [facility] Diagnoses VSD (ventricular septal defect) Procedures ECHO SPECIALIST COMPLEX ADULT CONGENITAL ECHO TTHRC R-T 2D W/WOM-MODE COMPL SPEC&COLR D Lulú Caballero MD [address] [place] [address] [address] [place] [address] Referral ID Status Reason Start Date Expiration Date Visits Requested Visits Authorized [id number] Pending Review Auto-Generat ed Referral 12/21/2022 12/21/2023 1 1 [facility] for referral (narrative)* Outpatient Procedure (Routine) - Pending Review Specialty Diagnoses / Procedures [facility] Referred To Contact [facility] Diagnoses SOB (shortness of breath) Procedures ECG COMPLETE ECG ROUTINE ECG W/LEAST 12 LDS W/I&R Darío Gomez MD [address] [facility] [place] [address] [address] Referral ID Status Reason Start Date Expiration Date Visits Requested Visits Authorized [id number] Pending Review Auto-Generat ed Referral 12/24/2022 12/24/2023 1 1 [facility] for referral (narrative)* Outpatient Procedure (Routine) - Authorized Specialty Diagnoses / Procedures Referred By Contac t Referred To Contact [facility] Diagnoses VSD (ventricular septal defect) Procedures ECG COMPLETE ECG ROUTINE ECG W/LEAST 12 LDS W/I&R Darío Gomez MD [address] [place] [address] [address] Referral ID Status Reason Start Date Expiration Date Visits Requested Visits Authorized [id number] Authorized Auto-Generat ed Referral 09/13/2023 09/12/2024 1 1 [facility] for referral (narrative)* Outpatient Procedure (Routine) - Closed Specialty Diagnoses / Procedures Referred By Contac t Referred To Contact [facility] Diagnoses Pacemaker reprogramming/check Procedures CARDIAC IMPLANTABLE DEVICE CHECK Card Ep Device [facility] Main [id number] [place] [address] Referral ID Status Reason Start Date Expiration Date V isits Requested Visits Authorized [id number] Closed Auto-Generate d Referral 12/09/2023 12/08/2024 1 1 * Outpatient Procedure (Routine) - Closed Specialty Diagnoses / Procedures Referred By Contac t Referred To Contact [facility] Diagnoses Pacemaker reprogramming/check Procedures CARDIAC IMPLANTABLE DEVICE CHECK Card Ep Device Clinic Main [address] [place] [address] [facility] [address] [place] [address] Referral ID Status Reason Start Date Expiration Date V isits Requested Visits Authorized [id number] Closed Auto-Generate d Referral 12/09/2023 12/08/2024 1 1 [facility] for referral (narrative)No reason for referral information availableWCleveland [facility]: [facility] Transition of Care (Routine) - Authorized Specialty Diagnoses / Procedures Referred By Contac t Referred To Contact [facility] Procedures CARDIOVASCULAR MEDICINE OP FOLLOW UP APPT ORDER Darío Gomez MD [facility] [place] [address] Phone: tel: fax: [address] [address] Referral ID Status Reason Start Date Expiration Date Visits Requested Visits Authorized [id number] Authorized PCP Requested Referral 02/10/2025 02/10/2026 1 1 [facility] for visit Narrative* Outpatient Procedure (Routine) - Closed Specialty Diagnoses / Procedures Referred By Contac t Referred To Contact [facility] Diagnoses Pacemaker reprogramming/check Procedures CARDIAC IMPLANTABLE DEVICE CHECK Card Ep Device Clinic Main [address] [place] [address] [address] Referral ID Status Reason Start Date Expiration Date V isits Requested Visits Authorized [id number] Closed Auto-Generate d Referral 12/09/2023 12/08/2024 1 1 [facility] for visit Narrative* Transition of Care (Routine) - Closed Specialty Diagnoses / Procedures Referred By Contac t Referred To Contact [facility] Procedures CARDIOVASCULAR MEDICINE OP FOLLOW UP APPT ORDER Darío Gomez MD [address] [place] [address] Phone: tel: fax: [facility] [address] [address] Referral ID Status Reason Start Date Expiration Date V isits Requested Visits Authorized [id number] Closed PCP Requested Referral 10/30/2024 01/28/2025 1 1 [facility] for visit Narrative* Outpatient Procedure (Routine) - Closed Specialty Diagnoses / Procedures Referred By Jerzy stone Referred To Contact [facility] Diagnoses Pacemaker reprogramming/check Procedures CARDIAC IMPLANTABLE DEVICE CHECK Cardiology [address] [place] [address] Phone: tel: [address] [address] Referral ID Status Reason Start Date Expiration Date V isits Requested Visits Authorized [id number] Closed Auto-Generate d Referral 08/18/2024 08/18/2025 1 1 [facility] Center[facility] for visit Narrative* Outpatient Procedure (Routine) - Closed Specialty Diagnoses / Procedures Referred By Jerzy stone Referred To Contact [facility] Diagnoses VSD (ventricular septal defect) ([facility]) Procedures ECG COMPLETE ECG ROUTINE ECG W/LEAST 12 LDS W/I&R Lulú Caballero MD [address] [place] [address] Phone: tel: fax: [address] [address] Referral ID Status Reason Start Date Expiration Date V isits Requested Visits Authorized [id number] Closed Auto-Generate d Referral 12/21/2022 12/21/2023 1 1 [facility] Summary Purpose Family History No Family History [...] No January 01, 2023 12:57pm Power of Embroidery Designer No January 01 12:57pm Advance Directive Response Recorded Date/ Time Living Will No January 01, 2023 1:57pm Do you have a Healthcare Power of Embroidery Designer? No January 01, 2023 1:57pm Chief Complaint [...] 2024 4:0 1am 1 y fu w FIRE ALARM TECHNICIAN per FIRE ALARM TECHNICIAN November 26, 2024 1:06p m INT LAB ORDERS November 26, 2024 1:39pm Reason for Visit Admit Date Abdominal pain September 15, 2024 1:52pm Diverticulosis September 15, 2024 1:52pm Essential hypertension November 26, 2024 1:0 6pm History of permanent cardiac pacemaker p lacement November 26, 2024 1:06pm HLD (hyperlipidemia) November 26, 2024 1:06p m Chief Complaint Admit Date Pacer Check Remote November 18, 2024 4:0 1am 1 y fu w FIRE ALARM TECHNICIAN per FIRE ALARM TECHNICIAN November 26, 2024 1:06p m INT LAB ORDERS November 26, 2024 1:39pm FRIEND 2024 7:46a m PRESENCE OF CARDIAC PACEMAKER January 11, 2025 6:13am Reason for Visit Admit Date Essential hypertension November 26, 2024 1:0 6pm History of permanent cardiac pacemaker p lacement November 26, 2024 1:06pm HLD (hyperlipidemia) November 26, 2024 1:06p m Chief Complaint Admit Date Pacer Check Remote November 18, 2024 4:0 1am 1 y fu w FIRE ALARM TECHNICIAN per FIRE ALARM TECHNICIAN November 26, 2024 1:06p m INT LAB ORDERS November 26, 2024 1:39pm FRIEND 2024 7:46a m PRESENCE OF CARDIAC PACEMAKER January 11, 2025 6:13am Pacer Check Remote February 17, 2025 4:44 am Reason for Referral Specialty Diagnoses / Procedures Referred By Jerzy stone Referred To Contact [facility] Procedures CARDIOVASCULAR MEDICINE OP FOLLOW UP APPT ORDER Darío Gomez MD [address] [place] [address] [place] [address] Referral ID Status Reason Start Date Expiration Date Visits Requested Visits Authorized [id number] Ref Not Required PCP Requested Referral 10/30/2024 01/28/2025 1 1 Specialty Diagnoses / Procedures Referred By Jerzy stone Referred To Contact Diagnoses BPH with obstruction/lower urinary tract symptoms Lia Andrade APRN.BUS TRANSPORTATION MANAGER [address] [place] [address] Referral ID Status Reason Start Date Expiration Date V isits Requested Visits Authorized [id number] Pending Review 1 1 Additional Source Comments (unrecognized sect ion and content) No Status Records FoundNo Status Records FoundNo Status Records FoundNo Status Records FoundNo Status Records Found INFORMATION SOURCE (unrecogn ized section and content) DATE CREATED AUTHOR 01/14/2018 [facility] DATE CREATED AUTHOR AUTHOR'S ORGANIZ ATION 10/15/2020 [facility] DATE CREATED AUTHOR AUTHOR'S ORGANIZ ATION 09/19/2022 [facility] DATE CREATED AUTHOR AUTHOR'S ORGANIZ ATION 03/17/2025 [facility] DATE CREATED AUTHOR AUTHOR'S ORGANIZ ATION 04/04/2025 [facility] Goals (unrecognized section and content) Goals may [...] or prosecute any alcohol or drug abuse patient.[facility] CenterIn the event this information is protected by the Federal Confidentiality of Alcohol and Drug Abuse Patient Records regulations: The Federal rules restrict any use of the information to criminally investigate or prosecute any alcohol or drug abuse patient.[facility] CenterIn the event this information is protected by the Federal Confidentiality of Alcohol and Drug Abuse Patient Records regulations: The Federal rules restrict any use of the information to criminally investigate or prosecute any alcohol or drug abuse patient.[facility] CenterIn the event this information is protected by the Federal Confidentiality of Alcohol and Drug Abuse Patient Records regulations: The Federal rules restrict any use of the information to criminally investigate or prosecute any alcohol or drug abuse patient.[facility] CenterIn the event this information is protected by the Federal Confidentiality of Alcohol and Drug Abuse Patient Records regulations: The Federal rules restrict any use of the information to criminally investigate or prosecute any alcohol or drug abuse patient.[facility] CenterIn the event this information is protected by the Federal Confidentiality of Alcohol and Drug Abuse Patient Records regulations: The Federal rules restrict any use of the information to criminally investigate or prosecute any alcohol or drug abuse patient.[facility] CenterIn the event this information is protected by the Federal Confidentiality of Alcohol and Drug Abuse Patient Records regulations: The Federal rules restrict any use of the information to criminally investigate or prosecute any alcohol or drug abuse patient.[facility] CenterIn the event this information is protected by the Federal Confidentiality of Alcohol and Drug Abuse Patient Records regulations: The Federal rules restrict any use of the information to criminally investigate or prosecute any alcohol or drug abuse patient.[facility] CenterIn the event this information is protected by the Federal Confidentiality of Alcohol and Drug Abuse Patient Records regulations: The Federal rules restrict any use of the information to criminally investigate or prosecute any alcohol or drug abuse patient.[facility] CenterIn the event this information is protected by the Federal Confidentiality of Alcohol and Drug Abuse Patient Records regulations: The Federal rules restrict any use of the information to criminally investigate or prosecute any alcohol or drug abuse patient.[facility] CenterIn the event this information is protected by the Federal Confidentiality of Alcohol and Drug Abuse Patient Records regulations: The Federal rules restrict any use of the information to criminally investigate or prosecute any alcohol or drug abuse patient.[facility] CenterIn the event this information is protected by the Federal Confidentiality of Alcohol and Drug Abuse Patient Records regulations: The Federal rules restrict any use of the information to criminally investigate or prosecute any alcohol or drug abuse patient.[facility] CenterIn the event this information is protected by the Federal Confidentiality of Alcohol and Drug Abuse Patient Records regulations: The Federal rules restrict any use of the information to criminally investigate or prosecute any alcohol or drug abuse patient.[facility] CenterIn the event this information is protected by the Federal Confidentiality of Alcohol and Drug Abuse Patient Records regulations: The Federal rules restrict any use of the information to criminally investigate or prosecute any alcohol or drug abuse patient.[facility] CenterIn the event this information is protected by the Federal Confidentiality of Alcohol and Drug Abuse Patient Records regulations: The Federal rules restrict any use of the information to criminally investigate or prosecute any alcohol or drug abuse patient.[facility] CenterIn the event this information is protected by the Federal Confidentiality of Alcohol and Drug Abuse Patient Records regulations: The Federal rules restrict any use of the information to criminally investigate or prosecute any alcohol or drug abuse patient.[facility] CenterIn the event this information is protected by the Federal Confidentiality of Alcohol and Drug Abuse Patient Records regulations: The Federal rules restrict any use of the information to criminally investigate or prosecute any alcohol or drug abuse patient.[facility] CenterIn the event this information is protected by the Federal Confidentiality of Alcohol and Drug Abuse Patient Records regulations: The Federal rules restrict any use of the information to criminally investigate or prosecute any alcohol or drug abuse patient.[facility] CenterIn the event this information is protected by the Federal Confidentiality of Alcohol and Drug Abuse Patient Records regulations: The Federal rules restrict any use of the information to criminally investigate or prosecute any alcohol or drug abuse patient.[facility] CenterIn the event this information is protected by the Federal Confidentiality of Alcohol and Drug Abuse Patient Records regulations: The Federal rules restrict any use of the information to criminally investigate or prosecute any alcohol or drug abuse patient.[facility] CenterIn the event this information is protected by the Federal Confidentiality of Alcohol and Drug Abuse Patient Records regulations: The Federal rules restrict any use of the information to criminally investigate or prosecute any alcohol or drug abuse patient.[facility] CenterIn the event this information is protected by the Federal Confidentiality of Alcohol and Drug Abuse Patient Records regulations: The Federal rules restrict any use of the information to criminally investigate or prosecute any alcohol or drug abuse patient.[facility] CenterIn the event this information is protected by the Federal Confidentiality of Alcohol and Drug Abuse Patient Records regulations: The Federal rules restrict any use of the information to criminally investigate or prosecute any alcohol or drug abuse patient.[facility] Reason for Visit (unrecogniz ed section and content) Reason Onset Date Comments Refill Request 03/12/2022 Reason Comments Follow Up Reason Comments Refill Request Reason Onset Date Comments Refill Request 01/15/2024 Reason Onset Date Comments Refill Request 08/13/2024 Reason Comments Refill Request Care Teams (unrecognized sec tion and content) Contract Runner Relationship Specialty Start Date End Date Quinten, Nirmal S [address] [address] Physician Cardiology 01/14/18 Darío Gomez MD [address] [place], [place] [id number] Primary Staff Physician Cardiology 01/05/20 Lulú Caballero MD [address] [place] [address] Primary Staff Physician Cardiology 01/02/21 Contract Runner Relationship Specialty Start Date End Date Quinten, Nirmal S [address] [address] Physician Cardiology 01/14/18 Darío Gomez MD [address] [place] [address] Primary Staff Physician Cardiology 01/05/20 Lulú Caballero MD [address] [place] [address] Primary Staff Physician Cardiology 01/02/21 Contract Runner Relationship Specialty Start Date End Date Quinten, Driscoll S [address] [address] Physician Cardiology 01/14/18 Darío Gomez MD [address] [place], [place] [id number] Primary Staff Physician Cardiology 01/05/20 Lulú Caballero MD [address] [place], [place] [address] Primary Staff Physician Cardiology 01/02/21 Contract Runner Relationship Specialty Start Date End Date Quinten, Driscoll S [address] [place] [address] Physician Cardiology 01/14/18 Darío Gomez MD [address] [facility] [place] [address] Primary Staff Physician Cardiology 01/05/20 Lulú Caballero MD [address] [place], [place] [id number] Primary Staff Physician Cardiology 01/02/21 Team Status: [...] MD Attending Provider, Referring Pro vider Active Contract Runner Relationship Specialty Start Date End Date Quinten, Driscoll S [address] [place] [address] Physician Cardiology 01/14/18 Darío Gomez MD [address] [place], [place] [id number] Primary Staff Physician Cardiology 01/05/20 Lulú Caballero MD [address] [place] [address] Primary Staff Physician Cardiology 01/02/21 Contract Runner Relationship Specialty Start Date End Date Quinten, Driscoll S [address] [facility] [address] [address] Physician Cardiology 01/14/18 Darío Gomez MD [address] [place] [address] Primary Staff Physician Cardiology 01/05/20 Lulú Caballero MD [address] [place] [address] Primary Staff Physician Cardiology 01/02/21 Team Status: Inactive Member Role Status Dates Dr. Lazaro Degroot MD Primary Care Provider Active Morenita Mancera Active Dr. Nirmal Shipley MD Attending Provider, Referring Pro vider Active Team Status: Inactive Member Role Status Dates Dr. Lazaro Degroot MD Primary Care Provider, Referring Provider Active Tricia Carballo GIMP BUTTONHOLE MACHINE OPERATOR, GIMP BUTTONHOLE MACHINE OPERATOR-C Attending Provider Active Team Status: Inactive Member Role Status Dates Dr. Lazaro Degroot MD Primary Care Provider, Attending Provider Active Lazaro GARNICA Referring Provider Active Team Status: Inactive Member Role Status Dates Dr. Lazaro Degroot MD Primary Care Provider Active Tricia Carballo GIMP BUTTONHOLE MACHINE OPERATOR, GIMP BUTTONHOLE MACHINE OPERATOR-C Attending Provider, Referrin g Provider Active Team Status: Active Member Role Status Dates Dr. Lazaro Degroot MD Primary Care Provider Active Triica Carballo GIMP BUTTONHOLE MACHINE OPERATOR, GIMP BUTTONHOLE MACHINE OPERATOR-C Attending Provider, Referrin g Provider Active Team Status: Inactive Member Role Status Dates Dr. Lazaro Degroot MD Primary Care Provider Active Wilfredo Bro GIMP BUTTONHOLE MACHINE OPERATOR, GIMP BUTTONHOLE MACHINE OPERATOR-C Attending Provider, Referring Pro vider Active Contract Runner Relationship Specialty Start Date End Date Quinten, Driscoll S [address] [facility] [address] [place] [address] Physician Cardiology 01/14/18 Darío Gomez MD [address] [place] [address] Primary Staff Physician Cardiology 01/05/20 Lulú Caballero MD [address] [place] [address] Primary Staff Physician Cardiology 01/02/21 Contract Runner Relationship Specialty Start Date End Date Lazaro Degroot MD [address] [facility] [address] [place] [address] PCP - General Family Medicine 12/21/22 Nirmal Shipley [address] [facility] [address] [place] [address] Physician Cardiology 01/14/18 Darío Gomez MD [address] [place] [address] Primary Staff Physician Cardiology 01/05/20 Lulú Caballero MD [address] [place] [address] Primary Staff Physician Cardiology 01/02/21 Contract Runner Relationship Specialty Start Date End Date Lazaro Degroot MD [address] [facility] [address] [place] [address] PCP - General Family Medicine 12/21/22 Nirmal Shipley MD [address] [place] [address] Physician Cardiology 01/14/18 Darío Gomez MD [address] [place] [address] Primary Staff Physician Cardiology 01/05/20 Lulú Caballero MD [address] [place] [address] Primary Staff Physician Cardiology 01/02/21 Contract Runner Relationship Specialty Start Date End Date Lazaro Degroot MD [address] [place] [address] [address] [place] [address] PCP - General Family Medicine 12/21/22 Nirmal Shipley MD [address] [place] [address] Physician Cardiology 01/14/18 Darío Gomez MD [address] [place], [place] [id number] Primary Staff Physician Cardiology 01/05/20 Lulú Caballero MD [address] [place], [place] [id number] Primary Staff Physician Cardiology 01/02/21 Contract Runner Relationship Specialty Start Date End Date Lazaro Degroot MD [address] [place] [address] [address] [place] [address] PCP - General Family Medicine 12/21/22 Nirmal Shipley MD [address] [place] [address] Physician Cardiology 01/14/18 Darío Gomez MD [address] [place] [address] Primary Staff Physician Cardiology 01/05/20 Lulú Caballero MD [address] [place] [address] Primary Staff Physician Cardiology 01/02/21 Contract Runner Relationship Specialty Start Date End Date Lazaro Degroot MD [address] [place] [address] [address] [place] [address] PCP - General Family Medicine 12/21/22 Nirmal Shipley MD [address] [place], [place] [address] Physician Cardiology 01/14/18 Darío Gomez MD [address] [place], [place] [id number] Primary Staff Physician Cardiology 01/05/20 Lulú Caballero MD [address] [place] [address] Primary Staff Physician Cardiology 01/02/21 Contract Runner Relationship Specialty Start Date End Date Lazaro Degroot MD [address] [place] [address] [address] [place] [address] PCP - General Family Medicine 12/21/22 Nirmal Shipley MD [address] [place] [address] Physician Cardiology 01/14/18 Darío Gomez MD [address] [place], [place] [id number] Primary Staff Physician Cardiology 01/05/20 Lulú Caballero MD [address] [place] [address] Primary Staff Physician Cardiology 01/02/21 Contract Runner Relationship Specialty Start Date End Date Lazaro Degroot MD [address] [place] [address] [address] [place] [address] PCP - General Family Medicine 12/21/22 Nirmal Shipley MD [address] [facility] [address] [place] [address] Physician Cardiology 01/14/18 Darío Gomez MD [address] [place], [place] [id number] Primary Staff Physician Cardiology 01/05/20 Lulú Caballero MD [address] [place] [address] Primary Staff Physician Cardiology 01/02/21 Contract Runner Relationship Specialty Start Date End Date Lazaro Degroot MD [address] [place] [address] [address] [place] [address] PCP - General Family Medicine 12/21/22 Nirmal Shipley MD [address] [address] Physician Cardiology 01/14/18 Darío Gomez MD [address] [place], [place] [id number] Primary Staff Physician Cardiology 01/05/20 Lulú Caballero MD [address] [place], [place] [address] Primary Staff Physician Cardiology 01/02/21 Contract Runner Relationship Specialty Start Date End Date Lazaro Degroot MD [address] [facility] [address] [place] [address] PCP - General Family Medicine 12/21/22 Nirmal Shipley MD [address] [facility] [address] [place] [address] Physician Cardiology 01/14/18 Darío Gomez MD [address] [place], [place] [id number] Primary Staff Physician Cardiology 01/05/20 Lulú Caballero MD [address] [place], [place] [address] Primary Staff Physician Cardiology 01/02/21 Contract Runner Relationship Specialty Start Date End Date Lazaro Degroot MD [address] [facility] [address] [place] [address] PCP - General Family Medicine 12/21/22 Nirmal Shipley MD [address] [facility] [address] [place] [address] Physician Cardiology 01/14/18 Darío Gomez MD [address] [place] [address] Primary Staff Physician Cardiology 01/05/20 Lulú Caballero MD [address] [place] [address] Primary Staff Physician Cardiology 01/02/21 Team Status: [...] November 26, 2024 End: November 26, 2024 Contract Runner Relationship Specialty Start Date End Date Lazaro Degroot MD [address] [place] [address] PCP - General Family Medicine 12/21/22 Nirmal Shipley MD [address] [place] [address] [address] [place] [address] Physician Cardiology 01/14/18 Darío Gomez MD [address] [facility] [place] [address] Primary Staff Physician Cardiology 01/05/20 Lulú Caballero MD [address] [place] [address] Primary Staff Physician Cardiology 01/02/21 Contract Runner Relationship Specialty Start Date End Date Lazaro Degroot MD [address] [place] [address] [address] [place] [address] PCP - General Family Medicine 12/21/22 Nirmal Shipley MD [address] [facility] [address] [place] [address] Physician Cardiology 01/14/18 Darío Gomez MD [address] [facility] [place], [place] [address] Primary Staff Physician Cardiology 01/05/20 Lulú Caballero MD [address] [place] [address] Primary Staff Physician Cardiology 01/02/21 Team Status: Active Member Role Status Dates Dr. Lazaro Degroot MD Primary Care Provider Active Start: 2024 Self Referred Attending Provider Active Start: 2024 Self Referred Referring Provider Active Start: [facility] 2024 Team Status: Active Member Role Status Dates Dr. Lazaro Degroot MD Primary Care Provider Active Start: 2024 Dr. Jamaal Ferro MD Attending Provider Active S tart: 2024 Team Status: Inactive Member Role Status Dates Dr. Lazaro Degroot MD Primary Care Provider Active Start: January 11, 2025 End: January 11, 2025 Dr. Nirmal Shipley MD Attending Provider Active S tart: January 11, 2025 End: January 11, 2025 Dr. Nirmal Shipley MD Referring Provider Active S tart: January 11, 2025 End: January 11, 2025 Team Status: Active Member Role Status Dates Dr. Lazaro Degroot MD Primary Care Provider Active Start: January 11, 2025 Dr. Nirmal Shipley MD Attending Provider Active S tart: January 11, 2025 Contract Runner Relationship Specialty Start Date End Date Lazaro Degroot MD [address] [facility] [address] [place], [place] [id number] PCP - General Family Medicine 12/21/22 Nirmal Shipley MD [address] [facility] [address] [place], [place] [address] Physician Cardiology 01/14/18 Darío Gomez MD [address] [place], [place] [address] Primary Staff Physician Cardiology 01/05/20 Lulú Caballero MD [address] [place] [address] Primary Staff Physician Cardiology 01/02/21 Contract Runner Relationship Specialty Start Date End Date Lazaro Degroot MD [address] [facility] [address] [place], [place] [address] PCP - General Family Medicine 12/21/22 Nirmal Shipley MD [address] [facility] [address] [place] [address] Physician Cardiology 01/14/18 Darío Gomez MD [address] [place], [place] [address] Primary Staff Physician Cardiology 01/05/20 Lulú Caballero MD [address] [place], [place] [address] Primary Staff Physician Cardiology 01/02/21 Contract Runner Relationship Specialty Start Date End Date Lazaro Degroot MD [address] [place] [address] [address] [place], [place] [id number] PCP - General Family Medicine 12/21/22 Nirmal Shipley MD [address] [facility] [address] [place], [place] [id number] Physician Cardiology 01/14/18 Darío Gomez MD [address] [place] [address] Primary Staff Physician Cardiology 01/05/20 Lulú Caballero MD [address] [place], [place] [id number] Primary Staff Physician Cardiology 01/02/21 Team Status: Active Member Role/Relationship Status Dates Dr. Lazaro Degroot MD Primary Care Provider Active Team Status: Inactive Member Role/Relationship Status Dates Dr. Lazaro Degroot MD Primary Care Provider Active Start: November 18, 2024 End: November 18, 2024 Dr. Nirmal Shipley MD Attending Provider Active S tart: November 18, 2024 End: November 18, 2024 Team Status: Inactive Member Role/Relationship Status Dates Dr. Lazaro Degroot MD Primary Care Provider Active Start: November 26, 2024 End: November 26, 2024 Dr. Lazaro Degroot MD Referring Provider Active Start: November 26, 2024 End: November 26, 2024 Dr. Nirmal Shipley MD Attending Provider Active S tart: November 26, 2024 End: November 26, 2024 Team Status: Inactive Member Role/Relationship Status Dates Dr. Lazaro Degroot MD Primary Care Provider Active Start: November 26, 2024 End: November 26, 2024 Dr. Nirmal Shipley MD Attending Provider Active S tart: November 26, 2024 End: November 26, 2024 Dr. Nirmal Shipley MD Referring Provider Active S tart: November 26, 2024 End: November 26, 2024 Team Status: Active Member Role/Relationship Status Dates Dr. Lazaro Degroot MD Primary Care Provider Active Start: 2024 Self Referred Attending Provider Active Start: 2024 Self Referred Referring Provider Active Start: 2024 Team Status: Active Member Role/Relationship Status Dates Dr. Lazaro Degroot MD Primary Care Provider Active Start: 2024 Dr. Jamaal Ferro MD Attending Provider Active S tart: 2024 Team Status: Inactive Member Role/Relationship Status Dates Dr. Lazaro Degroot MD Primary Care Provider Active Start: January 11, 2025 End: January 11, 2025 Dr. Nirmal Shipley MD Attending Provider Active S tart: January 11, 2025 End: January 11, 2025 Dr. Nirmal Shipley MD Referring Provider Active S tart: January 11, 2025 End: January 11, 2025 Team Status: Active Member Role/Relationship Status Dates Dr. Lazaro Degroot MD Primary Care Provider Active Start: January 11, 2025 Dr. Nirmal Shipley MD Attending Provider Active S tart: January 11, 2025 Team Status: Inactive Member Role/Relationship Status Dates Dr. Lazaro Degroot MD Primary Care Provider Active Start: February 17, 2025 End: February 17, 2025 Dr. Nirmal Shipley MD Attending Provider Active S tart: February 17, 2025 End: February 17, 2025 FOR RECORDS PERTAINING TO PATIENTS WHO ARE [...] BE BASED ON THE PRIMARY CLINICAL RECORDS. [facility] [employer] [facility]. provides no warranty or guarantee of the accuracy or completeness of information in this document.
[2025-04-23 20:52] VITALS: BP 123/79; PULSE 68; RESP 16; O2SAT 91
--- NOTE | 2025-04-23 21:30 | RAD_ITS ---
PROCEDURE: CHEST 1 VIEW (PORTABLE) 04/23/2025 REASON FOR EXAM: CHEST PAIN TECHNIQUE: Frontal view of the chest. COMPARISON: None available. FINDINGS: Hardware: A cardiac pacemaker is present. Heart: The heart size is normal. Lungs: The lungs are clear. Bones: The bones are unremarkable. RAD/Chest 1 View (Portable) IMPRESSION: No Acute Findings. Reading [facility]
[2025-04-23 21:32] VITALS: O2SAT 94
[2025-04-23 21:51] LABS: Troponin T High Sensitivity 7 ng/L (<=22)
[2025-04-23 21:52] LABS: Hematocrit 45.3 % (40-54); Hemoglobin 15.3 g/dL (13.0-16.5); Immature Granulocytes Count 0.010 X10^3/uL (0.0-0.0); Mean Corp Hgb Conc 33.8 g/dL (32-36); Mean Corpuscular Volume 95.4 fL (80-94); Mean Platelet Vol. 9.4 fl (6.2-12.0); NRBC Flagged by Analyzer 0 % (0-5); Platelet Count 227 K/mm3 (150-450); RBC Distribution Width CV 12.4 % (11.6-14.6); RBC Distribution Width SD 43.3 fl (35.1-43.9); Red Blood Count 4.75 M/mm3 (4.6-6.2); White Blood Count 5.2 K/mm3 (4.4-11.0)
[2025-04-23 21:53] LABS: Anion Gap 15 (5-15); BUN 15 mg/dL (4-19); BUN/Creat Ratio 13.9 RATIO (10-20); Calcium,Total 8.7 mg/dL (7.6-11.0); Carbon Dioxide 22.2 mmol/L (21.0-32.0); Chloride 104 mmol/L (98-108); Estimated Creatinine Clearance 67.59 ml/min (50-250); Glucose 127 mg/dL (70-99); Potassium 3.3 mmol/L (3.3-5.1); Pro- Brain NATRIURETIC PEPTIDE 57 pg/mL (<=900)
[2025-04-23 22:00] VITALS: BP 118/83; BP 119/73; BP 130/78; PULSE 68; PULSE 69; PULSE 71
--- NOTE | 2025-04-23 22:42 | ED.VIS.CHEST ---
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 He is presenting today with a tightness in his chest and an unusual feeling throughout his body. States he just does not feel right but is feeling better since being in the emergency room. He notes that he has been active (worked out earlier today and then mowed the lawn recently) without any symptoms. This evening around 7 or 730 he started to feel a buzzing sensation in his entire upper body and felt tightness in his chest. He denies feeling he was going to pass out or lightheaded. He states last time he had a minute similar symptoms when he did have his syncopal episode. He denies any swelling of his legs. Has any history of DVT or PE. Denies any shortness of breath. Was quite pale, sweaty and nauseous when he arrived to the emergency room but states that his color is in those symptoms are improving significantly. Denies any recent GI or symptoms. Denies any black or blood in his stool. States is possibly could be a little dehydrated. Notes that he did recently have a cardiac workup including a stress test and echocardiogram which were all normal. Follows with the EP at [facility] however he gets his pacemaker interrogated here. Does note that he is supposed to go on a cruise this coming Saturday [facility] Medical History Wears hearing aid Wears glasses Alcohol use History of steroid therapy Arthritis High cholesterol Back pain Migraine headache TIA (transient ischemic attack) History of diverticulitis Gastric reflux Non-smoker CPAP (continuous positive airway pressure) dependence Sleep apnea History of echocardiogram History of stress test History of pacemaker Hypertension Cardiology follow-up encounter History of irregular heartbeat Hx of strabismus Hx of lipoma Vitamin D deficiency Hearing loss Mitral valve prolapse RBBB (right bundle branch block with left anterior fascicular block) Allergic rhinitis GERD (gastroesophageal reflux disease) Hiatal hernia Diverticulosis BPH (benign prostatic hyperplasia) LLQ abdominal pain Abdominal pain Essential hypertension Monomorphic ventricular tachycardia Obstructive sleep apnea Syncope High degree atrioventricular block Nonrheumatic mitral (valve) prolapse Non-ischemic cardiomyopathy Ventricular septal defect RBBB with left anterior fascicular block HLD (hyperlipidemia) Home Medications ?Medication ?Instructions ?Recorded ?Last Taken ?Type aspirin 81 mg tablet,delayed 81 mg PO QDAY 0 days 11/01/17 12/31/22 History release calcium carbonate (Calcium 600) 600 mg PO QDAY 11/01/17 Unknown History dutasteride 0.5 mg capsule 0.5 mg PO QDAY 11/01/17 Unknown History (Avodart) multivitamin 1 tab PO QDAY 11/01/17 Unknown History esomeprazole magnesium 20 mg 40 mg PO QDAY 07/25/22 Unknown History capsule,delayed release (Nexium) Lactobacillus acidophilus 10 10,000 mmu cells PO DAILY 01/01/23 Unknown History billion cell capsule (Probiotic) tadalafil 5 mg tablet 5 mg PO DAILY PRN Erectile 01/01/23 04/22/25 History Dysfunction fluticasone propionate 50 1 spray intranasal Q12H PRN 07/30/23 Unknown History mcg/actuation nasal allergy symptoms spray,suspension dicyclomine 10 mg capsule 10 mg PO BID PRN abdominal pain 03/12/24 Unknown Rx #20 caps atorvastatin 20 mg tablet 20 mg PO DAILY #90 tabs 06/22/24 Unknown Rx metoprolol succinate 50 mg 50 mg PO DAILY #90 tabs 06/25/24 Unknown Rx tablet,extended release 24 hr amlodipine 5 mg tablet 5 mg PO DAILY #90 tabs 08/07/24 Unknown Rx Allergy/AdvReac Type Severity Reaction Status Date / Time metronidazole (From Flagyl) AdvReac Intermediate Nausea Verified 04/23/25 20:14 Family History Father Myocardial infarction Heart disease Mother Hypertension History of PTCA Brother Myocardial infarction CAD (coronary artery disease) Hx CABG x 4 Surgical History Hx of hernia repair History of permanent cardiac pacemaker placement (06/15/19) Hx of aneurysm (1960) Hx of bilateral inguinal hernia repair Hx of ventricular septal defect repair History of loop recorder (08/23/16) Social History Smoking Status: Never smoker alcohol intake: current alcohol intake frequency: holidays/special occasions only Alcohol type: wine ROS ROS ED Constitutional Constitutional ED: Reports sweats; Denies chills or fever(s) Eyes Eyes: Denies blurry vision Cardiovascular Cardiovascular: Reports as per HPI and chest pain; Denies palpitations or racing heartbeat Respiratory/Chest Respiratory/Chest: Denies cough, dyspnea or dyspnea on exertion Gastrointestinal Gastrointestinal: Reports nausea; Denies abdominal pain, diarrhea, melena or vomiting Genitourinary Genitourinary ED: Denies dysuria Musculoskeletal Musculoskeletal: Denies arthralgias, back pain or myalgias Integumentary Denies rash Neurologic Neurologic: Denies paresthesias or weakness Psychiatric Psychiatric: Reports anxiety Hematologic/Lymphatic Hematologic/Lymphatic: Denies easy bleeding or easy bruising EXAM Physical Exam Const Vital Signs: 04/23/25 20:11 04/23/25 20:34 04/23/25 20:52 Temperature 97.8 F Temperature Source Temporal Pulse Rate 53 L 68 Pulse Rate [Lying] Pulse Rate [Sitting (for 1 minute prior to obtaining)] Pulse Rate [Standing (for 1 minute prior to obtaining)] Respiratory Rate 27 H 16 Respiratory Effort Normal Blood Pressure 158/106 H 123/79 H Blood Pressure [Lying] Blood Pressure [Sitting (for 1 minute prior to obtaining)] Blood Pressure [Standing (for 1 minute prior to obtaining)] Blood Pressure Mean 123 93 Blood Pressure Mean [Lying] Blood Pressure Mean [Sitting (for 1 minute prior to obtaining)] Blood Pressure Mean [Standing (for 1 minute prior to obtaining)] Pulse Ox 98 91 Oxygen Delivery Method Room Air Room Air 04/23/25 21:32 04/23/25 22:00 04/23/25 23:00 Temperature Temperature Source Pulse Rate 70 Pulse Rate [Lying] 68 Pulse Rate [Sitting (for 1 minute prior to obtaining)] 69 Pulse Rate [Standing (for 1 minute prior to obtaining)] 71 Respiratory Rate 16 Respiratory Effort Blood Pressure 129/91 H Blood Pressure [Lying] 119/73 Blood Pressure [Sitting (for 1 minute prior to obtaining)] 118/83 H Blood Pressure [Standing (for 1 minute prior to obtaining)] 130/78 H Blood Pressure Mean 103 Blood Pressure Mean [Lying] 88 Blood Pressure Mean [Sitting (for 1 minute prior to obtaining)] 94 Blood Pressure Mean [Standing (for 1 minute prior to obtaining)] 95 Pulse Ox 94 94 Oxygen Delivery Method Room Air Room Air Positive well nourished and well developed General Appearance ED: well developed and NAD; Negative for pallor HEENT Reports moist mucous membranes normocephalic and atraumatic Neck supple and no JVD Chest Wall inspection of chest normal and palpation of chest normal Resp normal respiratory effort and clear to auscultation bilaterally Auscultation: Negative for rhonchi, wheezes or diminished lung sounds Cardio regular rate, regular rhythm and no murmurs GI normal to inspection, nondistended, normoactive bowel sounds and soft to palpation Extremity normal to inspection Neuro oriented x3 and CN's II-XII intact bilaterally Sensorium / Orientation: awake Motor Exam: Negative for general weakness Psych mental status grossly normal Skin no rashes or lesions noted and no wounds General Skin Exam: Negative for pallor Heart Score History: Slightly/Non-Suspicious ECG: Nonspecific Repolarization Age: >/= 65 years Risk Factors: 1 or 2 Risk Factors Troponin: </= Normal Limit Score: 4 MDM MDM MDM Narrative Medical decision making narrative: Patient evaluated for chest tightness and what sounds like a possible near syncopal episode. On arrival he is mildly bradycardic with a heart rate of 53 and mildly hypertensive. Differential includes not limited to arrhythmia this is less likely as he has a pacemaker but will have it interrogated), pneumonia, electrolyte derangement, ACS and acute heart failure/pleural effusion. CBC, BMP, initial high-sensitivity troponin and BNP are all largely normal. Chest x-ray viewed by myself as well as radiology shows a pacemaker but no acute abnormalities. Orthostatic vital signs are normal. EKG shows a bifascicular block with no acute ischemic changes and pacemaker function present. Anticipate if delta high-sensitivity troponin is normal patient can be discharged home with outpatient cardiac follow-up. Echocardiogram from 01/11/2025 reviewed which showed normal LV size, EF of approximately 50% with mild global hypokinesis of the left ventricle and stage I diastolic dysfunction. Compared to prior study LV systolic function had improved. Stress test from 01/11/2025 reviewed which was a normal pharmacologic myocardial perfusion stress test with preserved EF. Spoke with [employer] rep who states that he did have events but the device is operating appropriately. Has Rythmiq mode which will kick in when needed to try to limit any type of ventricular pacing. This is what happened earlier. Is possible he was just symptomatic from this. It generally is triggered by PVCs. He can follow-up for potential device setting changes as needed. I will be discharged home his delta high-sensitivity troponin is normal. Given return precautions. Encouraged to follow-up with cardiology early next week. Lab Data Attestation: I reviewed the patient's lab results. Labs: Laboratory Results - last 24 hr 04/23/25 04/23/25 20:45 23:00 WBC 5.2 RBC 4.75 Hgb 15.3 Hct 45.3 MCV 95.4 H MCH 32.2 H MCHC 33.8 RDW Std Deviation 43.3 RDW Coeff of Kathy 12.4 Plt Count 227 MPV 9.4 Immature Gran % (Auto) 0.200 Neut % (Auto) 56.5 Lymph % (Auto) 26.9 [place] % (Auto) 8.7 Eos % (Auto) 6.0 H Baso % (Auto) 1.7 H Absolute Neuts (auto) 2.9 Absolute Lymphs (auto) 1.39 Nucleated RBC % 0 Sodium 141 Potassium 3.3 Chloride 104 Carbon Dioxide 22.2 Anion Gap 15 BUN 15 Creatinine 1.05 Estim Creat Clear Calc 67.59 Est GFR (MDRD) Non-Af 77 BUN/Creatinine Ratio 13.9 Glucose 127 H Calcium 8.7 Troponin T High Sens 7 Troponin T Hi Sens 2 Hr 10 NT pro BNP II 57 Radiography Diagnostic Testing: Clinical Impression(s) from Imaging Studies Chest X-Ray 04/23/25 21:30 IMPRESSION: No Acute Findings. Reading Location: [facility] Rhythm Strip Rhythm Strip: Sinus Rhythm Rate: 63 Ectopy: None EKG Initial EKG: Attestation: I personally reviewed and interpreted this EKG as follows: Interpretation: Sinus Rhythm Comments: Sinus rhythm with paced atrial complexes at a rate of 63 beats per minutes Right bundle branch and left anterior fascicular block present Minimal voltage criteria for LVH Nonspecific T wave abnormality and V2 and V3 No significant change greater prior EKG Prior EKG tracings: available for review Prior: Unchanged Management Discussion w/another healthcare provider: Pipe Turner Discharge Plan Triage Chief Complaint: Chest Pain ED Provider: Dinah Mcmillan Dx/Rx/DC Orders Clinical Impression: Bradycardia, History of permanent cardiac pacemaker placement, RBBB with left anterior fascicular block Instructions: ED Pacer AICD Dc Prescriptions: No Action aspirin 81 mg 10 81 mg PO QDAY 0 Days Patient Comments: by mouth dutasteride [Avodart] 0.5 mg capsule 0.5 mg PO QDAY multivitamin tablet 1 tab PO QDAY calcium carbonate [Calcium 600] 600 mg calcium (1,500 mg) tablet 600 mg PO QDAY esomeprazole magnesium [Nexium] 20 mg capsule,delayed release(DR/EC) 40 mg PO QDAY fluticasone propionate 50 mcg/actuation spray,suspension 1 spray intranasal Q12H PRN (Reason: allergy symptoms) Rx Instructions: administer into each nostril dicyclomine 10 mg capsule 10 mg PO BID PRN (Reason: abdominal pain) Qty: 20 2RF tadalafil 5 mg Tablet 5 mg PO DAILY PRN (Reason: Erectile Dysfunction) Rx Instructions: administer approximately 30min before sexual activity; do not use more than 1 dose per 24hrs Probiotic 10 billion cell Capsule 10,000 mmu cells PO DAILY atorvastatin 20 mg tablet 20 mg PO DAILY Qty: 90 3RF metoprolol succinate 50 mg tablet extended release 24 hr 50 mg PO DAILY Qty: 90 3RF amlodipine 5 mg tablet 5 mg PO DAILY Qty: 90 3RF Primary Care Provider: Lazaro Degroot Referrals: Nirmal Shipley MD [Med Staff - Active Staff, Cardiology] Lazaro Degroot MD [Primary Care Provider, Family Practice] Activity Restrictions/Additional Instructions: Your workup today was largely normal and reassuring. Your pacemaker is functioning appropriately. Please follow-up with cardiology early next week. Print Language: Icelandic Disposition Disposition: Home, Self Care
[2025-04-23 23:00] VITALS: BP 129/91; PULSE 70; RESP 16; O2SAT 94
[2025-04-23 23:37] LABS: Troponin T High Sens 2 HR 10 ng/L (<=22)
[2025-04-23 23:43] VITALS: BP 128/74; PULSE 76; RESP 16; TEMP 36.7; O2SAT 74
== END 2025-04-23 23:50 | disposition home or self-care (01) ==
PROVIDERS: Emergency Provider Emergency Medicine; PCP Family Medicine; Visit Provider Emergency Medicine
DX: R00.1 Bradycardia, unspecified (principal); I45.2 Bifascicular block; I10 Essential (primary) hypertension; E78.00 Pure hypercholesterolemia, unspecified; G47.33 Obstructive sleep apnea (adult) (pediatric); Z79.82 Long term (current) use of aspirin; Z79.899 Other long term (current) drug therapy; Z95.0 Presence of cardiac pacemaker; Z86.73 Personal history of transient ischemic attack (TIA), and cerebral infarction without residual deficits
CPT/HCPCS: 71045; 80048; 83880; 84484; 85025; 93005; 99285; A4216